=== PATIENT | male | born 1930 | race African-American/Black ===

== ENCOUNTER 2019-03-20 20:12 | Emergency (ER) | payer OTHER ==
--- NOTE | 2019-03-20 20:18 | PDOC ---
Rapid Medical Evaluation Time Seen by Provider: 03/20/19 20:16 Medical Evaluation: Allergies Allergy/AdvReac Type Severity Reaction Status Date / Time kiwi Allergy Severe Hives Verified 03/20/19 20:16 Penicillins Allergy Unknown Verified 03/20/19 20:16 03/20/19 20:16 CC: Groin pain Pt is an 88 y/o male who presents to the ED with a pain in the groin since this evening. He denies any dysuria. He denies any dysuria. No fever. Brief exam: no acute distress, R groin pain appreciated. No acute abdominal pain appreciated. Orders: labs, iv To ED for further evaluation Discharge Disposition - Diagnosis Groin pain - Referrals Referrals: Alyson Yang MD [Primary Care Provider] - - Patient Instructions - Post Discharge Activity
[2019-03-20 20:19] VITALS: TEMP 97.4; BMI 24.5
[2019-03-20 21:01] LABS: BASO % 0.9 % (0-2.0); HEMATOCRIT 28.7 % (35.4-49); HEMOGLOBIN 8.9 GM/dL (11.7-16.9); LYMPH % 28.7 % (8-40); MCH 28.4 pg (25.7-33.7); MEAN CELL VOLUME 91.7 fl (80-96); MEAN PLT VOLUME 10.1 fl (7.5-11.1); MONO % 15.6 % (3.8-10.2); NEUT % 52.8 % (42.8-82.8); PLATELET COUNT 149 K/MM3 (134-434); RBC 3.13 M/mm3 (4.00-5.60); RDW 24.9 % (11.9-15.9); WHITE BLOOD COUNT 4.4 K/mm3 (4.0-10.0)
[2019-03-20] MEDS ORDERED: ACETAMINOPHEN 1000 MG/100 ML VIAL (NON FORMULARY) IVPB ONE (21:05)
[2019-03-20 21:09] LABS: EPI CELLS 1.4 /HPF (0-5/HPF); HYALINE CASTS 4 /lpf (0-8); PH,URINE 5.5 (5.0-8.0); URINE APPEARANCE CLEAR; URINE BACTERIA 5.3 /hpf (NEGATIVE); URINE BILIRUBIN 1+ (NEGATIVE); URINE COLOR DK YELLOW; URINE GLUCOSE (UA) NEGATIVE (NEGATIVE); URINE KETONE TRACE (NEGATIVE); URINE LEUK ESTERASE NEGATIVE (NEGATIVE); URINE NITRITE NEGATIVE (NEGATIVE); URINE PROTEIN 1+ (NEGATIVE); URINE RBC 2 /hpf (0-4); URINE WBC 1 /hpf (0-5)
[2019-03-20 21:22] LABS: ADD RBC MORPHOLOGY YES
[2019-03-20 21:40] LABS: ALBUMIN 3.9 g/dl (3.4-5.0); BILIRUBIN,TOTAL 1.9 mg/dL (0.2-1); BLOOD UREA NITROGEN 30.2 mg/dL (7-18); CALCIUM 8.9 mg/dL (8.5-10.1); CREATININE 1.5 mg/dL (0.55-1.3); POTASSIUM 4.9 mmol/L (3.5-5.1); TOT PROT 7.9 g/dl (6.4-8.2)
[2019-03-20 21:47] LABS: ANISOCYTOSIS 3+; PLATELET ESTIMATE DECREASED; TARGET CELLS 1+
[2019-03-20] MEDS ORDERED: ACETAMINOPHEN INJECTION 100 ML IVPB ONE (22:21)
--- NOTE | 2019-03-20 22:50 | PDOC ---
Attending Attestation - Resident Resident Name: Dave Ivy - ED Attending Attestation I have performed the following: I have examined & evaluated the patient, The case was reviewed & discussed with the resident, I agree w/resident's findings & plan, Exceptions are as noted - HPI HPI: 03/20/19 22:48 88 M with h/o anemia of chronic disease, dysproteinemia, systolic CHF, a.fib ( on Coumadin), Mitral valve bioprosthetic 2003, ICD 2012, presenting to ED with 1 day of R groin pain. Pt states that he first noticed a bulge in his R groin today. This was accompanied by pain in the area. Pt denies N/V. Endorses chronic abdominal distention that is unchanged. Last BM was today, normal. - Physicial Exam PE: 03/20/19 22:49 "GENERAL: Awake, alert, and fully oriented, in no acute distress. HEAD: No signs of trauma EYES: PERRLA, EOMI, sclera anicteric, conjunctiva clear ENT: Auricles normal inspection, hearing grossly normal, nares patent, oropharynx clear without exudates. Moist mucosa NECK: Nontender, no stepoffs, Normal ROM, supple, no lymphadenopathy, JVD, or masses LUNGS: Breath sounds equal, clear to auscultation bilaterally. No wheezes, and no crackles HEART: Regular rate and rhythm, normal S1 and S2, no murmurs, rubs or gallops ABDOMEN: Soft, nontender, normoactive bowel sounds. No guarding, no rebound. No masses : + R inguinal hernia palpable EXTREMITIES: Normal range of motion, no edema. No clubbing or cyanosis. No cords, erythema, or tenderness NEUROLOGICAL: Cranial nerves II through XII intact. 5/5 strength and sensation in all extremities, Normal speech, normal gait, normal cerebellar function SKIN: Warm, Dry, normal turgor, no rashes or lesions noted. - Medical Decision Making 03/20/19 22:49 88 M with R groin pain. Will evaluate for incarcerated inguinal hernia. - Labs, lactate - CTAP 03/21/19 01:[address] shows bilateral fat containing inguinal hernias. Pt reassessed - pain well controlled Will DC with surgery f/u Pt is well appearing, with normal vitals. Clinically stable for DC at this time. I discussed the physical exam findings, ancillary test results and final diagnoses with the patient. I answered all of the patient's questions. The patient was satisfied with the care received and felt comfortable with the discharge plan and treatment plan. The patient agrees to follow up with the primary care physician within 24-72 hours.
--- NOTE | 2019-03-20 23:11 | PDOC ---
History of Present Illness <Marcella Maurer - Last Filed: 03/21/19 01:13> - General History Source: Patient Exam Limitations: No Limitations - History of Present Illness Initial Comments: Michael Huitron is an 88 yo M w a hx of CKD, anemia of chronic disease, dysproteinemia, systolic CHF, a.fib (on Coumadin), Mitral valve bioprosthetic 2003, ICD 2012, and stomach ulcer who presents to the [facility] er with 1 day of right groin pain. Patient states he feels like every time he walks there is an increased pressure and heaviness in his right groin and he feels extra pressure around his scrotum. The patient states this pain has become bothersome to the point where he wants to make sure it is not dangerous. He had a normal bowel movement earlier today without diarrhea or constipation. The pain is isolated to the right lower quadrant of his abdomen and it does not radiate to his back, flank, or upper abdomen. Denies nausea, vomiting, diarrhea, constipation, chest pain, SOB, difficulty breathing, dysuria, frequency, urgency, back pain, abnormal testicular discharge. PCP: Dr. Yang PSH: Cardiac sx, ICD Social Hx: Independent in ADL. Denies smoking, drinking, or other substance abuse Allergies: Kiwi, penicillins <Dave Ivy - Last Filed: 03/21/19 17:11> - General Chief Complaint: Pain Stated Complaint: GROIN PAIN Time Seen by Provider: 03/20/19 20:16 Past History <Marcella Maurer - Last Filed: 03/21/19 01:13> - Past Medical History Anemia: Yes (NORMOCYTIC NORMOCHROMIC ANEMIA) Asthma: No Cancer: No Cardiac Disorders: Yes (MITRAL VALVE SURGERY, PACEMAKER/DEFIBRILLATOR 12/01 ATRIAL FIBRILLATION) CVA: No COPD: Yes CHF: No Dementia: No Diabetes: No GI Disorders: Yes (ULCER,) Disorders: Yes (BPH) HTN: No Hypercholesterolemia: No Liver Disease: Yes (HEPATITIS B ?) Seizures: No Thyroid Disease: No - Surgical History Abdominal Surgery: No Appendectomy: No Cardiac Surgery: Yes (MITRAL VALVE REPAIR) Cholecystectomy: No Lung Surgery: No Neurologic Surgery: No Orthopedic Surgery: No - Immunization History Td Vaccination: Yes Immunization Up to Date: Yes - Psycho Social/Smoking Cessation Hx Smoking Status: Yes Smoking History: Never smoked Have you smoked in the past 12 months: No Number of Cigarettes Smoked Daily: 0 If you are a former smoker, when did you quit?: 1977 Information on smoking cessation initiated: No Hx Alcohol Use: No Drug/Substance Use Hx: No Substance Use Type: None Hx Substance Use Treatment: No <Dave Ivy - Last Filed: 03/21/19 17:11> - Past Medical History Allergies/Adverse Reactions: Allergies Allergy/AdvReac Type Severity Reaction Status Date / Time kiwi Allergy Severe Hives Verified 03/20/19 20:16 Penicillins Allergy Unknown Verified 03/20/19 20:16 Home Medications: Ambulatory Orders Carvedilol [Coreg -] 12.5 mg PO BID 09/30/13 Digoxin [Lanoxin -] 0.125 mg PO Q48H 02/24/15 Warfarin Na [Coumadin -] 3 mg PO DAILY 02/24/15 Calcitriol [Calcitriol -] 0.25 mcg PO DAILY 04/12/17 Furosemide [Lasix -] 40 mg PO DAILY PRN 04/12/17 Lansoprazole [Prevacid] 30 mg PO DAILY 04/12/17 Cefuroxime Axetil [Ceftin -] 250 mg PO BID #8 tablet 04/20/17 Colchicine 0.6 mg PO DAILY #7 tablet 04/20/17 Furosemide [Lasix -] 40 mg PO DAILY #30 tablet 04/20/17 Lisinopril [Prinivil] 10 mg PO DAILY #30 tablet 04/20/17 Spironolactone [Aldactone -] 12.5 mg PO DAILY #30 tablet 04/20/17 Review of Systems - Review of Systems Able to Perform ROS?: Yes Comments:: CONSTITUTIONAL: Absent: fever, no chills, no fatigue EYES: Absent: visual changes ENT: Absent: ear pain, no sore throat CARDIOVASCULAR: Absent: chest pain, no palpitations RESPIRATORY: Absent: cough, no SOB GI: Present: Abdominal pain Absent: no nausea, no vomiting, no constipation, no diarrhea GENITOURINARY: Absent: dysuria, no frequency, no hematuria MUSKULOSKELETAL: Absent: back pain, no arthralgia, no myalgia SKIN: Absent: rash NEURO: Absent: headache <Dave Ivy - Last Filed: 03/21/19 17:11> *Physical Exam - Vital Signs Last Vital Signs Temp Pulse Resp BP Pulse Ox 97.4 F L 86 16 107/59 L 99 03/20/19 20:16 03/20/19 20:16 03/20/19 20:16 03/20/19 20:16 03/20/19 20:16 <Marcella Maurer - Last Filed: 03/21/19 01:13> - Vital Signs Last Vital Signs Temp Pulse Resp BP Pulse Ox 97.4 F L 86 16 107/59 L 99 03/20/19 20:16 03/20/19 20:16 03/20/19 20:16 03/20/19 20:16 03/20/19 20:16 - Physical Exam GENERAL: Well-appearing, well-nourished. No apparent distress. HEENT: Normocephalic, atraumatic. PERRL, EOM intact. CARDIOVASCULAR: Normal S1, S2. Regular rate and rhythm. PULMONARY: No evidence of respiratory distress. Lungs clear to auscultation bilaterally. No wheezing, rales or rhonchi. ABDOMEN: There is a mild bulge in the inferior right groin region. There is a palpable hernia defect. The patient has a small reducible hernia. It is not TTP. Soft, non-distended, non-tender. Normal bowel sounds. No rebound or guarding. EXTREMITIES: Normal ROM in all four extremities. No gross deformities. SKIN: Warm, dry. No rash NEUROLOGICAL: No focal neurological deficits. <Dave Ivy - Last Filed: 03/21/19 17:11> ED Treatment Course - LABORATORY CBC & Chemistry Diagram: 03/20/19 20:33 03/20/19 20:33 - ADDITIONAL ORDERS Additional order review: Laboratory Results 03/20/19 03/20/19 03/20/19 22:30 20:33 20:33 Sodium 136 Potassium 4.9 Chloride 106 Carbon Dioxide 27 Anion Gap 4 L BUN 30.2 H Creatinine 1.5 H Est GFR (CKD-EPI)AfAm 48.16 Est GFR (CKD-EPI)NonAf 41.56 Random Glucose 95 Lactic Acid 0.8 Calcium 8.9 Total Bilirubin 1.9 H AST 37 ALT 30 Alkaline Phosphatase 147 H Total Protein 7.9 Albumin 3.9 Urine Color Dk yellow Urine Appearance Clear Urine pH 5.5 Ur Specific Carlotta 1.020 Urine Protein 1+ H Urine Glucose (UA) Negative Urine Ketones Trace H Urine Blood Negative Urine Nitrite Negative Urine Bilirubin 1+ H Urine Urobilinogen 2.0 Ur Leukocyte Esterase Negative Urine WBC (Auto) 1 Urine RBC (Auto) 2 Urine Casts (Auto) 4 U Epithel Cells (Auto) 1.4 Urine Bacteria (Auto) 5.3 03/20/19 20:33 RBC 3.13 L MCV 91.7 MCHC 31.0 L RDW 24.9 H MPV 10.1 D Neutrophils % 52.8 Lymphocytes % 28.7 Monocytes % 15.6 H Eosinophils % 2.0 Basophils % 0.9 - Medications Given in the ED: ED Medications Discontinued Medications Generic Name Dose Route Start Last Admin Trade Name Freq PRN Reason Stop Dose Admin Acetaminophen 1,000 mg 03/20/19 21:05 03/20/19 22:22 Ofirmev Injection - IVPB 03/20/19 21:06 1,000 mg ONCE ONE Administration <Marcella Maurer - Last Filed: 03/21/19 01:13> - LABORATORY CBC & Chemistry Diagram: 03/20/19 20:33 03/20/19 20:33 - ADDITIONAL ORDERS Additional order review: Laboratory Results 03/20/19 03/20/19 03/20/19 22:30 20:33 20:33 Sodium 136 Potassium 4.9 Chloride 106 Carbon Dioxide 27 Anion Gap 4 L BUN 30.2 H Creatinine 1.5 H Est GFR (CKD-EPI)AfAm 48.16 Est GFR (CKD-EPI)NonAf 41.56 Random Glucose 95 Lactic Acid 0.8 Calcium 8.9 Total Bilirubin 1.9 H AST 37 ALT 30 Alkaline Phosphatase 147 H Total Protein 7.9 Albumin 3.9 Urine Color Dk yellow Urine Appearance Clear Urine pH 5.5 Ur Specific Carlotta 1.020 Urine Protein 1+ H Urine Glucose (UA) Negative Urine Ketones Trace H Urine Blood Negative Urine Nitrite Negative Urine Bilirubin 1+ H Urine Urobilinogen 2.0 Ur Leukocyte Esterase Negative Urine WBC (Auto) 1 Urine RBC (Auto) 2 Urine Casts (Auto) 4 U Epithel Cells (Auto) 1.4 Urine Bacteria (Auto) 5.3 03/20/19 20:33 RBC 3.13 L MCV 91.7 MCHC 31.0 L RDW 24.9 H MPV 10.1 D Neutrophils % 52.8 Lymphocytes % 28.7 Monocytes % 15.6 H Eosinophils % 2.0 Basophils % 0.9 - Medications Given in the ED: ED Medications Discontinued Medications Generic Name Dose Route Start Last Admin Trade Name Indra PRN Reason Stop Dose Admin Acetaminophen 1,000 mg 03/20/19 21:05 03/20/19 22:22 Ofirmev Injection - IVPB 03/20/19 21:06 1,000 mg ONCE ONE Administration <Dave Ivy - Last Filed: 03/21/19 17:11> Medical Decision Making - Medical Decision Making Michael Huitron is an 88 yo M w a hx of CKD, anemia of chronic disease, dysproteinemia, systolic CHF, a.fib (on Coumadin), Mitral valve bioprosthetic 2003, ICD 2012, and stomach ulcer who presents to the [facility] er with 1 day of right groin pain. Patient states he feels like every time he walks there is an increased pressure and heaviness in his right groin and he feels extra pressure around his scrotum. The patient states this pain has become bothersome to the point where he wants to make sure it is not dangerous. He had a normal bowel movement earlier today without diarrhea or constipation. The pain is isolated to the right lower quadrant of his abdomen and it does not radiate to his back, flank, or upper abdomen. Denies nausea, vomiting, diarrhea, constipation, chest pain, SOB, difficulty breathing, dysuria, frequency, urgency, back pain, abnormal testicular discharge. Vital Signs Temp Pulse Resp BP Pulse Ox 97.4 F L 86 16 107/59 L 99 03/20/19 20:16 03/20/19 20:16 03/20/19 20:16 03/20/19 20:16 03/20/19 20:16 DDx IBNLT: Hernia - reducible vs irreducible, incarcerated vs strangulated, electrolyte/metabolic disturbance, anemia, renal injury, UTI/pylo, appendicitis Plan: Labs, Urine, CTAP, analgesia, re-assess. Labs: Anemia - appears to be chronic, JEWEL - also appears to be chronic Urine: No evidence of infection CTAP: Small b/l fat containing inguinal hernias Re-assessment: Patient feels better after analgesic relief. He is eating and drinking without pain the ER Disposition: Home with surgery and PCP fu - Strict return precautions - Patient will be signed out to Dr. Maurer to follow the CTAP read and for the rest of his ED workup and care <Dave Ivy - Last Filed: 03/21/19 17:11> Discharge <Marcella Maurer - Last Filed: 03/21/19 01:13> - Discharge Information Problems reviewed: Yes - Admission No <Dave Ivy - Last Filed: 03/21/19 17:11> - Discharge Information Clinical Impression/Diagnosis: Groin pain Qualifiers: Laterality: right Qualified Code(s): R10.31 - Right lower quadrant pain Condition: Improved Disposition: HOME - Follow up/Referral Referrals: Alyson Yang MD [Primary Care Provider] - Ilia Hemphill MD [Staff Physician] - Scotty Stiles MD [Staff Physician] - Rudi Chauhan DO [Staff Physician] - Sandhya Zamora DO [Staff Physician] - Jose Manuel Pryor MD [Staff Physician] - - Patient Discharge Instructions Patient Printed Discharge Instructions: DI for Groin Hernia Additional Instructions: You came into ER with groin pain. We believe you have a hernia. Please schedule a follow up appointment with the surgeon we are referring you to - Dr. Hemphill in the next 3 to 5 days. I also recommend follow up with the GI doctor for the cirrhosis. Come back to the ER immediately if your pain worsens, you get nauseous, start vomiting, cannot goto the bathrooom, get a fever, have severe pain or have any other new or worsening concerns. take tylenol as needed for pain. Thank you for coming to the [facility] ER. We hope you feel better soon! Print Language: GREEK - Post Discharge Activity
[2019-03-21 01:37] VITALS: BP 122/72; PULSE 83
== END 2019-03-21 01:30 | disposition home or self-care (01) ==
LOC: JER 20:12
PROC: 3E033GC Introduction of Other Therapeutic Substance into Peripheral Vein, Percutaneous Approach (ICD-10-PCS; principal; 2019-03-20)
DX: K40.20 Bilateral inguinal hernia, without obstruction or gangrene, not specified as recurrent (principal); I48.91 Unspecified atrial fibrillation; Z79.01 Long term (current) use of anticoagulants; I50.20 Unspecified systolic (congestive) heart failure; N18.9 Chronic kidney disease, unspecified; E88.09 Other disorders of plasma-protein metabolism, not elsewhere classified; D64.9 Anemia, unspecified; Z95.810 Presence of automatic (implantable) cardiac defibrillator; Z95.4 Presence of other heart-valve replacement; Z88.0 Allergy status to penicillin; Z91.018 Allergy to other foods
CPT/HCPCS: 36415; 74177-TC; 80053; 81003; 83605; 85025; 99283-25; J0131

== ENCOUNTER 2019-07-11 12:42 | Inpatient (IN) | payer OTHER ==
--- NOTE | 2019-07-11 13:07 | PDOC ---
History of Present Illness - General Chief Complaint: Shortness of Breath Stated Complaint: SOB - History of Present Illness Initial Comments: Michael Huitron is an 88 y/o male with PMH significant for CKD, anemia of chronic disease, dysproteinemia, sCHF, a-fib on coumadin, mitral valve bioprosthetic, ICD, stomach ulcer, presenting today with shortness of breath 1 hour ago. Called his psychological operations and was told to present to the ER. Shortness of breath is worse on exertion. Resting comfortably in bed at present. No headache/dizziness. No chest pain. No back pain. No abdominal pain, but also reports abdominal distension over the past couple of months after a right inguinal hernia repair was deferred due to COVID. Reports constipation and dark black stools over the past two weeks. Mild leg swelling which is baseline. No dysuria. Past History - Past Medical History Allergies/Adverse Reactions: Allergies Allergy/AdvReac Type Severity Reaction Status Date / Time kiwi Allergy Severe Hives Verified 07/11/19 13:10 Penicillins Allergy Unknown Verified 07/11/19 13:10 Home Medications: Ambulatory Orders Carvedilol [Coreg -] 12.5 mg PO BID 09/30/13 Digoxin [Lanoxin -] 0.125 mg PO Q48H 02/24/15 Warfarin Na [Coumadin -] 3 mg PO DAILY 02/24/15 Calcitriol [Calcitriol -] 0.25 mcg PO DAILY 04/12/17 Furosemide [Lasix -] 40 mg PO DAILY PRN 04/12/17 Lansoprazole [Prevacid] 30 mg PO DAILY 04/12/17 Cefuroxime Axetil [Ceftin -] 250 mg PO BID #8 tablet 04/20/17 Colchicine 0.6 mg PO DAILY #7 tablet 04/20/17 Furosemide [Lasix -] 40 mg PO DAILY #30 tablet 04/20/17 Lisinopril [Prinivil] 10 mg PO DAILY #30 tablet 04/20/17 Spironolactone [Aldactone -] 12.5 mg PO DAILY #30 tablet 04/20/17 Anemia: Yes (NORMOCYTIC NORMOCHROMIC ANEMIA) Asthma: No Cancer: No Cardiac Disorders: Yes (MITRAL VALVE SURGERY, PACEMAKER/DEFIBRILLATOR 12/01 ATRIAL FIBRILLATION) CVA: No COPD: Yes CHF: No Dementia: No Diabetes: No GI Disorders: Yes (ULCER,) Disorders: Yes (BPH) HTN: No Hypercholesterolemia: No Liver Disease: Yes (HEPATITIS B ?) Seizures: No Thyroid Disease: No - Surgical History Abdominal Surgery: No Appendectomy: No Cardiac Surgery: Yes (MITRAL VALVE REPAIR) Cholecystectomy: No Lung Surgery: No Neurologic Surgery: No Orthopedic Surgery: No - Immunization History Td Vaccination: Yes Immunization Up to Date: Yes - Psycho Social/Smoking Cessation Hx Smoking Status: Yes Smoking History: Never smoked Have you smoked in the past 12 months: No Number of Cigarettes Smoked Daily: 0 If you are a former smoker, when did you quit?: 1977 Information on smoking cessation initiated: No Hx Alcohol Use: No Drug/Substance Use Hx: No Substance Use Type: None Hx Substance Use Treatment: No Review of Systems - Review of Systems Comments:: GENERAL/CONSTITUTIONAL: No fever or chills. No weakness._ HEAD, EYES, EARS, NOSE AND THROAT: No change in vision. No change in hearing. No sore throat._ CARDIOVASCULAR: No chest pain. Reports shortness of breath. RESPIRATORY: Denies cough, hemoptysis_ GASTROINTESTINAL: No nausea, vomiting, diarrhea. Reports constipation. Reports black stools. GENITOURINARY: No dysuria, frequency, or change in urination._ MUSCULOSKELETAL: No joint or muscle swelling or pain. No neck or back pain._ SKIN: No rash_ NEUROLOGIC: No headache, vertigo, loss of consciousness, or change in strength/sensation._ ENDOCRINE: No increased thirst. No abnormal weight change_ HEMATOLOGIC/LYMPHATIC: No anemia, easy bleeding, or history of blood clots._ ALLERGIC/IMMUNOLOGIC: No hives or skin allergy._ *Physical Exam - Vital Signs Last Vital Signs Temp Pulse Resp BP Pulse Ox 97.4 F L 66 18 126/64 99 07/11/19 12:46 07/11/19 12:46 07/11/19 12:46 07/11/19 12:46 07/11/19 12:46 - Physical Exam GENERAL: Awake, alert, and oriented to person/place/time, in no acute distress_ HEAD: No signs of trauma, normocephalic, atraumatic _ EYES: PERRLA, EOMI, sclera anicteric, conjunctiva clear_ ENT: Hearing grossly normal, nares patent, oropharynx clear without exudates. No uvular deviation. Moist mucosa_ NECK: Normal ROM, supple, no lymphadenopathy, JVD, or masses_ LUNGS: No distress, speaks in full sentences. No crackles bilaterally. Minimal wheezes in left lung base. HEART: Paced, normal S1 and S2, no murmurs appreciated, peripheral pulses normal and equal bilaterally._ ABDOMEN: Soft, nontender, distended, hypertympanic. No guarding, no rebound. No masses_ EXTREMITIES: Normal inspection, Normal range of motion. 2+ pitting edema bilaterally. No clubbing or cyanosis_ NEUROLOGICAL: Cranial nerves II through XII grossly intact. Normal speech, normal gait, no focal sensorimotor deficits _ SKIN: Warm, Dry, normal turgor, no rashes or lesions noted_ RECTAL: Normal external exam. No gross bleeding. Normal rectal tone. Stool does not appear dark. No masses appreciated. ED Treatment Course - LABORATORY CBC & Chemistry Diagram: 07/11/19 13:10 07/11/19 13:10 - RADIOLOGY Radiology Studies Ordered: Category Date Time Status CHEST X-RAY PORTABLE* [RAD] Stat Radiology 07/11/19 12:53 Taken Medical Decision Making - Medical Decision Making 07/11/19 13:12 88M with extensive PMH presenting today with shortness of breath over the past hour, abdominal distension for the past couple of months, black stools and constipation for the psat two weeks. -cbc, cmp, bnp -ekg, trop, cxr -fecal occult blood -CT abd -coags 07/11/19 13:16 EKG shows ventricular paced rhythm, 55 bpm, no ST elevation, QTc 438, no axis deviation. 07/11/19 13:45 CXR shows cardiomegaly without other acute intrathoracic findings. 07/11/19 14:46 Labs reviewed. Laboratory Tests 07/11/19 07/11/19 07/11/19 13:10 13:10 13:10 WBC 6.1 RBC 2.16 L Hgb 6.5 L* Hct 20.5 L D MCV 94.8 MCH 30.0 MCHC 31.6 L RDW 24.1 H Plt Count 119 L D MPV 9.8 Absolute Neuts (auto) 3.9 Neutrophils % 64.6 D Lymphocytes % 18.4 D Monocytes % 15.6 H Eosinophils % 0.8 Basophils % 0.6 Nucleated RBC % 1 H PT with INR 21.30 H INR 1.79 H PTT (Actin FS) 36.5 Sodium 140 Potassium 6.3 H* Chloride 110 H Carbon Dioxide 24 Anion Gap 6 L BUN 84.3 H Creatinine 3.5 H Est GFR (CKD-EPI)AfAm 17.29 Est GFR (CKD-EPI)NonAf 14.92 Random Glucose 95 Calcium 9.0 Total Bilirubin 1.3 H AST 33 ALT 29 Alkaline Phosphatase 84 Creatine Kinase 64 Troponin I 0.46 H B-Natriuretic Peptide 3060.2 H Total Protein 7.1 Albumin 3.6 Potasssium elevated. No changes seen on EKG. Will give calcium gluconate, bicarb, insulin, glucose. 07/11/19 15:30 D/w Dr. Hines who recommends 80 of lasix and 25 mg of albumin. 07/11/19 18:55 Labs reviewed. Laboratory Last Values WBC 6.1 K/mm3 (4.0-10.0) 07/11/19 13:10 RBC 2.16 M/mm3 (4.00-5.60) L 07/11/19 13:10 Hgb 6.5 GM/dL (11.7-16.9) L* 07/11/19 13:10 Hct 20.5 % (35.4-49) L D 07/11/19 13:10 MCV 94.8 fl (80-96) 07/11/19 13:10 MCH 30.0 pg (25.7-33.7) 07/11/19 13:10 MCHC 31.6 g/dl (32.0-35.9) L 07/11/19 13:10 RDW 24.1 % (11.9-15.9) H 07/11/19 13:10 Plt Count 119 K/MM3 (134-434) L D 07/11/19 13:10 MPV 9.8 fl (7.5-11.1) 07/11/19 13:10 Absolute Neuts (auto) 3.9 K/mm3 (1.5-8.0) 07/11/19 13:10 Neutrophils % 64.6 % (42.8-82.8) D 07/11/19 13:10 Neutrophils % (Manual) 67.7 % (42.8-82.8) 07/11/19 13:10 Band Neutrophils % 0.0 % 07/11/19 13:10 Lymphocytes % 18.4 % (8-40) D 07/11/19 13:10 Lymphocytes % (Manual) 20.2 % (8-40) 07/11/19 13:10 Monocytes % 15.6 % (3.8-10.2) H 07/11/19 13:10 Monocytes % (Manual) 10 % (3.8-10.2) 07/11/19 13:10 Eosinophils % 0.8 % (0-4.5) 07/11/19 13:10 Eosinophils % (Manual) 0.0 % (0-4.5) D 07/11/19 13:10 Basophils % 0.6 % (0-2.0) 07/11/19 13:10 Basophils % (Manual) 1.0 % (0-2.0) D 07/11/19 13:10 Myelocytes % (Man) 0 % (0-2) 07/11/19 13:10 Promyelocytes % (Man) 0 % (0-2) 07/11/19 13:10 Blast Cells % (Manual) 0 % (0-0) 07/11/19 13:10 Nucleated RBC % 3 % (0-0) H 07/11/19 13:10 Metamyelocytes 0 % (0-2) D 07/11/19 13:10 Hypochromia 0 07/11/19 13:10 Platelet Estimate Decreased 07/11/19 13:10 Polychromasia 1+ 07/11/19 13:10 Poikilocytosis 2+ 07/11/19 13:10 Anisocytosis 1+ 07/11/19 13:10 Microcytosis 0 07/11/19 13:10 Macrocytosis 1+ 07/11/19 13:10 Spherocytes 1+ 07/11/19 13:10 Target Cells 1+ 07/11/19 13:10 Tear Drop Cells 1+ 07/11/19 13:10 Ovalocytes 1+ 07/11/19 13:10 Helmet Cells 1+ 07/11/19 13:10 Juany Cells 1+ 07/11/19 13:10 PT with INR 21.30 SEC (9.7-13.0) H 07/11/19 13:10 INR 1.79 (0.83-1.09) H 07/11/19 13:10 PTT (Actin FS) 36.5 SECONDS (25.2-36.5) 07/11/19 13:10 Sodium 140 mmol/L (136-145) 07/11/19 13:10 Potassium 6.3 mmol/L (3.5-5.1) H* 07/11/19 13:10 Chloride 110 mmol/L (98-107) H 07/11/19 13:10 Carbon Dioxide 24 mmol/L (21-32) 07/11/19 13:10 Anion Gap 6 MMOL/L (8-16) L 07/11/19 13:10 BUN 84.3 mg/dL (7-18) H 07/11/19 13:10 Creatinine 3.5 mg/dL (0.55-1.3) H 07/11/19 13:10 Est GFR (CKD-EPI)AfAm 17.29 07/11/19 13:10 Est GFR (CKD-EPI)NonAf 14.92 07/11/19 13:10 Random Glucose 95 mg/dL (74-106) 07/11/19 13:10 Calcium 9.0 mg/dL (8.5-10.1) 07/11/19 13:10 Total Bilirubin 1.3 mg/dL (0.2-1) H 07/11/19 13:10 AST 33 U/L (15-37) 07/11/19 13:10 ALT 29 U/L (13-61) 07/11/19 13:10 Alkaline Phosphatase 84 U/L (45-117) 07/11/19 13:10 Creatine Kinase 64 U/L (26-308) 07/11/19 13:10 Troponin I 0.46 ng/ml (0.00-0.05) H 07/11/19 13:10 B-Natriuretic Peptide 3060.2 pg/ml (5-450) H 07/11/19 13:10 Total Protein 7.1 g/dl (6.4-8.2) 07/11/19 13:10 Albumin 3.6 g/dl (3.4-5.0) 07/11/19 13:10 Stool Occult Blood Positive (NEGATIVE) 07/11/19 13:55 Blood Type B POSITIVE 07/11/19 16:48 Antibody Screen Negative 07/11/19 16:48 Crossmatch See Detail 07/11/19 16:48 CT abdomen shows right pleural effusion and ascites. 07/11/19 19:31 D/w URSULA Schwarz who accepts the patient for admission. Discharge - Discharge Information Problems reviewed: Yes Clinical Impression/Diagnosis: Shortness of breath CHF (congestive heart failure) Qualifiers: Heart failure type: systolic Heart failure chronicity: acute on chronic Qualified Code(s): I50.23 - Acute on chronic systolic (congestive) heart failure Ascites Qualifiers: Ascites type: other type Qualified Code(s): R18.8 - Other ascites Condition: Stable - Admission Yes - Follow up/Referral - Patient Discharge Instructions - Post Discharge Activity
[2019-07-11 13:44] LABS: BASO % 0.6 % (0-2.0); EOS % 0.8 % (0-4.5); HEMATOCRIT 20.5 % (35.4-49); LYMPH % 18.4 % (8-40); MCHC 31.6 g/dl (32.0-35.9); MEAN CELL VOLUME 94.8 fl (80-96); MEAN PLT VOLUME 9.8 fl (7.5-11.1); MONO % 15.6 % (3.8-10.2); NEUT % 64.6 % (42.8-82.8); PLATELET COUNT 119 K/MM3 (134-434); RBC 2.16 M/mm3 (4.00-5.60); RDW 24.1 % (11.9-15.9); WHITE BLOOD COUNT 6.1 K/mm3 (4.0-10.0)
[2019-07-11 13:52] LABS: INR 1.79 (0.83-1.09); PROTHROMBIN TIME (PATIENT) 21.3 SEC (9.7-13.0)
[2019-07-11 13:53] LABS: HEMOGLOBIN 6.5 GM/dL (11.7-16.9)
[2019-07-11 13:55] LABS: ACTIVATED PTT 36.5 SECONDS (25.2-36.5)
--- NOTE | 2019-07-11 13:58 | PDOC ---
Documentation entered by Adeel Ruiz SCRIBE, acting as scribe for Troy Soni MD. Troy Soni MD: This documentation has been prepared by the Sara england Nirvannie, SCRIBE, under my direction and personally reviewed by me in its entirety. I confirm that the documentation accurately reflects all work, treatment, procedures, and medical decision making performed by me. Attending Attestation - Resident Resident Name: HernandezRandy - ED Attending Attestation I have performed the following: I have examined & evaluated the patient, The case was reviewed & discussed with the resident, I agree w/resident's findings & plan, Exceptions are as noted - HPI HPI: 07/11/19 13:07 The patient is a 88 year old male with a significant past medical history of CKD, chronic anemia, dysproteinemia, systolic CHF, Afib (on Coumadin), Mitral valve bioprosthetic 2003, s/p ICD (13), and stomach ulcer who presents to the ED with 1 day of gradual onset shortness of breath worsened with exertion. Patient states he has been doing well for several days however today as he was putting on his clothes he noticed that he was more out of breath than usual. Patient does endorse mild shortness of breath with exertion recently after walking up several flights of stairs. He notes associated 2 days of mild constipation with black stools. denie any yoon blood, melnea. Pt also notes he has had distended abdomen for several months - he denies any associated fever, chills, coughing, chest pain, palpitation, lightheadedness, back pain, neck pain. Allergies: PCN, kiwi Primary Care Physician: Dr. Yang - Physicial Exam PE: 07/11/19 13:53 GENERAL: The patient is awake, alert, and fully oriented, Nontoxic - in no acute distress. HEAD: Normocephalic, atraumatic. EYES: extraocular movements intact, sclera anicteric, conjunctiva clear. ENT: Normal voice, Moist mucous membranes. NECK: Normal range of motion, supple LUNGS: Breath sounds equal, clear to auscultation bilaterally. No wheezes, no rhonchi, no rales. HEART: Regular rate and rhythm, normal S1 and S2 without murmur, rub or gallop. ABDOMEN: Soft, +distended no focal tenderness of abdomen, +fluid wave EXTREMITIES: Normal range of motion, no edema. NEUROLOGICAL: No facial assymetry, Normal speech, PSYCH: Normal mood, normal affect. SKIN: Warm, Dry, normal turgor, - Medical Decision Making 07/11/19 13:17 ddx - anemia, gib, malignancy, meabolic derangement will obtain labs, stool guaiac and ct abdomen 07/11/19 13:56 labs noted for anemia to hbg of 6.5, will transfuse pt also endorses having an elevated INR several weeks ago withou change in dose. will transfuse for sypmomatic anemia anticipate admission for [facility] 07/11/19 15:20 Patient's electrolytes noted for acute renal failure with hyperkalemia. EKG shows a paced rhythm without signs of peaked T waves nor widened intervals. We will treat the patient for hyperkalemia Heart Score/ECG Review - ECG Impressions Comment:: 07/11/19 13:57 Twelve-lead EKG was performed and reviewed by me. EKG performed: July 11, 2019, 13:05 Paced ventricular rhythm Rate of 55 No signs of ischemia via Sgarbossa criteria Discharge - Discharge Information Problems reviewed: Yes Clinical Impression/Diagnosis: Shortness of breath CHF (congestive heart failure) Qualifiers: Heart failure type: systolic Heart failure chronicity: acute on chronic Qualified Code(s): I50.23 - Acute on chronic systolic (congestive) heart failure Ascites Qualifiers: Ascites type: other type Qualified Code(s): R18.8 - Other ascites Condition: Stable - Follow up/Referral - Patient Discharge Instructions - Post Discharge Activity
[2019-07-11 14:34] LABS: ALBUMIN 3.6 g/dl (3.4-5.0); BILIRUBIN,TOTAL 1.3 mg/dL (0.2-1); BLOOD UREA NITROGEN 84.3 mg/dL (7-18); CREATININE 3.5 mg/dL (0.55-1.3); N-TERMINAL BNP 3060.2 pg/ml (5-450); TOT PROT 7.1 g/dl (6.4-8.2)
[2019-07-11 14:41] LABS: POTASSIUM 6.3 mmol/L (3.5-5.1)
[2019-07-11] MEDS ORDERED: CALCIUM GLUCONATE 10% - 1,000 MG/10 ML VIAL IVPB ONE ×2 (14:47→22:57)
[2019-07-11] MEDS ORDERED: INSULIN REGULAR HUMAN 100 UNITS/ML *VIAL IVPUSH ONE ×2 (14:50→22:59)
[2019-07-11] MEDS ORDERED: SODIUM BICARBONATE 8.4% 50 MEQ/50 ML DISP.SYRIN IVPUSH ONE ×2 (14:50→22:59)
[2019-07-11] MEDS ORDERED: DEXTROSE 50%-WATER - 25 GM/50 ML VIAL IVPUSH ONE ×2 (14:51→22:57)
[2019-07-11 14:59] LABS: ANISOCYTOSIS 1+; HELMET CELLS 1+; MACROCYTOSIS 1+; OVALOCYTE 1+; PLATELET ESTIMATE DECREASED; TARGET CELLS 1+; TEAR DROP CELLS 1+
[2019-07-11] MEDS ORDERED: ALBUMIN HUMAN 25% 12.5 GM/50 ML VIAL IVPB ONE (15:51)
[2019-07-11] MEDS ORDERED: FUROSEMIDE 40 MG/4 ML INJECTABLE VIAL IVPUSH ONE (15:51)
[2019-07-11] MEDS ORDERED: DEXTROSE 50%-WATER - 25 GM/50 ML VIAL ONE ×2 (15:52→23:52)
[2019-07-11] MEDS ORDERED: SODIUM BICARBONATE 8.4% 50 MEQ/50 ML VIAL ONE ×2 (15:53→23:52)
[2019-07-11] MEDS ORDERED: CALCIUM GLUCONATE 10% - 1,000 MG/10 ML VIAL ONE (15:53)
[2019-07-11] MEDS ORDERED: DEXTROSE 50%-WATER 25 GM/50 ML DISP.SYRIN ONE (15:54)
[2019-07-11] MEDS ORDERED: PANTOPRAZOLE SODIUM 40 MG VIAL IVPUSH ONE (16:09)
--- NOTE | 2019-07-11 18:10 | CONSULT ---
Consult Consult Specialty:: Nephrology Reason for Consultation:: JEWEL - History of Present Illness Chief Complaint: edema, abd bloading and shortness of breath History of Present Illness: Pt is an 88 year old male with pmhx of ckd, anemia, chf, a-fib, peptic ulcer disease and hld who presents with increased shortness of breath. He says that his shortness of breath has been progressively worse. He is on lasix at home. He also complains of abdominal distention and lower ext edema. He says that his stools have been dark. He denies dysuria. He denies nsaid use. He last took his diuretics today. He was found to be in acute renal failure and found to be h yperkalemic. He denies chest pain or palpitations. consult called stat, came in and saw pt in er - History Source History Provided By: Patient, Medical Record - Past Medical History Cardio/Vascular: Yes: AFIB (has ICD), CHF (EF about 40% on echo, ), HTN, Mitral Insufficiency (requiring bioprosthetic MVR 2013) Pulmonary: Yes: Other (sporadic dry cough (pt believes this did not occur until he began taking lisinopril)) Gastrointestinal: Yes: Diverticulosis, Gastritis, Hiatal Hernia Hepatobiliary: Yes: Other (fatty liver) Renal/: Yes: BPH (had green light laser at [facility]) Rheumatology: Yes: Gout - Past Surgical History Past Surgical History: Yes: AICD (November 2012), Colonoscopy, TURP (green light laser at [facility]), Upper Endoscopy, Valve Replacement (mitral valve biosynthetic valve replacement 2003) - Alcohol/Substance Use Hx Alcohol Use: No History of Substance Use: reports: None - Smoking History Smoking history: Never smoked Have you smoked in the past 12 months: No Aproximately how many cigarettes per day: 0 If you are a former smoker, when did you quit?: 1977 - Social History Usual Living Arrangement: With Spouse ADL: Independent Occupation: retired IT for [employer] History of Recent Travel: No Home Medications - Allergies Allergies/Adverse Reactions: Allergies Allergy/AdvReac Type Severity Reaction Status Date / Time kiwi Allergy Severe Hives Verified 07/11/19 13:10 Penicillins Allergy Unknown Verified 07/11/19 13:10 - Home Medications Home Medications: Ambulatory Orders Carvedilol [Coreg -] 12.5 mg PO BID 09/30/13 Digoxin [Lanoxin -] 0.125 mg PO Q48H 02/24/15 Warfarin Na [Coumadin -] 3 mg PO DAILY 02/24/15 Calcitriol [Calcitriol -] 0.25 mcg PO DAILY 04/12/17 Furosemide [Lasix -] 40 mg PO DAILY PRN 04/12/17 Lansoprazole [Prevacid] 30 mg PO DAILY 04/12/17 Cefuroxime Axetil [Ceftin -] 250 mg PO BID #8 tablet 04/20/17 Colchicine 0.6 mg PO DAILY #7 tablet 04/20/17 Furosemide [Lasix -] 40 mg PO DAILY #30 tablet 04/20/17 Lisinopril [Prinivil] 10 mg PO DAILY #30 tablet 04/20/17 Spironolactone [Aldactone -] 12.5 mg PO DAILY #30 tablet 04/20/17 Family Medical History Family History: Denies Review of Systems - Review of Systems Constitutional: reports: Malaise. denies: Chills, Fever Eyes: reports: No Symptoms HENT: reports: No Symptoms Neck: reports: No Symptoms Cardiovascular: reports: Edema, Shortness of Breath Respiratory: reports: SOB, SOB on Exertion Gastrointestinal: reports: Other (ascites) Genitourinary: reports: No Symptoms Musculoskeletal: reports: No Symptoms Integumentary: reports: No Symptoms Neurological: reports: No Symptoms Psychiatric: reports: No Symptoms Physical Exam Vital Signs: Vital Signs Temperature 97.4 F L 07/11/19 12:46 Pulse Rate 58 L 07/11/19 16:53 Respiratory Rate 14 07/11/19 16:53 Blood Pressure 120/70 07/11/19 16:53 O2 Sat by Pulse Oximetry (%) 96 07/11/19 16:53 Constitutional: Yes: Calm Eyes: Yes: Conjunctiva Clear HENT: Yes: Atraumatic Neck: Yes: Supple Cardiovascular: Yes: S1, S2 Respiratory: Yes: On Nasal O2, Rhonchi Gastrointestinal: Yes: Ascites Renal/: Yes: WNL Musculoskeletal: Yes: WNL Edema: Yes Edema: LLE: 3+, RLE: 3+ Neurological: Yes: Oriented Psychiatric: Yes: Oriented Labs: CBC, BMP 07/11/19 13:10 07/11/19 13:10 Imaging - Results Chest X-ray: Report Reviewed Problem List - Problems (1) JEWEL (acute kidney injury) Code(s): N17.9 - ACUTE KIDNEY FAILURE, UNSPECIFIED (2) Hyperkalemia Code(s): E87.5 - HYPERKALEMIA (3) A-fib Code(s): I48.91 - UNSPECIFIED ATRIAL FIBRILLATION (4) AICD (automatic cardioverter/defibrillator) present Code(s): Z95.810 - PRESENCE OF AUTOMATIC (IMPLANTABLE) CARDIAC DEFIBRILLATOR (5) Ascites Code(s): R18.8 - OTHER ASCITES (6) CHF (congestive heart failure) Code(s): I50.9 - HEART FAILURE, UNSPECIFIED Qualifiers: Heart failure type: systolic Heart failure chronicity: acute on chronic Qualified Code(s): I50.23 - Acute on chronic systolic (congestive) heart failure Assessment/Plan Impression 1. JEWEL 2. hyperkalemia 3. ascites 4. fluid overload 5. chf 6. ckd 7. 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
--- NOTE | 2019-07-11 19:32 | HP ---
Admitting History and Physical - Primary Care Physician PCP: Alyson Yang - Admission Chief Complaint: SOB, Abdominal Distention, Constipation, Dark Stools History of Present Illness: This is a 88 y/o male with a significant past medical history of CKD, Chronic Anemia, Dysproteinemia, Systolic CHF, Afib (on Coumadin), Mitral Valve bioprosthetic 2003, s/p ICD (13), Gastric Ulcer. Who presents to the ED with 1 day of gradual onset shortness of breath worsened with exertion. Patient states he has been doing well for several days however today as he was putting on his clothes he noticed that he was more out of breath than usual. Patient does endorse mild shortness of breath with exertion recently after walking up several flights of stairs. He notes associated 2 days of mild constipation with black stools. denies any yoon blood, melena Patient also reports abdominal distention for several months which he attributes to a hernia that he is waiting to have repaired. Patient denies fever, chills, cough, chest pain, palpitation, lightheadedness, nausea, vomiting, dysuria. History Source: Patient Limitations to Obtaining History: No Limitations - Past Medical History Cardiovascular: Yes: AFIB (has ICD), CHF (EF about 40% on echo, ), HTN, Mitral Insufficiency (requiring bioprosthetic MVR 2013) Pulmonary: Yes: Other (sporadic dry cough (pt believes this did not occur until he began taking lisinopril)) Gastrointestinal: Yes: Diverticulosis, Gastritis, Hiatal Hernia Hepatobiliary: Yes: Other (fatty liver) Renal/: Yes: BPH (had green light laser at [facility]) Heme/Onc: Yes: Anemia Rheumatology: Yes: Gout - Past Surgical History Past Surgical History: Yes: AICD (November 2012), Colonoscopy, Permanent Pacemaker, TURP (green light laser at [facility]), Upper Endoscopy, Valve Replacement (mitral valve biosynthetic valve replacement 2003) - Smoking History Smoking history: Former smoker Have you smoked in the past 12 months: No Aproximately how many cigarettes per day: 0 If you are a former smoker, when did you quit?: 1977 - Alcohol/Substance Use Hx Alcohol Use: No History of Substance Use: reports: None - Social History Usual Living Arrangement: Yes: With Spouse, With Child ADL: Independent Occupation: retired IT for [employer] History of Recent Travel: No Home Medications - Allergies Allergies/Adverse Reactions: Allergies Allergy/AdvReac Type Severity Reaction Status Date / Time kiwi Allergy Severe Hives Verified 07/11/19 13:10 Penicillins Allergy Unknown Verified 07/11/19 13:10 - Home Medications Home Medications: Ambulatory Orders Carvedilol [Coreg -] 12.5 mg PO BID 09/30/13 Digoxin [Lanoxin -] 0.125 mg PO Q48H 02/24/15 Warfarin Na [Coumadin -] 3 mg PO DAILY 02/24/15 Calcitriol [Calcitriol -] 0.25 mcg PO DAILY 04/12/17 Furosemide [Lasix -] 40 mg PO DAILY PRN 04/12/17 Lansoprazole [Prevacid] 30 mg PO DAILY 04/12/17 Cefuroxime Axetil [Ceftin -] 250 mg PO BID #8 tablet 04/20/17 Colchicine 0.6 mg PO DAILY #7 tablet 04/20/17 Furosemide [Lasix -] 40 mg PO DAILY #30 tablet 04/20/17 Lisinopril [Prinivil] 10 mg PO DAILY #30 tablet 04/20/17 Spironolactone [Aldactone -] 12.5 mg PO DAILY #30 tablet 04/20/17 Family Medical History Family Hx Cancer: Brother (Pancreatic) Family Hx Nuerologic Problems: Sister (Parkinson's), Brother (CVA) Review of Systems - Review of Systems Constitutional: reports: No Symptoms Eyes: reports: No Symptoms HENT: reports: No Symptoms Neck: reports: No Symptoms Cardiovascular: reports: Edema, Shortness of Breath Respiratory: reports: SOB, SOB on Exertion Gastrointestinal: reports: Bloating, Constipation, Other (Dark Stools) Genitourinary: reports: No Symptoms Breasts: reports: No Symptoms Reported Musculoskeletal: reports: No Symptoms Integumentary: reports: No Symptoms Neurological: reports: No Symptoms Endocrine: reports: No Symptoms Hematology/Lymphatic: reports: No Symptoms Psychiatric: reports: No Symptoms Physical Examination Vital Signs: Vital Signs Temperature 97.6 F 07/11/19 19:00 Pulse Rate 56 L 07/11/19 19:00 Respiratory Rate 16 07/11/19 19:00 Blood Pressure 101/62 07/11/19 19:00 O2 Sat by Pulse Oximetry (%) 100 07/11/19 19:00 Constitutional: Yes: No Distress, Calm Eyes: Yes: WNL, Conjunctiva Clear (pale), EOM Intact, PERRL HENT: Yes: WNL, Atraumatic, Normocephalic Neck: Yes: WNL, Supple, Trachea Midline Cardiovascular: Yes: Regular Rate and Rhythm, S1, S2 Respiratory: Yes: Diminished, SOB on Exertion Gastrointestinal: Yes: Ascites, Hypoactive Bowel Sounds, Other ...Rectal Exam: Yes: Guaiac Positive Breast(s): Yes: WNL Musculoskeletal: Yes: WNL Extremities: Yes: WNL Edema: Yes Edema: LLE: 3+, RLE: 3+ Peripheral Pulses WNL: Yes Neurological: Yes: WNL, Alert, Oriented, Cran Nerves II-XII Intact ...Motor Strength: WNL Psychiatric: Yes: WNL, Alert, Oriented Labs: CBC, BMP 07/11/19 13:10 07/11/19 13:10 Imaging - Results Chest X-ray: Report Reviewed, Image Reviewed Cat Scan: Report Reviewed, Image Reviewed Ultrasound: Pending EKG: Image Reviewed Problem List - Problems (1) Symptomatic anemia Assessment/Plan: Likely secondary to GIB vs CKD Baseline 7.7-12.9 PRBCs x2 ordered Monitor CBC FE, TIBC, Ferritin Consider Hematology consult Stool Occult + Monitor vitals Code(s): D64.9 - ANEMIA, UNSPECIFIED (2) Hyperkalemia Assessment/Plan: Likely due to CKD Hyperkalemia protocol initiated in ED Repeat CMP tonight EKG reviewed- ventricular paced rhythm, no peaked Ts appreciated Appreciate Cardiology consult Continue cardiac monitoring Monitor CMP Code(s): E87.5 - HYPERKALEMIA (3) Ljupn-ky-abfoawd kidney injury Assessment/Plan: Baseline 1.0-4.0 Nephrology consulted and following Kidney and Bladder US Urine lytes, Urine creatinine Monitor CMP Avoid nephrotoxic drugs Code(s): N17.9 - ACUTE KIDNEY FAILURE, UNSPECIFIED; N18.9 - CHRONIC KIDNEY DISEASE, UNSPECIFIED (4) Systolic CHF, acute on chronic Assessment/Plan: Continue cardiac monitoring Appreciate Cardiology consult Chest Xray reviewed BNP 3060 Echo 11/28/12- EF 29.4, lvsf mod-severely reduced, rv mild dilated, rvsf mod reduced, la mild dilated, mild mr, mod-severe tr Echo- check lvef, wall motion Lasix given in ED, will defer to Cardiology Strict INOs Daily weights Monitor CMP Code(s): I50.23 - ACUTE ON CHRONIC SYSTOLIC (CONGESTIVE) HEART FAILURE (5) Elevated troponin Assessment/Plan: Likely due to demand ischemia chronic Serial enzymes Appreciate Cardiology consult Code(s): R79.89 - OTHER SPECIFIED ABNORMAL FINDINGS OF BLOOD CHEMISTRY (6) Ascites Assessment/Plan: Likely due to HF vs CKD CTAP image and report- reviewed Appreciate IR Consult for Paracentesis Appreciate GI consult Monitor vitals Monitor CBC, CMP Code(s): R18.8 - OTHER ASCITES Qualifiers: Ascites type: other type Qualified Code(s): R18.8 - Other ascites (7) A-fib Assessment/Plan: stable EKG reviewed Code(s): I48.91 - UNSPECIFIED ATRIAL FIBRILLATION (8) Total bilirubin, elevated Assessment/Plan: Likely due to chronic hepatic congestion secondary to worsening CHF Code(s): R17 - UNSPECIFIED JAUNDICE Assessment/Plan This is a 88 y/o male with a significant past medical history of CKD, Chronic Anemia, Dysproteinemia, Systolic CHF, Afib (on Coumadin), Mitral Valve bioprosthetic 2003, s/p ICD (13), Gastric Ulcer. Admitted to Telemetry for Symptomatic Anemia, Hyperkalemia, Acute on Chronic CHF, Acute on Chronic CKD, Troponinemia for further evaluation of their emergent condition. Plan: See Problem List FEN Fluid Restriction Treated for Hyperkalemia x2, monitor lytes closely NPO DVT ppx OOB TEDs Hold AC secondary to Anemia, GIB Code Status: Full Code Dispo: Requires Inpatient Care Visit type - Emergency Visit Emergency Visit: Yes ED Registration Date: 07/11/19 Care time: The patient presented to the Emergency Department on the above date and was hospitalized for further evaluation of their emergent condition. - New Patient This patient is new to me today: Yes Date on this admission: 07/11/19 - Critical Care Critical Care patient: No
--- NOTE | 2019-07-11 21:08 | CON.CARD ---
Consult Consult Specialty:: Cardiology - History of Present Illness History of Present Illness: This is a 88 y/o male with a significant past medical history of CKD, Chronic Anemia, Dysproteinemia, Systolic CHF, Afib (on Coumadin), Mitral Valve bioprosthetic 2003, s/p ICD (13), Gastric Ulcer. Who presents to the ED with 1 day of gradual onset shortness of breath worsened with exertion. Patient states he has been doing well for several days however today as he was putting on his clothes he noticed that he was more out of breath than usual. Patient does endorse mild shortness of breath with exertion recently after walking up several flights of stairs. He notes associated 2 days of mild constipation with black stools. denies any yoon blood, melena Patient also reports abdominal distention for several months which he attributes to a hernia that he is waiting to have repaired. Patient denies fever, chills, cough, chest pain, palpitation, lightheadedness, nausea, vomiting, dysuria. - History Source History Provided By: Patient, Medical Record - Past Medical History Cardio/Vascular: Yes: AFIB (has ICD), CHF (EF about 40% on echo, ), HTN, Mitral Insufficiency (requiring bioprosthetic MVR 2013) Pulmonary: Yes: Other (sporadic dry cough (pt believes this did not occur until he began taking lisinopril)) Gastrointestinal: Yes: Diverticulosis, Gastritis, Hiatal Hernia Hepatobiliary: Yes: Other (fatty liver) Renal/: Yes: BPH (had green light laser at [facility]) Rheumatology: Yes: Gout - Past Surgical History Past Surgical History: Yes: AICD (November 2012), Colonoscopy, Permanent Pacemaker, TURP (green light laser at [facility]), Upper Endoscopy, Valve Replacement (mitral valve biosynthetic valve replacement 2003) - Alcohol/Substance Use Hx Alcohol Use: No History of Substance Use: reports: None - Smoking History Smoking history: Never smoked Have you smoked in the past 12 months: No Aproximately how many cigarettes per day: 0 If you are a former smoker, when did you quit?: 1977 - Social History Usual Living Arrangement: With Spouse ADL: Independent 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 Home Medications - Allergies Allergies/Adverse Reactions: Allergies Allergy/AdvReac Type Severity Reaction Status Date / Time kiwi Allergy Severe Hives Verified 07/11/19 13:10 Penicillins Allergy Unknown Verified 07/11/19 13:10 - Home Medications Home Medications: Ambulatory Orders Carvedilol [Coreg -] 12.5 mg PO BID 09/30/13 Digoxin [Lanoxin -] 0.125 mg PO Q48H 02/24/15 Warfarin Na [Coumadin -] 3 mg PO DAILY 02/24/15 Calcitriol [Calcitriol -] 0.25 mcg PO DAILY 04/12/17 Furosemide [Lasix -] 40 mg PO DAILY PRN 04/12/17 Lansoprazole [Prevacid] 30 mg PO DAILY 04/12/17 Cefuroxime Axetil [Ceftin -] 250 mg PO BID #8 tablet 04/20/17 Colchicine 0.6 mg PO DAILY #7 tablet 04/20/17 Furosemide [Lasix -] 40 mg PO DAILY #30 tablet 04/20/17 Lisinopril [Prinivil] 10 mg PO DAILY #30 tablet 04/20/17 Spironolactone [Aldactone -] 12.5 mg PO DAILY #30 tablet 04/20/17 Review of Systems - Review of Systems Constitutional: reports: No Symptoms Eyes: reports: No Symptoms HENT: reports: No Symptoms Neck: reports: No Symptoms Cardiovascular: reports: No Symptoms Respiratory: reports: SOB, SOB on Exertion Gastrointestinal: reports: No Symptoms Genitourinary: reports: No Symptoms Breasts: reports: No Symptoms Reported Musculoskeletal: reports: No Symptoms Integumentary: reports: No Symptoms Neurological: reports: No Symptoms Endocrine: reports: No Symptoms Hematology/Lymphatic: reports: No Symptoms Psychiatric: reports: No Symptoms Vital Signs: Vital Signs Temperature 97.6 F 07/11/19 19:00 Pulse Rate 56 L 07/11/19 19:00 Respiratory Rate 16 07/11/19 19:00 Blood Pressure 101/62 07/11/19 19:00 O2 Sat by Pulse Oximetry (%) 100 07/11/19 19:00 Constitutional: Yes: Well Nourished, No Distress, Calm Eyes: Yes: WNL, Conjunctiva Clear, EOM Intact HENT: Yes: WNL, Atraumatic, Normocephalic Neck: Yes: WNL, Supple, Trachea Midline Respiratory: Yes: WNL, Regular, CTA Bilaterally Gastrointestinal: Yes: WNL, Normal Bowel Sounds Renal/: Yes: WNL Cardiovascular: Yes: WNL, Regular Rate and Rhythm, Pulse Irregular Murmur: Yes: Systolic Murmur Musculoskeletal: Yes: WNL Extremities: Yes: WNL Integumentary: Yes: WNL Neurological: Yes: WNL, Alert, Oriented ...Motor Strength: WNL Psychiatric: Yes: WNL, Alert, Oriented - Other Data Labs, Other Data: CBC, BMP 07/11/19 13:10 07/11/19 13:10 INR, PTT INR 1.79 (0.83-1.09) H 07/11/19 13:10 Troponin, BNP 07/11/19 13:10 Troponin I 0.46 H B-Natriuretic Peptide 3060.2 H Troponin, BNP 07/11/19 13:10 Troponin I 0.46 H B-Natriuretic Peptide 3060.2 H Problem List - Problems (1) JEWEL (acute kidney injury) Code(s): N17.9 - ACUTE KIDNEY FAILURE, UNSPECIFIED (2) Ascites Code(s): R18.8 - OTHER ASCITES Qualifiers: Ascites type: other type Qualified Code(s): R18.8 - Other ascites (3) CHF (congestive heart failure) Code(s): I50.9 - HEART FAILURE, UNSPECIFIED Qualifiers: Heart failure type: systolic Heart failure chronicity: acute on chronic Qualified Code(s): I50.23 - Acute on chronic systolic (congestive) heart failure (4) Elevated troponin Code(s): R79.89 - OTHER SPECIFIED ABNORMAL FINDINGS OF BLOOD CHEMISTRY (5) Hyperkalemia Code(s): E87.5 - HYPERKALEMIA (6) Prophylactic measure Code(s): Z29.9 - ENCOUNTER FOR PROPHYLACTIC MEASURES, UNSPECIFIED (7) Shortness of breath Code(s): R06.02 - SHORTNESS OF BREATH (8) Symptomatic anemia Code(s): D64.9 - ANEMIA, UNSPECIFIED (9) Systolic CHF, acute on chronic Code(s): I50.23 - ACUTE ON CHRONIC SYSTOLIC (CONGESTIVE) HEART FAILURE (10) Total bilirubin, elevated Code(s): R17 - UNSPECIFIED JAUNDICE (11) A-fib Code(s): I48.91 - UNSPECIFIED ATRIAL FIBRILLATION (12) AICD (automatic cardioverter/defibrillator) present Code(s): Z95.810 - PRESENCE OF AUTOMATIC (IMPLANTABLE) CARDIAC DEFIBRILLATOR (13) Acute hypercapnic respiratory failure Code(s): J96.02 - ACUTE RESPIRATORY FAILURE WITH HYPERCAPNIA (14) Tarcb-aq-zpiycxu kidney injury Code(s): N17.9 - ACUTE KIDNEY FAILURE, UNSPECIFIED; N18.9 - CHRONIC KIDNEY DISEASE, UNSPECIFIED (15) Atrial fibrillation and flutter Code(s): I48.91 - UNSPECIFIED ATRIAL FIBRILLATION; I48.92 - UNSPECIFIED ATRIAL FLUTTER (16) BPH (benign prostatic hypertrophy) Code(s): N40.0 - BENIGN PROSTATIC HYPERPLASIA WITHOUT LOWER URINRY TRACT SYMP (17) Chronic passive hepatic congestion Code(s): K76.1 - CHRONIC PASSIVE CONGESTION OF LIVER (18) BRADY (dyspnea on exertion) Code(s): R06.09 - OTHER FORMS OF DYSPNEA (19) Diverticula of colon Code(s): K57.30 - DVRTCLOS OF LG INT W/O PERFORATION OR ABSCESS W/O BLEEDING (20) Gastritis Code(s): K29.70 - GASTRITIS, UNSPECIFIED, WITHOUT BLEEDING (21) Gout Code(s): M10.9 - GOUT, UNSPECIFIED (22) Groin pain Code(s): R10.30 - LOWER ABDOMINAL PAIN, UNSPECIFIED Qualifiers: Laterality: right Qualified Code(s): R10.31 - Right lower quadrant pain (23) Hiatal hernia Code(s): K44.9 - DIAPHRAGMATIC HERNIA WITHOUT OBSTRUCTION OR GANGRENE (24) Hypercoagulable state Code(s): D68.59 - OTHER PRIMARY THROMBOPHILIA (25) Metabolic acidosis Code(s): E87.2 - ACIDOSIS (26) Normocytic normochromic anemia Code(s): D64.9 - ANEMIA, UNSPECIFIED (27) Pancytopenia Code(s): D61.818 - OTHER PANCYTOPENIA (28) Prosthetic mitral valve regurgitation Code(s): T82.03XA - LEAKAGE OF HEART VALVE PROSTHESIS, INITIAL ENCOUNTER (29) Systolic and diastolic CHF w/reduced LV function, NYHA class 4 Code(s): I50.40 - UNSP COMBINED SYSTOLIC AND DIASTOLIC (CONGESTIVE) HRT FAIL Assessment/Plan Acute/chronic systolic CHF; s/p ICD 2012 Nonobstructive CAD (coronary angiogram 2012) Chronic elevation of TNI noted since at least 2012 hyperkalemic emergency Acute renal dysfunction acute/chronic anemia; black stools (INR reportedly 3.8 last week) bioprosthetic mitral valve replacement 2003 ascites anxiety (exacerbated by worry of edvin COVID; pt was fearful of coming to hospital) Plan: Stop diuretics, ACEI, spironolactone Treat hyperkalemic emergency: Calcium, detrose + insulin, GI cation exchanger. Marked elevation in BUN/Cr; f/u, as well as Is and Os, fluid status, electrolytes, daily weight. Stop warfarin Stood quaiac; f/u anemia workup. GI w/u (hx stomach ulcer; ascites). Chronic TNi elevation, with multiple contributers to demand ischemia, including acute anemia and renal failure, CHF, AF, hypotension, sepsis F/u EKG ECHO for LVEF, chamber sizes, valve status
--- NOTE | 2019-07-11 22:14 | CON.CARD ---
Consult Consult Specialty:: cardiology Reason for Consultation:: shortness of breath; r/o bleed from warfarin - History of Present Illness Chief Complaint: Pt A&ox3; c/o feeling weak History of Present Illness: Mr. Huitron is an 88 year old black man with a significant past medical history of systolic CHF (nonobstructive CAD on coronary angiogram 2012); s/p ICD 2012, AF (on warfarin), bioprosthetic mitral valve 2003, chronic anemia, dysproteinemia, ascites (noted since at least 2017), chronic anemia, and stomach ulcer, who presents to the ED with several days of gradual onset shortness of breath worsened with exertion. Patient states he had been doing better for the past few days, since furosemide was increased; however today, as he was putting on his clothes he noticed that he was more out of breath than usual. Patient does endorse mild shortness of breath with exertion recently after walking up several flights of stairs. He notes associated 2 days of mild constipation, with black stools for the past 2 weeks; denies any yoon blood, melena. Pt also notes he has had distended abdomen for several months; he denies any associated fever, chills, coughing, chest pain, palpitation, lightheadedness, back pain, neck pain. Allergies: PCN, gus Primary Care Physician: Dr. Yang Tank House Operator: Dr. Garcia - History Source History Provided By: Patient, Medical Record Limitations to Obtaining History: No Limitations - Past Medical History Cardio/Vascular: Yes: AFIB (has ICD), CHF (EF about 40% on echo, ), HTN, Mitral Insufficiency (requiring bioprosthetic MVR 2013) Pulmonary: Yes: Other (sporadic dry cough (pt believes this did not occur until he began taking lisinopril)) Gastrointestinal: Yes: Diverticulosis, Gastritis, Hiatal Hernia Hepatobiliary: Yes: Other (fatty liver) Renal/: Yes: BPH (had green light laser at [facility]) Rheumatology: Yes: Gout - Past Surgical History Past Surgical History: Yes: AICD (November 2012), Colonoscopy, Permanent Pacemaker, TURP (green light laser at [facility]), Upper Endoscopy, Valve Replacement (mitral valve biosynthetic valve replacement 2003) - Alcohol/Substance Use Hx Alcohol Use: No History of Substance Use: reports: None - Smoking History Smoking history: Never smoked Have you smoked in the past 12 months: No Aproximately how many cigarettes per day: 0 If you are a former smoker, when did you quit?: 1977 - Social History Usual Living Arrangement: With Spouse ADL: Independent 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 Home Medications - Allergies Allergies/Adverse Reactions: Allergies Allergy/AdvReac Type Severity Reaction Status Date / Time kiwi Allergy Severe Hives Verified 07/11/19 13:10 Penicillins Allergy Unknown Verified 07/11/19 13:10 - Home Medications Home Medications: Ambulatory Orders Carvedilol [Coreg -] 12.5 mg PO BID 09/30/13 Digoxin [Lanoxin -] 0.125 mg PO Q48H 02/24/15 Warfarin Na [Coumadin -] 3 mg PO DAILY 02/24/15 Calcitriol [Calcitriol -] 0.25 mcg PO DAILY 04/12/17 Furosemide [Lasix -] 40 mg PO DAILY PRN 04/12/17 Lansoprazole [Prevacid] 30 mg PO DAILY 04/12/17 Cefuroxime Axetil [Ceftin -] 250 mg PO BID #8 tablet 04/20/17 Colchicine 0.6 mg PO DAILY #7 tablet 04/20/17 Furosemide [Lasix -] 40 mg PO DAILY #30 tablet 04/20/17 Lisinopril [Prinivil] 10 mg PO DAILY #30 tablet 04/20/17 Spironolactone [Aldactone -] 12.5 mg PO DAILY #30 tablet 04/20/17 Vital Signs: Vital Signs Temperature 97.6 F 07/11/19 19:00 Pulse Rate 56 L 07/11/19 19:00 Respiratory Rate 16 07/11/19 19:00 Blood Pressure 101/62 07/11/19 19:00 O2 Sat by Pulse Oximetry (%) 100 07/11/19 19:00 - Other Data Labs, Other Data: CBC, BMP 07/11/19 13:10 INR, PTT INR 1.79 (0.83-1.09) H 07/11/19 13:10 Troponin, BNP 07/11/19 13:10 Troponin I 0.46 H B-Natriuretic Peptide 3060.2 H Troponin, BNP 07/11/19 13:10 Troponin I 0.46 H B-Natriuretic Peptide 3060.2 H Assessment/Plan Acute/chronic systolic CHF; s/p ICD 2013 Nonobstructive CAD (coronary angiogram 2012) Chronic elevation of TNI noted since at least 2012 hyperkalemic emergency Acute renal dysfunction acute/chronic anemia; black stools (INR reportedly 3.8 last week) bioprosthetic mitral valve replacement 2003 ascites anxiety (exacerbated by worry of edvin COVID; pt was fearful of coming to hospital) Plan: Stop diuretics, ACEI, spironolactone Treat hyperkalemic emergency: Calcium, detrose + insulin, GI cation exchanger. Marked elevation in BUN/Cr; f/u, as well as Is and Os, fluid status, electrolytes, daily weight. Stop warfarin Stood quaiac; f/u anemia workup. GI w/u (hx stomach ulcer; ascites). Chronic TNi elevation, with multiple contributers to demand ischemia, including acute anemia and renal failure, CHF, AF, hypotension, sepsis F/u EKG ECHO for LVEF, chamber sizes, valve status
[2019-07-11 22:22] LABS: ALBUMIN 3.6 g/dl (3.4-5.0); BILIRUBIN,TOTAL 1.5 mg/dL (0.2-1); BLOOD UREA NITROGEN 90.1 mg/dL (7-18); CALCIUM 9.6 mg/dL (8.5-10.1); CREATININE 3.4 mg/dL (0.55-1.3); TOT PROT 6.8 g/dl (6.4-8.2)
[2019-07-11 22:38] LABS: POTASSIUM 6.6 mmol/L (3.5-5.1)
[2019-07-12 01:41] LABS: URINE APPEARANCE CLEAR; URINE BILIRUBIN NEGATIVE (NEGATIVE); URINE COLOR YELLOW; URINE GLUCOSE (UA) NEGATIVE (NEGATIVE); URINE KETONE NEGATIVE (NEGATIVE); URINE LEUK ESTERASE NEGATIVE (NEGATIVE); URINE NITRITE NEGATIVE (NEGATIVE); URINE PROTEIN TRACE (NEGATIVE)
--- NOTE | 2019-07-12 02:39 | HOSP ---
Subjective - Review of Symptoms Events since last encounter: Hospitalist Encounter Notified by the RN that the patient is hypotensive while receiving a blood transfusion, was asked to assess. Arrived to bedside, patient is alert, awake and oriented. Patient denies worsening SOB, dizziness, CP, palpitations or any other complaints. Patient was examined at bedside, see EMR. Plan: Transfusion Reaction work-up ordered Physical Examination Vital Signs: Vital Signs Temperature 98.3 F 07/11/19 21:58 Pulse Rate 55 L 07/11/19 21:58 Respiratory Rate 18 07/11/19 21:58 Blood Pressure 134/57 L 07/11/19 21:58 O2 Sat by Pulse Oximetry (%) 100 07/11/19 19:00 Constitutional: Yes: No Distress, Calm Eyes: Yes: Conjunctiva Clear (pale), EOM Intact, PERRL HENT: Yes: WNL, Atraumatic, Normocephalic Neck: Yes: WNL, Supple, Trachea Midline Cardiovascular: Yes: Regular Rate and Rhythm, S1, S2 Respiratory: Yes: Diminished Gastrointestinal: Yes: Ascites, Distention, Hypoactive Bowel Sounds Breast(s): Yes: WNL Musculoskeletal: Yes: WNL Edema: Yes Edema: LLE: 3+, RLE: 3+ Peripheral Pulses WNL: Yes Neurological: Yes: WNL, Alert, Oriented ...Motor Strength: WNL Psychiatric: Yes: WNL, Alert, Oriented Labs: CBC, BMP 07/11/19 13:10 07/11/19 21:10 Hospitalist Encounter Assessment: This is a 88 y/o male with a significant past medical history of CKD, Chronic Anemia, Dysproteinemia, Systolic CHF, Afib (on Coumadin), Mitral Valve bioprosthetic 2003, s/p ICD (13), Gastric Ulcer. Admitted to Telemetry for Symptomatic Anemia, Hyperkalemia, Acute on Chronic CHF, Acute on Chronic CKD, Troponinemia Outcome: Awaiting transfusion workup results Repeat CMP- K 5.7 from 6.6 Will continue to monitor
[2019-07-12 04:51] LABS: ANION GAP 6 MMOL/L (8-16); BLOOD UREA NITROGEN 83.5 mg/dL (7-18); CALCIUM 9.2 mg/dL (8.5-10.1); CHLORIDE 112 mmol/L (98-107); CO2 25 mmol/L (21-32); CREATININE 3.3 mg/dL (0.55-1.3); GLUCOSE,RANDOM 57 mg/dL (74-106); POTASSIUM 5.7 mmol/L (3.5-5.1); SODIUM 143 mmol/L (136-145)
[2019-07-12] MEDS ORDERED: DEXTROSE 50%-WATER - 25 GM/50 ML VIAL IVPUSH ONE ×2 (05:10→21:59)
[2019-07-12] MEDS ORDERED: DEXTROSE 50%-WATER - 25 GM/50 ML VIAL ONE ×2 (05:34→22:20)
--- NOTE | 2019-07-12 07:50 | PN ---
Progress Note, Physician Chief Complaint: Seen and examined in bed. Hypotensive last night after PRBC was infusing. Transfusion w/u done. No further episodes on melena over night. No abd pain On CM in NAD History of Present Illness: This is a 88 y/o male with a significant past medical history of CKD, Chronic Anemia, Dysproteinemia, Systolic CHF, Afib (on Coumadin), Mitral Valve bioprosthetic 2003, s/p ICD (13), Gastric Ulcer. Who presented to the ED with 1 day of gradual onset shortness of breath worsened with exertion and constipation with black stools - Objective Vital Signs: Vital Signs Temperature 98.5 F 07/12/19 05:00 Pulse Rate 55 L 07/12/19 05:00 Respiratory Rate 18 07/12/19 05:00 Blood Pressure 108/58 L 07/12/19 05:00 O2 Sat by Pulse Oximetry (%) 98 07/11/19 23:00 Constitutional: Yes: Well Nourished, No Distress, Calm Eyes: Yes: WNL, Conjunctiva Clear HENT: Yes: WNL, Atraumatic, Normocephalic Neck: Yes: WNL, Supple, Trachea Midline Cardiovascular: Yes: WNL, Regular Rate and Rhythm, Other (AICD to left chest) Respiratory: Yes: WNL, Regular, CTA Bilaterally, Diminished (at bases) Gastrointestinal: Yes: Soft, Ascites, Hypoactive Bowel Sounds, Melena ...Rectal Exam: Yes: Deferred, Guaiac Positive Genitourinary: Yes: WNL Breast(s): Yes: WNL Musculoskeletal: Yes: WNL Extremities: Yes: WNL Edema: Yes Edema: LLE: 3+, RLE: 3+ Peripheral Pulses WNL: Yes Peripheral Pulses: Left Radial: 2+, Right Radial: 2+, Left Doralis Pedis: 2+, Right Dorsalis Pedis: 2+, Left Femoral: 2+, Right Femoral: 2+ Integumentary: Yes: WNL Neurological: Yes: WNL, Alert, Oriented ...Motor Strength: LLE, RLE (generalized weakness) Psychiatric: Yes: WNL Labs: CBC, BMP 07/11/19 13:10 07/12/19 03:50 INR, PTT INR 1.79 (0.83-1.09) H 07/11/19 13:10 - ....Imaging Chest X-ray: Report Reviewed, Image Reviewed (right pleural effusion.) Cat Scan: Report Reviewed (Ascites noted. no acute pathology) Ultrasound: Pending (Renal US) Problem List - Problems (1) Prophylactic measure Assessment/Plan: FEN Fluids: no additional IVF Electrolytes: monitor & replete as needed Nutrition: NPO DVT moderate risk scd no chemical AC given ABLA Dispo Maintain as inpatient full code discharge planning Code(s): Z29.9 - ENCOUNTER FOR PROPHYLACTIC MEASURES, UNSPECIFIED (2) Ascites Assessment/Plan: moderate ascites on exam on aldactone/lasix at home hold while hypotensive and anemic consultation for IR to assess for paracentesis-Dr Fitch consulted Code(s): R18.8 - OTHER ASCITES Qualifiers: Ascites type: other type Qualified Code(s): R18.8 - Other ascites (3) Elevated troponin Assessment/Plan: Chronic TNi elevation, with multiple contributers to demand ischemia, including acute anemia and renal failure, CHF, AF, hypotension, sepsis no need to further trend Code(s): R79.89 - OTHER SPECIFIED ABNORMAL FINDINGS OF BLOOD CHEMISTRY (4) Hyperkalemia Assessment/Plan: K 6.8 insulin/Bicarb/d50 c/t monitor Code(s): E87.5 - HYPERKALEMIA (5) Systolic CHF, acute on chronic Assessment/Plan: holding diuretics as per cardiology c/t montior I/Os and level of edema may need lasix after prbc Code(s): I50.23 - ACUTE ON CHRONIC SYSTOLIC (CONGESTIVE) HEART FAILURE (6) Total bilirubin, elevated Assessment/Plan: Likely due to chronic hepatic congestion secondary to worsening CHF Code(s): R17 - UNSPECIFIED JAUNDICE (7) A-fib Assessment/Plan: hold dig with hypotension Hold AC secondary to Anemia, GIB Code(s): I48.91 - UNSPECIFIED ATRIAL FIBRILLATION (8) AICD (automatic cardioverter/defibrillator) present Code(s): Z95.810 - PRESENCE OF AUTOMATIC (IMPLANTABLE) CARDIAC DEFIBRILLATOR (9) Swgyo-bf-rgafivk kidney injury Assessment/Plan: Baseline 1.0-4.0 Nephrology consulted and following Kidney and Bladder US Urine lytes, Urine creatinine Monitor CMP Avoid nephrotoxic drugs Code(s): N17.9 - ACUTE KIDNEY FAILURE, UNSPECIFIED; N18.9 - CHRONIC KIDNEY DISEASE, UNSPECIFIED Visit type - Emergency Visit Emergency Visit: Yes ED Registration Date: 07/11/19 Care time: The patient presented to the Emergency Department on the above date and was hospitalized for further evaluation of their emergent condition. - New Patient This patient is new to me today: No - Critical Care Critical Care patient: No - Discharge Referral Referred to [facility] No
[2019-07-12 08:21] LABS: BASO % 1.1 % (0-2.0); EOS % 0.6 % (0-4.5); HEMATOCRIT 20.7 % (35.4-49); LYMPH % 15.7 % (8-40); MCHC 32.9 g/dl (32.0-35.9); MEAN CELL VOLUME 91.2 fl (80-96); MEAN PLT VOLUME 9.8 fl (7.5-11.1); MONO % 11.8 % (3.8-10.2); NEUT % 70.8 % (42.8-82.8); PLATELET COUNT 103 K/MM3 (134-434); RBC 2.27 M/mm3 (4.00-5.60); RDW 25.4 % (11.9-15.9); WHITE BLOOD COUNT 5.8 K/mm3 (4.0-10.0)
[2019-07-12 08:32] LABS: ALBUMIN 3.1 g/dl (3.4-5.0); ALK PHOS 71 U/L (45-117); BILIRUBIN,TOTAL 1.9 mg/dL (0.2-1); BLOOD UREA NITROGEN 87.6 mg/dL (7-18); CALCIUM 9.5 mg/dL (8.5-10.1); CHLORIDE 112 mmol/L (98-107); CO2 24 mmol/L (21-32); CREATININE 3.3 mg/dL (0.55-1.3); GLUCOSE,RANDOM 93 mg/dL (74-106); SGOT/AST 27 U/L (15-37); SGPT/ALT 24 U/L (13-61); SODIUM 142 mmol/L (136-145)
[2019-07-12 08:33] LABS: ANION GAP 5 MMOL/L (8-16); HEMOGLOBIN 6.8 GM/dL (11.7-16.9)
[2019-07-12 08:37] LABS: POTASSIUM 6.5 mmol/L (3.5-5.1)
[2019-07-12] MEDS: SODIUM ZIRCONIUM CYCLOSILICATE (LOKELMA) 10 GM PACKET PO SCH (09:58)
--- NOTE | 2019-07-12 10:08 | CON.GI ---
Consult Consult Specialty:: GI coverage for Dr Pryor - History of Present Illness History of Present Illness: *8 y/o male with PMH CHF Afib-Coumadin, iron deficiency anemia, bioprosthetic valve, Gastric ulcer, hiatal hernia, diverticulosis, inguinal hernia presented to the ER with 3 week history of progressive SOB,abdominal distention and bilateral leg edema. He had history of having dark stool but no melena. He is guaiac positive. In the ED his HGB was 6.5 and was in acute renal failure He denies abdominal pain nausea, vomiting, abdominal pain, melena and rectal bleeding - Past Medical History Cardio/Vascular: Yes: AFIB (has ICD), CHF (EF about 40% on echo, ), HTN, Mitral Insufficiency (requiring bioprosthetic MVR 2013) Pulmonary: Yes: Other (sporadic dry cough (pt believes this did not occur until he began taking lisinopril)) Gastrointestinal: Yes: Diverticulosis, Gastritis, Hiatal Hernia Hepatobiliary: Yes: Other (fatty liver) Renal/: Yes: BPH (had green light laser at [facility]) Rheumatology: Yes: Gout - Past Surgical History Past Surgical History: Yes: AICD (November 2012), Colonoscopy, Permanent Pacemaker, TURP (green light laser at [facility]), Upper Endoscopy, Valve Replacement (mitral valve biosynthetic valve replacement 2003) - Alcohol/Substance Use Hx Alcohol Use: No History of Substance Use: reports: None - Smoking History Smoking history: Never smoked Have you smoked in the past 12 months: No Aproximately how many cigarettes per day: 0 If you are a former smoker, when did you quit?: 1977 - Social History Usual Living Arrangement: With Spouse ADL: Independent Occupation: retired IT for [employer] History of Recent Travel: No Home Medications - Allergies Allergies/Adverse Reactions: Allergies Allergy/AdvReac Type Severity Reaction Status Date / Time kiwi Allergy Severe Hives Verified 07/11/19 13:10 Penicillins Allergy Unknown Verified 07/11/19 13:10 - Home Medications Home Medications: Ambulatory Orders Carvedilol [Coreg -] 12.5 mg PO BID 09/30/13 Digoxin [Lanoxin -] 0.125 mg PO Q48H 02/24/15 Warfarin Na [Coumadin -] 3 mg PO DAILY 02/24/15 Calcitriol [Calcitriol -] 0.25 mcg PO DAILY 04/12/17 Furosemide [Lasix -] 40 mg PO DAILY PRN 04/12/17 Lansoprazole [Prevacid] 30 mg PO DAILY 04/12/17 Cefuroxime Axetil [Ceftin -] 250 mg PO BID #8 tablet 04/20/17 Colchicine 0.6 mg PO DAILY #7 tablet 04/20/17 Furosemide [Lasix -] 40 mg PO DAILY #30 tablet 04/20/17 Lisinopril [Prinivil] 10 mg PO DAILY #30 tablet 04/20/17 Spironolactone [Aldactone -] 12.5 mg PO DAILY #30 tablet 04/20/17 Physical Exam-GI Vital Signs: Vital Signs Temperature 98.5 F 07/12/19 05:00 Pulse Rate 55 L 07/12/19 05:00 Respiratory Rate 18 07/12/19 05:00 Blood Pressure 108/58 L 07/12/19 05:00 O2 Sat by Pulse Oximetry (%) 98 07/11/19 23:00 Constitutional: Yes: No Distress Eyes: Yes: Conjunctiva Clear HENT: Yes: Atraumatic Neck: Yes: Supple Respiratory: Yes: Other (diminished at bases) ...Palpate: Yes: Soft. No: Firm/Rigid, Guarding, Hepatomegaly, Mass, Pulsatile Mass, Splenomegaly, Tenderness Edema: LLE: 3+, RLE: 3+ Labs: CBC, BMP 07/12/19 06:07 07/12/19 06:07 INR, PTT INR 1.79 (0.83-1.09) H 07/11/19 13:10 CBCD WBC 5.8 K/mm3 (4.0-10.0) 07/12/19 06:07 RBC 2.27 M/mm3 (4.00-5.60) L 07/12/19 06:07 Hgb 6.8 GM/dL (11.7-16.9) L* 07/12/19 06:07 Hct 20.7 % (35.4-49) L 07/12/19 06:07 MCV 91.2 fl (80-96) 07/12/19 06:07 MCHC 32.9 g/dl (32.0-35.9) 07/12/19 06:07 RDW 25.4 % (11.9-15.9) H 07/12/19 06:07 Plt Count 103 K/MM3 (134-434) L 07/12/19 06:07 MPV 9.8 fl (7.5-11.1) 07/12/19 06:07 CMP Sodium 142 mmol/L (136-145) 07/12/19 06:07 Potassium 6.5 mmol/L (3.5-5.1) H* 07/12/19 06:07 Chloride 112 mmol/L (98-107) H 07/12/19 06:07 Carbon Dioxide 24 mmol/L (21-32) 07/12/19 06:07 Anion Gap 5 MMOL/L (8-16) L 07/12/19 06:07 BUN 87.6 mg/dL (7-18) H 07/12/19 06:07 Creatinine 3.3 mg/dL (0.55-1.3) H 07/12/19 06:07 Calcium 9.5 mg/dL (8.5-10.1) 07/12/19 06:07 Total Bilirubin 1.9 mg/dL (0.2-1) H 07/12/19 06:07 AST 27 U/L (15-37) 07/12/19 06:07 ALT 24 U/L (13-61) 07/12/19 06:07 Alkaline Phosphatase 71 U/L (45-117) 07/12/19 06:07 Total Protein 6.0 g/dl (6.4-8.2) L 07/12/19 06:07 Albumin 3.1 g/dl (3.4-5.0) L 07/12/19 06:07 Imaging - Results Cat Scan: Report Reviewed (moderate right pleural effusion, ascitis) Problem List - Problems (1) Occult GI bleeding Assessment/Plan: R>transfuse to Hgb * serial HH continue PPI gi work up once medically cleared COVID testing pending Code(s): R19.5 - OTHER FECAL ABNORMALITIES (2) Ascites Assessment/Plan: most likely secondary to CHF associated with renal failure, mild to moderate by CT associated with abdominal wall edema R> continue diuretic as per renal Code(s): R18.8 - OTHER ASCITES Qualifiers: Ascites type: other type Qualified Code(s): R18.8 - Other ascites
[2019-07-12 11:03] LABS: ANISOCYTOSIS 2+; MACROCYTOSIS 1+; PLATELET ESTIMATE DECREASED; TARGET CELLS 1+; TEAR DROP CELLS 1+
[2019-07-12 11:14] LABS: LDH 137 U/L (87-246); MAGNESIUM 3.1 mg/dL (1.8-2.4)
--- NOTE | 2019-07-12 12:51 | EKG ---
Test Reason : Blood Pressure : / mmHG Vent. Rate : 055 BPM Atrial Rate : 058 BPM P-R Int : 000 ms QRS Dur : 144 ms QT Int : 458 ms P-R-T Axes : 000 262 069 degrees QTc Int : 438 ms Ventricular-paced rhythm ABNORMAL ECG WHEN COMPARED WITH ECG OF 15-APR-2017 09:27, NO SIGNIFICANT CHANGE WAS FOUND Confirmed by MD HAZEL, LAURA ([id number]) on 07/12/2019 12:51:10 PM Referred By: Confirmed By:LAURA OLIVA MD
[2019-07-12 15:08] LABS: LDH 136 U/L (87-246)
--- NOTE | 2019-07-12 19:13 | PN ---
Progress Note (short form) - Note Progress Note: Covering Dr Hines Problems 1. JEWEL 2. hyperkalemia 3. ascites 4. fluid overload 5. chf 6. ckd 7. a-fib Active Medications Sodium Zirconium Cyclosilicate (Lokelma) 10 gm PO DAILY ODILIA Last Admin: 07/12/19 09:58 Dose: 10 gm Documented by: Last Vital Signs Temp Pulse Resp BP Pulse Ox 98.3 F 56 L 18 99/56 L 98 07/12/19 18:00 07/12/19 18:00 07/12/19 18:00 07/12/19 18:00 07/12/19 09:00 CBC, BMP 07/12/19 06:07 07/12/19 06:07 IMP- Hyperkalemia multifactorial- renal disease, r/o tubular dysfunction from post renal factors, acei, and gi bleed severe anemia Plan- continue tx for hyperkalemia GI w/u
[2019-07-12 20:24] LABS: BASO % 0.8 % (0-2.0); EOS % 0.7 % (0-4.5); HEMATOCRIT 25.4 % (35.4-49); HEMOGLOBIN 8.2 GM/dL (11.7-16.9); MCH 29.9 pg (25.7-33.7); MCHC 32.5 g/dl (32.0-35.9); MEAN CELL VOLUME 92.2 fl (80-96); MEAN PLT VOLUME 9.7 fl (7.5-11.1); MONO % 12.2 % (3.8-10.2); NEUT % 71.3 % (42.8-82.8); PLATELET COUNT 110 K/MM3 (134-434); RBC 2.75 M/mm3 (4.00-5.60); RDW 24.1 % (11.9-15.9); WHITE BLOOD COUNT 6.8 K/mm3 (4.0-10.0)
[2019-07-12 20:58] LABS: BLOOD UREA NITROGEN 79.8 mg/dL (7-18); CREATININE 3.1 mg/dL (0.55-1.3)
[2019-07-12 20:59] LABS: CALCIUM 9.6 mg/dL (8.5-10.1)
[2019-07-12 21:19] LABS: POTASSIUM 6.4 mmol/L (3.5-5.1)
[2019-07-12] MEDS ORDERED: SODIUM BICARBONATE 8.4% 50 MEQ/50 ML VIAL IVPUSH ONE (21:58)
[2019-07-12] MEDS ORDERED: CALCIUM GLUCONATE 10% - 1,000 MG/10 ML VIAL IVPB ONE (21:59)
[2019-07-12] MEDS ORDERED: INSULIN REGULAR HUMAN 100 UNITS/ML *VIAL IVPUSH ONE (22:00)
[2019-07-13 01:09] LABS: BLOOD UREA NITROGEN 72.9 mg/dL (7-18); CALCIUM 9.6 mg/dL (8.5-10.1); CREATININE 3.2 mg/dL (0.55-1.3); POTASSIUM 5.5 mmol/L (3.5-5.1)
[2019-07-13] MEDS ORDERED: DEXTROSE 50%-WATER - 25 GM/50 ML VIAL IVPUSH ONE (02:09)
[2019-07-13] MEDS ORDERED: DEXTROSE 50%-WATER - 25 GM/50 ML VIAL ONE (02:35)
--- NOTE | 2019-07-13 08:09 | PN ---
Progress Note, Physician Chief Complaint: Seen and examined in bed. No further episodes of hypertension or melena . Rec'd 2nd unit of PRBC without incident. On CM in NAD History of Present Illness: This is a 88 y/o male with a significant past medical history of CKD, Chronic Anemia, Dysproteinemia, Systolic CHF, Afib (on Coumadin), Mitral Valve bioprosthetic 2003, s/p ICD (13), Gastric Ulcer. Who presented to the ED with 1 day of gradual onset shortness of breath worsened with exertion and constipation with black stools - Current Medication List Current Medications: Active Medications Sodium Zirconium Cyclosilicate (Lokelma) 10 gm PO DAILY ODILIA Last Admin: 07/12/19 09:58 Dose: 10 gm Documented by: - Objective Vital Signs: Vital Signs Temperature 97.8 F 07/13/19 06:00 Pulse Rate 55 L 07/13/19 06:00 Respiratory Rate 20 07/13/19 06:00 Blood Pressure 100/56 L 07/13/19 06:00 O2 Sat by Pulse Oximetry (%) 100 07/12/19 21:00 Additional Findings/Remarks: Constitutional: Yes: Well Nourished, No Distress, Calm Eyes: Yes: WNL, Conjunctiva Clear HENT: Yes: WNL, Atraumatic, Normocephalic Neck: Yes: WNL, Supple, Trachea Midline Cardiovascular: Yes: WNL, Regular Rate and Rhythm, Other (AICD to left chest) Respiratory: Yes: WNL, Regular, rales (at bases) Gastrointestinal: Yes: Soft, Ascites, Hypoactive Bowel Sounds ...Rectal Exam: Yes: Deferred, Guaiac Positive on admission Genitourinary: Yes: WNL Breast(s): Yes: WNL Musculoskeletal: Yes: WNL Extremities: Yes: WNL Edema: Yes Edema: LLE: 2+, RLE: 2+ Peripheral Pulses WNL: Yes Peripheral Pulses: Left Radial: 2+, Right Radial: 2+, Left Doralis Pedis: 2+, Right Dorsalis Pedis: 2+, Left Femoral: 2+, Right Femoral: 2+ Integumentary: Yes: WNL Neurological: Yes: WNL, Alert, Oriented ...Motor Strength: LLE, RLE (generalized weakness) Psychiatric: Yes: WNL Labs: INR, PTT INR 1.79 (0.83-1.09) H 07/11/19 13:10 - ....Imaging Chest X-ray: Image Reviewed Ultrasound: Report Reviewed (BL renal simple cysts, enlarge prostate) Problem List - Problems (1) Prophylactic measure Assessment/Plan: FEN Fluids: no additional IVF Electrolytes: monitor & replete as needed Nutrition: NPO DVT moderate risk scd no chemical AC given ABLA PT Dispo Maintain as inpatient full code discharge planning Code(s): Z29.9 - ENCOUNTER FOR PROPHYLACTIC MEASURES, UNSPECIFIED (2) Ascites Assessment/Plan: moderate ascites on exam on aldactone/lasix at home will give a one time dose of lasix and reassess Cr in am consultation for IR to assess for paracentesis-Dr Fitch consulted Code(s): R18.8 - OTHER ASCITES Qualifiers: Ascites type: other type Qualified Code(s): R18.8 - Other ascites (3) Elevated troponin Assessment/Plan: Chronic TNi elevation, with multiple contributers to demand ischemia, including acute anemia and renal failure, CHF, AF, hypotension, sepsis no need to further trend Code(s): R79.89 - OTHER SPECIFIED ABNORMAL FINDINGS OF BLOOD CHEMISTRY (4) Hyperkalemia Assessment/Plan: K 5.5 c/w lokelma c/t monitor Code(s): E87.5 - HYPERKALEMIA (5) Systolic CHF, acute on chronic Assessment/Plan: rales at bases of mungs 3+ edema to LE will give laix 20mg x 1 dose and reassess in am c/t hold staning diuretics as per cardiology c/t montior I/Os and level of edema Code(s): I50.23 - ACUTE ON CHRONIC SYSTOLIC (CONGESTIVE) HEART FAILURE (6) Total bilirubin, elevated Assessment/Plan: Likely due to chronic hepatic congestion secondary to worsening CHF Code(s): R17 - UNSPECIFIED JAUNDICE (7) A-fib Assessment/Plan: restart dig level .79 c/t AC secondary to Anemia, GIB Code(s): I48.91 - UNSPECIFIED ATRIAL FIBRILLATION (8) AICD (automatic cardioverter/defibrillator) present Code(s): Z95.810 - PRESENCE OF AUTOMATIC (IMPLANTABLE) CARDIAC DEFIBRILLATOR (9) Jahcx-po-quzbdjl kidney injury Assessment/Plan: Baseline 1.0-4.0 Cr 3.2 rales and lig bases and increased edema one time dose of lasix Nephrology following Kidney and Bladder US noted FeNa 2.9 suggestive of ATN c/t Monitor CMP Avoid nephrotoxic drugs Code(s): N17.9 - ACUTE KIDNEY FAILURE, UNSPECIFIED; N18.9 - CHRONIC KIDNEY DISEASE, UNSPECIFIED (10) Occult GI bleeding Assessment/Plan: transfused 2 u prbc no further episodes of melena c/w ppi GI following Code(s): R19.5 - OTHER FECAL ABNORMALITIES Visit type - Emergency Visit Emergency Visit: Yes ED Registration Date: 07/11/19 Care time: The patient presented to the Emergency Department on the above date and was hospitalized for further evaluation of their emergent condition. - New Patient This patient is new to me today: No - Critical Care Critical Care patient: No - Discharge Referral Referred to [facility] Med [facility] No
[2019-07-13 08:17] LABS: BASO % 0.5 % (0-2.0); EOS % 1.1 % (0-4.5); HEMATOCRIT 23.9 % (35.4-49); HEMOGLOBIN 7.9 GM/dL (11.7-16.9); MCH 30.2 pg (25.7-33.7); MEAN CELL VOLUME 91.5 fl (80-96); MEAN PLT VOLUME 9.6 fl (7.5-11.1); MONO % 13.5 % (3.8-10.2); NEUT % 68.9 % (42.8-82.8); PLATELET COUNT 104 K/MM3 (134-434); RBC 2.62 M/mm3 (4.00-5.60); RDW 24.2 % (11.9-15.9); WHITE BLOOD COUNT 6.4 K/mm3 (4.0-10.0)
[2019-07-13 08:42] LABS: ALBUMIN 3.1 g/dl (3.4-5.0); BILIRUBIN,TOTAL 2.3 mg/dL (0.2-1); BLOOD UREA NITROGEN 76.8 mg/dL (7-18); CALCIUM 9.7 mg/dL (8.5-10.1); CREATININE 2.9 mg/dL (0.55-1.3); MAGNESIUM 2.9 mg/dL (1.8-2.4); POTASSIUM 5.6 mmol/L (3.5-5.1); TOT PROT 6.1 g/dl (6.4-8.2)
[2019-07-13] MEDS: SODIUM ZIRCONIUM CYCLOSILICATE (LOKELMA) 10 GM PACKET PO SCH (09:25)
--- NOTE | 2019-07-13 09:37 | PN ---
Progress Note, Physician History of Present Illness: This is a 88 y/o male with a significant past medical history of CKD, Chronic Anemia, Dysproteinemia, Systolic CHF, Afib (on Coumadin), Mitral Valve bioprosthetic 2003, s/p ICD (13), Gastric Ulcer. Who presents to the ED with 1 day of gradual onset shortness of breath worsened with exertion. Patient states he has been doing well for several days however today as he was putting on his clothes he noticed that he was more out of breath than usual. Patient does endorse mild shortness of breath with exertion recently after walking up several flights of stairs. He notes associated 2 days of mild constipation with black stools. denies any yoon blood, melena Patient also reports abdominal distention for several months which he attributes to a hernia that he is waiting to have repaired. Patient denies fever, chills, cough, chest pain, palpitation, lightheadedness, nausea, vomiting, dysuria. - Current Medication List Current Medications: Active Medications Sodium Zirconium Cyclosilicate (Lokelma) 10 gm PO DAILY ODILIA Last Admin: 07/13/19 09:25 Dose: 10 gm Documented by: - Objective Vital Signs: Vital Signs Temperature 97.8 F 07/13/19 06:00 Pulse Rate 55 L 07/13/19 06:00 Respiratory Rate 20 07/13/19 06:00 Blood Pressure 100/56 L 07/13/19 06:00 O2 Sat by Pulse Oximetry (%) 100 07/12/19 21:00 Eyes: Yes: WNL, Conjunctiva Clear, EOM Intact HENT: Yes: WNL, Atraumatic, Normocephalic Neck: Yes: WNL, Supple, Trachea Midline Cardiovascular: Yes: WNL, Regular Rate and Rhythm Respiratory: Yes: WNL, Regular, CTA Bilaterally Gastrointestinal: Yes: WNL, Normal Bowel Sounds Genitourinary: Yes: WNL Musculoskeletal: Yes: WNL Extremities: Yes: WNL Edema: Yes Integumentary: Yes: WNL Neurological: Yes: WNL, Alert, Oriented ...Motor Strength: WNL Psychiatric: Yes: WNL Labs: CBC, BMP 07/13/19 06:22 07/13/19 06:22 INR, PTT INR 1.79 (0.83-1.09) H 05/22/20 13:10 Problem List - Problems (1) JEWEL (acute kidney injury) Code(s): N17.9 - ACUTE KIDNEY FAILURE, UNSPECIFIED (2) Ascites Code(s): R18.8 - OTHER ASCITES Qualifiers: Qualified Code(s): R18.8 - Other ascites (3) CHF (congestive heart failure) Code(s): I50.9 - HEART FAILURE, UNSPECIFIED Qualifiers: Qualified Code(s): I50.23 - Acute on chronic systolic (congestive) heart failure (4) Elevated troponin Code(s): R79.89 - OTHER SPECIFIED ABNORMAL FINDINGS OF BLOOD CHEMISTRY (5) Hyperkalemia Code(s): E87.5 - HYPERKALEMIA (6) Prophylactic measure Code(s): Z29.9 - ENCOUNTER FOR PROPHYLACTIC MEASURES, UNSPECIFIED (7) Shortness of breath Code(s): R06.02 - SHORTNESS OF BREATH (8) Symptomatic anemia Code(s): D64.9 - ANEMIA, UNSPECIFIED (9) Systolic CHF, acute on chronic Code(s): I50.23 - ACUTE ON CHRONIC SYSTOLIC (CONGESTIVE) HEART FAILURE (10) Total bilirubin, elevated Code(s): R17 - UNSPECIFIED JAUNDICE (11) A-fib Code(s): I48.91 - UNSPECIFIED ATRIAL FIBRILLATION (12) AICD (automatic cardioverter/defibrillator) present Code(s): Z95.810 - PRESENCE OF AUTOMATIC (IMPLANTABLE) CARDIAC DEFIBRILLATOR (13) Acute hypercapnic respiratory failure Code(s): J96.02 - ACUTE RESPIRATORY FAILURE WITH HYPERCAPNIA (14) Bvojj-ip-rcqcqxy kidney injury Code(s): N17.9 - ACUTE KIDNEY FAILURE, UNSPECIFIED; N18.9 - CHRONIC KIDNEY DISEASE, UNSPECIFIED (15) Atrial fibrillation and flutter Code(s): I48.91 - UNSPECIFIED ATRIAL FIBRILLATION; I48.92 - UNSPECIFIED ATRIAL FLUTTER (16) BPH (benign prostatic hypertrophy) Code(s): N40.0 - BENIGN PROSTATIC HYPERPLASIA WITHOUT LOWER URINRY TRACT SYMP (17) Chronic passive hepatic congestion Code(s): K76.1 - CHRONIC PASSIVE CONGESTION OF LIVER (18) BRADY (dyspnea on exertion) Code(s): R06.09 - OTHER FORMS OF DYSPNEA (19) Diverticula of colon Code(s): K57.30 - DVRTCLOS OF LG INT W/O PERFORATION OR ABSCESS W/O BLEEDING (20) Gastritis Code(s): K29.70 - GASTRITIS, UNSPECIFIED, WITHOUT BLEEDING (21) Gout Code(s): M10.9 - GOUT, UNSPECIFIED (22) Groin pain Code(s): R10.30 - LOWER ABDOMINAL PAIN, UNSPECIFIED Qualifiers: Qualified Code(s): R10.31 - Right lower quadrant pain (23) Hiatal hernia Code(s): K44.9 - DIAPHRAGMATIC HERNIA WITHOUT OBSTRUCTION OR GANGRENE (24) Hypercoagulable state Code(s): D68.59 - OTHER PRIMARY THROMBOPHILIA (25) Metabolic acidosis Code(s): E87.2 - ACIDOSIS (26) Normocytic normochromic anemia Code(s): D64.9 - ANEMIA, UNSPECIFIED (27) Pancytopenia Code(s): D61.818 - OTHER PANCYTOPENIA (28) Prosthetic mitral valve regurgitation Code(s): T82.03XA - LEAKAGE OF HEART VALVE PROSTHESIS, INITIAL ENCOUNTER (29) Systolic and diastolic CHF w/reduced LV function, NYHA class 4 Code(s): I50.40 - UNSP COMBINED SYSTOLIC AND DIASTOLIC (CONGESTIVE) HRT FAIL Assessment/Plan Acute/chronic systolic CHF; s/p ICD 2012 Nonobstructive CAD (coronary angiogram 2012) Chronic elevation of TNI noted since at least 2012 hyperkalemic emergency Acute renal dysfunction acute/chronic anemia; black stools (INR reportedly 3.8 last week) bioprosthetic mitral valve replacement 2003 ascites anxiety (exacerbated by worry of edvin COVID; pt was fearful of coming to hospital) Plan: Stop diuretics, ACEI, spironolactone Treat hyperkalemic emergency: Calcium, detrose + insulin, GI cation exchanger. Marked elevation in BUN/Cr; f/u, as well as Is and Os, fluid status, electrolytes, daily weight. Stop warfarin Stood quaiac; f/u anemia workup. GI w/u (hx stomach ulcer; ascites). Chronic TNi elevation, with multiple contributers to demand ischemia, including acute anemia and renal failure, CHF, AF, hypotension, sepsis F/u EKG ECHO for LVEF, chamber sizes, valve status
--- NOTE | 2019-07-13 15:13 | PN.GI ---
GI Progress Note Subjective: cdomfortable, no SOB no abdominal pain, bilateral leg edema - Objective Vital Signs: Vital Signs Temperature 97.8 F 07/13/19 14:00 Pulse Rate 55 L 07/13/19 14:00 Respiratory Rate 20 07/13/19 14:00 Blood Pressure 105/56 L 07/13/19 14:00 O2 Sat by Pulse Oximetry (%) 100 07/13/19 10:00 Constitutional: No Distress Eyes: Yes: Conjunctiva Clear HENT: Yes: Atraumatic Neck: Yes: Supple Respiratory: Yes: Other (decrease right base) Gastrointestinal Inspection: Yes: Ascites, Distention ...Palpate: Yes: Soft. No: Firm/Rigid, Guarding, Hepatomegaly, Mass, Pulsatile Mass, Splenomegaly, Tenderness Labs: CBC, BMP 07/13/19 06:22 07/13/19 06:22 INR, PTT INR 1.79 (0.83-1.09) H 07/11/19 13:10 Problem List - Problems (1) Occult GI bleeding Code(s): R19.5 - OTHER FECAL ABNORMALITIES (2) Ascites Code(s): R18.8 - OTHER ASCITES Qualifiers: Ascites type: other type Qualified Code(s): R18.8 - Other ascites (3) Abdominal ascites Assessment/Plan: secondary to CHF R> consult IR for diagnostic and therapeutic paracenstesis daily weights consider Lasix 20mg bid if ok with Renal Code(s): R18.8 - OTHER ASCITES
[2019-07-13] MEDS ORDERED: DIGOXIN 0.125 MG TABLET (FP) PO SCH (16:00)
[2019-07-13] MEDS ORDERED: FUROSEMIDE 40 MG/4 ML INJECTABLE VIAL IVPUSH ONE (16:13)
--- NOTE | 2019-07-13 19:29 | PN ---
Progress Note (short form) - Note Progress Note: Covering Dr Hines Problems 1. JEWEL 2. hyperkalemia 3. ascites 4. fluid overload 5. chf 6. ckd 7. a-fib Active Medications Digoxin (Lanoxin -) 0.125 mg PO Q48H ODILIA Pantoprazole Sodium (Protonix -) 40 mg PO DAILY ODILIA Sodium Zirconium Cyclosilicate (Lokelma) 10 gm PO DAILY ODILIA Last Admin: 07/13/19 09:25 Dose: 10 gm Documented by: Last Vital Signs Temp Pulse Resp BP Pulse Ox 97.8 F 55 L 20 105/56 L 100 07/13/19 14:00 07/13/19 14:00 07/13/19 14:00 07/13/19 14:00 07/13/19 10:00 CBC, BMP 07/13/19 06:22 07/13/19 06:22 CBC, BMP 07/12/19 06:07 07/12/19 06:07 IMP- Hyperkalemia- improving multifactorial- renal disease, r/o tubular dysfunction from post renal factors, acei, and gi bleed severe anemia Plan- continue tx for hyperkalemia GI w/u agree with lasix- can help with hyperkalemia monitor BP on lasix
--- NOTE | 2019-07-14 07:52 | PN ---
Progress Note, Physician Chief Complaint: Seen and examined in bed. Rec'd 2nd unit of PRBC Remains weak. Pending TTE and diagnostic/therapeutic paracentesis. History of Present Illness: This is a 88 y/o male with a significant past medical history of CKD, Chronic Anemia, Dysproteinemia, Systolic CHF, Afib (on Coumadin), Mitral Valve bioprosthetic 2003, s/p ICD (13), Gastric Ulcer. Who presented to the ED with 1 day of gradual onset shortness of breath worsened with exertion and constipation with black stools - Current Medication List Current Medications: Active Medications Digoxin (Lanoxin -) 0.125 mg PO Q48H [facility] Furosemide (Lasix -) 20 mg PO DAILY [facility] Pantoprazole Sodium (Protonix -) 40 mg PO DAILY [facility] Sodium Zirconium Cyclosilicate (Lokelma) 10 gm PO DAILY [facility] Last Admin: 07/13/19 09:25 Dose: 10 gm Documented by: - Objective Vital Signs: Vital Signs Temperature 98.4 F 07/14/19 06:00 Pulse Rate 54 L 07/14/19 06:00 Respiratory Rate 16 07/14/19 06:00 Blood Pressure 104/50 L 07/14/19 06:00 O2 Sat by Pulse Oximetry (%) 100 07/13/19 20:16 Additional Findings/Remarks: Eyes: Yes: WNL, Conjunctiva Clear HENT: Yes: WNL, Atraumatic, Normocephalic Neck: Yes: WNL, Supple, Trachea Midline Cardiovascular: Yes: WNL, Regular Rate and Rhythm, Other (AICD to left chest) Respiratory: Yes: WNL, Regular, rales (at bases) Gastrointestinal: Yes: Soft, Ascites, Hypoactive Bowel Sounds ...Rectal Exam: Yes: Deferred, Guaiac Positive on admission Genitourinary: Yes: WNL Breast(s): Yes: WNL Musculoskeletal: Yes: WNL Extremities: Yes: WNL Edema: Yes Edema: LLE: 2+, RLE: 2+ Peripheral Pulses WNL: Yes Peripheral Pulses: Left Radial: 2+, Right Radial: 2+, Left Doralis Pedis: 2+, Right Dorsalis Pedis: 2+, Left Femoral: 2+, Right Femoral: 2+ Integumentary: Yes: WNL Neurological: Yes: WNL, Alert, Oriented ...Motor Strength: LLE, RLE (generalized weakness) Psychiatric: Yes: WNL Labs: INR, PTT INR 1.79 (0.83-1.09) H 07/11/19 13:10 Problem List - Problems (1) Prophylactic measure Assessment/Plan: FEN Fluids: no additional IVF Electrolytes: monitor & replete as needed Nutrition: clear liquids DVT moderate risk scd no chemical AC given ABLA PT Dispo Maintain as inpatient full code discharge planning Code(s): Z29.9 - ENCOUNTER FOR PROPHYLACTIC MEASURES, UNSPECIFIED (2) Ascites Assessment/Plan: moderate ascites on exam on aldactone/lasix at home lasix retsarted, c/t hold aldactone consultation for IR to assess for paracentesis-Dr Fitch consulted Code(s): R18.8 - OTHER ASCITES Qualifiers: Ascites type: other type Qualified Code(s): R18.8 - Other ascites (3) Elevated troponin Assessment/Plan: Chronic TNi elevation, with multiple contributers to demand ischemia, including acute anemia and renal failure, CHF, AF, hypotension, sepsis no need to further trend Code(s): R79.89 - OTHER SPECIFIED ABNORMAL FINDINGS OF BLOOD CHEMISTRY (4) Hyperkalemia Assessment/Plan: K 4.8 lokelma stopped c/t monitor Code(s): E87.5 - HYPERKALEMIA (5) Systolic CHF, acute on chronic Assessment/Plan: edema improving ,2+ edema to LE c/t hold aldactone, lasix daily c/t montior I/Os and level of edema Code(s): I50.23 - ACUTE ON CHRONIC SYSTOLIC (CONGESTIVE) HEART FAILURE (6) Total bilirubin, elevated Assessment/Plan: Likely due to chronic hepatic congestion secondary to worsening CHF Code(s): R17 - UNSPECIFIED JAUNDICE (7) A-fib Assessment/Plan: c/w dig with hold parameters level .79 c/t hold AC secondary to Anemia, GIB Code(s): I48.91 - UNSPECIFIED ATRIAL FIBRILLATION (8) AICD (automatic cardioverter/defibrillator) present Code(s): Z95.810 - PRESENCE OF AUTOMATIC (IMPLANTABLE) CARDIAC DEFIBRILLATOR (9) Gwtla-jm-[id number] kidney injury Assessment/Plan: Baseline 1.0-4.0 Cr 2.5 edema improving c/w lasix Nephrology following Kidney and Bladder US noted FeNa 2.9 suggestive of ATN c/t Monitor CMP Avoid nephrotoxic drugs Code(s): N17.9 - ACUTE KIDNEY FAILURE, UNSPECIFIED; N18.9 - CHRONIC KIDNEY DISEASE, UNSPECIFIED (10) Occult GI bleeding Assessment/Plan: transfused 2 u prbc no further episodes of melena c/w ppi GI following Code(s): R19.5 - OTHER FECAL ABNORMALITIES Visit type - Emergency Visit Emergency Visit: Yes ED Registration Date: 07/11/19 Care time: The patient presented to the Emergency Department on the above date and was hospitalized for further evaluation of their emergent condition. - New Patient This patient is new to me today: No - Critical Care Critical Care patient: No - Discharge Referral Referred to [facility] Med P.C.: No
[2019-07-14 07:59] LABS: BASO % 0.6 % (0-2.0); EOS % 2.2 % (0-4.5); HEMOGLOBIN 7.9 GM/dL (11.7-16.9); LYMPH % 22.2 % (8-40); MCH 30.2 pg (25.7-33.7); MCHC 32.9 g/dl (32.0-35.9); MEAN CELL VOLUME 91.8 fl (80-96); MEAN PLT VOLUME 9.4 fl (7.5-11.1); MONO % 15.6 % (3.8-10.2); NEUT % 59.4 % (42.8-82.8); PLATELET COUNT 106 K/MM3 (134-434); RBC 2.62 M/mm3 (4.00-5.60); RDW 24.4 % (11.9-15.9); WHITE BLOOD COUNT 5.7 K/mm3 (4.0-10.0)
[2019-07-14 08:14] LABS: POTASSIUM 4.8 mmol/L (3.5-5.1)
[2019-07-14 08:26] LABS: ALBUMIN 3.3 g/dl (3.4-5.0); BILIRUBIN,TOTAL 2.2 mg/dL (0.2-1); CALCIUM 9.3 mg/dL (8.5-10.1); CREATININE 2.5 mg/dL (0.55-1.3); MAGNESIUM 2.8 mg/dL (1.8-2.4); TOT PROT 6.6 g/dl (6.4-8.2)
--- NOTE | 2019-07-14 09:26 | PN ---
Progress Note, Physician History of Present Illness: This is a 88 y/o male with a significant past medical history of CKD, Chronic Anemia, Dysproteinemia, Systolic CHF, Afib (on Coumadin), Mitral Valve bioprosthetic 2003, s/p ICD (13), Gastric Ulcer. Who presents to the ED with 1 day of gradual onset shortness of breath worsened with exertion. Patient states he has been doing well for several days however today as he was putting on his clothes he noticed that he was more out of breath than usual. Patient does endorse mild shortness of breath with exertion recently after walking up several flights of stairs. He notes associated 2 days of mild constipation with black stools. denies any yoon blood, melena Patient also reports abdominal distention for several months which he attributes to a hernia that he is waiting to have repaired. Patient denies fever, chills, cough, chest pain, palpitation, lightheadedness, nausea, vomiting, dysuria. - Current Medication List Current Medications: Active Medications Digoxin (Lanoxin -) 0.125 mg PO Q48H [facility] Furosemide (Lasix -) 20 mg PO DAILY [facility] Pantoprazole Sodium (Protonix -) 40 mg PO DAILY [facility] Sodium Zirconium Cyclosilicate (Lokelma) 10 gm PO DAILY [facility] Last Admin: 07/13/19 09:25 Dose: 10 gm Documented by: - Objective Vital Signs: Vital Signs Temperature 98.4 F 07/14/19 06:00 Pulse Rate 54 L 07/14/19 06:00 Respiratory Rate 16 07/14/19 06:00 Blood Pressure 104/50 L 07/14/19 06:00 O2 Sat by Pulse Oximetry (%) 100 07/13/19 20:16 Eyes: Yes: WNL, Conjunctiva Clear, EOM Intact HENT: Yes: WNL, Atraumatic, Normocephalic Neck: Yes: WNL, Supple, Trachea Midline Cardiovascular: Yes: WNL, Regular Rate and Rhythm Respiratory: Yes: WNL, Regular, CTA Bilaterally Gastrointestinal: Yes: Ascites Genitourinary: Yes: WNL Musculoskeletal: Yes: WNL Extremities: Yes: WNL Edema: No Integumentary: Yes: WNL Neurological: Yes: WNL, Alert, Oriented ...Motor Strength: WNL Psychiatric: Yes: WNL Labs: CBC, BMP 07/14/19 06:17 07/14/19 06:17 INR, PTT INR 1.79 (0.83-1.09) H 07/11/19 13:10 Problem List - Problems (1) JEWEL (acute kidney injury) Code(s): N17.9 - ACUTE KIDNEY FAILURE, UNSPECIFIED (2) Ascites Code(s): R18.8 - OTHER ASCITES Qualifiers: Ascites type: other type Qualified Code(s): R18.8 - Other ascites (3) CHF (congestive heart failure) Code(s): I50.9 - HEART FAILURE, UNSPECIFIED Qualifiers: Heart failure type: systolic Heart failure chronicity: acute on chronic Qualified Code(s): I50.23 - Acute on chronic systolic (congestive) heart failure (4) Elevated troponin Code(s): R79.89 - OTHER SPECIFIED ABNORMAL FINDINGS OF BLOOD CHEMISTRY (5) Hyperkalemia Code(s): E87.5 - HYPERKALEMIA (6) Prophylactic measure Code(s): Z29.9 - ENCOUNTER FOR PROPHYLACTIC MEASURES, UNSPECIFIED (7) Shortness of breath Code(s): R06.02 - SHORTNESS OF BREATH (8) Symptomatic anemia Code(s): D64.9 - ANEMIA, UNSPECIFIED (9) Systolic CHF, acute on chronic Code(s): I50.23 - ACUTE ON CHRONIC SYSTOLIC (CONGESTIVE) HEART FAILURE (10) Total bilirubin, elevated Code(s): R17 - UNSPECIFIED JAUNDICE (11) A-fib Code(s): I48.91 - UNSPECIFIED ATRIAL FIBRILLATION (12) AICD (automatic cardioverter/defibrillator) present Code(s): Z95.810 - PRESENCE OF AUTOMATIC (IMPLANTABLE) CARDIAC DEFIBRILLATOR (13) Acute hypercapnic respiratory failure Code(s): J96.02 - ACUTE RESPIRATORY FAILURE WITH HYPERCAPNIA (14) [id number]-aziijbz kidney injury Code(s): N17.9 - ACUTE KIDNEY FAILURE, UNSPECIFIED; N18.9 - CHRONIC KIDNEY DISEASE, UNSPECIFIED (15) Atrial fibrillation and flutter Code(s): I48.91 - UNSPECIFIED ATRIAL FIBRILLATION; I48.92 - UNSPECIFIED ATRIAL FLUTTER (16) BPH (benign prostatic hypertrophy) Code(s): N40.0 - BENIGN PROSTATIC HYPERPLASIA WITHOUT LOWER URINRY TRACT SYMP (17) Chronic passive hepatic congestion Code(s): K76.1 - CHRONIC PASSIVE CONGESTION OF LIVER (18) BRADY (dyspnea on exertion) Code(s): R06.09 - OTHER FORMS OF DYSPNEA (19) Diverticula of colon Code(s): K57.30 - DVRTCLOS OF LG INT W/O PERFORATION OR ABSCESS W/O BLEEDING (20) Gastritis Code(s): K29.70 - GASTRITIS, UNSPECIFIED, WITHOUT BLEEDING (21) Gout Code(s): M10.9 - GOUT, UNSPECIFIED (22) Groin pain Code(s): R10.30 - LOWER ABDOMINAL PAIN, UNSPECIFIED Qualifiers: Laterality: right Qualified Code(s): R10.31 - Right lower quadrant pain (23) Hiatal hernia Code(s): K44.9 - DIAPHRAGMATIC HERNIA WITHOUT OBSTRUCTION OR GANGRENE (24) Hypercoagulable state Code(s): D68.59 - OTHER PRIMARY THROMBOPHILIA (25) Metabolic acidosis Code(s): E87.2 - ACIDOSIS (26) Normocytic normochromic anemia Code(s): D64.9 - ANEMIA, UNSPECIFIED (27) Pancytopenia Code(s): D61.818 - OTHER PANCYTOPENIA (28) Prosthetic mitral valve regurgitation Code(s): T82.03XA - LEAKAGE OF HEART VALVE PROSTHESIS, INITIAL ENCOUNTER (29) Systolic and diastolic CHF w/reduced LV function, NYHA class 4 Code(s): I50.40 - UNSP COMBINED SYSTOLIC AND DIASTOLIC (CONGESTIVE) HRT FAIL Assessment/Plan Imp; Acute/chronic systolic CHF; s/p ICD 2012 Nonobstructive CAD (coronary angiogram 2012) Chronic elevation of TNI noted since at least 2012 hyperkalemic emergency Acute renal dysfunction acute/chronic anemia; black stools (INR reportedly 3.8 last week) bioprosthetic mitral valve replacement 2003 ascites anxiety (exacerbated by worry of edvin COVID; pt was fearful of coming to hospital) Plan: Stop diuretics, ACEI, spironolactone Treat hyperkalemic emergency: Calcium, detrose + insulin, GI cation exchanger. Marked elevation in BUN/Cr; f/u, as well as Is and Os, fluid status, electrolytes, daily weight. Stop warfarin Stood quaiac; f/u anemia workup. GI w/u (hx stomach ulcer; ascites). Chronic TNi elevation, with multiple contributers to demand ischemia, including acute anemia and renal failure, CHF, AF, hypotension, sepsis F/u EKG ECHO for LVEF, chamber sizes, valve status
[2019-07-14] MEDS: PANTOPRAZOLE 40 MG TABLET PO SCH (09:42)
[2019-07-14] MEDS: FUROSEMIDE 20 MG TABLET (FP) PO SCH (09:42)
[2019-07-14] MEDS ORDERED: DIGOXIN 0.125 MG TABLET (FP) PO SCH (10:00)
--- NOTE | 2019-07-14 12:56 | PN ---
Progress Note, Physician History of Present Illness: Pt seen and examined at bedside. He is awake and alert. He feels that the edema is improving. - Current Medication List Current Medications: Active Medications Digoxin (Lanoxin -) 0.125 mg PO Q2D [facility] Furosemide (Lasix -) 20 mg PO DAILY [facility] Last Admin: 07/14/19 09:42 Dose: 20 mg Documented by: Pantoprazole Sodium (Protonix -) 40 mg PO DAILY [facility] Last Admin: 07/14/19 09:42 Dose: 40 mg Documented by: - Objective Vital Signs: Vital Signs Temperature 98.8 F 07/14/19 09:39 Pulse Rate 56 L 07/14/19 09:39 Respiratory Rate 18 07/14/19 09:39 Blood Pressure 101/60 07/14/19 09:39 O2 Sat by Pulse Oximetry (%) 100 07/13/19 20:16 Constitutional: Yes: Calm Eyes: Yes: Conjunctiva Clear HENT: Yes: Atraumatic Neck: Yes: Supple Cardiovascular: Yes: S1, S2 Respiratory: Yes: CTA Bilaterally Gastrointestinal: Yes: Soft, Ascites Genitourinary: Yes: WNL Musculoskeletal: Yes: WNL Edema: LLE: Trace, RLE: Trace Neurological: Yes: Oriented Psychiatric: Yes: Oriented Labs: CBC, BMP 07/14/19 06:17 07/14/19 06:17 INR, PTT INR 1.79 (0.83-1.09) H 07/11/19 13:10 Problem List - Problems (1) JEWEL (acute kidney injury) Code(s): N17.9 - ACUTE KIDNEY FAILURE, UNSPECIFIED (2) Hyperkalemia Code(s): E87.5 - HYPERKALEMIA (3) A-fib Code(s): I48.91 - UNSPECIFIED ATRIAL FIBRILLATION (4) AICD (automatic cardioverter/defibrillator) present Code(s): Z95.810 - PRESENCE OF AUTOMATIC (IMPLANTABLE) CARDIAC DEFIBRILLATOR (5) Ascites Code(s): R18.8 - OTHER ASCITES Qualifiers: Ascites type: other type Qualified Code(s): R18.8 - Other ascites (6) CHF (congestive heart failure) Code(s): I50.9 - HEART FAILURE, UNSPECIFIED Qualifiers: Heart failure type: systolic Heart failure chronicity: acute on chronic Qualified Code(s): I50.23 - Acute on chronic systolic (congestive) heart failure Assessment/Plan Current Medications Generic Name Dose Route Start Last Admin Trade Name Freq PRN Reason Stop Dose Admin Digoxin 0.125 mg 07/15/19 10:00 Lanoxin - PO Q2D [facility] Furosemide 20 mg 07/14/19 10:00 07/14/19 09:42 Lasix - PO 20 mg DAILY [facility] Administration Pantoprazole Sodium 40 mg 07/14/19 10:00 07/14/19 09:42 Protonix - PO 40 mg DAILY [facility] Administration Impression 1. JEWEL 2. hyperkalemia 3. ascites 4. fluid overload 5. chf 6. ckd 7. a-fib Plan - cont with lasix - potassium stable - repeat labs in am - volume statis is improving - GI follow up - check echo
[2019-07-15 07:55] LABS: BASO % 0.5 % (0-2.0); EOS % 2.7 % (0-4.5); HEMATOCRIT 23.8 % (35.4-49); HEMOGLOBIN 7.8 GM/dL (11.7-16.9); LYMPH % 25.3 % (8-40); MCH 30.2 pg (25.7-33.7); MCHC 32.7 g/dl (32.0-35.9); MEAN CELL VOLUME 92.5 fl (80-96); MONO % 17.5 % (3.8-10.2); PLATELET COUNT 90 K/MM3 (134-434); RBC 2.57 M/mm3 (4.00-5.60); RDW 23.8 % (11.9-15.9); WHITE BLOOD COUNT 4.5 K/mm3 (4.0-10.0)
[2019-07-15 08:26] LABS: ALBUMIN 3.2 g/dl (3.4-5.0); BLOOD UREA NITROGEN 51.1 mg/dL (7-18); CALCIUM 9.1 mg/dL (8.5-10.1); CREATININE 2.4 mg/dL (0.55-1.3); MAGNESIUM 2.7 mg/dL (1.8-2.4); POTASSIUM 4.9 mmol/L (3.5-5.1); TOT PROT 6.2 g/dl (6.4-8.2)
[2019-07-15] MEDS: PANTOPRAZOLE 40 MG TABLET PO SCH (10:46)
[2019-07-15] MEDS: FUROSEMIDE 20 MG TABLET (FP) PO SCH (10:46)
[2019-07-15] MEDS: DIGOXIN 0.125 MG TABLET (FP) PO SCH (10:46)
--- NOTE | 2019-07-15 10:48 | ECHO ---
Version: 1 Name: JAIDEN TURCIOS Exam: Adult Echocardiogram Study Date: 07/15/2019, 9:32 AM Age: 88 Years MMode/2D Measurements & Calculations IVSd: 1.00 cm LVIDs: 4.5 cm LVIDd: 5.2 cm LVPWd: 0.94 cm LAV (MOD-bp): 95.0 ml ACS: 2.18 cm Ao root diam: 3.2 cm LVOT diam: 2.01 cm LA dimension: 5.2 cm Doppler Measurements & Calculations MV E max nishant: 145.3 cm/sec MVA(VTI): 1.59 cm MV A max nishant: 48.0 cm/sec MV V2 max: 148.0 cm/sec MV mean P.3 mmHg MV max P.8 mmHg MV E/A: 3.0 Med E/e': 24.4 Lat E/e': 13.9 Med Peak E' Nishant: 5.9 cm/sec Lat Peak E' Nishant: 10.4 cm/sec Ao max P.6 mmHg KARLOS(I,D): 3.1 cm Ao mean P.40 mmHg LV V1 mean: 59.3 cm/sec Ao V2 max: 107.2 cm/sec LV V1 mean P.67 mmHg PI end-d nishant: 111.3 cm/sec TR max nishant: 221.7 cm/sec TR max P.7 mmHg Left Ventricle The left ventricle is mildly dilated. Ejection Fraction = 30%. Left ventricular systolic function is severely reduced. The transmitral spectral Doppler flow pattern is suggestive of restrictive physiology. Right Ventricle The right ventricle is moderately dilated. The right ventricular systolic function is moderately red uced. Atria The left atrium is moderately dilated. The right atrium is moderately dilated. Mitral Valve MITRAL VALVE REPAIR. There is mild mitral regurgitation. Tricuspid Valve There is mild tricuspid valve thickening. There is severe tricuspid regurgitation. Aortic Valve There is mild aortic valve thickening. Pulmonic Valve The pulmonic valve is not well seen, but is grossly normal. Mild pulmonic valvular regurgitation. Great Vessels The aortic root is normal size. Normal aortic arch, descending and ascending aorta. Pericardium/Pleura There is no pericardial effusion. Summary Statements The left ventricle is mildly dilated. Ejection Fraction = 30%. Left ventricular systolic function is severely reduced. The transmitral spectral Doppler flow pattern is suggestive of restrictive physiology. The right ventricle is moderately dilated. The right ventricular systolic function is moderately reduced. The left atrium is moderately dilated. The right atrium is moderately dilated. There is mild mitral regurgitation. There is mild tricuspid valve thickening. There is severe tricuspid regurgitation. There is mild aortic valve thickening. Mild pulmonic valvular regurgitation. The aortic root is normal size. Normal aortic arch, descending and ascending aorta There is no pericardial effusion. Don N[place]mberg 07/15/2019, 10:48 AM Ordering Physician: Viviana Garcia Referring Physician: VIVIANA GARCIA Performed By: Lorelei Medrano
--- NOTE | 2019-07-15 11:43 | PN.GI ---
GI Progress Note Subjective: GI NOte: Dr Stiles's coverage is appreciated. Michael feels that his abdomen has been progressively distending but denies abdominal pain. His anemia is worse than his baseline of 8. - Objective Vital Signs: Vital Signs Temperature 97.7 F 07/15/19 06:00 Pulse Rate 75 07/15/19 10:46 Respiratory Rate 18 07/15/19 06:00 Blood Pressure 111/72 07/15/19 06:00 O2 Sat by Pulse Oximetry (%) 93 L 07/14/19 21:00 Laboratory Tests 07/11/19 07/15/19 13:10 06:44 Hgb 6.5 L* 7.8 L Constitutional: No Distress Gastrointestinal Inspection: Yes: Distention ...Auscultate: Yes: Hypoactive Bowel Sounds ...Palpate: Yes: Soft, Other (nontender) ...Percussion: Yes: Tympanitic Labs: CBC, BMP 07/15/19 06:44 07/15/19 06:44 INR, PTT INR 1.79 (0.83-1.09) H 07/11/19 13:10 Assessment/Plan Impression: - Anemia worse than his baseline. Has occult bleeding but has been having nose bleeds. NO abdominal pain - New ascites. Suspect this will prove to be due to right heart failure but will screening for liver diseases. Plan: --Await paracentesis results -- Serial CBCs -- Will consult Dr. [place] who has been following him for anemia -- Will reserve endoscopies for more active bleeding Problem List - Problems (1) Anemia Code(s): D64.9 - ANEMIA, UNSPECIFIED (2) Abdominal ascites Code(s): R18.8 - OTHER ASCITES (3) CHF (congestive heart failure) Code(s): I50.9 - HEART FAILURE, UNSPECIFIED Qualifiers: Heart failure type: systolic Heart failure chronicity: acute on chronic Qualified Code(s): I50.23 - Acute on chronic systolic (congestive) heart failure (4) Occult GI bleeding Code(s): R19.5 - OTHER FECAL ABNORMALITIES (5) A-fib Code(s): I48.91 - UNSPECIFIED ATRIAL FIBRILLATION (6) AICD (automatic cardioverter/defibrillator) present Code(s): Z95.810 - PRESENCE OF AUTOMATIC (IMPLANTABLE) CARDIAC DEFIBRILLATOR (7) Atrial fibrillation and flutter Code(s): I48.91 - UNSPECIFIED ATRIAL FIBRILLATION; I48.92 - UNSPECIFIED ATRIAL FLUTTER (8) Diverticula of colon Code(s): K57.30 - DVRTCLOS OF LG INT W/O PERFORATION OR ABSCESS W/O BLEEDING (9) Prosthetic mitral valve regurgitation Code(s): T82.03XA - LEAKAGE OF HEART VALVE PROSTHESIS, INITIAL ENCOUNTER (10) Systolic and diastolic CHF w/reduced LV function, NYHA class 4 Code(s): I50.40 - UNSP COMBINED SYSTOLIC AND DIASTOLIC (CONGESTIVE) HRT FAIL
--- NOTE | 2019-07-15 12:11 | PN ---
Physical Exam: SUBJECTIVE: Patient seen and examined s/p paracentesis. Reports feeling well, denies chest pain. OBJECTIVE: This is a 88 year old male with a significant past medical history of CKD, Chronic Anemia, dysproteinemia, Systolic CHF, Afib (on Coumadin), Mitral Valve bioprosthetic 2003, s/p ICD (13), Gastric Ulcer. Who presented to the ED with 1 day of gradual onset shortness of breath worsened with exertion and constipation with black stools. His coumadin has been on hold. today s/p paracentesis with 2 liter removed Vital Signs Period Temp Pulse Resp BP Sys/Lara Pulse Ox Last 24 Hr 97.4 F-97.7 F 54-89 18-18 98-121/53-72 93 GENERAL: The patient is awake, alert, and fully oriented, in no acute distress. HEAD: Normal with no signs of trauma. EYES: PERRL, extraocular movements intact, sclera anicteric, conjunctiva clear. No ptosis. ENT: Ears normal, nares patent, oropharynx clear without exudates NECK: Trachea midline, full range of motion, supple. LUNGS: Breath sounds equal, clear to auscultation bilaterally HEART: Regular rate and rhythm ABDOMEN: Soft, nontender, nondistended, normoactive bowel sounds EXTREMITIES: 2+ pulses, warm, well-perfused, no edema. NEUROLOGICAL: Normal speech, gait not observed. PSYCH: Normal mood, normal affect. SKIN: Warm, dry, normal turgor, no rashes or lesions noted Laboratory Results - last 24 hr 07/11/19 07/12/19 07/15/19 16:48 03:10 04:38 WBC RBC Hgb Hct MCV MCH MCHC RDW Plt Count MPV Absolute Neuts (auto) Neutrophils % Lymphocytes % Monocytes % Eosinophils % Basophils % Nucleated RBC % Sodium Potassium Chloride Carbon Dioxide Anion Gap BUN Creatinine Est GFR (CKD-EPI)AfAm Est GFR (CKD-EPI)NonAf POC Glucometer 73 Random Glucose Calcium Magnesium Total Bilirubin AST ALT Alkaline Phosphatase Total Protein Albumin Blood Type B POSITIVE Antibody Screen Negative Crossmatch See Detail Transfuse React Work-up See comment 07/15/19 07/15/19 06:44 06:44 WBC 4.5 RBC 2.57 L Hgb 7.8 L Hct 23.8 L MCV 92.5 MCH 30.2 MCHC 32.7 RDW 23.8 H Plt Count 90 L MPV 10.0 Absolute Neuts (auto) 2.4 Neutrophils % 54.0 Lymphocytes % 25.3 Monocytes % 17.5 H Eosinophils % 2.7 Basophils % 0.5 Nucleated RBC % 1 H Sodium 140 Potassium 4.9 Chloride 108 H Carbon Dioxide 28 Anion Gap 4 L BUN 51.1 H Creatinine 2.4 H Est GFR (CKD-EPI)AfAm 27.29 Est GFR (CKD-EPI)NonAf 23.54 POC Glucometer Random Glucose 79 Calcium 9.1 Magnesium 2.7 H Total Bilirubin 2.0 H AST 31 ALT 22 Alkaline Phosphatase 72 Total Protein 6.2 L Albumin 3.2 L Blood Type Antibody Screen Crossmatch Transfuse React Work-up Active Medications Generic Name Dose Route Start Last Admin Trade Name Freq PRN Reason Stop Dose Admin Digoxin 0.125 mg 07/15/19 10:00 07/15/19 10:46 Lanoxin - PO 0.125 mg Q2D [facility] Administration Furosemide 20 mg 07/14/19 10:00 07/15/19 10:46 Lasix - PO 20 mg DAILY [facility] Administration Pantoprazole Sodium 40 mg 07/14/19 10:00 07/15/19 10:46 Protonix - PO 40 mg DAILY [facility] Administration ASSESSMENT/PLAN: Problem List - Problems (1) JEWEL (acute kidney injury) Assessment/Plan: Creatinine above baseline, currently 2.0. nephrology following. Kidney and Bladder US noted c/t Monitor CMP Avoid nephrotoxic drugs Code(s): N17.9 - ACUTE KIDNEY FAILURE, UNSPECIFIED (2) Abdominal ascites Assessment/Plan: s/p 2 liter removal on 07/15/2019. Code(s): R18.8 - OTHER ASCITES (3) Anemia Assessment/Plan: Hematology has been consulted due to anemia. Patient follows with Dr. Zapata outpatient for anemia of chronic disease (CHF/CKD). Patient currently asymptomatic. Monitor CBC daily. Code(s): D64.9 - ANEMIA, UNSPECIFIED Qualifiers: Anemia type: due to chronic kidney disease (4) Ascites Assessment/Plan: likely due to chronic kidney disease vs heart disease. s/p 2 liters removed via paracentesis on 07/15/2019 Code(s): R18.8 - OTHER ASCITES Qualifiers: Ascites type: other type Qualified Code(s): R18.8 - Other ascites (5) BPH (benign prostatic hyperplasia) Assessment/Plan: continue home meds. Code(s): N40.0 - BENIGN PROSTATIC HYPERPLASIA WITHOUT LOWER URINRY TRACT SYMP (6) CHF (congestive heart failure) Assessment/Plan: on lasix, daily weights. Code(s): I50.9 - HEART FAILURE, UNSPECIFIED Qualifiers: Heart failure type: systolic Heart failure chronicity: acute on chronic Qualified Code(s): I50.23 - Acute on chronic systolic (congestive) heart failure (7) Occult GI bleeding Assessment/Plan: transfused 2 units of prbc no further episodes of melena c/w ppi GI following Code(s): R19.5 - OTHER FECAL ABNORMALITIES (8) DVT prophylaxis Assessment/Plan: SCDs/TEDs Code(s): Z29.9 - ENCOUNTER FOR PROPHYLACTIC MEASURES, UNSPECIFIED Visit type - Emergency Visit Emergency Visit: Yes ED Registration Date: 07/11/19 Care time: The patient presented to the Emergency Department on the above date and was hospitalized for further evaluation of their emergent condition. - New Patient This patient is new to me today: No - Critical Care Critical Care patient: No - Discharge Referral Referred to [facility] Med P.C[facility] No
--- NOTE | 2019-07-15 13:16 | PN ---
Progress Note, Physician History of Present Illness: Pt seen and examined. He denies shortness of breath. - Current Medication List Current Medications: Active Medications Digoxin (Lanoxin -) 0.125 mg PO Q2D [facility] Last Admin: 07/15/19 10:46 Dose: 0.125 mg Documented by: Furosemide (Lasix -) 20 mg PO DAILY [facility] Last Admin: 07/15/19 10:46 Dose: 20 mg Documented by: Pantoprazole Sodium (Protonix -) 40 mg PO DAILY [facility] Last Admin: 07/15/19 10:46 Dose: 40 mg Documented by: - Objective Vital Signs: Vital Signs Temperature 97.7 F 07/15/19 06:00 Pulse Rate 75 07/15/19 10:46 Respiratory Rate 18 07/15/19 06:00 Blood Pressure 111/72 07/15/19 06:00 O2 Sat by Pulse Oximetry (%) 93 L 07/14/19 21:00 Constitutional: Yes: Calm Eyes: Yes: Conjunctiva Clear HENT: Yes: Atraumatic Cardiovascular: Yes: S1, S2 Respiratory: Yes: CTA Bilaterally Gastrointestinal: Yes: Soft, Ascites Genitourinary: Yes: WNL Edema: LLE: Trace, RLE: Trace Neurological: Yes: Oriented Psychiatric: Yes: Oriented Labs: CBC, BMP 07/15/19 06:44 07/15/19 06:44 INR, PTT INR 1.79 (0.83-1.09) H 07/11/19 13:10 Problem List - Problems (1) JEWEL (acute kidney injury) Code(s): N17.9 - ACUTE KIDNEY FAILURE, UNSPECIFIED (2) Hyperkalemia Code(s): E87.5 - HYPERKALEMIA (3) A-fib Code(s): I48.91 - UNSPECIFIED ATRIAL FIBRILLATION (4) AICD (automatic cardioverter/defibrillator) present Code(s): Z95.810 - PRESENCE OF AUTOMATIC (IMPLANTABLE) CARDIAC DEFIBRILLATOR (5) Ascites Code(s): R18.8 - OTHER ASCITES Qualifiers: Ascites type: other type Qualified Code(s): R18.8 - Other ascites (6) CHF (congestive heart failure) Code(s): I50.9 - HEART FAILURE, UNSPECIFIED Qualifiers: Heart failure type: systolic Heart failure chronicity: acute on chronic Qualified Code(s): I50.23 - Acute on chronic systolic (congestive) heart failure Assessment/Plan Current Medications Generic Name Dose Route Start Last Admin Trade Name Freq PRN Reason Stop Dose Admin Digoxin 0.125 mg 07/15/19 10:00 07/15/19 10:46 Lanoxin - PO 0.125 mg Q2D [facility] Administration Furosemide 20 mg 07/14/19 10:00 07/15/19 10:46 Lasix - PO 20 mg DAILY [facility] Administration Pantoprazole Sodium 40 mg 07/14/19 10:00 07/15/19 10:46 Protonix - PO 40 mg DAILY [facility] Administration Impression 1. JEWLE 2. hyperkalemia 3. ascites 4. fluid overload 5. chf 6. ckd 7. a-fib Plan - renal function stable for now - follow paracentesis - cont lasix - give albumin if large volume paracentesis - volume status is improving - GI follow up appreciated - check echo
[2019-07-15 13:42] LABS: BF WBC & OTHER NUCLEATED CELLS 200 /mm3
--- NOTE | 2019-07-15 14:57 | CONSULT ---
Consult Consult Specialty:: Hematology Reason for Consultation:: Anemia - History of Present Illness History of Present Illness: 88 y/o gentleman with a significant past medical history of CKD, Chronic Anemia, Dysproteinemia, Systolic CHF, Afib (on Coumadin), Mitral Valve bioprosthetic 2003, s/p ICD (13), Gastric Ulcer. Who presented to the ER due to BRADY. Mentioned also "black stools". Has also abdominal distension for which he had a paracentesis (likely to be due to CHF). Hematology has been consulted due to anemia. - History Source History Provided By: Patient, Medical Record - Past Medical History Cardio/Vascular: Yes: AFIB (has ICD), CHF (EF about 40% on echo, ), HTN, Mitral Insufficiency (requiring bioprosthetic MVR 2013) Pulmonary: Yes: Other (sporadic dry cough (pt believes this did not occur until he began taking lisinopril)) Gastrointestinal: Yes: Diverticulosis, Gastritis, Hiatal Hernia Hepatobiliary: Yes: Other (fatty liver) Renal/: Yes: BPH (had green light laser at [facility]) Rheumatology: Yes: Gout - Past Surgical History Past Surgical History: Yes: AICD (November 2012), Colonoscopy, Permanent Pacemaker, TURP (green light laser at [facility]), Upper Endoscopy, Valve Replacement (mitral valve biosynthetic valve replacement 2003) - Alcohol/Substance Use Hx Alcohol Use: No History of Substance Use: reports: None - Smoking History Smoking history: Never smoked Have you smoked in the past 12 months: No Aproximately how many cigarettes per day: 0 If you are a former smoker, when did you quit?: 1977 - Social History Usual Living Arrangement: With Spouse ADL: Independent Occupation: retired IT for [employer] History of Recent Travel: No Home Medications - Allergies Allergies/Adverse Reactions: Allergies Allergy/AdvReac Type Severity Reaction Status Date / Time kiwi Allergy Severe Hives Verified 07/11/19 13:10 Penicillins Allergy Unknown Verified 07/11/19 13:10 - Home Medications Home Medications: Ambulatory Orders Carvedilol [Coreg -] 12.5 mg PO BID 09/30/13 Digoxin [Lanoxin -] 0.125 mg PO Q48H 02/24/15 Warfarin Na [Coumadin -] 3 mg PO DAILY 02/24/15 Calcitriol [Calcitriol -] 0.25 mcg PO DAILY 04/12/17 Furosemide [Lasix -] 40 mg PO DAILY PRN 04/12/17 Lansoprazole [Prevacid] 30 mg PO DAILY 04/12/17 Cefuroxime Axetil [Ceftin -] 250 mg PO BID #8 tablet 04/20/17 Colchicine 0.6 mg PO DAILY #7 tablet 04/20/17 Furosemide [Lasix -] 40 mg PO DAILY #30 tablet 04/20/17 Lisinopril [Prinivil] 10 mg PO DAILY #30 tablet 04/20/17 Spironolactone [Aldactone -] 12.5 mg PO DAILY #30 tablet 04/20/17 Review of Systems - Review of Systems Constitutional: reports: No Symptoms Eyes: reports: No Symptoms HENT: reports: No Symptoms Neck: reports: No Symptoms Cardiovascular: reports: Shortness of Breath Respiratory: reports: SOB on Exertion Gastrointestinal: reports: No Symptoms Genitourinary: reports: No Symptoms Breasts: reports: No Symptoms Reported Musculoskeletal: reports: No Symptoms Integumentary: reports: No Symptoms Neurological: reports: No Symptoms Hematology/Lymphatic: reports: No Symptoms, Other Psychiatric: reports: No Symptoms Physical Exam Vital Signs: Vital Signs Temperature 97.7 F 07/15/19 06:00 Pulse Rate 75 07/15/19 10:46 Respiratory Rate 18 07/15/19 06:00 Blood Pressure 111/72 07/15/19 06:00 O2 Sat by Pulse Oximetry (%) 96 07/15/19 09:00 Constitutional: Yes: Well Nourished, No Distress, Calm Eyes: Yes: WNL, Conjunctiva Clear, EOM Intact HENT: Yes: WNL, Atraumatic, Normocephalic Neck: Yes: WNL, Supple, Trachea Midline Cardiovascular: Yes: WNL, Regular Rate and Rhythm Respiratory: Yes: WNL, Regular Gastrointestinal: Yes: WNL Breast(s): Yes: WNL Musculoskeletal: Yes: WNL Extremities: Yes: WNL Labs: CBC, BMP 07/15/19 06:44 07/15/19 06:44 Assessment/Plan 88 y/o gentleman with a significant past medical history of CKD, Chronic Anemia, Dysproteinemia, Systolic CHF, Afib (on Coumadin), Mitral Valve bioprosthetic 2003, s/p ICD (13), Gastric Ulcer. Who presented to the ER due to BRADY. Mentioned also "black stools". Has also abdominal distension for which he had a paracentesis (likely to be due to CHF). Hematology has been consulted due to anemia. She follows with Dr. Zapata and has a history of multifactorial anemia of chronic disease (CHF/CKD) Recommendations: 1) Anemia of Inflammation/Anemia of Chronic Disease. Labs are stable 2) [facility] GI notes and evaluation 3) F/u Dr. Zapata outpatient 4) Thank you for this consultation
[2019-07-15 15:41] LABS: BODY FLUID MACROPHAGES 83 %
[2019-07-15 16:06] LABS: TARGET CELLS 1+; TEAR DROP CELLS 1+
[2019-07-15 16:17] LABS: BASO % 0.5 % (0-2.0); HEMATOCRIT 24.5 % (35.4-49); HEMOGLOBIN 7.7 GM/dL (11.7-16.9); LYMPH % 22.6 % (8-40); MCH 29.6 pg (25.7-33.7); MCHC 31.3 g/dl (32.0-35.9); MEAN CELL VOLUME 94.5 fl (80-96); MEAN PLT VOLUME 9.3 fl (7.5-11.1); MONO % 18.3 % (3.8-10.2); NEUT % 56.6 % (42.8-82.8); PLATELET COUNT 96 K/MM3 (134-434); RBC 2.59 M/mm3 (4.00-5.60); RDW 24.4 % (11.9-15.9); WHITE BLOOD COUNT 4.4 K/mm3 (4.0-10.0)
[2019-07-15 17:09] LABS: HEP B CORE AB, TOT Negative (Negative)
--- NOTE | 2019-07-15 17:15 | PN ---
Progress Note, Physician Chief Complaint: Pt A&Ox3; Sitting in chair; no chest pain, dyspnea, dizziness, or palpitations. Still with 1-2+ bilateral LE edema to mid shins (using compression stockings). c/o two "small" nosebleeds while admitted; he told one RN it might be when he eats, but says now it was from the nasal cannula with oxygen. History of Present Illness: Mr. 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 Patient states he had been doing better for the past few days, since furosemide was increased; however today, as he was putting on his clothes he noticed that he was more out of breath than usual. Patient does endorse mild shortness of breath with exertion recently after walking up several flights of stairs. He notes associated 2 days of mild constipation, with black stools for the past 2 weeks; denies any yoon blood, melena. Pt also notes he has had distended abdomen for several months; he denies any associated fever, chills, coughing, chest pain, palpitation, lightheadedness, back pain, neck pain. Allergies: PCN, gus Primary Care Physician: Dr. Yang Development Officer: Dr. Garcia - Current Medication List Current Medications: Active Medications Digoxin (Lanoxin -) 0.125 mg PO Q2D [facility] Last Admin: 07/15/19 10:46 Dose: 0.125 mg Documented by: Furosemide (Lasix -) 20 mg PO DAILY [facility] Last Admin: 07/15/19 10:46 Dose: 20 mg Documented by: Pantoprazole Sodium (Protonix -) 40 mg PO DAILY [facility] Last Admin: 07/15/19 10:46 Dose: 40 mg Documented by: - Objective Vital Signs: Vital Signs Temperature 97.5 F L 07/15/19 14:00 Pulse Rate 75 07/15/19 14:00 Respiratory Rate 18 07/15/19 14:00 Blood Pressure 97/61 07/15/19 14:00 O2 Sat by Pulse Oximetry (%) 100 07/15/19 09:00 Constitutional: Yes: Calm Eyes: Yes: WNL HENT: Yes: WNL Neck: Yes: Supple Cardiovascular: Yes: Regular Rate and Rhythm, Pulse Irregular, Murmur Respiratory: Yes: Diminished, SOB on Exertion Gastrointestinal: Yes: Soft ...Rectal Exam: No: Deferred Genitourinary: No: Anuria Musculoskeletal: Yes: Muscle Weakness Edema: Yes Edema: LLE: 2+, RLE: 2+ Peripheral Pulses WNL: Yes Integumentary: Yes: WNL Neurological: Yes: WNL Psychiatric: Yes: WNL Labs: CBC, BMP 07/15/19 16:00 07/15/19 06:44 INR, PTT INR 1.79 (0.83-1.09) H 07/11/19 13:10 Abnormal Lab Results 07/16/19 07/17/19 12:45 06:58 Retic Count 0.43 L D PT with INR 16.40 H INR 1.39 H - ....Imaging Chest X-ray: Image Reviewed EKG: Image Reviewed Assessment/Plan Acute/chronic systolic CHF; s/p ICD 2012 Nonobstructive CAD (coronary angiogram 2012) Chronic elevation of TNI noted since at least 2012 hyperkalemia Acute renal dysfunction acute/chronic anemia; black stools (INR reportedly 3.8 last week) bioprosthetic mitral valve "stent" vs replacement 2003 ascites anxiety (exacerbated by worry of edvin COVID; pt was fearful of coming to hospital) Plan: Stopped diuretics, ACEI, spironolactone Now on furosemide; f/u renal function, Is and Os with urban renewal manager. Digoxin level 0.79 (keep 0.4-0.8). Restart warfarin if agreed upon by bread dumper Chronic TNi elevation, with multiple contributers to demand ischemia, including acute anemia and renal failure, CHF, AF, hypotension, sepsis EKG: ventricular-paced rhythm. ECHO: severely reduced LVEF (30%); reduced RVEF
[2019-07-15] MEDS: CARVEDILOL 3.125 MG TABLET (FP) PO SCH ×2 (17:57→21:18)
[2019-07-15] MEDS ORDERED: CARVEDILOL 3.125 MG TABLET (FP) PO SCH (18:00)
[2019-07-16 07:23] LABS: BASO % 0.9 % (0-2.0); EOS % 2.6 % (0-4.5); HEMATOCRIT 23.6 % (35.4-49); HEMOGLOBIN 7.7 GM/dL (11.7-16.9); LYMPH % 28.5 % (8-40); MCH 30.2 pg (25.7-33.7); MCHC 32.7 g/dl (32.0-35.9); MEAN CELL VOLUME 92.6 fl (80-96); MEAN PLT VOLUME 9.7 fl (7.5-11.1); MONO % 18.1 % (3.8-10.2); NEUT % 49.9 % (42.8-82.8); PLATELET COUNT 87 K/MM3 (134-434); RBC 2.55 M/mm3 (4.00-5.60); RDW 23.7 % (11.9-15.9); WHITE BLOOD COUNT 4.2 K/mm3 (4.0-10.0)
[2019-07-16 07:53] LABS: ALBUMIN 2.9 g/dl (3.4-5.0); BILIRUBIN,TOTAL 2.7 mg/dL (0.2-1); CALCIUM 8.6 mg/dL (8.5-10.1); MAGNESIUM 2.3 mg/dL (1.8-2.4); POTASSIUM 4.7 mmol/L (3.5-5.1); TOT PROT 5.7 g/dl (6.4-8.2)
--- NOTE | 2019-07-16 08:28 | PN ---
Progress Note, Physician History of Present Illness: This is a 88 y/o male with a significant past medical history of CKD, Chronic Anemia, Dysproteinemia, Systolic CHF, Afib (on Coumadin), Mitral Valve bioprosthetic 2003, s/p ICD (13), Gastric Ulcer. Who presents to the ED with 1 day of gradual onset shortness of breath worsened with exertion. Patient states he has been doing well for several days however today as he was putting on his clothes he noticed that he was more out of breath than usual. Patient does endorse mild shortness of breath with exertion recently after walking up several flights of stairs. He notes associated 2 days of mild constipation with black stools. denies any yoon blood, melena Patient also reports abdominal distention for several months which he attributes to a hernia that he is waiting to have repaired. Patient denies fever, chills, cough, chest pain, palpitation, lightheadedness, nausea, vomiting, dysuria. - Current Medication List Current Medications: Active Medications Carvedilol (Coreg -) 3.125 mg PO BID [facility] Last Admin: 07/15/19 21:18 Dose: Not Given Documented by: Digoxin (Lanoxin -) 0.125 mg PO Q2D [facility] Last Admin: 07/15/19 10:46 Dose: 0.125 mg Documented by: Furosemide (Lasix -) 20 mg PO DAILY [facility] Last Admin: 07/15/19 10:46 Dose: 20 mg Documented by: Pantoprazole Sodium (Protonix -) 40 mg PO DAILY [facility] Last Admin: 07/15/19 10:46 Dose: 40 mg Documented by: - Objective Vital Signs: Vital Signs Temperature 97.8 F 07/16/19 06:00 Pulse Rate 75 07/16/19 06:00 Respiratory Rate 18 07/16/19 06:00 Blood Pressure 114/80 07/16/19 06:00 O2 Sat by Pulse Oximetry (%) 100 07/15/19 21:00 Eyes: Yes: WNL, Conjunctiva Clear, EOM Intact HENT: Yes: WNL, Atraumatic, Normocephalic Neck: Yes: WNL, Supple, Trachea Midline Cardiovascular: Yes: WNL, Regular Rate and Rhythm Respiratory: Yes: WNL, Regular, CTA Bilaterally Gastrointestinal: Yes: WNL, Normal Bowel Sounds Genitourinary: Yes: WNL Musculoskeletal: Yes: WNL Extremities: Yes: WNL Edema: Yes Integumentary: Yes: WNL Neurological: Yes: WNL, Alert, Oriented ...Motor Strength: WNL Psychiatric: Yes: WNL Labs: CBC, BMP 07/16/19 05:46 07/16/19 05:46 INR, PTT INR 1.79 (0.83-1.09) H 07/11/19 13:10 Problem List - Problems (1) JEWEL (acute kidney injury) Code(s): N17.9 - ACUTE KIDNEY FAILURE, UNSPECIFIED (2) Ascites Code(s): R18.8 - OTHER ASCITES Qualifiers: Ascites type: other type Qualified Code(s): R18.8 - Other ascites (3) CHF (congestive heart failure) Code(s): I50.9 - HEART FAILURE, UNSPECIFIED Qualifiers: Heart failure type: systolic Heart failure chronicity: acute on chronic Qualified Code(s): I50.23 - Acute on chronic systolic (congestive) heart failure (4) Elevated troponin Code(s): R79.89 - OTHER SPECIFIED ABNORMAL FINDINGS OF BLOOD CHEMISTRY (5) Hyperkalemia Code(s): E87.5 - HYPERKALEMIA (6) Prophylactic measure Code(s): Z29.9 - ENCOUNTER FOR PROPHYLACTIC MEASURES, UNSPECIFIED (7) Shortness of breath Code(s): R06.02 - SHORTNESS OF BREATH (8) Symptomatic anemia Code(s): D64.9 - ANEMIA, UNSPECIFIED (9) Systolic CHF, acute on chronic Code(s): I50.23 - ACUTE ON CHRONIC SYSTOLIC (CONGESTIVE) HEART FAILURE (10) Total bilirubin, elevated Code(s): R17 - UNSPECIFIED JAUNDICE (11) A-fib Code(s): I48.91 - UNSPECIFIED ATRIAL FIBRILLATION (12) AICD (automatic cardioverter/defibrillator) present Code(s): Z95.810 - PRESENCE OF AUTOMATIC (IMPLANTABLE) CARDIAC DEFIBRILLATOR (13) Acute hypercapnic respiratory failure Code(s): J96.02 - ACUTE RESPIRATORY FAILURE WITH HYPERCAPNIA (14) Uopsw-hp-cejgpik kidney injury Code(s): N17.9 - ACUTE KIDNEY FAILURE, UNSPECIFIED; N18.9 - CHRONIC KIDNEY DISEASE, UNSPECIFIED (15) Atrial fibrillation and flutter Code(s): I48.91 - UNSPECIFIED ATRIAL FIBRILLATION; I48.92 - UNSPECIFIED ATRIAL FLUTTER (16) BPH (benign prostatic hypertrophy) Code(s): N40.0 - BENIGN PROSTATIC HYPERPLASIA WITHOUT LOWER URINRY TRACT SYMP (17) Chronic passive hepatic congestion Code(s): K76.1 - CHRONIC PASSIVE CONGESTION OF LIVER (18) BRADY (dyspnea on exertion) Code(s): R06.09 - OTHER FORMS OF DYSPNEA (19) Diverticula of colon Code(s): K57.30 - DVRTCLOS OF LG INT W/O PERFORATION OR ABSCESS W/O BLEEDING (20) Gastritis Code(s): K29.70 - GASTRITIS, UNSPECIFIED, WITHOUT BLEEDING (21) Gout Code(s): M10.9 - GOUT, UNSPECIFIED (22) Groin pain Code(s): R10.30 - LOWER ABDOMINAL PAIN, UNSPECIFIED Qualifiers: Laterality: right Qualified Code(s): R10.31 - Right lower quadrant pain (23) Hiatal hernia Code(s): K44.9 - DIAPHRAGMATIC HERNIA WITHOUT OBSTRUCTION OR GANGRENE (24) Hypercoagulable state Code(s): D68.59 - OTHER PRIMARY THROMBOPHILIA (25) Metabolic acidosis Code(s): E87.2 - ACIDOSIS (26) Normocytic normochromic anemia Code(s): D64.9 - ANEMIA, UNSPECIFIED (27) Pancytopenia Code(s): D61.818 - OTHER PANCYTOPENIA (28) Prosthetic mitral valve regurgitation Code(s): T82.03XA - LEAKAGE OF HEART VALVE PROSTHESIS, INITIAL ENCOUNTER (29) Systolic and diastolic CHF w/reduced LV function, NYHA class 4 Code(s): I50.40 - UNSP COMBINED SYSTOLIC AND DIASTOLIC (CONGESTIVE) HRT FAIL Assessment/Plan Acute/chronic systolic CHF; s/p ICD 2013 Nonobstructive CAD (coronary angiogram 2012) Chronic elevation of TNI noted since at least 2012 hyperkalemia Acute renal dysfunction acute/chronic anemia; black stools (INR reportedly 3.8 last week) bioprosthetic mitral valve "stent" vs replacement 2003 ascites anxiety (exacerbated by worry of edvin COVID; pt was fearful of coming to hospital) Plan: Stopped diuretics, ACEI, spironolactone Now on furosemide; f/u renal function, Is and Os with corporate driver. Digoxin level 0.79 (keep 0.4-0.8). Restart warfarin if agreed upon by operational risk analyst Chronic TNi elevation, with multiple contributers to demand ischemia, including acute anemia and renal failure, CHF, AF, hypotension, sepsis EKG: ventricular-paced rhythm. ECHO: severely reduced LVEF (30%); reduced RVEF
--- NOTE | 2019-07-16 09:01 | PN.GI ---
GI Progress Note Subjective: GI NOte: Feels better after paracentesis I have attached an office note that reminds me that Michael has been felt to have ascites and elevated LFTs due to congestive hepatopathy. He has chronic anemia that Dr Washington believes is due to chronic disease and renal failure. He had no blood on his stool on my office occult blood testing on 05/05/19. He had previously been followed by Dr Stiles and Dr De Los Santos. He last had a colonoscopy done by Dr Stiles on 02/20/12. Dr Stiles last did an EGD on 10/30/13 which revealed a that a previous found gastric ulcer had healed. His cardiac status is felt to preclude any repeat elective endoscopies. His occult blood on admission mat have reflected his nosebleed. I will retest his stool. I consulted Dr Washington for his anemia - Objective Vital Signs: Vital Signs Temperature 97.8 F 07/16/19 06:00 Pulse Rate 75 07/16/19 06:00 Respiratory Rate 18 07/16/19 06:00 Blood Pressure 114/80 07/16/19 06:00 O2 Sat by Pulse Oximetry (%) 100 07/15/19 21:00 Laboratory Tests 07/12/19 07/14/19 07/14/19 19:25 06:17 06:17 Hgb 8.2 L BUN Creatinine Ferritin Total Bilirubin 2.2 H AST 29 ALT 22 Alkaline Phosphatase 75 Hep A IgM Ab Confirm Negative Hepatitis A Ab Total Positive H Hep Bs Antigen Negative Hep Bs Antibody Reactive Hep B Core Total Ab Negative Hep B Core IgM Ab Negative Hepatitis Be Antibody Negative Hepatitis Be Antigen Negative Hep C Ab Diagnostic 0.2 07/14/19 07/15/19 07/15/19 06:17 06:44 06:44 Hgb 7.8 L BUN 51.1 H Creatinine 2.4 H Ferritin 134.9 Total Bilirubin 2.0 H AST 31 ALT 22 Alkaline Phosphatase 72 Hep A IgM Ab Confirm Hepatitis A Ab Total Hep Bs Antigen Hep Bs Antibody Hep B Core Total Ab Hep B Core IgM Ab Hepatitis Be Antibody Hepatitis Be Antigen Hep C Ab Diagnostic 07/16/19 07/16/19 05:46 05:46 Hgb 7.7 L BUN 40.0 H Creatinine 2.0 H Ferritin Total Bilirubin 2.7 H AST 31 ALT 21 Alkaline Phosphatase 67 Hep A IgM Ab Confirm Hepatitis A Ab Total Hep Bs Antigen Hep Bs Antibody Hep B Core Total Ab Hep B Core IgM Ab Hepatitis Be Antibody Hepatitis Be Antigen Hep C Ab Diagnostic Labs: CBC, BMP 07/16/19 05:46 07/16/19 05:46 INR, PTT INR 1.79 (0.83-1.09) H 07/11/19 13:10 Assessment/Plan Impression: - Anemia worse than his baseline. Has occult bleeding but has been having nose bleeds. 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 - personal h/o gastric ulcer - Diverticulosis Plan: -- Repeat stool for occult blood --Await paracentesis results -- Serial CBCs -- AFP -- Will reserve endoscopies for more active bleeding Problem List - Problems (1) Anemia Code(s): D64.9 - ANEMIA, UNSPECIFIED Qualifiers: Anemia type: due to chronic kidney disease (2) Cardiac cirrhosis Code(s): K76.1 - CHRONIC PASSIVE CONGESTION OF LIVER (3) Abdominal ascites Code(s): R18.8 - OTHER ASCITES (4) CHF (congestive heart failure) Code(s): I50.9 - HEART FAILURE, UNSPECIFIED Qualifiers: Heart failure type: systolic Heart failure chronicity: acute on chronic Qualified Code(s): I50.23 - Acute on chronic systolic (congestive) heart failure (5) Occult GI bleeding Code(s): R19.5 - OTHER FECAL ABNORMALITIES (6) A-fib Code(s): I48.91 - UNSPECIFIED ATRIAL FIBRILLATION (7) AICD (automatic cardioverter/defibrillator) present Code(s): Z95.810 - PRESENCE OF AUTOMATIC (IMPLANTABLE) CARDIAC DEFIBRILLATOR (8) Atrial fibrillation and flutter Code(s): I48.91 - UNSPECIFIED ATRIAL FIBRILLATION; I48.92 - UNSPECIFIED ATRIAL FLUTTER (9) Diverticula of colon Code(s): K57.30 - DVRTCLOS OF LG INT W/O PERFORATION OR ABSCESS W/O BLEEDING (10) Prosthetic mitral valve regurgitation Code(s): T82.03XA - LEAKAGE OF HEART VALVE PROSTHESIS, INITIAL ENCOUNTER (11) Systolic and diastolic CHF w/reduced LV function, NYHA class 4 Code(s): I50.40 - UNSP COMBINED SYSTOLIC AND DIASTOLIC (CONGESTIVE) HRT FAIL (12) WOODY (nonalcoholic steatohepatitis) Code(s): K75.81 - NONALCOHOLIC STEATOHEPATITIS (WOODY) (13) Nephrolithiasis Code(s): N20.0 - CALCULUS OF KIDNEY (14) Diverticulosis Code(s): K57.90 - DVRTCLOS OF INTEST, PART UNSP, W/O PERF OR ABSCESS W/O BLEED (15) BPH (benign prostatic hyperplasia) Code(s): N40.0 - BENIGN PROSTATIC HYPERPLASIA WITHOUT LOWER URINRY TRACT SYMP (16) Gout Code(s): M10.9 - GOUT, UNSPECIFIED (17) Inguinal hernia of right side without obstruction or gangrene Code(s): K40.90 - UNIL INGUINAL HERNIA, W/O OBST OR GANGR, NOT SPCF RECUR
[2019-07-16] MEDS: PANTOPRAZOLE 40 MG TABLET PO SCH (10:05)
[2019-07-16] MEDS: CARVEDILOL 3.125 MG TABLET (FP) PO SCH ×2 (10:06→22:34)
[2019-07-16] MEDS: FUROSEMIDE 20 MG TABLET (FP) PO SCH (10:06)
--- NOTE | 2019-07-16 11:56 | PN ---
Progress Note, Physician History of Present Illness: Pt seen and examined at bedside. He is awake and alert. He is s/p paracentesis. - Current Medication List Current Medications: Active Medications Carvedilol (Coreg -) 3.125 mg PO BID [facility] Last Admin: 07/16/19 10:06 Dose: 3.125 mg Documented by: Digoxin (Lanoxin -) 0.125 mg PO Q2D [facility] Last Admin: 07/15/19 10:46 Dose: 0.125 mg Documented by: Furosemide (Lasix -) 20 mg PO DAILY [facility] Last Admin: 07/16/19 10:06 Dose: 20 mg Documented by: Pantoprazole Sodium (Protonix -) 40 mg PO DAILY [facility] Last Admin: 07/16/19 10:05 Dose: 40 mg Documented by: - Objective Vital Signs: Vital Signs Temperature 97.8 F 07/16/19 09:50 Pulse Rate 75 07/16/19 09:50 Respiratory Rate 20 07/16/19 09:50 Blood Pressure 111/73 07/16/19 09:50 O2 Sat by Pulse Oximetry (%) 100 07/16/19 09:50 Constitutional: Yes: Calm Eyes: Yes: Conjunctiva Clear HENT: Yes: Atraumatic Neck: Yes: Supple Cardiovascular: Yes: S1, S2 Respiratory: Yes: CTA Bilaterally Gastrointestinal: Yes: Soft, Ascites Genitourinary: Yes: WNL Musculoskeletal: Yes: WNL Edema: Yes Edema: LLE: 1+, RLE: 1+ Neurological: Yes: Oriented Psychiatric: Yes: Oriented Labs: CBC, BMP 07/16/19 05:46 07/16/19 05:46 INR, PTT INR 1.79 (0.83-1.09) H 07/11/19 13:10 Problem List - Problems (1) JEWEL (acute kidney injury) Code(s): N17.9 - ACUTE KIDNEY FAILURE, UNSPECIFIED (2) Hyperkalemia Code(s): E87.5 - HYPERKALEMIA (3) A-fib Code(s): I48.91 - UNSPECIFIED ATRIAL FIBRILLATION (4) AICD (automatic cardioverter/defibrillator) present Code(s): Z95.810 - PRESENCE OF AUTOMATIC (IMPLANTABLE) CARDIAC DEFIBRILLATOR (5) Ascites Code(s): R18.8 - OTHER ASCITES Qualifiers: Ascites type: other type Qualified Code(s): R18.8 - Other ascites (6) CHF (congestive heart failure) Code(s): I50.9 - HEART FAILURE, UNSPECIFIED Qualifiers: Heart failure type: systolic Heart failure chronicity: acute on chronic Qualified Code(s): I50.23 - Acute on chronic systolic (congestive) heart failure Assessment/Plan Current Medications Generic Name Dose Route Start Last Admin Trade Name Freq PRN Reason Stop Dose Admin Carvedilol 3.125 mg 07/15/19 18:00 07/16/19 10:06 Coreg - PO 3.125 mg BID ODILIA Administration Digoxin 0.125 mg 07/15/19 10:00 07/15/19 10:46 Lanoxin - PO 0.125 mg Q2D ODILIA Administration Furosemide 20 mg 07/14/19 10:00 07/16/19 10:06 Lasix - PO 20 mg DAILY ODILIA Administration Pantoprazole Sodium 40 mg 07/14/19 10:00 07/16/19 10:05 Protonix - PO 40 mg DAILY ODILIA Administration Impression 1. JEWEL 2. hyperkalemia 3. ascites 4. fluid overload 5. chf 6. ckd 7. a-fib Plan - category director is improving - follow fluid studies - increase lasix to 40 mg - check renal function daily - volume status is improving - GI follow up appreciated
[2019-07-16 13:21] LABS: INR 1.39 (0.83-1.09); PROTHROMBIN TIME (PATIENT) 16.4 SEC (9.7-13.0)
--- NOTE | 2019-07-16 18:24 | PN ---
Physical Exam: SUBJECTIVE: denies any malaise OBJECTIVE: Patient is a 88 year old male with a significant past medical history of CKD, Chronic Anemia, dysproteinemia, Systolic CHF, Afib (on Coumadin), Mitral Valve bioprosthetic 2003, s/p ICD (13), Gastric Ulcer. Who presented to the ED with 1 day of gradual onset shortness of breath worsened with exertion and constipation with black stools. His coumadin has been on hold. today s/p paracentesis on 07/14 with 2 liter removed Vital Signs Period Temp Pulse Resp BP Sys/Lara Pulse Ox Last 24 Hr 97.6 F-98.0 F 60-75 18-20 94-114/54-80 100-100 GENERAL: The patient is awake, alert, and fully oriented, in no acute distress. HEAD: Normal with no signs of trauma. EYES: PERRL, extraocular movements intact, sclera anicteric, conjunctiva clear. No ptosis. ENT: Ears normal, nares patent, oropharynx clear without exudates NECK: Trachea midline, full range of motion, supple. LUNGS: Breath sounds equal, clear to auscultation bilaterally HEART: Regular rate and rhythm ABDOMEN: Soft, nontender, nondistended, normoactive bowel sounds EXTREMITIES: 2+ pulses, warm, well-perfused, no edema. NEUROLOGICAL: Normal speech, gait not observed. PSYCH: Normal mood, normal affect. SKIN: Warm, dry, normal turgor, no rashes or lesions noted 07/13/19 07/16/19 07/16/19 08:12 04:34 05:46 WBC 4.2 RBC 2.55 L Hgb 7.7 L Hct 23.6 L MCV 92.6 MCH 30.2 MCHC 32.7 RDW 23.7 H Plt Count 87 L MPV 9.7 Absolute Neuts (auto) 2.1 Neutrophils % 49.9 Lymphocytes % 28.5 D Monocytes % 18.1 H Eosinophils % 2.6 Basophils % 0.9 Nucleated RBC % 0 PT with INR INR Sodium Potassium Chloride Carbon Dioxide Anion Gap BUN Creatinine Est GFR (CKD-EPI)AfAm Est GFR (CKD-EPI)NonAf POC Glucometer 75 Random Glucose Calcium Magnesium Total Bilirubin AST ALT Alkaline Phosphatase Total Protein Albumin Prostate Specific Ag 4.60 H 07/16/19 07/16/19 07/16/19 05:46 09:59 12:45 WBC RBC Hgb Hct MCV MCH MCHC RDW Plt Count MPV Absolute Neuts (auto) Neutrophils % Lymphocytes % Monocytes % Eosinophils % Basophils % Nucleated RBC % PT with INR 16.40 H INR 1.39 H Sodium 136 Potassium 4.7 Chloride 104 Carbon Dioxide 27 Anion Gap 5 L BUN 40.0 H Creatinine 2.0 H Est GFR (CKD-EPI)AfAm 34.02 Est GFR (CKD-EPI)NonAf 29.35 POC Glucometer 95 Random Glucose 76 Calcium 8.6 Magnesium 2.3 Total Bilirubin 2.7 H AST 31 ALT 21 Alkaline Phosphatase 67 Total Protein 5.7 L Albumin 2.9 L Prostate Specific Ag 07/16/19 16:22 WBC RBC Hgb Hct MCV MCH MCHC RDW Plt Count MPV Absolute Neuts (auto) Neutrophils % Lymphocytes % Monocytes % Eosinophils % Basophils % Nucleated RBC % PT with INR INR Sodium Potassium Chloride Carbon Dioxide Anion Gap BUN Creatinine Est GFR (CKD-EPI)AfAm Est GFR (CKD-EPI)NonAf POC Glucometer 80 Random Glucose Calcium Magnesium Total Bilirubin AST ALT Alkaline Phosphatase Total Protein Albumin Prostate Specific Ag Active Medications Generic Name Dose Route Start Last Admin Trade Name Freq PRN Reason Stop Dose Admin Carvedilol 3.125 mg 07/15/19 18:00 07/16/19 10:06 Coreg - PO 3.125 mg BID ODILIA Administration Digoxin 0.125 mg 07/15/19 10:00 07/15/19 10:46 Lanoxin - PO 0.125 mg Q2D [facility] Administration Furosemide 20 mg 07/14/19 10:00 07/16/19 10:06 Lasix - PO 20 mg DAILY [facility] Administration Pantoprazole Sodium 40 mg 07/14/19 10:00 07/16/19 10:05 Protonix - PO 40 mg DAILY [facility] Administration ASSESSMENT/PLAN: Problem List - Problems (1) JEWEL (acute kidney injury) Assessment/Plan: Creatinine above baseline, currently 2.0. nephrology following. Kidney and Bladder US noted c/t Monitor CMP Avoid nephrotoxic drugs Code(s): N17.9 - ACUTE KIDNEY FAILURE, UNSPECIFIED (2) Abdominal ascites Assessment/Plan: s/p 2 liter removal on 07/15/2019. Code(s): R18.8 - OTHER ASCITES (3) Anemia Assessment/Plan: Hematology has been consulted due to anemia. Patient follows with Dr. Zapata outpatient for anemia of chronic disease (CHF/CKD). Patient currently asymptomatic. Monitor CBC daily. Code(s): D64.9 - ANEMIA, UNSPECIFIED Qualifiers: Anemia type: due to chronic kidney disease (4) Ascites Assessment/Plan: likely due to chronic kidney disease vs heart disease. s/p 2 liters removed via paracentesis on 07/15/2019 Code(s): R18.8 - OTHER ASCITES Qualifiers: Ascites type: other type Qualified Code(s): R18.8 - Other ascites (5) BPH (benign prostatic hyperplasia) Assessment/Plan: continue home meds. Code(s): N40.0 - BENIGN PROSTATIC HYPERPLASIA WITHOUT LOWER URINRY TRACT SYMP (6) CHF (congestive heart failure) Assessment/Plan: on lasix, daily weights. Code(s): I50.9 - HEART FAILURE, UNSPECIFIED Qualifiers: Heart failure type: systolic Heart failure chronicity: acute on chronic Qualified Code(s): I50.23 - Acute on chronic systolic (congestive) heart failure (7) Occult GI bleeding Assessment/Plan: transfused 2 units of prbc no further episodes of melena c/w ppi GI following Code(s): R19.5 - OTHER FECAL ABNORMALITIES (8) DVT prophylaxis Assessment/Plan: SCDs/TEDs Code(s): Z29.9 - ENCOUNTER FOR PROPHYLACTIC MEASURES, UNSPECIFIED Visit type - Emergency Visit Emergency Visit: Yes ED Registration Date: 07/11/19 Care time: The patient presented to the Emergency Department on the above date and was hospitalized for further evaluation of their emergent condition. - New Patient This patient is new to me today: No - Critical Care Critical Care patient: No - Discharge Referral Referred to [facility] No
--- NOTE | 2019-07-16 21:58 | PN ---
Progress Note (short form) - Note Progress Note: PAtient seen and examined Feels much better Last Vital Signs Temp Pulse Resp BP Pulse Ox 97.7 F 81 18 110/67 100 07/16/19 18:00 07/16/19 18:00 07/16/19 18:00 07/16/19 18:00 07/16/19 09:50 Cor: RSR, No murmurs, No gallops Lungs: Clear to P&A Abd: Soft, Normal bowel sounds, No organomegaly Ext:No significant edema Abnormal Lab Results 07/13/19 07/16/19 07/16/19 08:12 05:46 05:46 RBC 2.55 L Hgb 7.7 L Hct 23.6 L RDW 23.7 H Plt Count 87 L Monocytes % 18.1 H PT with INR INR Anion Gap 5 L BUN 40.0 H Creatinine 2.0 H Total Bilirubin 2.7 H Total Protein 5.7 L Albumin 2.9 L Prostate Specific Ag 4.60 H 07/16/19 12:45 RBC Hgb Hct RDW Plt Count Monocytes % PT with INR 16.40 H INR 1.39 H Anion Gap BUN Creatinine Total Bilirubin Total Protein Albumin Prostate Specific Ag Active Medications Carvedilol (Coreg -) 3.125 mg PO BID [facility] Last Admin: 07/16/19 22:34 Dose: 3.125 mg Documented by: Digoxin (Lanoxin -) 0.125 mg PO Q2D [facility] Last Admin: 07/15/19 10:46 Dose: 0.125 mg Documented by: Furosemide (Lasix -) 20 mg PO DAILY [facility] Last Admin: 07/16/19 10:06 Dose: 20 mg Documented by: Pantoprazole Sodium (Protonix -) 40 mg PO DAILY [facility] Last Admin: 07/16/19 10:05 Dose: 40 mg Documented by: A/P 88 y/o gentleman with a significant past medical history of CKD, Chronic Anemia, Dysproteinemia, Systolic CHF, Afib (on Coumadin), Mitral Valve bioprosthetic 2003, s/p ICD (13), Gastric Ulcer. Who presented to the ER due to BRADY and melena. Has also abdominal distension for which he had a paracentesis (likely to be due to CHF). Hematology has been consulted due to anemia. HAd been on coumadin which is on hold Anemia: Chronic disease + occult gi losses Unlikely marrow pathology Suspect CHF/CKD( cr3.3) IRon sat 18%, Ferritin 98 could trget a iron sat of 26% Could consider procrit Anticoagulation --will discuss with cardiology/GI Hearin bridged back to coumadin ? but concern for gi losses follow ascitic fluid cytology will discuss with teams involved
[2019-07-17] MEDS: CARVEDILOL 3.125 MG TABLET (FP) PO SCH ×2 (10:07→22:03)
[2019-07-17] MEDS: PANTOPRAZOLE 40 MG TABLET PO SCH (10:07)
[2019-07-17] MEDS: FUROSEMIDE 20 MG TABLET (FP) PO SCH (10:07)
[2019-07-17] MEDS: DIGOXIN 0.125 MG TABLET (FP) PO SCH (10:07)
--- NOTE | 2019-07-17 11:20 | PN ---
Progress Note, Physician Chief Complaint: Pt A&Ox3; Sitting up at bedise, reading; no chest pain, dyspnea, dizziness, or palpitatitions. His feet, while in compression stockings, have been dangling, and still with 1-2 + bipedal pitting edema to mid-shins. History of Present Illness: Mr. 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 Patient states he had been doing better for the past few days, since furosemide was increased; however today, as he was putting on his clothes he noticed that he was more out of breath than usual. Patient does endorse mild shortness of breath with exertion recently after walking up several flights of stairs. He notes associated 2 days of mild constipation, with black stools for the past 2 weeks; denies any yoon blood, melena. Pt also notes he has had distended abdomen for several months; he de nies any associated fever, chills, coughing, chest pain, palpitation, lightheadedness, back pain, neck pain. Allergies: PCN, kiwi Primary Care Physician: Dr. Yang Test Preparation Tutor: Dr. Garcia - Current Medication List Current Medications: Active Medications Carvedilol (Coreg -) 3.125 mg PO BID [facility] Last Admin: 07/17/19 10:07 Dose: 3.125 mg Documented by: Digoxin (Lanoxin -) 0.125 mg PO Q2D [facility] Last Admin: 07/17/19 10:07 Dose: 0.125 mg Documented by: Furosemide (Lasix -) 20 mg PO DAILY [facility] Last Admin: 07/17/19 10:07 Dose: 20 mg Documented by: Pantoprazole Sodium (Protonix -) 40 mg PO DAILY [facility] Last Admin: 07/17/19 10:07 Dose: 40 mg Documented by: - Objective Vital Signs: Vital Signs Temperature 98.5 F 07/17/19 06:00 Pulse Rate 73 07/17/19 10:07 Respiratory Rate 18 07/17/19 06:00 Blood Pressure 105/66 07/17/19 06:00 O2 Sat by Pulse Oximetry (%) 100 07/16/19 09:50 Constitutional: Yes: Calm Eyes: Yes: WNL HENT: Yes: WNL Neck: Yes: WNL Cardiovascular: Yes: Murmur, S1, S2 (split) Respiratory: Yes: Regular Gastrointestinal: Yes: Soft ...Rectal Exam: Yes: Deferred Genitourinary: No: Anuria Edema: Yes Edema: LLE: 1+, RLE: 1+ Peripheral Pulses WNL: Yes Integumentary: Yes: WNL Neurological: Yes: WNL Psychiatric: Yes: WNL Labs: CBC, BMP 07/16/19 05:46 07/16/19 05:46 INR, PTT INR 1.39 (0.83-1.09) H 07/16/19 12:45 Abnormal Lab Results 07/17/19 07/18/19 07/18/19 05:58 11:30 11:30 WBC 3.7 L RBC 2.67 L Hgb 8.0 L Hct 24.8 L RDW 23.6 H Plt Count 99 L Monocytes % 20.7 H Monocytes % (Manual) 20 H Anion Gap 6 L BUN 27.2 H Creatinine 1.9 H Total Bilirubin 2.0 H Albumin 3.1 L Smooth Musc &[employer] PROGRAM COORDINATOR Intrp 23 H - ....Imaging Chest X-ray: Image Reviewed EKG: Image Reviewed Assessment/Plan Acute/chronic systolic CHF; s/p ICD 2012 Nonobstructive CAD (coronary angiogram 2012) 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 Restart warfarin if agreed upon by tower climber Chronic TNi elevation, with multiple contributers to demand ischemia, including acute anemia and renal failure, CHF, AF, hypotension, sepsis EKG: ventricular-paced rhythm. ECHO: severely reduced LVEF (30%); reduced RVEF
[2019-07-17 12:07] LABS: BODY FLUID ALBUMIN 2.1 g/dL (Not Estab.)
--- NOTE | 2019-07-17 15:51 | PN ---
Progress Note, Physician History of Present Illness: Pt seen and examined at bedside. He is awake and appears comfortable. He denies shortness of breath. - Current Medication List Current Medications: Active Medications Carvedilol (Coreg -) 3.125 mg PO BID [facility] Last Admin: 07/17/19 10:07 Dose: 3.125 mg Documented by: Digoxin (Lanoxin -) 0.125 mg PO Q2D [facility] Last Admin: 07/17/19 10:07 Dose: 0.125 mg Documented by: Furosemide (Lasix -) 20 mg PO DAILY [facility] Last Admin: 07/17/19 10:07 Dose: 20 mg Documented by: Pantoprazole Sodium (Protonix -) 40 mg PO DAILY [facility] Last Admin: 07/17/19 10:07 Dose: 40 mg Documented by: - Objective Vital Signs: Vital Signs Temperature 98.7 F 07/17/19 14:00 Pulse Rate 75 07/17/19 14:00 Respiratory Rate 20 07/17/19 14:00 Blood Pressure 112/51 L 07/17/19 14:00 O2 Sat by Pulse Oximetry (%) 100 07/16/19 09:50 Constitutional: Yes: Calm Eyes: Yes: Conjunctiva Clear HENT: Yes: Atraumatic Cardiovascular: Yes: S1, S2 Respiratory: Yes: CTA Bilaterally Gastrointestinal: Yes: Soft, Ascites Genitourinary: Yes: WNL Edema: Yes Edema: LLE: 1+, RLE: 1+ Integumentary: Yes: WNL Neurological: Yes: Oriented Psychiatric: Yes: Oriented Labs: CBC, BMP 07/16/19 05:46 07/16/19 05:46 INR, PTT INR 1.39 (0.83-1.09) H 07/16/19 12:45 Problem List - Problems (1) JEWEL (acute kidney injury) Code(s): N17.9 - ACUTE KIDNEY FAILURE, UNSPECIFIED (2) Hyperkalemia Code(s): E87.5 - HYPERKALEMIA (3) A-fib Code(s): I48.91 - UNSPECIFIED ATRIAL FIBRILLATION (4) AICD (automatic cardioverter/defibrillator) present Code(s): Z95.810 - PRESENCE OF AUTOMATIC (IMPLANTABLE) CARDIAC DEFIBRILLATOR (5) Ascites Code(s): R18.8 - OTHER ASCITES Qualifiers: Ascites type: other type Qualified Code(s): R18.8 - Other ascites (6) CHF (congestive heart failure) Code(s): I50.9 - HEART FAILURE, UNSPECIFIED Qualifiers: Heart failure type: systolic Heart failure chronicity: acute on chronic Qualified Code(s): I50.23 - Acute on chronic systolic (congestive) heart failure Assessment/Plan Current Medications Generic Name Dose Route Start Last Admin Trade Name Freq PRN Reason Stop Dose Admin Carvedilol 3.125 mg 07/15/19 18:00 07/17/19 10:07 Coreg - PO 3.125 mg BID ODILIA Administration Digoxin 0.125 mg 07/15/19 10:00 07/17/19 10:07 Lanoxin - PO 0.125 mg Q2D [facility] Administration Furosemide 20 mg 07/14/19 10:00 07/17/19 10:07 Lasix - PO 20 mg DAILY [facility] Administration Pantoprazole Sodium 40 mg 07/14/19 10:00 07/17/19 10:07 Protonix - PO 40 mg DAILY [facility] Administration Impression 1. JEWEL 2. hyperkalemia 3. ascites 4. fluid overload 5. chf 6. ckd 7. a-fib Plan - can increase lasix to 40 mg daily (pts home dose) - monitor volume status - check cmp - cardio input appreciated - aldactone held, pt was hyperkalemic - renal function stabilizing
--- NOTE | 2019-07-17 18:00 | PN ---
Physical Exam: SUBJECTIVE: Patient seen and examined, sitting in chair, in no acute distress. had bm overnight, brown colored. OBJECTIVE: Patient is a 88 year old male with a significant past medical history of CKD, Chronic Anemia, dysproteinemia, Systolic CHF, Afib (on Coumadin), Mitral Valve bioprosthetic 2003, s/p ICD (13), Gastric Ulcer. Who presented to the ED with 1 day of gradual onset shortness of breath worsened with exertion and constipation with black stools. His coumadin has been on hold. s/p paracentesis on 07/14 with 2 liter removed Vital Signs Period Temp Pulse Resp BP Sys/Lara Pulse Ox Last 24 Hr 97.9 F-98.7 F 73-76 16-20 100-127/51-66 GENERAL: The patient is awake, alert, and fully oriented, in no acute distress. HEAD: Normal with no signs of trauma. EYES: PERRL, extraocular movements intact, sclera anicteric, conjunctiva clear. No ptosis. ENT: Ears normal, nares patent, oropharynx clear without exudates NECK: Trachea midline, full range of motion, supple. LUNGS: Breath sounds equal, clear to auscultation bilaterally HEART: Regular rate and rhythm ABDOMEN: Soft, nontender, nondistended, normoactive bowel sounds EXTREMITIES: 2+ pulses, warm, well-perfused, no edema. NEUROLOGICAL: Normal speech, gait not observed. PSYCH: Normal mood, normal affect. SKIN: Warm, dry, normal turgor, no rashes or lesions noted Laboratory Results - last 24 hr 07/15/19 07/17/19 07/17/19 11:20 06:58 11:24 Retic Count 0.43 L D POC Glucometer 89 POC Fluid pH 7.9 Fluid Glucose 99 Fluid Total Protein 3.4 Fluid Albumin 2.1 Body Fluid LDH Source 75 Fluid Amylase 88 Fluid Triglycerides 29 07/17/19 17:25 Retic Count POC Glucometer 89 POC Fluid pH Fluid Glucose Fluid Total Protein Fluid Albumin Body Fluid LDH Source Fluid Amylase Fluid Triglycerides Active Medications Generic Name Dose Route Start Last Admin Trade Name Freq PRN Reason Stop Dose Admin Carvedilol 3.125 mg 07/15/19 18:00 07/17/19 10:07 Coreg - PO 3.125 mg BID ODILIA Administration Digoxin 0.125 mg 07/15/19 10:00 07/17/19 10:07 Lanoxin - PO 0.125 mg Q2D ODIL[facility] Administration Furosemide 40 mg 07/17/19 16:00 Lasix - PO DAILY [facility] Pantoprazole Sodium 40 mg 07/14/19 10:00 07/17/19 10:07 Protonix - PO 40 mg DAILY [facility] Administration ASSESSMENT/PLAN: Problem List - Problems (1) JEWEL (acute kidney injury) Assessment/Plan: Creatinine above baseline, but improving. nephrology following. Kidney and Bladder US noted c/t Monitor CMP Avoid nephrotoxic drugs Code(s): N17.9 - ACUTE KIDNEY FAILURE, UNSPECIFIED (2) Abdominal ascites Assessment/Plan: s/p 2 liter removal on 07/15/2019. Code(s): R18.8 - OTHER ASCITES (3) Anemia Assessment/Plan: Hematology has been consulted due to anemia. Patient follows with Dr. Zapata outpatient for anemia of chronic disease (CHF/CKD). Patient currently asymptomatic. Monitor CBC daily. Code(s): D64.9 - ANEMIA, UNSPECIFIED Qualifiers: Anemia type: due to chronic kidney disease (4) Ascites Assessment/Plan: likely due to chronic kidney disease vs heart disease. s/p 2 liters removed via paracentesis on 07/15/2019 Code(s): R18.8 - OTHER ASCITES Qualifiers: Ascites type: other type Qualified Code(s): R18.8 - Other ascites (5) BPH (benign prostatic hyperplasia) Assessment/Plan: continue home meds. Code(s): N40.0 - BENIGN PROSTATIC HYPERPLASIA WITHOUT LOWER URINRY TRACT SYMP (6) CHF (congestive heart failure) Assessment/Plan: on lasix, daily weights. Code(s): I50.9 - HEART FAILURE, UNSPECIFIED Qualifiers: Heart failure type: systolic Heart failure chronicity: acute on chronic Qualified Code(s): I50.23 - Acute on chronic systolic (congestive) heart failure (7) Occult GI bleeding Assessment/Plan: transfused 2 units of prbc no further episodes of melena c/w ppi GI following Code(s): R19.5 - OTHER FECAL ABNORMALITIES (8) DVT prophylaxis Assessment/Plan: SCDs/TEDs Code(s): Z29.9 - ENCOUNTER FOR PROPHYLACTIC MEASURES, UNSPECIFIED Visit type - Emergency Visit Emergency Visit: Yes ED Registration Date: 07/11/19 Care time: The patient presented to the Emergency Department on the above date and was hospitalized for further evaluation of their emergent condition. - New Patient This patient is new to me today: No - Critical Care Critical Care patient: No - Discharge Referral Referred to [facility] No
[2019-07-17] MEDS: FUROSEMIDE 40 MG TABLET (FP) PO SCH (18:53)
[2019-07-18] MEDS: PANTOPRAZOLE 40 MG TABLET PO SCH (10:10)
[2019-07-18] MEDS: FUROSEMIDE 40 MG TABLET (FP) PO SCH (10:10)
[2019-07-18] MEDS: CARVEDILOL 3.125 MG TABLET (FP) PO SCH ×2 (10:10→23:44)
[2019-07-18 11:55] LABS: BASO % 1.2 % (0-2.0); EOS % 1.4 % (0-4.5); HEMATOCRIT 24.8 % (35.4-49); LYMPH % 24.7 % (8-40); MCH 29.8 pg (25.7-33.7); MCHC 32.2 g/dl (32.0-35.9); MEAN CELL VOLUME 92.6 fl (80-96); MEAN PLT VOLUME 9.4 fl (7.5-11.1); MONO % 20.7 % (3.8-10.2); PLATELET COUNT 99 K/MM3 (134-434); RBC 2.67 M/mm3 (4.00-5.60); RDW 23.6 % (11.9-15.9); WHITE BLOOD COUNT 3.7 K/mm3 (4.0-10.0)
[2019-07-18 12:32] LABS: ALBUMIN 3.1 g/dl (3.4-5.0); BLOOD UREA NITROGEN 27.2 mg/dL (7-18); CALCIUM 8.9 mg/dL (8.5-10.1); CREATININE 1.9 mg/dL (0.55-1.3); MAGNESIUM 2.1 mg/dL (1.8-2.4); POTASSIUM 4.3 mmol/L (3.5-5.1); TOT PROT 6.4 g/dl (6.4-8.2)
[2019-07-18 12:35] LABS: ANISOCYTOSIS 0; MACROCYTOSIS 0; PLATELET ESTIMATE DECREASED
--- NOTE | 2019-07-18 15:19 | PN.GI ---
GI Progress Note Subjective: GI NOte: Has no GI complaints. Hb stable. - Objective Vital Signs: Vital Signs Temperature 98.3 F 07/18/19 14:00 Pulse Rate 100 H 07/18/19 14:00 Respiratory Rate 18 07/18/19 14:00 Blood Pressure 104/64 07/18/19 14:00 O2 Sat by Pulse Oximetry (%) 100 07/18/19 09:00 Laboratory Tests 07/11/19 07/11/19 07/15/19 13:10 13:55 11:20 WBC RBC Hgb 6.5 L* Hct Fluid Source POC Fluid pH 7.9 Fluid WBC Fluid RBC Fluid Glucose 99 Fluid Total Protein 3.4 Fluid Albumin 2.1 Body Fluid LDH Source 75 Fluid Amylase 88 Stool Occult Blood Positive 07/15/19 07/16/19 07/17/19 11:20 05:46 19:03 WBC RBC Hgb 7.7 L Hct Fluid Source Peritoneal POC Fluid pH Fluid WBC 200 Fluid RBC [address]293 Fluid Glucose Fluid Total Protein Fluid Albumin Body Fluid LDH Source Fluid Amylase Stool Occult Blood Negative 07/18/19 11:30 WBC 3.7 L RBC 2.67 L Hgb 8.0 L Hct 24.8 L Fluid Source POC Fluid pH Fluid WBC Fluid RBC Fluid Glucose Fluid Total Protein Fluid Albumin Body Fluid LDH Source Fluid Amylase Stool Occult Blood Constitutional: Calm Gastrointestinal Inspection: Yes: Distention ...Auscultate: Yes: Normoactive Bowel Sounds ...Palpate: Yes: Soft, Other (nontender) Labs: CBC, BMP 07/18/19 11:30 07/18/19 11:30 INR, PTT INR 1.39 (0.83-1.09) H 07/16/19 12:45 Assessment/Plan Impression: - Anemia. Occult bleeding has resolved and suggests that it reflected nose bleeds. 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 - CHRONIC PASSIVE CONGESTION OF LIVER (3) Abdominal ascites Code(s): R18.8 - OTHER ASCITES (4) CHF (congestive heart failure) Code(s): I50.9 - HEART FAILURE, UNSPECIFIED Qualifiers: Heart failure type: systolic Heart failure chronicity: acute on chronic Qualified Code(s): I50.23 - Acute on chronic systolic (congestive) heart failure (5) Occult GI bleeding Code(s): R19.5 - OTHER FECAL ABNORMALITIES (6) A-fib Code(s): I48.91 - UNSPECIFIED ATRIAL FIBRILLATION (7) AICD (automatic cardioverter/defibrillator) present Code(s): Z95.810 - PRESENCE OF AUTOMATIC (IMPLANTABLE) CARDIAC DEFIBRILLATOR (8) Atrial fibrillation and flutter Code(s): I48.91 - UNSPECIFIED ATRIAL FIBRILLATION; I48.92 - UNSPECIFIED ATRIAL FLUTTER (9) Diverticula of colon Code(s): K57.30 - DVRTCLOS OF LG INT W/O PERFORATION OR ABSCESS W/O BLEEDING (10) Prosthetic mitral valve regurgitation Code(s): T82.03XA - LEAKAGE OF HEART VALVE PROSTHESIS, INITIAL ENCOUNTER (11) Systolic and diastolic CHF w/reduced LV function, NYHA class 4 Code(s): I50.40 - UNSP COMBINED SYSTOLIC AND DIASTOLIC (CONGESTIVE) HRT FAIL (12) WOODY (nonalcoholic steatohepatitis) Code(s): K75.81 - NONALCOHOLIC STEATOHEPATITIS (WOODY) (13) Nephrolithiasis Code(s): N20.0 - CALCULUS OF KIDNEY (14) Diverticulosis Code(s): K57.90 - DVRTCLOS OF INTEST, PART UNSP, W/O PERF OR ABSCESS W/O BLEED (15) BPH (benign prostatic hyperplasia) Code(s): N40.0 - BENIGN PROSTATIC HYPERPLASIA WITHOUT LOWER URINRY TRACT SYMP (16) Gout Code(s): M10.9 - GOUT, UNSPECIFIED (17) Inguinal hernia of right side without obstruction or gangrene Code(s): K40.90 - UNIL INGUINAL HERNIA, W/O OBST OR GANGR, NOT SPCF RECUR
[2019-07-18] MEDS ORDERED: FUROSEMIDE 40 MG TABLET (FP) PO ONE (16:52)
--- NOTE | 2019-07-18 16:52 | PN ---
Progress Note, Physician History of Present Illness: Pt seen and examined at bedside. He is awake and appears comfortable. He feels that his edema is improving. - Current Medication List Current Medications: Active Medications Carvedilol (Coreg -) 3.125 mg PO BID [facility] Last Admin: 07/18/19 10:10 Dose: 3.125 mg Documented by: Digoxin (Lanoxin -) 0.125 mg PO Q2D [facility] Last Admin: 07/17/19 10:07 Dose: 0.125 mg Documented by: Furosemide (Lasix -) 40 mg PO DAILY [facility] Last Admin: 07/18/19 10:10 Dose: 40 mg Documented by: Pantoprazole Sodium (Protonix -) 40 mg PO DAILY [facility] Last Admin: 07/18/19 10:10 Dose: 40 mg Documented by: - Objective Vital Signs: Vital Signs Temperature 98.3 F 07/18/19 14:00 Pulse Rate 100 H 07/18/19 14:00 Respiratory Rate 18 07/18/19 14:00 Blood Pressure 104/64 07/18/19 14:00 O2 Sat by Pulse Oximetry (%) 100 07/18/19 09:00 Constitutional: Yes: Calm Eyes: Yes: Conjunctiva Clear HENT: Yes: Atraumatic Neck: Yes: Supple Cardiovascular: Yes: S1, S2 Respiratory: Yes: CTA Bilaterally Gastrointestinal: Yes: Ascites Genitourinary: Yes: WNL Musculoskeletal: Yes: WNL Edema: Yes Edema: LLE: 1+, RLE: 1+ Neurological: Yes: Oriented Psychiatric: Yes: Oriented Labs: CBC, BMP 07/18/19 11:30 07/18/19 11:30 INR, PTT INR 1.39 (0.83-1.09) H 07/16/19 12:45 Problem List - Problems (1) JEWEL (acute kidney injury) Code(s): N17.9 - ACUTE KIDNEY FAILURE, UNSPECIFIED (2) Hyperkalemia Code(s): E87.5 - HYPERKALEMIA (3) A-fib Code(s): I48.91 - UNSPECIFIED ATRIAL FIBRILLATION (4) AICD (automatic cardioverter/defibrillator) present Code(s): Z95.810 - PRESENCE OF AUTOMATIC (IMPLANTABLE) CARDIAC DEFIBRILLATOR (5) Ascites Code(s): R18.8 - OTHER ASCITES Qualifiers: Ascites type: other type Qualified Code(s): R18.8 - Other ascites (6) CHF (congestive heart failure) Code(s): I50.9 - HEART FAILURE, UNSPECIFIED Qualifiers: Heart failure type: systolic Heart failure chronicity: acute on chronic Qualified Code(s): I50.23 - Acute on chronic systolic (congestive) heart failure Assessment/Plan Current Medications Generic Name Dose Route Start Last Admin Trade Name Freq PRN Reason Stop Dose Admin Carvedilol 3.125 mg 07/15/19 18:00 07/18/19 10:10 Coreg - PO 3.125 mg BID ODILIA Administration Digoxin 0.125 mg 07/15/19 10:00 07/17/19 10:07 Lanoxin - PO 0.125 mg Q2D ODILIA Administration Furosemide 40 mg 07/17/19 16:00 07/18/19 10:10 Lasix - PO 40 mg DAILY ODILIA Administration Pantoprazole Sodium 40 mg 07/14/19 10:00 07/18/19 10:10 Protonix - PO 40 mg DAILY ODILIA Administration Impression 1. JEWEL 2. hyperkalemia 3. ascites 4. fluid overload 5. chf 6. ckd 7. a-fib Plan - cont lasix - dose increased to 40 daily - will give an extra dose - repeat labs in am - GI input appreciated - aldactone held, pt was hyperkalemic - renal function stabilizing
[2019-07-18 17:10] LABS: TRANSGLUTAMINASE IGA < 2 U/mL (0-3); TRANSGLUTAMINASE IGG 5 U/mL (0-5)
--- NOTE | 2019-07-18 17:42 | PN ---
Physical Exam: SUBJECTIVE: Patient seen and examined OBJECTIVE: Patient is a 88 year old male with a significant past medical history of CKD, Chronic Anemia, dysproteinemia, Systolic CHF, Afib (on Coumadin), Mitral Valve bioprosthetic 2003, s/p ICD (13), Gastric Ulcer. Who presented to the ED with 1 day of gradual onset shortness of breath worsened with exertion and constipation with black stools. His coumadin has been on hold. restart coumadin per heme/GI. s/p paracentesis on 07/14 with 2 liter removed discharge planning Vital Signs Period Temp Pulse Resp BP Sys/Lara Pulse Ox Last 24 Hr 97.5 F-98.5 F 73-100 18-19 104-135/59-70 99-100 GENERAL: The patient is awake, alert, and fully oriented, in no acute distress. HEAD: Normal with no signs of trauma. EYES: PERRL, extraocular movements intact, sclera anicteric, conjunctiva clear. No ptosis. ENT: Ears normal, nares patent, oropharynx clear without exudates NECK: Trachea midline, full range of motion, supple. LUNGS: Breath sounds equal, clear to auscultation bilaterally HEART: Regular rate and rhythm ABDOMEN: Soft, nontender, nondistended, normoactive bowel sounds EXTREMITIES: 2+ pulses, warm, well-perfused, no edema. NEUROLOGICAL: Normal speech, gait not observed. PSYCH: Normal mood, normal affect. SKIN: Warm, dry, normal turgor, no rashes or lesions noted Laboratory Results - last 24 hr 07/17/19 07/17/19 07/18/19 05:58 19:03 05:33 WBC RBC Hgb Hct MCV MCH MCHC RDW Plt Count MPV Absolute Neuts (auto) Neutrophils % Neutrophils % (Manual) Band Neutrophils % Lymphocytes % Lymphocytes % (Manual) Monocytes % Monocytes % (Manual) Eosinophils % Eosinophils % (Manual) Basophils % Basophils % (Manual) Myelocytes % (Man) Promyelocytes % (Man) Blast Cells % (Manual) Nucleated RBC % Metamyelocytes Hypochromia Platelet Estimate Polychromasia Poikilocytosis Anisocytosis Microcytosis Macrocytosis Sodium Potassium Chloride Carbon Dioxide Anion Gap BUN Creatinine Est GFR (CKD-EPI)AfAm Est GFR (CKD-EPI)NonAf POC Glucometer 70 Random Glucose Calcium Magnesium Total Bilirubin AST ALT Alkaline Phosphatase Total Protein Albumin Tumor Marker AFP 5.3 Stool Occult Blood Negative Smooth Musc &AUTOMATION DESIGN ENGINEER Intrp 23 H Tiss Transglutamin IgG 5 Tiss Transglutamin IgA < 2 07/18/19 07/18/19 11:30 11:30 WBC 3.7 L RBC 2.67 L Hgb 8.0 L Hct 24.8 L MCV 92.6 MCH 29.8 MCHC 32.2 RDW 23.6 H Plt Count 99 L MPV 9.4 Absolute Neuts (auto) 1.9 Neutrophils % 52.0 Neutrophils % (Manual) 51.5 D Band Neutrophils % 0.0 Lymphocytes % 24.7 Lymphocytes % (Manual) 28.9 D Monocytes % 20.7 H Monocytes % (Manual) 20 H Eosinophils % 1.4 Eosinophils % (Manual) 0.0 Basophils % 1.2 Basophils % (Manual) 0.0 Myelocytes % (Man) 0 Promyelocytes % (Man) 0 Blast Cells % (Manual) 0 Nucleated RBC % 0 Metamyelocytes 0 Hypochromia 0 Platelet Estimate Decreased Polychromasia 0 Poikilocytosis 0 Anisocytosis 0 Microcytosis 0 Macrocytosis 0 Sodium 136 Potassium 4.3 Chloride 103 Carbon Dioxide 27 Anion Gap 6 L BUN 27.2 H Creatinine 1.9 H Est GFR (CKD-EPI)AfAm 36.19 Est GFR (CKD-EPI)NonAf 31.23 POC Glucometer Random Glucose 83 Calcium 8.9 Magnesium 2.1 Total Bilirubin 2.0 H AST 35 ALT 27 Alkaline Phosphatase 75 Total Protein 6.4 Albumin 3.1 L Tumor Marker AFP Stool Occult Blood Smooth Musc &AUTOMATION DESIGN ENGINEER Intrp Tiss Transglutamin IgG Tiss Transglutamin IgA Active Medications Generic Name Dose Route Start Last Admin Trade Name Freq PRN Reason Stop Dose Admin Carvedilol 3.125 mg 07/15/19 18:00 07/18/19 10:10 Coreg - PO 3.125 mg BID ODILIA Administration Digoxin 0.125 mg 07/15/19 10:00 07/17/19 10:07 Lanoxin - PO 0.125 mg Q2D ODILIA Administration Furosemide 40 mg 07/17/19 16:00 07/18/19 10:10 Lasix - PO 40 mg DAILY ODILIA Administration Pantoprazole Sodium 40 mg 07/14/19 10:00 07/18/19 10:10 Protonix - PO 40 mg DAILY ODILIA Administration ASSESSMENT/PLAN: Problem List - Problems (1) JEWEL (acute kidney injury) Assessment/Plan: Creatinine above baseline, but improving. nephrology following. Kidney and Bladder US noted c/t Monitor CMP Avoid nephrotoxic drugs Code(s): N17.9 - ACUTE KIDNEY FAILURE, UNSPECIFIED (2) Abdominal ascites Assessment/Plan: s/p 2 liter removal on 07/15/2019. Code(s): R18.8 - OTHER ASCITES (3) Anemia Assessment/Plan: Hematology has been consulted due to anemia. Patient follows with Dr. Zapata outpatient for anemia of chronic disease (CHF/CKD). Patient currently asymptomatic. Monitor CBC daily. Code(s): D64.9 - ANEMIA, UNSPECIFIED Qualifiers: Anemia type: due to chronic kidney disease (4) Ascites Assessment/Plan: likely due to chronic kidney disease vs heart disease. s/p 2 liters removed via paracentesis on 07/15/2019 Code(s): R18.8 - OTHER ASCITES Qualifiers: Ascites type: other type Qualified Code(s): R18.8 - Other ascites (5) BPH (benign prostatic hyperplasia) Assessment/Plan: continue home meds. Code(s): N40.0 - BENIGN PROSTATIC HYPERPLASIA WITHOUT LOWER URINRY TRACT SYMP (6) CHF (congestive heart failure) Assessment/Plan: on lasix, daily weights. Code(s): I50.9 - HEART FAILURE, UNSPECIFIED Qualifiers: Heart failure type: systolic Heart failure chronicity: acute on chronic Qualified Code(s): I50.23 - Acute on chronic systolic (congestive) heart failure (7) Occult GI bleeding Assessment/Plan: transfused 2 units of prbc no further episodes of melena c/w ppi GI following Code(s): R19.5 - OTHER FECAL ABNORMALITIES (8) DVT prophylaxis Assessment/Plan: SCDs/TEDs Code(s): Z29.9 - ENCOUNTER FOR PROPHYLACTIC MEASURES, UNSPECIFIED Visit type - Emergency Visit Emergency Visit: Yes ED Registration Date: 07/11/19 Care time: The patient presented to the Emergency Department on the above date and was hospitalized for further evaluation of their emergent condition. - New Patient This patient is new to me today: No - Critical Care Critical Care patient: No - Discharge Referral Referred to [facility] Med P.C.: No
--- NOTE | 2019-07-18 21:03 | PN ---
Progress Note (short form) - Note Progress Note: PAtient seen and examined Feels much better Last Vital Signs Temp Pulse Resp BP Pulse Ox 97.7 F 81 18 110/67 100 07/16/19 18:00 07/16/19 18:00 07/16/19 18:00 07/16/19 18:00 07/16/19 09:50 Cor: RSR, No murmurs, No gallops Lungs: decreased at bases Abd: Soft, Normal bowel sounds, + ascites Ext:1+ edema b/l Abnormal Lab Results 07/13/19 07/16/19 07/16/19 08:12 05:46 05:46 RBC 2.55 L Hgb 7.7 L Hct 23.6 L RDW 23.7 H Plt Count 87 L Monocytes % 18.1 H PT with INR INR Anion Gap 5 L BUN 40.0 H Creatinine 2.0 H Total Bilirubin 2.7 H Total Protein 5.7 L Albumin 2.9 L Prostate Specific Ag 4.60 H 07/16/19 12:45 RBC Hgb Hct RDW Plt Count Monocytes % PT with INR 16.40 H INR 1.39 H Anion Gap BUN Creatinine Total Bilirubin Total Protein Albumin Prostate Specific Ag Active Medications Carvedilol (Coreg -) 3.125 mg PO BID [facility] Last Admin: 07/16/19 22:34 Dose: 3.125 mg Documented by: Digoxin (Lanoxin -) 0.125 mg PO Q2D [facility] Last Admin: 07/15/19 10:46 Dose: 0.125 mg Documented by: Furosemide (Lasix -) 20 mg PO DAILY [facility] Last Admin: 07/16/19 10:06 Dose: 20 mg Documented by: Pantoprazole Sodium (Protonix -) 40 mg PO DAILY [facility] Last Admin: 07/16/19 10:05 Dose: 40 mg Documented by: A/P 88 y/o gentleman with a significant past medical history of CKD, Chronic Anemia, Dysproteinemia, Systolic CHF, Afib (on Coumadin), Mitral Valve bioprosthetic 2003, s/p ICD (13), Gastric Ulcer. Who presented to the ER due to BRADY and melena. Has also abdominal distension for which he had a paracentesis (likely to be due to CHF). Hematology has been consulted due to anemia. HAd been on coumadin which is on hold Anemia: Chronic disease + occult gi losses Unlikely marrow pathology Suspect CHF/CKD( cr3.3) IRon sat 18%, Ferritin 98 could target a iron sat of 26% Could consider procrit Anticoagulation -- on coumadin for afib, Full dose anticoagulation being held given his occult bleeding . discussd with cardiology. ? eliquis 2.5mg bid -- will discuss with renal/cardiology teams
--- NOTE | 2019-07-19 04:02 | PN ---
Progress Note, Physician Chief Complaint: Pt A&Ox3; no chest pain or dyspnea. Improved leg edema (he has been elevating his feet since yesterday). History of Present Illness: Mr. 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 Patient states he had been doing better for the past few days, since furosemide was increased; however today, as he was putting on his clothes he noticed that he was more out of breath than usual. Patient does endorse mild shortness of breath with exertion recently after walking up several flights of stairs. He notes associated 2 days of mild constipation, with black stools for the past 2 weeks; denies any yoon blood, melena. Pt also notes he has had distended abdomen for several months; he denies any associated fever, chills, coughing, chest pain, palpitation, lightheadedness, back pain, neck pain. Allergies: ARMANDO, gus Primary Care Physician: Dr. Yang; ROSIE Joy Splunk Developer: Dr. Garcia - Current Medication List Current Medications: Active Medications Carvedilol (Coreg -) 3.125 mg PO BID [facility] Last Admin: 07/18/19 23:44 Dose: Not Given Documented by: Digoxin (Lanoxin -) 0.125 mg PO Q2D [facility] Last Admin: 07/17/19 10:07 Dose: 0.125 mg Documented by: Furosemide (Lasix -) 40 mg PO DAILY [facility] Last Admin: 07/18/19 10:10 Dose: 40 mg Documented by: Pantoprazole Sodium (Protonix -) 40 mg PO DAILY [facility] Last Admin: 07/18/19 10:10 Dose: 40 mg Documented by: - Objective Vital Signs: Vital Signs Temperature 98.3 F 07/19/19 02:25 Pulse Rate 75 07/19/19 02:25 Respiratory Rate 18 07/19/19 02:25 Blood Pressure 100/64 07/19/19 02:25 O2 Sat by Pulse Oximetry (%) 99 07/18/19 21:00 Constitutional: Yes: Calm Eyes: Yes: WNL HENT: Yes: WNL Neck: Yes: Supple Cardiovascular: No: JVD Respiratory: Yes: WNL Gastrointestinal: Yes: Soft, Distention. No: Tenderness ...Rectal Exam: Yes: Deferred Genitourinary: Yes: Anuria Musculoskeletal: Yes: Muscle Weakness Extremities: Yes: Cool Edema: Yes Edema: LLE: Trace, RLE: Trace Peripheral Pulses WNL: Yes Integumentary: Yes: WNL Neurological: Yes: WNL Psychiatric: Yes: WNL Labs: CBC, BMP 07/18/19 11:30 07/18/19 11:30 INR, PTT INR 1.39 (0.83-1.09) H 07/16/19 12:45 Assessment/Plan Acute/chronic systolic CHF; s/p ICD 2012 Nonobstructive CAD (coronary angiogram 2012) Chronic elevation of TNI noted since at least 2012 hyperkalemia Acute renal dysfunction acute/chronic anemia; black stools (INR reportedly 3.8 last week) bioprosthetic mitral valve "stent" vs replacement 2003 ascites anxiety (exacerbated by worry of edvin COVID; pt was fearful of coming to hospital) Plan: Discussed with meter record clerk: though stool quaiac now negative, it is felt he is high risk for anticoagulation. Await GI input regarding anemia and ascities. Stopped diuretics, ACEI, spironolactone. Consider restarting low-dose lisinopril, but must follow K+ carefully. Now on furosemide; f/u renal function, which is improving. Digoxin level 0.79 (keep 0.4-0.8). Chronic TNi elevation, with multiple contributers to demand ischemia, including acute anemia and renal failure, CHF, AF, hypotension, sepsis EKG: ventricular-paced rhythm. ECHO: severely reduced LVEF (30%); reduced RVEF Physical rehabilitation. If pt remains stable, may be followed as outpatient from cardiac perspective.
[2019-07-19] MEDS: FUROSEMIDE 40 MG TABLET (FP) PO SCH (10:08)
[2019-07-19] MEDS: CARVEDILOL 3.125 MG TABLET (FP) PO SCH ×2 (10:08→21:44)
[2019-07-19] MEDS: PANTOPRAZOLE 40 MG TABLET PO SCH (10:08)
--- NOTE | 2019-07-19 10:08 | PN ---
Progress Note (short form) - Note Progress Note: Mr. 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 Patient states he had been doing better for the past few days, since furosemide was increased; however today, as he was putting on his clothes he noticed that he was more out of breath than usual. Patient does endorse mild shortness of breath with exertion recently after walking up several flights of stairs. He notes associated 2 days of mild constipation, with black stools for the past 2 weeks; denies any yoon blood, melena. Pt also notes he has had distended abdomen for several months; he denies any associated fever, chills, coughing, chest pain, palpitation, lightheadedness, back pain, neck pain. No acute cardiac events; on PO furosemide - Objective Vital Signs: Vital Signs Temperature 97.9 F 07/19/19 09:07 Pulse Rate 83 07/19/19 09:56 Respiratory Rate 20 07/19/19 09:07 Blood Pressure 103/60 07/19/19 09:56 O2 Sat by Pulse Oximetry (%) 98 07/19/19 09:07 Cardiovascular: No: JVD Respiratory: Yes: WNL Edema: Yes Edema: LLE: Trace, RLE: Trace Labs: CBC, BMP 07/18/19 11:30 07/18/19 11:30 Active Medications Carvedilol (Coreg -) 3.125 mg PO BID [facility] Last Admin: 07/18/19 23:44 Dose: Not Given Documented by: Digoxin (Lanoxin -) 0.125 mg PO Q2D [facility] Last Admin: 07/17/19 10:07 Dose: 0.125 mg Documented by: Furosemide (Lasix -) 40 mg PO DAILY [facility] Last Admin: 07/18/19 10:10 Dose: 40 mg Documented by: Pantoprazole Sodium (Protonix -) 40 mg PO DAILY [facility] Last Admin: 07/18/19 10:10 Dose: 40 mg Documented by: Assessment/Plan Acute/chronic systolic CHF; s/p ICD 2012 Nonobstructive CAD (coronary angiogram 2012) 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 ECHO: severely reduced LVEF (30%); reduced RVEF Plan: Discussed by Dr Garcia with escalator mechanic: though stool quaiac now negative, it is felt he is high risk for anticoagulation. Await GI input regarding anemia and ascities. Stopped ACEI, spironolactone. Consider restarting low-dose lisinopril, (when BP better). Now on oral furosemide; f/u renal function, which is improving. Digoxin level 0.79 (keep 0.4-0.8). Chronic TNi elevation, with multiple contributers to demand ischemia, including acute anemia and renal failure, CHF, AF, hypotension, sepsis Physical rehabilitation. If pt remains stable, may be followed as outpatient from cardiac perspective with Dr Garcia
[2019-07-19] MEDS: DIGOXIN 0.125 MG TABLET (FP) PO SCH (10:09)
[2019-07-19] MEDS ORDERED: IRON SUCROSE INJECTION 200 MG in SODIUM CHLORIDE 90 ML IVPB ONE (11:10)
[2019-07-19 11:18] LABS: BASO % 0.7 % (0-2.0); EOS % 1.2 % (0-4.5); HEMATOCRIT 25.1 % (35.4-49); HEMOGLOBIN 8.2 GM/dL (11.7-16.9); LYMPH % 16.9 % (8-40); MCH 30.1 pg (25.7-33.7); MCHC 32.5 g/dl (32.0-35.9); MEAN CELL VOLUME 92.7 fl (80-96); MEAN PLT VOLUME 10.3 fl (7.5-11.1); MONO % 17.2 % (3.8-10.2); PLATELET COUNT 107 K/MM3 (134-434); RBC 2.71 M/mm3 (4.00-5.60); WHITE BLOOD COUNT 5.2 K/mm3 (4.0-10.0)
[2019-07-19 11:19] LABS: INR 1.3 (0.83-1.09); PROTHROMBIN TIME (PATIENT) 15.4 SEC (9.7-13.0)
[2019-07-19 11:46] LABS: ALBUMIN 3.1 g/dl (3.4-5.0); BILIRUBIN,TOTAL 1.9 mg/dL (0.2-1); BLOOD UREA NITROGEN 26.2 mg/dL (7-18); MAGNESIUM 2.1 mg/dL (1.8-2.4); POTASSIUM 4.1 mmol/L (3.5-5.1); TOT PROT 6.4 g/dl (6.4-8.2)
--- NOTE | 2019-07-19 11:53 | PN ---
Physical Exam: SUBJECTIVE: Patient seen and examined OBJECTIVE: Patient is a 88 year old male with a significant past medical history of CKD, Chronic Anemia, dysproteinemia, Systolic CHF, Afib (on Coumadin), Mitral Valve bioprosthetic 2003, s/p ICD (13), Gastric Ulcer. Who presented to the ED with 1 day of gradual onset shortness of breath worsened with exertion and constipation with black stools. His coumadin has been on hold. restart coumadin per heme/GI. s/p paracentesis on 07/14 with 2 liter removed discharge planning Vital Signs Period Temp Pulse Resp BP Sys/Lara Pulse Ox Last 24 Hr 97.8 F-98.4 F 72-100 18-20 93-104/53-76 98-99 GENERAL: The patient is awake, alert, and fully oriented, in no acute distress. HEAD: Normal with no signs of trauma. EYES: PERRL, extraocular movements intact, sclera anicteric, conjunctiva clear. No ptosis. ENT: Ears normal, nares patent, oropharynx clear without exudates NECK: Trachea midline, full range of motion, supple. LUNGS: Breath sounds equal, clear to auscultation bilaterally HEART: Regular rate and rhythm ABDOMEN: Soft, nontender, nondistended, normoactive bowel sounds EXTREMITIES: 2+ pulses, warm, well-perfused, no edema. NEUROLOGICAL: Normal speech, gait not observed. PSYCH: Normal mood, normal affect. SKIN: Warm, dry, normal turgor, no rashes or lesions noted Laboratory Results - last 24 hr 07/15/19 07/17/19 07/18/19 11:20 05:58 11:30 WBC 3.7 L RBC 2.67 L Hgb 8.0 L Hct 24.8 L MCV 92.6 MCH 29.8 MCHC 32.2 RDW 23.6 H Plt Count 99 L MPV 9.4 Absolute Neuts (auto) 1.9 Neutrophils % 52.0 Neutrophils % (Manual) 51.5 D Band Neutrophils % 0.0 Lymphocytes % 24.7 Lymphocytes % (Manual) 28.9 D Monocytes % 20.7 H Monocytes % (Manual) 20 H Eosinophils % 1.4 Eosinophils % (Manual) 0.0 Basophils % 1.2 Basophils % (Manual) 0.0 Myelocytes % (Man) 0 Promyelocytes % (Man) 0 Blast Cells % (Manual) 0 Nucleated RBC % 0 Metamyelocytes 0 Hypochromia 0 Platelet Estimate Decreased Polychromasia 0 Poikilocytosis 0 Anisocytosis 0 Microcytosis 0 Macrocytosis 0 PT with INR INR Sodium Potassium Chloride Carbon Dioxide Anion Gap BUN Creatinine Est GFR (CKD-EPI)AfAm Est GFR (CKD-EPI)NonAf POC Glucometer Random Glucose Calcium Magnesium Total Bilirubin AST ALT Alkaline Phosphatase Total Protein Albumin Tumor Marker AFP 5.3 Fluid Cholesterol 49 Smooth Musc &[employer] Intrp 23 H Tiss Transglutamin IgG 5 Tiss Transglutamin IgA < 2 07/18/19 07/19/19 07/19/19 11:30 09:40 09:40 WBC 5.2 RBC 2.71 L Hgb 8.2 L Hct 25.1 L MCV 92.7 MCH 30.1 MCHC 32.5 RDW 23.0 H Plt Count 107 L MPV 10.3 Absolute Neuts (auto) 3.3 Neutrophils % 64.0 D Neutrophils % (Manual) Band Neutrophils % Lymphocytes % 16.9 D Lymphocytes % (Manual) Monocytes % 17.2 H Monocytes % (Manual) Eosinophils % 1.2 Eosinophils % (Manual) Basophils % 0.7 Basophils % (Manual) Myelocytes % (Man) Promyelocytes % (Man) Blast Cells % (Manual) Nucleated RBC % 0 Metamyelocytes Hypochromia Platelet Estimate Polychromasia Poikilocytosis Anisocytosis Microcytosis Macrocytosis PT with INR INR Sodium 136 136 Potassium 4.3 4.1 Chloride 103 102 Carbon Dioxide 27 28 Anion Gap 6 L 6 L BUN 27.2 H 26.2 H Creatinine 1.9 H 2.0 H Est GFR (CKD-EPI)AfAm 36.19 34.02 Est GFR (CKD-EPI)NonAf 31.23 29.35 POC Glucometer Random Glucose 83 129 H Calcium 8.9 9.0 Magnesium 2.1 2.1 Total Bilirubin 2.0 H 1.9 H AST 35 35 ALT 27 26 Alkaline Phosphatase 75 84 Total Protein 6.4 6.4 Albumin 3.1 L 3.1 L Tumor Marker AFP Fluid Cholesterol Smooth Musc [employer] Intrp Tiss Transglutamin IgG Tiss Transglutamin IgA 07/19/19 07/19/19 09:46 11:30 WBC RBC Hgb Hct MCV MCH MCHC RDW Plt Count MPV Absolute Neuts (auto) Neutrophils % Neutrophils % (Manual) Band Neutrophils % Lymphocytes % Lymphocytes % (Manual) Monocytes % Monocytes % (Manual) Eosinophils % Eosinophils % (Manual) Basophils % Basophils % (Manual) Myelocytes % (Man) Promyelocytes % (Man) Blast Cells % (Manual) Nucleated RBC % Metamyelocytes Hypochromia Platelet Estimate Polychromasia Poikilocytosis Anisocytosis Microcytosis Macrocytosis PT with INR 15.40 H INR 1.30 H Sodium Potassium Chloride Carbon Dioxide Anion Gap BUN Creatinine Est GFR (CKD-EPI)AfAm Est GFR (CKD-EPI)NonAf POC Glucometer 123 Random Glucose Calcium Magnesium Total Bilirubin AST ALT Alkaline Phosphatase Total Protein Albumin Tumor Marker AFP Fluid Cholesterol Smooth Musc &[employer] Intrp Tiss Transglutamin IgG Tiss Transglutamin IgA Active Medications Generic Name Dose Route Start Last Admin Trade Name Freq PRN Reason Stop Dose Admin Carvedilol 3.125 mg 07/15/19 18:00 07/19/19 10:08 Coreg - PO 3.125 mg BID ODILIA Administration Digoxin 0.125 mg 07/15/19 10:00 07/19/19 10:09 Lanoxin - PO 0.125 mg Q2D ODILIA Administration Furosemide 40 mg 07/17/19 16:00 07/19/19 10:08 Lasix - PO 40 mg DAILY ODILIA Administration Iron Sucrose 200 mg/ Sodium 100 mls @ 100 mls/hr 07/19/19 11:10 Chloride IVPB 07/19/19 12:09 ONCE ONE Pantoprazole Sodium 40 mg 07/14/19 10:00 07/19/19 10:08 Protonix - PO 40 mg DAILY ODILIA Administration ASSESSMENT/PLAN: Problem List - Problems (1) JEWEL (acute kidney injury) Assessment/Plan: Creatinine above baseline, but improving. nephrology following. Kidney and Bladder US noted c/t Monitor CMP Avoid nephrotoxic drugs Code(s): N17.9 - ACUTE KIDNEY FAILURE, UNSPECIFIED (2) Abdominal ascites Assessment/Plan: s/p 2 liter removal on 07/15/2019. Code(s): R18.8 - OTHER ASCITES (3) Anemia Assessment/Plan: Hematology has been consulted due to anemia. Patient follows with Dr. Zapata outpatient for anemia of chronic disease (CHF/CKD). Patient currently asymptomatic. Monitor CBC daily. Code(s): D64.9 - ANEMIA, UNSPECIFIED Qualifiers: Anemia type: due to chronic kidney disease (4) Ascites Assessment/Plan: likely due to chronic kidney disease vs heart disease. s/p 2 liters removed via paracentesis on 07/15/2019 Code(s): R18.8 - OTHER ASCITES Qualifiers: Ascites type: other type Qualified Code(s): R18.8 - Other ascites (5) BPH (benign prostatic hyperplasia) Assessment/Plan: continue home meds. Code(s): N40.0 - BENIGN PROSTATIC HYPERPLASIA WITHOUT LOWER URINRY TRACT SYMP (6) CHF (congestive heart failure) Assessment/Plan: on lasix, daily weights. Code(s): I50.9 - HEART FAILURE, UNSPECIFIED Qualifiers: Heart failure type: systolic Heart failure chronicity: acute on chronic Qualified Code(s): I50.23 - Acute on chronic systolic (congestive) heart failure (7) Occult GI bleeding Assessment/Plan: transfused 2 units of prbc no further episodes of melena c/w ppi GI following Code(s): R19.5 - OTHER FECAL ABNORMALITIES (8) DVT prophylaxis Assessment/Plan: SCDs/TEDs Code(s): Z29.9 - ENCOUNTER FOR PROPHYLACTIC MEASURES, UNSPECIFIED Visit type - Emergency Visit Emergency Visit: Yes ED Registration Date: 07/11/19 Care time: The patient presented to the Emergency Department on the above date and was hospitalized for further evaluation of their emergent condition. - New Patient This patient is new to me today: No - Critical Care Critical Care patient: No - Discharge Referral Referred to [facility] Med [facility] No
--- NOTE | 2019-07-19 18:15 | PN ---
Progress Note (short form) - Note Progress Note: PAtient seen and examined f/u cytology of ascitic fluid Feels much better Last Vital Signs Temp Pulse Resp BP Pulse Ox 98.1 F 76 20 109/51 L 98 07/19/19 14:03 07/19/19 14:03 07/19/19 14:03 07/19/19 14:03 07/19/19 09:07 Cor: RSR, No murmurs, No gallops Lungs: decreased at bases Abd: Soft, Normal bowel sounds, + ascites Ext:1+ edema b/l Current Medications Generic Name Dose Route Start Last Admin Trade Name Freq PRN Reason Stop Dose Admin Carvedilol 3.125 mg 07/15/19 18:00 07/19/19 10:08 Coreg - PO 3.125 mg BID ODILIA Administration Digoxin 0.125 mg 07/15/19 10:00 07/19/19 10:09 Lanoxin - PO 0.125 mg Q2D ODILIA Administration Furosemide 40 mg 07/17/19 16:00 07/19/19 10:08 Lasix - PO 40 mg DAILY ODILIA Administration Pantoprazole Sodium 40 mg 07/14/19 10:00 07/19/19 10:08 Protonix - PO 40 mg DAILY ODILIA Administration 07/19/19 09:40 07/19/19 09:40 A/P 88 y/o gentleman with a significant past medical history of CKD, Chronic Anemia, Dysproteinemia, Systolic CHF, Afib (on Coumadin), Mitral Valve bioprosthetic 2003, s/p ICD (13), Gastric Ulcer. Who presented to the ER due to BRADY and melena. Has also abdominal distension for which he had a paracentesis (likely to be due to CHF). Hematology has been consulted due to anemia. HAd been on coumadin which is on hold Anemia: Chronic disease + occult gi losses Unlikely marrow pathology Suspect CHF/CKD( cr3.3) IRon sat 18%, Ferritin 98 could target a iron sat of 26% Could consider procrit Anticoagulation -- on coumadin for afib, Full dose anticoagulation being held given his occult bleeding . ? eliquis 2.5mg bid -- Will monitor CBC and if stable consider starting Eliquis.
[2019-07-19] MEDS ORDERED: FUROSEMIDE 40 MG TABLET (FP) PO ONE (19:08)
--- NOTE | 2019-07-19 19:11 | PN ---
Progress Note, Physician History of Present Illness: Pt seen and examined at bedside. He is awake and alert. He feels edema is improving. - Current Medication List Current Medications: Active Medications Carvedilol (Coreg -) 3.125 mg PO BID [facility] Last Admin: 07/19/19 10:08 Dose: 3.125 mg Documented by: Digoxin (Lanoxin -) 0.125 mg PO Q2D [facility] Last Admin: 07/19/19 10:09 Dose: 0.125 mg Documented by: Furosemide (Lasix -) 40 mg PO DAILY [facility] Last Admin: 07/19/19 10:08 Dose: 40 mg Documented by: Furosemide (Lasix -) 40 mg PO ONCE ONE Stop: 07/19/19 19:09 Pantoprazole Sodium (Protonix -) 40 mg PO DAILY [facility] Last Admin: 07/19/19 10:08 Dose: 40 mg Documented by: - Objective Vital Signs: Vital Signs Temperature 98.4 F 07/19/19 18:00 Pulse Rate 71 07/19/19 18:00 Respiratory Rate 19 07/19/19 18:00 Blood Pressure 120/61 07/19/19 18:00 O2 Sat by Pulse Oximetry (%) 98 07/19/19 09:07 Constitutional: Yes: Calm Eyes: Yes: Conjunctiva Clear HENT: Yes: Atraumatic Neck: Yes: Supple Cardiovascular: Yes: S1, S2 Respiratory: Yes: CTA Bilaterally Gastrointestinal: Yes: Soft, Ascites Genitourinary: Yes: WNL Musculoskeletal: Yes: WNL Edema: Yes Edema: LLE: 1+, RLE: 1+ Neurological: Yes: Oriented Psychiatric: Yes: Oriented Labs: CBC, BMP 07/19/19 09:40 07/19/19 09:40 INR, PTT INR 1.30 (0.83-1.09) H 07/19/19 09:46 Problem List - Problems (1) JEWEL (acute kidney injury) Code(s): N17.9 - ACUTE KIDNEY FAILURE, UNSPECIFIED (2) Hyperkalemia Code(s): E87.5 - HYPERKALEMIA (3) A-fib Code(s): I48.91 - UNSPECIFIED ATRIAL FIBRILLATION (4) AICD (automatic cardioverter/defibrillator) present Code(s): Z95.810 - PRESENCE OF AUTOMATIC (IMPLANTABLE) CARDIAC DEFIBRILLATOR (5) Ascites Code(s): R18.8 - OTHER ASCITES Qualifiers: Ascites type: other type Qualified Code(s): R18.8 - Other ascites (6) CHF (congestive heart failure) Code(s): I50.9 - HEART FAILURE, UNSPECIFIED Qualifiers: Heart failure type: systolic Heart failure chronicity: acute on chronic Qualified Code(s): I50.23 - Acute on chronic systolic (congestive) heart failure Assessment/Plan Current Medications Generic Name Dose Route Start Last Admin Trade Name Freq PRN Reason Stop Dose Admin Carvedilol 3.125 mg 07/15/19 18:00 07/19/19 10:08 Coreg - PO 3.125 mg BID ODILIA Administration Digoxin 0.125 mg 07/15/19 10:00 07/19/19 10:09 Lanoxin - PO 0.125 mg Q2D ODILIA Administration Furosemide 40 mg 07/17/19 16:00 07/19/19 10:08 Lasix - PO 40 mg DAILY ODILIA Administration Furosemide 40 mg 07/19/19 19:08 Lasix - PO 07/19/19 19:09 ONCE ONE Pantoprazole Sodium 40 mg 07/14/19 10:00 07/19/19 10:08 Protonix - PO 40 mg DAILY ODILIA Administration Impression 1. JEWEL 2. hyperkalemia 3. ascites 4. fluid overload 5. chf 6. ckd 7. a-fib Plan - will give a second dose of lasix today - monitor volume status - daily weights - edema slowly improving - will need outpt follow up after discharge - aldactone held, pt was hyperkalemic
[2019-07-20 09:19] LABS: BASO % 1.2 % (0-2.0); EOS % 1.5 % (0-4.5); HEMATOCRIT 23.9 % (35.4-49); HEMOGLOBIN 7.8 GM/dL (11.7-16.9); LYMPH % 16.1 % (8-40); MCH 29.9 pg (25.7-33.7); MCHC 32.8 g/dl (32.0-35.9); MEAN CELL VOLUME 91.3 fl (80-96); MEAN PLT VOLUME 9.5 fl (7.5-11.1); MONO % 20.3 % (3.8-10.2); NEUT % 60.9 % (42.8-82.8); PLATELET COUNT 110 K/MM3 (134-434); RBC 2.62 M/mm3 (4.00-5.60); RDW 23.5 % (11.9-15.9); WHITE BLOOD COUNT 4.5 K/mm3 (4.0-10.0)
[2019-07-20 09:28] LABS: INR 1.28 (0.83-1.09); PROTHROMBIN TIME (PATIENT) 15.2 SEC (9.7-13.0)
[2019-07-20] MEDS: PANTOPRAZOLE 40 MG TABLET PO SCH (09:32)
[2019-07-20] MEDS: FUROSEMIDE 40 MG TABLET (FP) PO SCH (09:32)
[2019-07-20] MEDS: CARVEDILOL 3.125 MG TABLET (FP) PO SCH ×2 (09:32→21:18)
[2019-07-20 09:52] LABS: ALBUMIN 3.3 g/dl (3.4-5.0); BILIRUBIN,TOTAL 1.8 mg/dL (0.2-1); BLOOD UREA NITROGEN 26.4 mg/dL (7-18); CALCIUM 8.7 mg/dL (8.5-10.1); CREATININE 1.9 mg/dL (0.55-1.3); MAGNESIUM 1.9 mg/dL (1.8-2.4); POTASSIUM 3.8 mmol/L (3.5-5.1); TOT PROT 6.6 g/dl (6.4-8.2)
--- NOTE | 2019-07-20 10:29 | PN ---
Progress Note (short form) - Note Progress Note: Mr. 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 Patient states he had been doing better for the past few days, since furosemide was increased; however today, as he was putting on his clothes he noticed that he was more out of breath than usual. Patient does endorse mild shortness of breath with exertion recently after walking up several flights of stairs. He notes associated 2 days of mild constipation, with black stools for the past 2 weeks; denies any yoon blood, melena. Pt also notes he has had distended abdomen for several months; he denies any associated fever, chills, coughing, chest pain, palpitation, lightheadedness, back pain, neck pain. No acute cardiac events; on PO furosemide; ambulating, feeling fine, compression stockings, - Objective Vital Signs: Vital Signs Temperature 97.9 F 07/19/19 09:07 Pulse Rate 83 07/19/19 09:56 Respiratory Rate 20 07/19/19 09:07 Blood Pressure 103/60 07/19/19 09:56 O2 Sat by Pulse Oximetry (%) 98 07/19/19 09:07 Cardiovascular: No: JVD Respiratory: Yes: WNL Edema:No Labs: CBC, BMP 07/20/19 09:00 07/20/19 09:00 Active Medications Carvedilol (Coreg -) 3.125 mg PO BID [facility] Last Admin: 09:32 Dose: 3.125 mg Documented by: Digoxin (Lanoxin -) 0.125 mg PO Q2D [facility] Last Admin: 07/19/19 10:09 Dose: 0.125 mg Documented by: Furosemide (Lasix -) 40 mg PO DAILY [facility] Last Admin: 07/20/19 09:32 Dose: 40 mg Documented by: Pantoprazole Sodium (Protonix -) 40 mg PO DAILY [facility] Last Admin: 07/20/19 09:32 Dose: 40 mg Documented by: Assessment/Plan Acute/chronic systolic CHF; s/p ICD 2012 Nonobstructive CAD (coronary angiogram 2012) 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 ECHO: severely reduced LVEF (30%); reduced RVEF Plan: Discussed by Dr Garcia with electrical unit rebuilder: though stool quaiac now negative, it is felt he is high risk for anticoagulation. Await GI input regarding anemia and ascities.: Hb is downtrending though, Stopped ACEI, spironolactone. Consider restarting low-dose lisinopril, (when BP better). Now on oral furosemide; f/u renal function, which is improving. Digoxin level 0.79 (keep 0.4-0.8). Chronic TNi elevation, with multiple contributers to demand ischemia, including acute anemia and renal failure, CHF, AF, hypotension, sepsis Physical rehabilitation. pt remains stable, can be d/c'ed from cardiac standpoint followed as outpatient with Dr Garcia
[2019-07-20 11:57] LABS: ANISOCYTOSIS 2+; MACROCYTOSIS 1+; PLATELET ESTIMATE DECREASED; TARGET CELLS 1+
--- NOTE | 2019-07-20 16:38 | PN ---
Progress Note, Physician History of Present Illness: Pt seen and examined at bedside. He is awake and alert. He denies shortness of breath. He feels that his edema is improving. - Current Medication List Current Medications: Active Medications Carvedilol (Coreg -) 3.125 mg PO BID [facility] Last Admin: 07/20/19 09:32 Dose: 3.125 mg Documented by: Digoxin (Lanoxin -) 0.125 mg PO Q2D [facility] Last Admin: 07/19/19 10:09 Dose: 0.125 mg Documented by: Furosemide (Lasix -) 40 mg PO DAILY [facility] Last Admin: 07/20/19 09:32 Dose: 40 mg Documented by: Pantoprazole Sodium (Protonix -) 40 mg PO DAILY [facility] Last Admin: 07/20/19 09:32 Dose: 40 mg Documented by: - Objective Vital Signs: Vital Signs Temperature 98.6 F 07/20/19 13:09 Pulse Rate 88 07/20/19 13:09 Respiratory Rate 18 07/20/19 13:09 Blood Pressure 110/59 L 07/20/19 13:09 O2 Sat by Pulse Oximetry (%) 98 07/20/19 09:02 Constitutional: Yes: Calm Eyes: Yes: Conjunctiva Clear HENT: Yes: Atraumatic Neck: Yes: Supple Cardiovascular: Yes: S1, S2 Respiratory: Yes: CTA Bilaterally Gastrointestinal: Yes: Ascites Genitourinary: Yes: WNL Edema: Yes Edema: LLE: 1+, RLE: 1+ Neurological: Yes: Oriented Psychiatric: Yes: Oriented Labs: CBC, BMP 07/20/19 09:00 07/20/19 09:00 INR, PTT INR 1.28 (0.83-1.09) H 07/20/19 09:00 Problem List - Problems (1) JEWEL (acute kidney injury) Code(s): N17.9 - ACUTE KIDNEY FAILURE, UNSPECIFIED (2) Hyperkalemia Code(s): E87.5 - HYPERKALEMIA (3) A-fib Code(s): I48.91 - UNSPECIFIED ATRIAL FIBRILLATION (4) AICD (automatic cardioverter/defibrillator) present Code(s): Z95.810 - PRESENCE OF AUTOMATIC (IMPLANTABLE) CARDIAC DEFIBRILLATOR (5) Ascites Code(s): R18.8 - OTHER ASCITES Qualifiers: Ascites type: other type Qualified Code(s): R18.8 - Other ascites (6) CHF (congestive heart failure) Code(s): I50.9 - HEART FAILURE, UNSPECIFIED Qualifiers: Heart failure type: systolic Heart failure chronicity: acute on chronic Qualified Code(s): I50.23 - Acute on chronic systolic (congestive) heart failure Assessment/Plan Current Medications Generic Name Dose Route Start Last Admin Trade Name Freq PRN Reason Stop Dose Admin Carvedilol 3.125 mg 07/15/19 18:00 07/20/19 09:32 Coreg - PO 3.125 mg BID ODILIA Administration Digoxin 0.125 mg 07/15/19 10:00 07/19/19 10:09 Lanoxin - PO 0.125 mg Q2D ODILIA Administration Furosemide 40 mg 07/17/19 16:00 07/20/19 09:32 Lasix - PO 40 mg DAILY ODILIA Administration Pantoprazole Sodium 40 mg 07/14/19 10:00 07/20/19 09:32 Protonix - PO 40 mg DAILY [facility]IL[facility] Administration Impression 1. JEWEL 2. hyperkalemia 3. ascites 4. fluid overload 5. chf 6. ckd 7. a-fib Plan - cont lasix - restart aldactone - monitor potassium - monitor volume status - daily weights - edema slowly improving - will need outpt follow up after discharge
[2019-07-20] MEDS: SPIRONOLACTONE 25 MG TABLET PO SCH (17:07)
[2019-07-20] MEDS: APIXABAN 2.5 MG TABLET PO SCH (21:18)
[2019-07-21 08:21] LABS: INR 1.53 (0.83-1.09); PROTHROMBIN TIME (PATIENT) 18.1 SEC (9.7-13.0)
[2019-07-21 08:24] LABS: BASO % 0.6 % (0-2.0); EOS % 1.8 % (0-4.5); HEMOGLOBIN 7.6 GM/dL (11.7-16.9); LYMPH % 23.7 % (8-40); MCH 30.3 pg (25.7-33.7); MCHC 33.1 g/dl (32.0-35.9); MEAN CELL VOLUME 91.6 fl (80-96); MONO % 19.3 % (3.8-10.2); NEUT % 54.6 % (42.8-82.8); PLATELET COUNT 101 K/MM3 (134-434); RBC 2.51 M/mm3 (4.00-5.60); RDW 22.7 % (11.9-15.9); WHITE BLOOD COUNT 4.8 K/mm3 (4.0-10.0)
[2019-07-21 08:43] LABS: ALBUMIN 3.1 g/dl (3.4-5.0); BILIRUBIN,TOTAL 1.3 mg/dL (0.2-1); BLOOD UREA NITROGEN 31.9 mg/dL (7-18); CALCIUM 8.7 mg/dL (8.5-10.1); CREATININE 1.9 mg/dL (0.55-1.3); MAGNESIUM 1.9 mg/dL (1.8-2.4); POTASSIUM 4.1 mmol/L (3.5-5.1); TOT PROT 6.1 g/dl (6.4-8.2)
[2019-07-21] MEDS: FUROSEMIDE 40 MG TABLET (FP) PO SCH (10:12)
[2019-07-21] MEDS: PANTOPRAZOLE 40 MG TABLET PO SCH (10:12)
[2019-07-21] MEDS: DIGOXIN 0.125 MG TABLET (FP) PO SCH (10:12)
[2019-07-21] MEDS: APIXABAN 2.5 MG TABLET PO SCH ×2 (10:13→21:22)
[2019-07-21] MEDS: SPIRONOLACTONE 25 MG TABLET PO SCH (10:45)
[2019-07-21] MEDS: CARVEDILOL 3.125 MG TABLET (FP) PO SCH ×2 (10:45→21:22)
[2019-07-21 12:10] LABS: BASO % 1.2 % (0-2.0); EOS % 1.1 % (0-4.5); HEMATOCRIT 22.8 % (35.4-49); HEMOGLOBIN 7.4 GM/dL (11.7-16.9); LYMPH % 22.8 % (8-40); MCH 29.7 pg (25.7-33.7); MCHC 32.4 g/dl (32.0-35.9); MEAN CELL VOLUME 91.6 fl (80-96); MEAN PLT VOLUME 9.8 fl (7.5-11.1); MONO % 21.3 % (3.8-10.2); NEUT % 53.6 % (42.8-82.8); PLATELET COUNT 111 K/MM3 (134-434); RBC 2.49 M/mm3 (4.00-5.60); RDW 22.4 % (11.9-15.9); WHITE BLOOD COUNT 5.1 K/mm3 (4.0-10.0)
[2019-07-21] MEDS ORDERED: IRON SUCROSE INJECTION 200 MG in SODIUM CHLORIDE 90 ML IVPB ONE (14:04)
[2019-07-21 15:33] LABS: OVALOCYTE 1+; TARGET CELLS 1+; TEAR DROP CELLS 1+
[2019-07-21 15:34] LABS: PLATELET ESTIMATE SLT DECREASE
[2019-07-21 15:35] LABS: HELMET CELLS 2+
--- NOTE | 2019-07-21 15:37 | PN ---
Progress Note, Physician History of Present Illness: This is a 88 y/o male with a significant past medical history of CKD, Chronic Anemia, Dysproteinemia, Systolic CHF, Afib (on Coumadin), Mitral Valve bioprosthetic 2003, s/p ICD (13), Gastric Ulcer. Who presents to the ED with 1 day of gradual onset shortness of breath worsened with exertion. Patient states he has been doing well for several days however today as he was putting on his clothes he noticed that he was more out of breath than usual. Patient does endorse mild shortness of breath with exertion recently after walking up several flights of stairs. He notes associated 2 days of mild constipation with black stools. denies any yoon blood, melena Patient also reports abdominal distention for several months which he attributes to a hernia that he is waiting to have repaired. Patient denies fever, chills, cough, chest pain, palpitation, lightheadedness, nausea, vomiting, dysuria. - Current Medication List Current Medications: Active Medications Apixaban (Eliquis -) 2.5 mg PO BID [facility] Last Admin: 07/21/19 10:13 Dose: 2.5 mg Documented by: Carvedilol (Coreg -) 3.125 mg PO BID [facility] Last Admin: 07/21/19 10:45 Dose: 3.125 mg Documented by: Digoxin (Lanoxin -) 0.125 mg PO Q2D [facility] Last Admin: 07/21/19 10:12 Dose: 0.125 mg Documented by: Furosemide (Lasix -) 40 mg PO DAILY [facility] Last Admin: 07/21/19 10:12 Dose: 40 mg Documented by: Pantoprazole Sodium (Protonix -) 40 mg PO DAILY [facility] Last Admin: 07/21/19 10:12 Dose: 40 mg Documented by: Spironolactone (Aldactone -) 25 mg PO DAILY [facility] Last Admin: 07/21/19 10:45 Dose: 25 mg Documented by: - Objective Vital Signs: Vital Signs Temperature 98.1 F 07/21/19 13:45 Pulse Rate 75 07/21/19 13:45 Respiratory Rate 20 07/21/19 13:45 Blood Pressure 102/68 07/21/19 13:45 O2 Sat by Pulse Oximetry (%) 99 07/21/19 09:30 Eyes: Yes: WNL, Conjunctiva Clear, EOM Intact HENT: Yes: WNL, Atraumatic, Normocephalic Neck: Yes: WNL, Supple, Trachea Midline Cardiovascular: Yes: WNL, Regular Rate and Rhythm, S1, S2 Respiratory: Yes: WNL, Regular, CTA Bilaterally Gastrointestinal: Yes: Ascites Genitourinary: Yes: WNL Musculoskeletal: Yes: WNL Extremities: Yes: WNL Edema: No Integumentary: Yes: WNL Neurological: Yes: WNL, Alert, Oriented ...Motor Strength: WNL Psychiatric: Yes: WNL Labs: CBC, BMP 07/21/19 11:41 07/21/19 07:47 INR, PTT INR 1.53 (0.83-1.09) H 07/21/19 07:47 Problem List - Problems (1) JEEWL (acute kidney injury) Code(s): N17.9 - ACUTE KIDNEY FAILURE, UNSPECIFIED (2) Ascites Code(s): R18.8 - OTHER ASCITES Qualifiers: Ascites type: other type Qualified Code(s): R18.8 - Other ascites (3) CHF (congestive heart failure) Code(s): I50.9 - HEART FAILURE, UNSPECIFIED Qualifiers: Heart failure type: systolic Heart failure chronicity: acute on chronic Qualified Code(s): I50.23 - Acute on chronic systolic (congestive) heart failure (4) Elevated troponin Code(s): R79.89 - OTHER SPECIFIED ABNORMAL FINDINGS OF BLOOD CHEMISTRY (5) Hyperkalemia Code(s): E87.5 - HYPERKALEMIA (6) Prophylactic measure Code(s): Z29.9 - ENCOUNTER FOR PROPHYLACTIC MEASURES, UNSPECIFIED (7) Shortness of breath Code(s): R06.02 - SHORTNESS OF BREATH (8) Symptomatic anemia Code(s): D64.9 - ANEMIA, UNSPECIFIED (9) Systolic CHF, acute on chronic Code(s): I50.23 - ACUTE ON CHRONIC SYSTOLIC (CONGESTIVE) HEART FAILURE (10) Total bilirubin, elevated Code(s): R17 - UNSPECIFIED JAUNDICE (11) A-fib Code(s): I48.91 - UNSPECIFIED ATRIAL FIBRILLATION (12) AICD (automatic cardioverter/defibrillator) present Code(s): Z95.810 - PRESENCE OF AUTOMATIC (IMPLANTABLE) CARDIAC DEFIBRILLATOR (13) Acute hypercapnic respiratory failure Code(s): J96.02 - ACUTE RESPIRATORY FAILURE WITH HYPERCAPNIA (14) Atfgx-eg-gofvory kidney injury Code(s): N17.9 - ACUTE KIDNEY FAILURE, UNSPECIFIED; N18.9 - CHRONIC KIDNEY DISEASE, UNSPECIFIED (15) Atrial fibrillation and flutter Code(s): I48.91 - UNSPECIFIED ATRIAL FIBRILLATION; I48.92 - UNSPECIFIED ATRIAL FLUTTER (16) BPH (benign prostatic hypertrophy) Code(s): N40.0 - BENIGN PROSTATIC HYPERPLASIA WITHOUT LOWER URINRY TRACT SYMP (17) Chronic passive hepatic congestion Code(s): K76.1 - CHRONIC PASSIVE CONGESTION OF LIVER (18) BRADY (dyspnea on exertion) Code(s): R06.09 - OTHER FORMS OF DYSPNEA (19) Diverticula of colon Code(s): K57.30 - DVRTCLOS OF LG INT W/O PERFORATION OR ABSCESS W/O BLEEDING (20) Gastritis Code(s): K29.70 - GASTRITIS, UNSPECIFIED, WITHOUT BLEEDING (21) Gout Code(s): M10.9 - GOUT, UNSPECIFIED (22) Groin pain Code(s): R10.30 - LOWER ABDOMINAL PAIN, UNSPECIFIED Qualifiers: Laterality: right Qualified Code(s): R10.31 - Right lower quadrant pain (23) Hiatal hernia Code(s): K44.9 - DIAPHRAGMATIC HERNIA WITHOUT OBSTRUCTION OR GANGRENE (24) Hypercoagulable state Code(s): D68.59 - OTHER PRIMARY THROMBOPHILIA (25) Metabolic acidosis Code(s): E87.2 - ACIDOSIS (26) Normocytic normochromic anemia Code(s): D64.9 - ANEMIA, UNSPECIFIED (27) Pancytopenia Code(s): D61.818 - OTHER PANCYTOPENIA (28) Prosthetic mitral valve regurgitation Code(s): T82.03XA - LEAKAGE OF HEART VALVE PROSTHESIS, INITIAL ENCOUNTER (29) Systolic and diastolic CHF w/reduced LV function, NYHA class 4 Code(s): I50.40 - UNSP COMBINED SYSTOLIC AND DIASTOLIC (CONGESTIVE) HRT FAIL Assessment/Plan Acute/chronic systolic CHF; s/p ICD 2012 Nonobstructive CAD (coronary angiogram 2012) Chronic elevation of TNI noted since at least 2012 hyperkalemia Acute renal dysfunction acute/chronic anemia; black stools (INR reportedly 3.8 last week) bioprosthetic mitral valve "stent" vs replacement 2003 ascites anxiety (exacerbated by worry of edivn COVID; pt was fearful of coming to hospital) EKG: ventricular-paced rhythm. ECHO: severely reduced LVEF (30%); reduced RVEF Plan: Discussed by Dr Garcia with release of information specialist: though stool quaiac now negative, it is felt he is high risk for anticoagulation. Await GI input regarding anemia and ascities.: Hb is downtrending though, Stopped ACEI, spironolactone. Consider restarting low-dose lisinopril, (when BP better). Now on oral furosemide; f/u renal function, which is improving. Digoxin level 0.79 (keep 0.4-0.8). Chronic TNi elevation, with multiple contributers to demand ischemia, including acute anemia and renal failure, CHF, AF, hypotension, sepsis Physical rehabilitation. pt remains stable, can be d/c'ed from cardiac standpoint followed as outpatient with Dr Garcia
[2019-07-21] MEDS ORDERED: FUROSEMIDE 40 MG TABLET (FP) PO ONE (16:17)
--- NOTE | 2019-07-21 16:17 | PN ---
Progress Note, Physician History of Present Illness: Pt seen and examined at bedside. He is awake and alert. He denies shortness of breath. He is eager to go home. - Current Medication List Current Medications: Active Medications Apixaban (Eliquis -) 2.5 mg PO BID [facility] Last Admin: 07/21/19 10:13 Dose: 2.5 mg Documented by: Carvedilol (Coreg -) 3.125 mg PO BID [facility] Last Admin: 07/21/19 10:45 Dose: 3.125 mg Documented by: Digoxin (Lanoxin -) 0.125 mg PO Q2D [facility] Last Admin: 07/21/19 10:12 Dose: 0.125 mg Documented by: Furosemide (Lasix -) 40 mg PO DAILY [facility] Last Admin: 07/21/19 10:12 Dose: 40 mg Documented by: Pantoprazole Sodium (Protonix -) 40 mg PO DAILY [facility] Last Admin: 07/21/19 10:12 Dose: 40 mg Documented by: Spironolactone (Aldactone -) 25 mg PO DAILY [facility] Last Admin: 07/21/19 10:45 Dose: 25 mg Documented by: - Objective Vital Signs: Vital Signs Temperature 98.1 F 07/21/19 13:45 Pulse Rate 75 07/21/19 13:45 Respiratory Rate 20 07/21/19 13:45 Blood Pressure 102/68 07/21/19 13:45 O2 Sat by Pulse Oximetry (%) 99 07/21/19 09:30 Constitutional: Yes: Calm Eyes: Yes: Conjunctiva Clear HENT: Yes: Atraumatic Neck: Yes: Supple Cardiovascular: Yes: S1, S2 Respiratory: Yes: CTA Bilaterally Gastrointestinal: Yes: Soft Genitourinary: Yes: WNL Edema: Yes Edema: LLE: Trace, RLE: Trace Neurological: Yes: Oriented Psychiatric: Yes: Oriented Labs: CBC, BMP 07/21/19 11:41 07/21/19 07:47 INR, PTT INR 1.53 (0.83-1.09) H 07/21/19 07:47 Problem List - Problems (1) JEWEL (acute kidney injury) Code(s): N17.9 - ACUTE KIDNEY FAILURE, UNSPECIFIED (2) Hyperkalemia Code(s): E87.5 - HYPERKALEMIA (3) A-fib Code(s): I48.91 - UNSPECIFIED ATRIAL FIBRILLATION (4) AICD (automatic cardioverter/defibrillator) present Code(s): Z95.810 - PRESENCE OF AUTOMATIC (IMPLANTABLE) CARDIAC DEFIBRILLATOR (5) Ascites Code(s): R18.8 - OTHER ASCITES Qualifiers: Ascites type: other type Qualified Code(s): R18.8 - Other ascites (6) CHF (congestive heart failure) Code(s): I50.9 - HEART FAILURE, UNSPECIFIED Qualifiers: Heart failure type: systolic Heart failure chronicity: acute on chronic Qualified Code(s): I50.23 - Acute on chronic systolic (congestive) heart failure Assessment/Plan Current Medications Generic Name Dose Route Start Last Admin Trade Name Freq PRN Reason Stop Dose Admin Apixaban 2.5 mg 07/20/19 22:00 07/21/19 10:13 Eliquis - PO 2.5 mg BID [facility] Administration Carvedilol 3.125 mg 07/15/19 18:00 07/21/19 10:45 Coreg - PO 3.125 mg BID [facility] Administration Digoxin 0.125 mg 07/15/19 10:00 07/21/19 10:12 Lanoxin - PO 0.125 mg Q2D [facility] Administration Furosemide 40 mg 07/17/19 16:00 07/21/19 10:12 Lasix - PO 40 mg DAILY [facility] Administration Pantoprazole Sodium 40 mg 07/14/19 10:00 07/21/19 10:12 Protonix - PO 40 mg DAILY [facility] Administration Spironolactone 25 mg 07/20/19 16:45 07/21/19 10:45 Aldactone - PO 25 mg DAILY [facility] Administration Impression 1. JEWEL 2. hyperkalemia 3. ascites 4. fluid overload 5. chf 6. ckd 7. a-fib Plan - cont lasix - cont aldactone - monitor volume status - will give another dose of lasix - pt will likely need a higher dose at home - will need outpt follow up - cardio follow up
--- NOTE | 2019-07-21 17:43 | PN ---
Physical Exam: SUBJECTIVE: Patient seen and examined. reports no further rectal bleeding. had soft brown BM last night. OBJECTIVE: Patient is a 88 year old male with a significant past medical history of CKD, Chronic Anemia, dysproteinemia, Systolic CHF, Afib (on Coumadin), Mitral Valve bioprosthetic 2003, s/p ICD (13), Gastric Ulcer. Who presented to the ED with 1 day of gradual onset shortness of breath worsened with exertion and constipation with black stools. His coumadin has been on hold for GI bleed. Started on Eliquis per heme/onc recommendations with close monitoring of hmg/hct. s/p paracentesis on 07/14 with 2 liter removed hmg/hct trending down, will monitor and repeat cbc in a.m. Vital Signs Period Temp Pulse Resp BP Sys/Lara Pulse Ox Last 24 Hr 97.9 F-98.9 F 71-81 18-20 99-110/55-68 98-99 GENERAL: The patient is awake, alert, and fully oriented, in no acute distress. HEAD: Normal with no signs of trauma. EYES: PERRL, extraocular movements intact, sclera anicteric, conjunctiva clear. No ptosis. ENT: Ears normal, nares patent, oropharynx clear without exudates NECK: Trachea midline, full range of motion, supple. LUNGS: Breath sounds equal, clear to auscultation bilaterally HEART: Regular rate and rhythm ABDOMEN: Soft, nontender, nondistended, normoactive bowel sounds EXTREMITIES: 2+ pulses, warm, well-perfused, no edema. NEUROLOGICAL: Normal speech, gait not observed. PSYCH: Normal mood, normal affect. SKIN: Warm, dry, normal turgor, no rashes or lesions noted Laboratory Results - last 24 hr 07/21/19 07/21/19 07/21/19 07:47 07:47 07:47 WBC 4.8 RBC 2.51 L Hgb 7.6 L Hct 23.0 L MCV 91.6 MCH 30.3 MCHC 33.1 RDW 22.7 H Plt Count 101 L MPV 10.0 Absolute Neuts (auto) 2.6 Total Counted Neutrophils % 54.6 Neutrophils % (Manual) Band Neutrophils % Lymphocytes % 23.7 D Lymphocytes % (Manual) Monocytes % 19.3 H Monocytes % (Manual) Eosinophils % 1.8 Eosinophils % (Manual) Basophils % 0.6 Nucleated RBC % 0 Platelet Estimate Platelet Comment Target Cells Tear Drop Cells Ovalocytes Helmet Cells [place] Cells Acanthocytes (Spur) Schistocytes PT with INR 18.10 H INR 1.53 H Sodium 140 Potassium 4.1 Chloride 105 Carbon Dioxide 29 Anion Gap 6 L BUN 31.9 H Creatinine 1.9 H Est GFR (CKD-EPI)AfAm 36.19 Est GFR (CKD-EPI)NonAf 31.23 Random Glucose 88 Calcium 8.7 Magnesium 1.9 Total Bilirubin 1.3 H AST 32 ALT 24 Alkaline Phosphatase 90 Total Protein 6.1 L Albumin 3.1 L Stool Occult Blood 07/21/19 07/21/19 11:41 13:58 WBC 5.1 RBC 2.49 L Hgb 7.4 L Hct 22.8 L MCV 91.6 MCH 29.7 MCHC 32.4 RDW 22.4 H Plt Count 111 L MPV 9.8 Absolute Neuts (auto) 2.7 Total Counted 100 Neutrophils % 53.6 Neutrophils % (Manual) 52.0 Band Neutrophils % 0.0 Lymphocytes % 22.8 Lymphocytes % (Manual) 26.0 Monocytes % 21.3 H Monocytes % (Manual) 20 H* Eosinophils % 1.1 Eosinophils % (Manual) 2.0 Basophils % 1.2 Nucleated RBC % 0 Platelet Estimate Slt decrease Platelet Comment Giant platelets Target Cells 1+ Tear Drop Cells 1+ Ovalocytes 1+ Helmet Cells 2+ [place] Cells 1+ Acanthocytes (Spur) 1+ Schistocytes 1+ PT with INR INR Sodium Potassium Chloride Carbon Dioxide Anion Gap BUN Creatinine Est GFR (CKD-EPI)AfAm Est GFR (CKD-EPI)NonAf Random Glucose Calcium Magnesium Total Bilirubin AST ALT Alkaline Phosphatase Total Protein Albumin Stool Occult Blood Negative Active Medications Generic Name Dose Route Start Last Admin Trade Name Freq PRN Reason Stop Dose Admin Apixaban 2.5 mg 07/20/19 22:00 07/21/19 10:13 Eliquis - PO 2.5 mg BID [facility] Administration Carvedilol 3.125 mg 07/15/19 18:00 07/21/19 10:45 Coreg - PO 3.125 mg BID [facility] Administration Digoxin 0.125 mg 07/15/19 10:00 07/21/19 10:12 Lanoxin - PO 0.125 mg Q2D [facility] Administration Furosemide 40 mg 07/17/19 16:00 07/21/19 10:12 Lasix - PO 40 mg DAILY [facility] Administration Pantoprazole Sodium 40 mg 07/14/19 10:00 07/21/19 10:12 Protonix - PO 40 mg DAILY [facility] Administration Spironolactone 25 mg 07/20/19 16:45 07/21/19 10:45 Aldactone - PO 25 mg DAILY [facility] Administration ASSESSMENT/PLAN: Problem List - Problems (1) JEWEL (acute kidney injury) Assessment/Plan: Creatinine above baseline, but improving. nephrology following. Kidney and Bladder US noted c/t Monitor CMP Avoid nephrotoxic drugs Code(s): N17.9 - ACUTE KIDNEY FAILURE, UNSPECIFIED (2) Abdominal ascites Assessment/Plan: s/p 2 liter removal on 07/15/2019. Code(s): R18.8 - OTHER ASCITES (3) Anemia Assessment/Plan: Hematology has been consulted due to anemia. Patient follows with Dr. Zapata outpatient for anemia of chronic disease (CHF/CKD). Patient currently asymptomatic. Monitor CBC daily. Code(s): D64.9 - ANEMIA, UNSPECIFIED Qualifiers: Anemia type: due to chronic kidney disease (4) Ascites Assessment/Plan: likely due to chronic kidney disease vs heart disease. s/p 2 liters removed via paracentesis on 07/15/2019 Code(s): R18.8 - OTHER ASCITES Qualifiers: Ascites type: other type Qualified Code(s): R18.8 - Other ascites (5) BPH (benign prostatic hyperplasia) Assessment/Plan: continue home meds. Code(s): N40.0 - BENIGN PROSTATIC HYPERPLASIA WITHOUT LOWER URINRY TRACT SYMP (6) CHF (congestive heart failure) Assessment/Plan: on lasix, daily weights. Code(s): I50.9 - HEART FAILURE, UNSPECIFIED Qualifiers: Heart failure type: systolic Heart failure chronicity: acute on chronic Qualified Code(s): I50.23 - Acute on chronic systolic (congestive) heart failure (7) Occult GI bleeding Assessment/Plan: transfused 2 units of prbc since admission. no further episodes of melena. started on eliquis 2.5mg with close monitoring of hmg/hct. on protonix. GI following Code(s): R19.5 - OTHER FECAL ABNORMALITIES (8) DVT prophylaxis Assessment/Plan: SCDs/TEDs Code(s): Z29.9 - ENCOUNTER FOR PROPHYLACTIC MEASURES, UNSPECIFIED Visit type - Emergency Visit Emergency Visit: Yes ED Registration Date: 07/11/19 Care time: The patient presented to the Emergency Department on the above date and was hospitalized for further evaluation of their emergent condition. - New Patient This patient is new to me today: No - Critical Care Critical Care patient: No - Discharge Referral Referred to [facility] Med [facility] No
[2019-07-22 05:07] LABS: ALPHA 2 MACROGLOBULINS,QN 113 mg/dL (110-276); ALT(SGPT)P5P 20 IU/L (0-55); CHOLESTEROL TOTAL 96 mg/dL (100-199); GLUCOSE SERUM 77 mg/dL (65-99); HEIGHT 67 in (.); WEIGHT- 159 LBS (.)
--- NOTE | 2019-07-22 08:20 | PN ---
Progress Note, Physician History of Present Illness: This is a 88 y/o male with a significant past medical history of CKD, Chronic Anemia, Dysproteinemia, Systolic CHF, Afib (on Coumadin), Mitral Valve bioprosthetic 2003, s/p ICD (13), Gastric Ulcer. Who presented to the ED with 1 day of gradual onset shortness of breath worsened with exertion and constipation with black stools - Current Medication List Current Medications: Active Medications Apixaban (Eliquis -) 2.5 mg PO BID [facility] Last Admin: 07/21/19 21:22 Dose: 2.5 mg Documented by: Carvedilol (Coreg -) 3.125 mg PO BID [facility] Last Admin: 07/21/19 21:22 Dose: 3.125 mg Documented by: Digoxin (Lanoxin -) 0.125 mg PO Q2D [facility] Last Admin: 07/21/19 10:12 Dose: 0.125 mg Documented by: Furosemide (Lasix -) 40 mg PO DAILY [facility] Last Admin: 07/21/19 10:12 Dose: 40 mg Documented by: Pantoprazole Sodium (Protonix -) 40 mg PO DAILY [facility] Last Admin: 07/21/19 10:12 Dose: 40 mg Documented by: Spironolactone (Aldactone -) 25 mg PO DAILY [facility] Last Admin: 07/21/19 10:45 Dose: 25 mg Documented by: - Objective Vital Signs: Vital Signs Temperature 98.2 F 07/22/19 06:00 Pulse Rate 76 07/22/19 06:00 Respiratory Rate 18 07/22/19 06:00 Blood Pressure 99/62 07/22/19 06:00 O2 Sat by Pulse Oximetry (%) 100 07/21/19 21:00 Labs: CBC, BMP 07/21/19 11:41 07/21/19 07:47 INR, PTT INR 1.53 (0.83-1.09) H 07/21/19 07:47 Problem List - Problems (1) Prophylactic measure Assessment/Plan: FEN Fluids: no additional IVF Electrolytes: monitor & replete as needed Nutrition: clear liquids DVT moderate risk scd no chemical AC given ABLA PT Dispo Maintain as inpatient full code discharge planning Code(s): Z29.9 - ENCOUNTER FOR PROPHYLACTIC MEASURES, UNSPECIFIED (2) Ascites Assessment/Plan: s/p paracentesis on 07/14 with 2 liter removed Code(s): R18.8 - OTHER ASCITES Qualifiers: Ascites type: other type Qualified Code(s): R18.8 - Other ascites (3) Elevated troponin Code(s): R79.89 - OTHER SPECIFIED ABNORMAL FINDINGS OF BLOOD CHEMISTRY (4) Hyperkalemia Code(s): E87.5 - HYPERKALEMIA (5) Systolic CHF, acute on chronic Code(s): I50.23 - ACUTE ON CHRONIC SYSTOLIC (CONGESTIVE) HEART FAILURE (6) Total bilirubin, elevated Code(s): R17 - UNSPECIFIED JAUNDICE (7) A-fib Code(s): I48.91 - UNSPECIFIED ATRIAL FIBRILLATION (8) AICD (automatic cardioverter/defibrillator) present Code(s): Z95.810 - PRESENCE OF AUTOMATIC (IMPLANTABLE) CARDIAC DEFIBRILLATOR (9) Hciqk-in-szpfmcp kidney injury Code(s): N17.9 - ACUTE KIDNEY FAILURE, UNSPECIFIED; N18.9 - CHRONIC KIDNEY DISEASE, UNSPECIFIED (10) Occult GI bleeding Code(s): R19.5 - OTHER FECAL ABNORMALITIES
[2019-07-22 09:07] LABS: BASO % 0.9 % (0-2.0); EOS % 1.9 % (0-4.5); HEMOGLOBIN 7.8 GM/dL (11.7-16.9); LYMPH % 22.2 % (8-40); MCH 29.7 pg (25.7-33.7); MCHC 32.3 g/dl (32.0-35.9); MEAN CELL VOLUME 91.9 fl (80-96); MEAN PLT VOLUME 9.6 fl (7.5-11.1); MONO % 18.7 % (3.8-10.2); NEUT % 56.3 % (42.8-82.8); PLATELET COUNT 123 K/MM3 (134-434); RBC 2.61 M/mm3 (4.00-5.60); RDW 23.4 % (11.9-15.9); WHITE BLOOD COUNT 4.6 K/mm3 (4.0-10.0)
[2019-07-22 09:18] LABS: INR 1.59 (0.83-1.09); PROTHROMBIN TIME (PATIENT) 18.9 SEC (9.7-13.0)
[2019-07-22] MEDS: PANTOPRAZOLE 40 MG TABLET PO SCH (09:30)
[2019-07-22] MEDS: APIXABAN 2.5 MG TABLET PO SCH (09:30)
[2019-07-22] MEDS: SPIRONOLACTONE 25 MG TABLET PO SCH (09:30)
[2019-07-22] MEDS: CARVEDILOL 3.125 MG TABLET (FP) PO SCH (09:30)
[2019-07-22] MEDS: FUROSEMIDE 40 MG TABLET (FP) PO SCH (09:30)
[2019-07-22 09:36] LABS: ALBUMIN 3.4 g/dl (3.4-5.0); BILIRUBIN,TOTAL 1.6 mg/dL (0.2-1); BLOOD UREA NITROGEN 35.5 mg/dL (7-18); CALCIUM 8.8 mg/dL (8.5-10.1); CREATININE 2.1 mg/dL (0.55-1.3); POTASSIUM 3.7 mmol/L (3.5-5.1); TOT PROT 6.9 g/dl (6.4-8.2)
[2019-07-22 09:48] VITALS: BMI 21.7
--- NOTE | 2019-07-22 14:35 | DS ---
Physical Exam: SUBJECTIVE: Patient seen and examined OBJECTIVE: Vital Signs Period Temp Pulse Resp BP Sys/Lara Pulse Ox Last 24 Hr 97.9 F-98.6 F 74-81 16-18 97-109/56-78 98-100 PHYSICAL EXAM GENERAL: The patient is awake, alert, and fully oriented, in no acute distress. HEAD: Normal with no signs of trauma. EYES: PERRL, extraocular movements intact, sclera anicteric, conjunctiva clear. ENT: Ears normal, nares patent, oropharynx clear without exudates, moist mucous membranes. NECK: Trachea midline, full range of motion, supple. LUNGS: Breath sounds equal, clear to auscultation bilaterally, no wheezes, no crackles, no accessory muscle use. HEART: Regular rate and rhythm, S1, S2 without murmur, rub or gallop. ABDOMEN: Soft, nontender, nondistended, normoactive bowel sounds, no guarding, no rebound, no hepatosplenomegaly, no masses. EXTREMITIES: 2+ pulses, warm, well-perfused, no edema. NEUROLOGICAL: Cranial nerves II through XII grossly intact. Normal speech, gait not observed. PSYCH: Normal mood, normal affect. SKIN: Warm, dry, normal turgor, no rashes or lesions noted. LABS Laboratory Results - last 24 hr 07/17/19 07/21/19 07/21/19 05:58 11:41 13:58 WBC RBC Hgb Hct MCV MCH MCHC RDW Plt Count MPV Absolute Neuts (auto) Total Counted 100 Neutrophils % Neutrophils % (Manual) 52.0 Band Neutrophils % 0.0 Lymphocytes % Lymphocytes % (Manual) 26.0 Monocytes % Monocytes % (Manual) 20 H* Eosinophils % Eosinophils % (Manual) 2.0 Basophils % Nucleated RBC % Platelet Estimate Slt decrease Platelet Comment Giant platelets Target Cells 1+ Tear Drop Cells 1+ Ovalocytes 1+ Helmet Cells 2+ Juany Cells 1+ Acanthocytes (Spur) 1+ Schistocytes 1+ Haptoglobin 95 PT with INR INR Sodium Potassium Chloride Carbon Dioxide Anion Gap BUN Creatinine Est GFR (CKD-EPI)AfAm Est GFR (CKD-EPI)NonAf Glucose 77 Random Glucose Calcium Magnesium Total Bilirubin 1.6 H GGT 67 H AST 35 ALT 20 Alkaline Phosphatase Liver Fibrosis Score Liver Fib Fibro Score 0.70 H Liver Fibrosis Stage Liver Steatosis Score 0.62 H Liver Steatosis Grade Total Protein Albumin Jdevd-1-Quxslslibpsqc 113 Triglycerides 63 Cholesterol 96 L Apolipoprotein A-1 80 L Patient Height (cm) 67 Patient Weight (kg) 159 CSF IgG Interpretation Stool Occult Blood Negative 07/22/19 07/22/19 07/22/19 08:15 08:15 08:15 WBC 4.6 RBC 2.61 L Hgb 7.8 L Hct 24.0 L MCV 91.9 MCH 29.7 MCHC 32.3 RDW 23.4 H Plt Count 123 L MPV 9.6 Absolute Neuts (auto) 2.6 Total Counted Neutrophils % 56.3 Neutrophils % (Manual) Band Neutrophils % Lymphocytes % 22.2 Lymphocytes % (Manual) Monocytes % 18.7 H Monocytes % (Manual) Eosinophils % 1.9 Eosinophils % (Manual) Basophils % 0.9 Nucleated RBC % 0 Platelet Estimate Platelet Comment Target Cells Tear Drop Cells Ovalocytes Helmet Cells Juany Cells Acanthocytes (Spur) Schistocytes Haptoglobin PT with INR 18.90 H INR 1.59 H Sodium 138 Potassium 3.7 Chloride 103 Carbon Dioxide 30 Anion Gap 6 L BUN 35.5 H Creatinine 2.1 H Est GFR (CKD-EPI)AfAm 32.07 Est GFR (CKD-EPI)NonAf 27.67 Glucose Random Glucose 107 H Calcium 8.8 Magnesium 2.0 Total Bilirubin 1.6 H GGT AST 37 ALT 31 Alkaline Phosphatase 99 Liver Fibrosis Score Liver Fib Fibro Score Liver Fibrosis Stage Liver Steatosis Score Liver Steatosis Grade Total Protein 6.9 Albumin 3.4 Jecum-6-Shhclyikhooem Triglycerides Cholesterol Apolipoprotein A-1 Patient Height (cm) Patient Weight (kg) CSF IgG Interpretation Stool Occult Blood HOSPITAL COURSE: Date of Admission:07/11/19 Date of Discharge: 07/22/19 Minutes to complete discharge: 35 Discharge Summary Problems reviewed: Yes Reason For Visit: CHF ASCITES ATRIAL FIBRILLATION Current Active Problems JEWEL (acute kidney injury) (Acute) Abdominal ascites (Acute) Anemia (Acute) Ascites (Acute) BPH (benign prostatic hyperplasia) (Acute) CHF (congestive heart failure) (Acute) Cardiac cirrhosis (Acute) DVT prophylaxis (Acute) Diverticulosis (Acute) Elevated troponin (Acute) Hyperkalemia (Acute) Inguinal hernia of right side without obstruction or gangrene (Acute) LGI bleed (Acute) WOODY (nonalcoholic steatohepatitis) (Acute) Nephrolithiasis (Acute) Occult GI bleeding (Acute) Prophylactic measure (Acute) Shortness of breath (Acute) Symptomatic anemia (Acute) Systolic CHF, acute on chronic (Acute) Total bilirubin, elevated (Acute) Condition: Improved - Instructions Diet, Activity, Other Instructions: DISCHARGE YOUR VISIT You came to the hospital because you were having shortness of breath and black stools. You were giving blood transfusions and started on diuretics (water pills). We stopped your coumadin and started you on eliquis. You also had a large amount of fluid removed from your abdomen (ascites) The diuretics will help the fluid from reoccuring. Follow up with Dr Pryor (GI) for the ascites. Follow up with Dr Dixon (traffic coordinator) for the blood thinner (eliquis) and the anemia (low blood count). Your kidney function was also impaired and your were also seen by the renal doctor (Dr Hines) Follow up with him also in the office. All the numbers will be in your discharge summary. Avoid any high salt foods. MEDICATIONS Please continue to take your home medications as prescribed. There was some changes NEW Eliquis 2.5mg twice a day DO NOT continue the coumadin (warfarin) Protonix 40mg daily DO NOT take the prevacid Aldactone (increased dose) 25mg daily continue the lasix 40mg daily Carvedolil-increased to 3.125mg DIET Continue your home diet. Low salt-2g Limit fluids to 1.5 L per day ADDITIONAL CARE Please make an appointment to see your primary care provider, Dr Yang 1 week from today. Call for follow up appointment with dr Hines ADDITIONAL INFORMATION Please call 911 or come directly to the emergency department if you experience unusual headache, vision change, shortness of breath, chest pain, numbness, tingling, loss of alertness/awareness, loss of function, unusual bleeding or any alarming symptoms. Thank you for allowing me to care for you. Quang Glover, [facility], [facility] [phone] Referrals: Alyson Yang MD [Primary Care Provider] - 1 Week Prashant Hines MD [Staff Physician] - (call for appointment) Disposition: HOME - Home Medications Comprehensive Discharge Medication List: Ambulatory Orders Digoxin [Lanoxin -] 0.125 mg PO Q48H 02/24/15 Calcitriol [Calcitriol -] 0.25 mcg PO DAILY 04/12/17 Furosemide [Lasix -] 40 mg PO DAILY PRN 04/12/17 Colchicine 0.6 mg PO DAILY #7 tablet 04/20/17 Furosemide [Lasix -] 40 mg PO DAILY #30 tablet 04/20/17 Lisinopril [Prinivil] 10 mg PO DAILY #30 tablet 04/20/17 Apixaban [Eliquis -] 2.5 mg PO BID #60 tablet 07/22/19 Carvedilol [Coreg -] 3.125 mg PO BID #60 tablet 07/22/19 Furosemide [Lasix -] 40 mg PO DAILY tablet 07/22/19 Pantoprazole Sodium [Protonix -] 40 mg PO DAILY #30 tablet.ec 07/22/19 Spironolactone [Aldactone -] 25 mg PO DAILY #30 tablet 07/22/19 Prescription Drug Monitoring Program (I-STOP) results: I-STOP not reviewed Problem List - Problems (1) Prophylactic measure Code(s): Z29.9 - ENCOUNTER FOR PROPHYLACTIC MEASURES, UNSPECIFIED (2) Ascites Code(s): R18.8 - OTHER ASCITES Qualifiers: Ascites type: other type Qualified Code(s): R18.8 - Other ascites (3) Elevated troponin Code(s): R79.89 - OTHER SPECIFIED ABNORMAL FINDINGS OF BLOOD CHEMISTRY (4) Hyperkalemia Code(s): E87.5 - HYPERKALEMIA (5) Systolic CHF, acute on chronic Code(s): I50.23 - ACUTE ON CHRONIC SYSTOLIC (CONGESTIVE) HEART FAILURE (6) Total bilirubin, elevated Code(s): R17 - UNSPECIFIED JAUNDICE (7) A-fib Code(s): I48.91 - UNSPECIFIED ATRIAL FIBRILLATION (8) AICD (automatic cardioverter/defibrillator) present Code(s): Z95.810 - PRESENCE OF AUTOMATIC (IMPLANTABLE) CARDIAC DEFIBRILLATOR (9) Opdko-nj-uxuwcaz kidney injury Code(s): N17.9 - ACUTE KIDNEY FAILURE, UNSPECIFIED; N18.9 - CHRONIC KIDNEY DISEASE, UNSPECIFIED Qualifiers: Chronic kidney disease stage: stage 3 (moderate) (10) Occult GI bleeding Code(s): R19.5 - OTHER FECAL ABNORMALITIES This patient is new to me today: No Emergency Visit: Yes ED Registration Date: 07/11/19 Care time: The patient presented to the Emergency Department on the above date and was hospitalized for further evaluation of their emergent condition. Critical Care patient: No - Discharge Referral Referred to [facility] No
[2019-07-22 14:56] VITALS: BP 103/56; PULSE 77; TEMP 97.8
--- NOTE | 2019-07-22 17:52 | PN ---
Progress Note, Physician History of Present Illness: Pt seen and examined at bedside. He is awake and alert. He denies shortness of breath. - Objective Vital Signs: Vital Signs Temperature 97.8 F 07/22/19 14:55 Pulse Rate 77 07/22/19 14:55 Respiratory Rate 19 07/22/19 14:55 Blood Pressure 103/56 L 07/22/19 14:55 O2 Sat by Pulse Oximetry (%) 100 07/22/19 10:00 Constitutional: Yes: Calm Eyes: Yes: Conjunctiva Clear HENT: Yes: Atraumatic Neck: Yes: Supple Cardiovascular: Yes: S1, S2 Respiratory: Yes: CTA Bilaterally Gastrointestinal: Yes: Soft Musculoskeletal: Yes: Muscle Weakness Edema: Yes Edema: LLE: Trace, RLE: Trace Neurological: Yes: Oriented Psychiatric: Yes: Oriented Labs: CBC, BMP 07/22/19 08:15 07/22/19 08:15 INR, PTT INR 1.59 (0.83-1.09) H 07/22/19 08:15 Problem List - Problems (1) JEWEL (acute kidney injury) Code(s): N17.9 - ACUTE KIDNEY FAILURE, UNSPECIFIED (2) Hyperkalemia Code(s): E87.5 - HYPERKALEMIA (3) A-fib Code(s): I48.91 - UNSPECIFIED ATRIAL FIBRILLATION (4) AICD (automatic cardioverter/defibrillator) present Code(s): Z95.810 - PRESENCE OF AUTOMATIC (IMPLANTABLE) CARDIAC DEFIBRILLATOR (5) Ascites Code(s): R18.8 - OTHER ASCITES Qualifiers: Ascites type: other type Qualified Code(s): R18.8 - Other ascites (6) CHF (congestive heart failure) Code(s): I50.9 - HEART FAILURE, UNSPECIFIED Qualifiers: Heart failure type: systolic Heart failure chronicity: acute on chronic Qualified Code(s): I50.23 - Acute on chronic systolic (congestive) heart failure Assessment/Plan Current Medications Generic Name Dose Route Start Last Admin Trade Name Freq PRN Reason Stop Dose Admin Apixaban 2.5 mg 07/20/19 22:00 07/21/19 10:13 Eliquis - PO 2.5 mg BID ODILIA Administration Carvedilol 3.125 mg 07/15/19 18:00 07/21/19 10:45 Coreg - PO 3.125 mg BID ODILIA Administration Digoxin 0.125 mg 07/15/19 10:00 07/21/19 10:12 Lanoxin - PO 0.125 mg Q2D ODILIA Administration Furosemide 40 mg 07/17/19 16:00 07/21/19 10:12 Lasix - PO 40 mg DAILY DOILIA Administration Pantoprazole Sodium 40 mg 07/14/19 10:00 07/21/19 10:12 Protonix - PO 40 mg DAILY ODILIA Administration Spironolactone 25 mg 07/20/19 16:45 07/21/19 10:45 Aldactone - PO 25 mg DAILY ODILIA Administration Impression 1. JEWEL 2. hyperkalemia 3. ascites 4. fluid overload 5. chf 6. ckd 7. a-fib Plan - cont lasix and aldactone - monitor renal function - will need outpt follow up, he says he will come to office - 2 gram sodium diet with fluid restriction - avoid nsaids
--- NOTE | 2019-07-23 12:00 | PN ---
Progress Note, Physician Chief Complaint: Pt A&Ox3; no chest pain or dyspnea. Now only trace bipedal LE edema. History of Present Illness: Mr. Huitron is an 88 year old black man (b. [place]) with a significant past [facility] history of systolic CHF (nonobstructive CAD on coronary angiogram 2012); s/p ICD 2012, AF (on carvedilol and warfarin), bioprosthetic mitral valve 2003, chronic anemia, dysproteinemia, ascites (noted since at least 2017), chronic anemia, and stomach ulcer, who presents to the ED with several days of gradual onset shortness of breath worsened with exertion. Patient states he had been doing better for the past few days, since furosemide was increased; however today, as he was putting on his clothes he noticed that he was more out of breath than usual. Patient does endorse mild shortness of breath with exertion recently after walking up several flights of stairs. He notes associated 2 days of mild constipation, with black stools for the past 2 weeks; denies any yoon blood, melena. Pt also notes he has had distended abdomen for several months; he denies any associated fever, chills, coughing, chest pain, palpitation, lightheadedness, back pain, neck pain. Allergies: PCN, kiwi Primary Care Physician: Dr. Yang; ROSIE Joy Staff Therapist: Dr. Garcia - Objective Vital Signs: Vital Signs Temperature 97.8 F 07/22/19 14:55 Pulse Rate 77 07/22/19 14:55 Respiratory Rate 19 07/22/19 14:55 Blood Pressure 103/56 L 07/22/19 14:55 O2 Sat by Pulse Oximetry (%) 100 07/22/19 10:00 Constitutional: Yes: Thin Eyes: Yes: WNL, Tearing Cardiovascular: Yes: S1, S2 (split) Respiratory: Yes: Regular Gastrointestinal: Yes: Soft, Ascites. No: Tenderness ...Rectal Exam: Yes: Deferred Genitourinary: No: Anuria Breast(s): Yes: WNL Musculoskeletal: Yes: Muscle Weakness Extremities: Yes: Cool Edema: Yes Edema: LLE: Trace, RLE: Trace Peripheral Pulses WNL: Yes Integumentary: Yes: WNL Neurological: Yes: Alert, Oriented, Weakness Psychiatric: Yes: WNL Labs: CBC, BMP 07/22/19 08:15 07/22/19 08:15 INR, PTT INR 1.59 (0.83-1.09) H 07/22/19 08:15 - ....Imaging Chest X-ray: Image Reviewed EKG: Image Reviewed Assessment/Plan Acute/chronic systolic CHF; s/p ICD 2012 Nonobstructive CAD (coronary angiogram 2012) Chronic elevation of TNI noted since at least 2012 hyperkalemia Acute renal dysfunction acute/chronic anemia; black stools (INR reportedly 3.8 last week) bioprosthetic mitral valve "stent" vs replacement 2003 ascites anxiety (exacerbated by worry of edvin COVID; pt was fearful of coming to hospital) Plan: Discussed with final assembly and packing supervisor: though stool quaiac now negative, it is felt he is at high risk for anticoagulation -->bleed. Await GI input regarding anemia and ascities. Stopped diuretics, ACEI, spironolactone. Consider restarting low-dose lisinopril, but must follow K+ carefully. Now on furosemide; f/u renal function, which is improving. Digoxin level 0.79 (keep 0.4-0.8). Chronic TNi elevation, with multiple contributers to demand ischemia, including acute anemia and renal failure, CHF, AF, hypotension, sepsis EKG: ventricular-paced rhythm. ECHO: severely reduced LVEF (30%); reduced RVEF Physical rehabilitation. If pt remains stable, may be followed as outpatient from cardiac perspective.
--- NOTE | 2019-07-24 11:42 | PATH ---
Cytology Non-Gynecological Report Patient Name: JAIDEN TURCIOS [facility]. Rec. #: [id number] /Age/Gender: 1930 (Age: 88) / M Account: [id number] Location: [facility]/ADOL Taken: 07/15/2019 Received: 07/15/2019 Reported: 07/16/2019 Physicians: Radha Patel Specimen(s) Received A: ABDOMINAL FLUID B: ABDOMINAL FLUID Clinical History Ascites Final Diagnosis A-B. ABDOMINAL FLUID, PARACENTESIS: SATISFACTORY FOR EVALUATION. NEGATIVE FOR MALIGNANCY. MESOTHELIAL CELLS AND MACROPHAGES PRESENT. Electronically Signed Sandhya Ac M.D. Gross Description A. Approximately 3000 cc of yellow fluid received fresh. One cytofunnel prepared and Pap stained. One cellblock prepared. B. Approximately 50 cc of yellow fluid received fixed in 50% alcohol. One cytofunnel prepared and Pap stained. One cellblock prepared.
== END 2019-07-22 15:36 | disposition home or self-care (01) | DRG 291 ==
LOC: JER 12:42 → JERBED 19:35 → J4S 20:30
PROVIDERS: ADMIT Internal Medicine; ATTEND Nurse Practitioner Acute Care
PROC: 30233N1 Transfusion of Nonautologous Red Blood Cells into Peripheral Vein, Percutaneous Approach (ICD-10-PCS; 2019-07-11)
PROC: 0W9G3ZZ Drainage of Peritoneal Cavity, Percutaneous Approach (ICD-10-PCS; principal; 2019-07-15)
DX: I13.0 Hypertensive heart and chronic kidney disease with heart failure and stage 1 through stage 4 chronic kidney disease, or unspecified chronic kidney disease (principal); I50.23 Acute on chronic systolic (congestive) heart failure; N17.9 Acute kidney failure, unspecified; R18.8 Other ascites; R17 Unspecified jaundice; I24.8 Other forms of acute ischemic heart disease; K92.1 Melena; E87.5 Hyperkalemia; D63.1 Anemia in chronic kidney disease; Z95.810 Presence of automatic (implantable) cardiac defibrillator; I48.91 Unspecified atrial fibrillation; K76.1 Chronic passive congestion of liver; N40.0 Benign prostatic hyperplasia without lower urinary tract symptoms; F41.9 Anxiety disorder, unspecified; E87.70 Fluid overload, unspecified; N18.9 Chronic kidney disease, unspecified; I25.10 Atherosclerotic heart disease of native coronary artery without angina pectoris
CPT/HCPCS: 36415; 36430; 36511; 71045-TC-FY; 74176-TC; 76775-TC; 76856-TC; 76942-TC; 80048; 80053; 80162; 81003; 82042; 82105; 82150; 82172; 82247; 82272; 82436; 82465; 82550; 82565; 82728; 82945; 82947; 82962; 82977; 83010; 83516; 83540; 83550; 83615; 83735; 83880; 83883; 83986; 84133; 84153; 84155; 84157; 84165; 84300; 84450; 84460; 84478; 84484; 85025; 85044; 85379; 85610; 85730; 86038; 86078; 86140; 86704; 86706; 86707; 86708; 86709; 86803; 86850; 86900; 86901; 86922; 87070; 87075; 87102; 87116; 87205; 87206; 87210; 87340; 88108; 88305-TC; 93005; 93010; 93306-TC; 97116-GP; 97161-GP; 99285-25; J1756; P9038; P9058

== ENCOUNTER → 2019-08-25 | Day surgery (SDC) | payer OTHER ==
[2019-08-25 12:35] LABS: BASO % 1.3 % (0-2.0); EOS % 1.5 % (0-4.5); HEMATOCRIT 23.3 % (35.4-49); HEMOGLOBIN 7.3 GM/dL (11.7-16.9); LYMPH % 19.3 % (8-40); MCH 31.1 pg (25.7-33.7); MCHC 31.2 g/dl (32.0-35.9); MEAN CELL VOLUME 99.5 fl (80-96); MEAN PLT VOLUME 9.5 fl (7.5-11.1); MONO % 15.3 % (3.8-10.2); NEUT % 62.6 % (42.8-82.8); PLATELET COUNT 142 K/MM3 (134-434); RBC 2.34 M/mm3 (4.00-5.60); RDW 24.4 % (11.9-15.9); WHITE BLOOD COUNT 5.1 K/mm3 (4.0-10.0)
[2019-08-25 12:51] LABS: ALBUMIN 3.4 g/dl (3.4-5.0); BILIRUBIN,TOTAL 1.3 mg/dL (0.2-1); BLOOD UREA NITROGEN 52.4 mg/dL (7-18); CALCIUM 9.1 mg/dL (8.5-10.1); CREATININE 2.4 mg/dL (0.55-1.3); POTASSIUM 3.8 mmol/L (3.5-5.1)
[2019-08-25 13:45] LABS: ANISOCYTOSIS 2+; MACROCYTOSIS 1+; PLATELET ESTIMATE DECREASED; TEAR DROP CELLS 1+
[2019-08-25 17:17] VITALS: BP 127/61; PULSE 55; TEMP 98.5
== END | disposition home or self-care (01) ==
LOC: JONCBLOOD 11:16
PROVIDERS: ATTEND Internal Medicine Hematology & Oncology
PROC: 30233N1 Transfusion of Nonautologous Red Blood Cells into Peripheral Vein, Percutaneous Approach (ICD-10-PCS; principal; 2019-08-25)
DX: D50.9 Iron deficiency anemia, unspecified (principal); N40.0 Benign prostatic hyperplasia without lower urinary tract symptoms; I25.10 Atherosclerotic heart disease of native coronary artery without angina pectoris; Z88.0 Allergy status to penicillin; Z95.810 Presence of automatic (implantable) cardiac defibrillator
CPT/HCPCS: 36415; 36430; 80053; 85025; 86850; 86900; 86901; 86922; P9058

== ENCOUNTER 2019-09-02 07:08 | Day surgery (SDC) | payer OTHER ==
[2019-09-02 10:00] LABS: BASO % 1.1 % (0-2.0); EOS % 1.1 % (0-4.5); HEMATOCRIT 22.5 % (35.4-49); HEMOGLOBIN 7.1 GM/dL (11.7-16.9); LYMPH % 22.3 % (8-40); MCH 31.1 pg (25.7-33.7); MCHC 31.6 g/dl (32.0-35.9); MEAN CELL VOLUME 98.4 fl (80-96); MEAN PLT VOLUME 9.2 fl (7.5-11.1); MONO % 15.1 % (3.8-10.2); NEUT % 60.4 % (42.8-82.8); PLATELET COUNT 123 K/MM3 (134-434); RBC 2.29 M/mm3 (4.00-5.60); RDW 23.9 % (11.9-15.9); WHITE BLOOD COUNT 4.4 K/mm3 (4.0-10.0)
[2019-09-02 10:54] LABS: BLOOD UREA NITROGEN 54.5 mg/dL (7-18); CALCIUM 9.1 mg/dL (8.5-10.1); CREATININE 2.2 mg/dL (0.55-1.3)
[2019-09-02 11:24] LABS: ANISOCYTOSIS 2+; MACROCYTOSIS 2+; PLATELET ESTIMATE DECREASED; TARGET CELLS 1+; TEAR DROP CELLS 1+
[2019-09-02 15:19] VITALS: BP 100/53; PULSE 67; TEMP 97.9
== END 2019-09-02 15:19 | disposition home or self-care (01) ==
LOC: JONCBLOOD 07:08
PROVIDERS: ATTEND Internal Medicine Hematology & Oncology
PROC: 30233N1 Transfusion of Nonautologous Red Blood Cells into Peripheral Vein, Percutaneous Approach (ICD-10-PCS; principal; 2019-09-02)
DX: N18.9 Chronic kidney disease, unspecified (principal); D63.1 Anemia in chronic kidney disease
CPT/HCPCS: 36415; 36430; 80048; 85025; 86850; 86900; 86901; 86922; P9058

== ENCOUNTER 2019-09-05 07:10 | Day surgery (SDC) | payer OTHER ==
[2019-09-05 08:59] LABS: BASO % 1.8 % (0-2.0); EOS % 1.4 % (0-4.5); HEMOGLOBIN 7.7 GM/dL (11.7-16.9); LYMPH % 20.8 % (8-40); MCH 31.1 pg (25.7-33.7); MCHC 30.9 g/dl (32.0-35.9); MEAN CELL VOLUME 100.8 fl (80-96); MEAN PLT VOLUME 10.4 fl (7.5-11.1); MONO % 13.4 % (3.8-10.2); NEUT % 62.6 % (42.8-82.8); PLATELET COUNT 136 K/MM3 (134-434); RBC 2.48 M/mm3 (4.00-5.60); WHITE BLOOD COUNT 5.2 K/mm3 (4.0-10.0)
[2019-09-05 09:41] LABS: ALBUMIN 3.5 g/dl (3.4-5.0); BILIRUBIN,DIRECT 0.6 mg/dL (0.0-0.2); BILIRUBIN,TOTAL 1.1 mg/dL (0.2-1); BLOOD UREA NITROGEN 44.4 mg/dL (7-18); CALCIUM 9.7 mg/dL (8.5-10.1); CREATININE 1.6 mg/dL (0.55-1.3); MAGNESIUM 2.5 mg/dL (1.8-2.4); POTASSIUM 4.5 mmol/L (3.5-5.1)
[2019-09-05] MEDS ORDERED: EPOETIN ALFA-EPBX 10,000 UNIT/ML VIAL SQ ONE (10:00)
[2019-09-05 12:32] LABS: ANISOCYTOSIS 2+; HELMET CELLS 1+; MACROCYTOSIS 1+; PLATELET ESTIMATE DECREASED
[2019-09-05 14:11] VITALS: BP 115/67; PULSE 75; TEMP 98.7
== END 2019-09-05 09:55 | disposition home or self-care (01) ==
LOC: JONCCHEMO 07:10
PROVIDERS: ATTEND Internal Medicine Hematology & Oncology
PROC: 3E013GC Introduction of Other Therapeutic Substance into Subcutaneous Tissue, Percutaneous Approach (ICD-10-PCS; principal; 2019-09-05)
DX: N18.9 Chronic kidney disease, unspecified (principal); D63.1 Anemia in chronic kidney disease
CPT/HCPCS: 36415; 80048; 80076; 82728; 83540; 83550; 83735; 85025; 96372; Q5106

== ENCOUNTER 2019-09-12 07:21 | Day surgery (SDC) | payer OTHER ==
[2019-09-12] MEDS ORDERED: EPOETIN ALFA-EPBX 10,000 UNIT/ML VIAL SQ ONE (10:00)
[2019-09-12 10:15] LABS: BASO % 0.9 % (0-2.0); EOS % 1.2 % (0-4.5); HEMATOCRIT 24.7 % (35.4-49); HEMOGLOBIN 7.8 GM/dL (11.7-16.9); LYMPH % 21.4 % (8-40); MCH 30.9 pg (25.7-33.7); MCHC 31.5 g/dl (32.0-35.9); MEAN PLT VOLUME 9.2 fl (7.5-11.1); MONO % 16.9 % (3.8-10.2); NEUT % 59.6 % (42.8-82.8); PLATELET COUNT 158 K/MM3 (134-434); RBC 2.52 M/mm3 (4.00-5.60); RDW 24.1 % (11.9-15.9); WHITE BLOOD COUNT 4.3 K/mm3 (4.0-10.0)
[2019-09-12 10:48] LABS: ALBUMIN 3.5 g/dl (3.4-5.0); BILIRUBIN,TOTAL 1.2 mg/dL (0.2-1); BLOOD UREA NITROGEN 38.5 mg/dL (7-18); CREATININE 1.9 mg/dL (0.55-1.3); POTASSIUM 3.8 mmol/L (3.5-5.1); TOT PROT 6.9 g/dl (6.4-8.2)
[2019-09-12 11:05] LABS: ANISOCYTOSIS 2+; MACROCYTOSIS 2+; PLATELET ESTIMATE DECREASED; TEAR DROP CELLS 1+
[2019-09-12 15:19] VITALS: BP 114/67; PULSE 59; TEMP 98.6
== END 2019-09-12 11:02 | disposition home or self-care (01) ==
LOC: JONCCHEMO 07:21
PROVIDERS: ATTEND Internal Medicine Hematology & Oncology
PROC: 3E013GC Introduction of Other Therapeutic Substance into Subcutaneous Tissue, Percutaneous Approach (ICD-10-PCS; principal; 2019-09-12)
DX: N18.9 Chronic kidney disease, unspecified (principal); D63.1 Anemia in chronic kidney disease
CPT/HCPCS: 36415; 80053; 85025; 96372; Q5106

== ENCOUNTER 2019-09-19 07:28 | Day surgery (SDC) | payer OTHER ==
[2019-09-19] MEDS ORDERED: EPOETIN ALFA-EPBX 10,000 UNIT/ML VIAL SQ ONE (08:30)
[2019-09-19 09:43] LABS: EOS % 1.3 % (0-4.5); HEMATOCRIT 25.5 % (35.4-49); LYMPH % 26.6 % (8-40); MCH 30.6 pg (25.7-33.7); MCHC 31.5 g/dl (32.0-35.9); MEAN CELL VOLUME 97.2 fl (80-96); MONO % 17.8 % (3.8-10.2); NEUT % 53.3 % (42.8-82.8); PLATELET COUNT 140 K/MM3 (134-434); RBC 2.62 M/mm3 (4.00-5.60); RDW 23.1 % (11.9-15.9); WHITE BLOOD COUNT 3.7 K/mm3 (4.0-10.0)
[2019-09-19 10:10] LABS: ALBUMIN 3.7 g/dl (3.4-5.0); BLOOD UREA NITROGEN 40.9 mg/dL (7-18); CALCIUM 9.5 mg/dL (8.5-10.1); CREATININE 2.2 mg/dL (0.55-1.3); POTASSIUM 3.9 mmol/L (3.5-5.1); TOT PROT 7.4 g/dl (6.4-8.2)
[2019-09-19 10:11] LABS: BILIRUBIN,TOTAL 1.1 mg/dL (0.2-1)
[2019-09-19 13:13] LABS: ANISOCYTOSIS 3+; HELMET CELLS 1+; MACROCYTOSIS 1+; PLATELET ESTIMATE DECREASED
[2019-09-19 13:35] LABS: ADD RBC MORPHOLOGY YES
[2019-09-19 15:58] VITALS: BP 106/60; PULSE 56; TEMP 98
== END 2019-09-19 10:30 | disposition home or self-care (01) ==
LOC: JONCCHEMO 07:28
PROVIDERS: ATTEND Internal Medicine Hematology & Oncology
PROC: 3E013GC Introduction of Other Therapeutic Substance into Subcutaneous Tissue, Percutaneous Approach (ICD-10-PCS; principal; 2019-09-19)
DX: D64.9 Anemia, unspecified (principal); N40.0 Benign prostatic hyperplasia without lower urinary tract symptoms; I48.92 Unspecified atrial flutter; Z95.810 Presence of automatic (implantable) cardiac defibrillator; I25.10 Atherosclerotic heart disease of native coronary artery without angina pectoris; Z88.0 Allergy status to penicillin
CPT/HCPCS: 36415; 80053; 85025; 96372; Q5106

== ENCOUNTER 2019-09-26 07:18 | Day surgery (SDC) | payer OTHER ==
[2019-09-26 09:16] LABS: BASO % 1.2 % (0-2.0); EOS % 1.4 % (0-4.5); HEMATOCRIT 26.8 % (35.4-49); HEMOGLOBIN 8.4 GM/dL (11.7-16.9); LYMPH % 26.8 % (8-40); MCH 30.1 pg (25.7-33.7); MCHC 31.5 g/dl (32.0-35.9); MEAN CELL VOLUME 95.5 fl (80-96); MEAN PLT VOLUME 8.7 fl (7.5-11.1); MONO % 18.7 % (3.8-10.2); NEUT % 51.9 % (42.8-82.8); PLATELET COUNT 146 K/MM3 (134-434); RBC 2.81 M/mm3 (4.00-5.60); RDW 22.1 % (11.9-15.9); WHITE BLOOD COUNT 4.4 K/mm3 (4.0-10.0)
[2019-09-26 09:58] LABS: ANISOCYTOSIS 1+; MACROCYTOSIS 1+; PLATELET ESTIMATE DECREASED
[2019-09-26] MEDS ORDERED: EPOETIN ALFA-EPBX 10,000 UNIT/ML VIAL SQ ONE (10:00)
[2019-09-26 13:21] VITALS: BP 115/70; PULSE 55; TEMP 97.7
== END 2019-09-26 10:00 | disposition home or self-care (01) ==
LOC: JONCCHEMO 07:18
PROVIDERS: ATTEND Internal Medicine Hematology & Oncology
PROC: 3E013GC Introduction of Other Therapeutic Substance into Subcutaneous Tissue, Percutaneous Approach (ICD-10-PCS; principal; 2019-09-26)
DX: D63.1 Anemia in chronic kidney disease (principal)
CPT/HCPCS: 36415; 85025; 96372; Q5106

== ENCOUNTER 2019-10-03 07:26 | Day surgery (SDC) | payer OTHER ==
[2019-10-03] MEDS ORDERED: EPOETIN ALFA-EPBX 10,000 UNIT/ML VIAL SQ ONE (08:30)
[2019-10-03 09:16] LABS: BASO % 0.8 % (0-2.0); EOS % 0.9 % (0-4.5); HEMATOCRIT 25.4 % (35.4-49); HEMOGLOBIN 8.1 GM/dL (11.7-16.9); MCH 30.3 pg (25.7-33.7); MCHC 32.1 g/dl (32.0-35.9); MEAN CELL VOLUME 94.5 fl (80-96); MEAN PLT VOLUME 8.5 fl (7.5-11.1); MONO % 21.9 % (3.8-10.2); NEUT % 62.4 % (42.8-82.8); PLATELET COUNT 134 K/MM3 (134-434); RBC 2.69 M/mm3 (4.00-5.60)
[2019-10-03 10:24] LABS: ALBUMIN 3.4 g/dl (3.4-5.0); BLOOD UREA NITROGEN 43.6 mg/dL (7-18); CALCIUM 8.8 mg/dL (8.5-10.1); CREATININE 2.3 mg/dL (0.55-1.3); TOT PROT 6.9 g/dl (6.4-8.2)
[2019-10-03 10:57] LABS: ANISOCYTOSIS 1+; HELMET CELLS 1+; MACROCYTOSIS 1+; PLATELET ESTIMATE DECREASED; TARGET CELLS 1+
[2019-10-03 14:17] VITALS: BP 107/61; PULSE 58; TEMP 98
== END 2019-10-03 09:45 | disposition home or self-care (01) ==
LOC: JONCNONCHE 07:26
PROVIDERS: ATTEND Internal Medicine Hematology & Oncology
PROC: 3E013GC Introduction of Other Therapeutic Substance into Subcutaneous Tissue, Percutaneous Approach (ICD-10-PCS; principal; 2019-10-03)
DX: N18.9 Chronic kidney disease, unspecified (principal); D63.1 Anemia in chronic kidney disease
CPT/HCPCS: 36415; 80053; 85025; 96372; Q5106

== ENCOUNTER 2019-10-10 07:17 | Day surgery (SDC) | payer OTHER ==
[2019-10-10] MEDS ORDERED: EPOETIN ALFA 20,000 UNIT/1 ML VIAL SQ ONE (09:30)
[2019-10-10 10:28] LABS: BASO % 0.8 % (0-2.0); EOS % 1.4 % (0-4.5); HEMATOCRIT 25.2 % (35.4-49); HEMOGLOBIN 8.3 GM/dL (11.7-16.9); LYMPH % 8.5 % (8-40); MCH 30.7 pg (25.7-33.7); MCHC 33.2 g/dl (32.0-35.9); MEAN CELL VOLUME 92.5 fl (80-96); MEAN PLT VOLUME 8.8 fl (7.5-11.1); NEUT % 76.3 % (42.8-82.8); PLATELET COUNT 178 K/MM3 (134-434); RBC 2.72 M/mm3 (4.00-5.60); RDW 21.8 % (11.9-15.9); WHITE BLOOD COUNT 7.9 K/mm3 (4.0-10.0)
[2019-10-10 10:56] LABS: BILIRUBIN,TOTAL 2.2 mg/dL (0.2-1); BLOOD UREA NITROGEN 55.3 mg/dL (7-18); CALCIUM 9.4 mg/dL (8.5-10.1); CREATININE 1.9 mg/dL (0.55-1.3); POTASSIUM 3.4 mmol/L (3.5-5.1)
[2019-10-10 12:34] LABS: ANISOCYTOSIS 1+; MACROCYTOSIS 1+; PLATELET ESTIMATE NORMAL
[2019-10-10 15:08] VITALS: BP 108/81; PULSE 63; TEMP 97.8
== END 2019-10-10 11:30 | disposition home or self-care (01) ==
LOC: JONCCHEMO 07:17
PROVIDERS: ATTEND Internal Medicine Hematology & Oncology
PROC: 3E013GC Introduction of Other Therapeutic Substance into Subcutaneous Tissue, Percutaneous Approach (ICD-10-PCS; principal; 2019-10-10)
DX: D63.1 Anemia in chronic kidney disease (principal); N18.9 Chronic kidney disease, unspecified
CPT/HCPCS: 36415; 80053; 82728; 83540; 83550; 85025; 96372; J0885

== ENCOUNTER 2019-10-17 07:08 | Day surgery (SDC) | payer OTHER ==
[2019-10-17] MEDS ORDERED: EPOETIN ALFA 20,000 UNIT/1 ML VIAL SQ ONE (10:00)
[2019-10-17 10:04] LABS: ALBUMIN 2.4 g/dl (3.4-5.0); BILIRUBIN,TOTAL 1.8 mg/dL (0.2-1); BLOOD UREA NITROGEN 44.7 mg/dL (7-18); CREATININE 1.4 mg/dL (0.55-1.3); POTASSIUM 3.9 mmol/L (3.5-5.1); TOT PROT 6.5 g/dl (6.4-8.2)
[2019-10-17 11:10] LABS: BASO % 0.9 % (0-2.0); EOS % 2.6 % (0-4.5); HEMATOCRIT 24.2 % (35.4-49); HEMOGLOBIN 7.9 GM/dL (11.7-16.9); LYMPH % 9.8 % (8-40); MCH 29.6 pg (25.7-33.7); MCHC 32.7 g/dl (32.0-35.9); MEAN CELL VOLUME 90.7 fl (80-96); MEAN PLT VOLUME 9.2 fl (7.5-11.1); MONO % 13.3 % (3.8-10.2); NEUT % 73.4 % (42.8-82.8); PLATELET COUNT 237 K/MM3 (134-434); RBC 2.67 M/mm3 (4.00-5.60); RDW 22.2 % (11.9-15.9); WHITE BLOOD COUNT 7.6 K/mm3 (4.0-10.0)
[2019-10-17 11:34] LABS: ANISOCYTOSIS 2+; MACROCYTOSIS 2+; PLATELET ESTIMATE NORMAL
[2019-10-17 13:14] VITALS: BP 111/60; PULSE 82; TEMP 98.3
== END 2019-10-17 11:45 | disposition home or self-care (01) ==
LOC: JONCCHEMO 07:08
PROVIDERS: ATTEND Internal Medicine Hematology & Oncology
PROC: 3E013GC Introduction of Other Therapeutic Substance into Subcutaneous Tissue, Percutaneous Approach (ICD-10-PCS; principal; 2019-10-17)
DX: D50.9 Iron deficiency anemia, unspecified (principal)
CPT/HCPCS: 36415; 80053; 85025; 96372; J0885

== ENCOUNTER 2019-10-24 07:32 | Day surgery (SDC) | payer OTHER ==
[2019-10-24 09:23] LABS: ALBUMIN 2.6 g/dl (3.4-5.0); BLOOD UREA NITROGEN 25.3 mg/dL (7-18); CREATININE 1.3 mg/dL (0.55-1.3); POTASSIUM 3.7 mmol/L (3.5-5.1); TOT PROT 5.9 g/dl (6.4-8.2)
[2019-10-24 09:27] LABS: CALCIUM 6.9 mg/dL (8.5-10.1)
[2019-10-24 09:31] LABS: BASO % 1.6 % (0-2.0); HEMATOCRIT 26.1 % (35.4-49); HEMOGLOBIN 8.3 GM/dL (11.7-16.9); LYMPH % 23.9 % (8-40); MCHC 31.9 g/dl (32.0-35.9); MEAN CELL VOLUME 90.9 fl (80-96); MEAN PLT VOLUME 8.8 fl (7.5-11.1); NEUT % 57.5 % (42.8-82.8); PLATELET COUNT 212 K/MM3 (134-434); RBC 2.87 M/mm3 (4.00-5.60); RDW 22.4 % (11.9-15.9); WHITE BLOOD COUNT 4.5 K/mm3 (4.0-10.0)
[2019-10-24] MEDS ORDERED: EPOETIN ALFA 20,000 UNIT/1 ML VIAL SQ ONE (10:00)
[2019-10-24] MEDS ORDERED: IRON SUCROSE INJECTION 200 MG in SODIUM CHLORIDE 100 ML IVPB ONE (10:00)
[2019-10-24 11:25] VITALS: TEMP 98.3
[2019-10-24 11:35] LABS: ANISOCYTOSIS 2+; MACROCYTOSIS 2+; PLATELET ESTIMATE NORMAL
[2019-10-24 15:23] VITALS: BP 124/65; PULSE 55
== END 2019-10-24 09:45 | disposition home or self-care (01) ==
LOC: JONCCHEMO 07:32
PROVIDERS: ATTEND Internal Medicine Hematology & Oncology
PROC: 3E033GC Introduction of Other Therapeutic Substance into Peripheral Vein, Percutaneous Approach (ICD-10-PCS; principal; 2019-10-24)
PROC: 3E013GC Introduction of Other Therapeutic Substance into Subcutaneous Tissue, Percutaneous Approach (ICD-10-PCS; 2019-10-24)
DX: D63.8 Anemia in other chronic diseases classified elsewhere (principal); Z88.0 Allergy status to penicillin
CPT/HCPCS: 36415; 80053; 85025; 96365; 96372; J0885; J1756

== ENCOUNTER 2019-10-31 07:19 | Day surgery (SDC) | payer OTHER ==
[2019-10-31 08:34] LABS: BASO % 5.7 % (0-2.0); EOS % 2.6 % (0-4.5); HEMATOCRIT 28.1 % (35.4-49); LYMPH % 31.6 % (8-40); MCH 29.5 pg (25.7-33.7); MCHC 31.9 g/dl (32.0-35.9); MEAN CELL VOLUME 92.5 fl (80-96); MEAN PLT VOLUME 9.8 fl (7.5-11.1); MONO % 15.1 % (3.8-10.2); PLATELET COUNT 199 K/MM3 (134-434); RBC 3.04 M/mm3 (4.00-5.60); RDW 23.2 % (11.9-15.9); WHITE BLOOD COUNT 4.3 K/mm3 (4.0-10.0)
[2019-10-31 09:09] LABS: BILIRUBIN,TOTAL 1.4 mg/dL (0.2-1); BLOOD UREA NITROGEN 21.4 mg/dL (7-18); CALCIUM 9.4 mg/dL (8.5-10.1); CREATININE 1.7 mg/dL (0.55-1.3); POTASSIUM 5.1 mmol/L (3.5-5.1); TOT PROT 7.7 g/dl (6.4-8.2)
[2019-10-31 09:57] LABS: ANISOCYTOSIS 2+; MACROCYTOSIS 1+; PLATELET ESTIMATE NORMAL; TARGET CELLS 1+
[2019-10-31] MEDS ORDERED: IRON SUCROSE INJECTION 200 MG in SODIUM CHLORIDE 100 ML IVPB ONE (10:00)
[2019-10-31] MEDS ORDERED: EPOETIN ALFA 20,000 UNIT/1 ML VIAL SQ ONE (10:00)
[2019-10-31 13:19] VITALS: BP 115/59; PULSE 60; TEMP 97.8
== END 2019-10-31 10:30 | disposition home or self-care (01) ==
LOC: JONCCHEMO 07:19
PROVIDERS: ATTEND Internal Medicine Hematology & Oncology
PROC: 3E033GC Introduction of Other Therapeutic Substance into Peripheral Vein, Percutaneous Approach (ICD-10-PCS; principal; 2019-10-31)
DX: D50.9 Iron deficiency anemia, unspecified (principal); N18.9 Chronic kidney disease, unspecified; D63.1 Anemia in chronic kidney disease
CPT/HCPCS: 36415; 80053; 85025; 96365; 96372; J0885; J1756

== ENCOUNTER 2019-11-14 06:41 | Day surgery (SDC) | payer OTHER ==
--- OUTSIDE RECORDS SUMMARY | 2019-11-14 06:45 | XMS ---
:1930 Author Organization [facility] Care Team Providers Name Role Phone Flora ENGLE MD Majed Unavailable [phone] Flora ENGLE MD Majed Unavailable [phone] Flora ENGLE MD Majed Unavailable [phone] Re-disclosure Warning The records that you are about to access may contain information from federally- assisted alcohol or drug abuse programs. If such information is present, then the following federally mandated warning applies: This information has been disclosed to you from records protected by federal confidentiality rules (42 CFR part 2). The federal rules prohibit you from making any further disclosure of this information unless further disclosure is expressly permitted by the written consent of the person to whom it pertains or as otherwise permitted by 42 CFR part 2. A general authorization for the release of medical or other information is NOT sufficient for this purpose. The Federal rules restrict any use of the information to criminally investigate or prosecute any alcohol or drug abuse patient.The records that you are about to access may contain highly sensitive health information, the redisclosure of which is protected by Article 27-F of the [facility] Public Health law. If you continue you may haveaccess to information: Regarding HIV / AIDS; Provided by facilities licensed or operated by the [facility] Office of Mental Health; or Provided by the [facility] Office for People With Developmental Disabilities. If such information is present, then the following [facility] mandated warning applies: This information has been disclosed to you from confidential records which are protected by state law. State law prohibits you from making any further disclosure of this information without the specific written consent of the person to whom it pertains, or as otherwise permitted by law. Any unauthorized further disclosure in violation of state law may result in a fine or fci sentence or both. A general authorization for the release of medical or other information is NOT sufficient authorization for further disclosure. Encounters Encounter Providers Location Date Indications Data Source(s ) Attender: MD Cerda 08/20/2019 (MEDGE N) Henry Hines MD 12:00:00 AM [facility] Office Medications Medication Brand Start Product Dose Route [facility] Indications Reaction Description Data Name Date Form Instructions Instructions Source(s) Furosemide LASIX: 08/19/ complet LASIX ( MEDGEN) 40 MG Oral [id number] ed [place] Tablet 12:00: [place] [Lasix] 00 AM r LASIX:[id number] EDT [facility] apixaban ELIQUI 08/19/ complet ELIQUIS ( MEDGEN) 2.5 MG Oral S:1364 2019 ed [place] Tablet 441 12:00: [place] [Eliquis] 00 AM r ELIQUIS:136 EDT [facility] apixaban ELIQUI 08/19/ complet ELIQUIS ( MEDGEN) 2.5 MG Oral S:1364 2019 ed [place] Tablet 441 12:00: [place] [Eliquis] 00 AM r ELIQUIS:136 EDT [facility] Insurance Providers Payer name Policy type Policy ID Covered Covered green party's Policy P ana rosa / Coverage green party ID relationship to [employer] ormation type [place] UMR [id number] SP [id number] MEDICARE [id number] SP [id number] UM [id number] 1 [id number] [place] [id number] PART B [id number] [place] [employer] [id number] SP [id number] MEDICARE [id number] SP [id number] 5 Problems, Conditions, and Diagnoses Code Display Name Description Problem Type Effective Dates Data Source(s) N18.9 Chronic kidney CHRONIC KIDNEY Problem 08/20/2019 (MEDGE N) [facility] disease, DISEASE, 12:00:00 AM EDT [facility] unspecified UNSPECIFIED [facility] Surgeries/Procedures Procedure Description Date Indications Data Source(s) OFFICE OUTPATIENT 08/20/2019 (MEDGEN) [facility] VISIT 25 MINUTES 12:00:00 AM EDT [facility] Results ID Date Data Source [id number] 08/01/2019 11:45:00 AM EDT [facility] Name Value Range Interpretation Description Data Sup porting Code Source(s) Document(s ) SARS [facility] CORONAVIRUS 2 RNA This lab was ordered by [facility] and reported by [facility]. Procedure Social History Code Duration Value Status Description Data Source(s ) Smoking 08/20/2019 denies smoking completed denies smoking or (ME DGEN) [facility] 12:00:00 AM EDT or drinking drinking [facility] Smoking 08/20/2019 Unknown if ever completed Unknown if ever (MED GEN) [facility] 12:00:00 AM EDT smoked smoked [facility] Vital Signs ID Date Data Source UNK Name Value Range Interpretation Code Description Data Source(s) Heart rate 55 /min 55 /min (MEDGEN) [facility] Body mass index 20.4 kg/m2 20.4 kg/m2 (MEDGEN) [facility] (BMI) [Ratio] [facility] Diastolic blood 45 mm[Hg] 45 mm[Hg] (MEDGEN) [facility] pressure [facility] Systolic blood 89 mm[Hg] 89 mm[Hg] (MEDGEN) [facility] pressure [facility] Body weight 130 lb 130 lb (MEDGEN) [facility] Body height 67 in 67 in (MEDGEN) [facility]
[2019-11-14 09:28] LABS: BASO % 0.9 % (0-2.0); EOS % 1.6 % (0-4.5); HEMATOCRIT 26.3 % (35.4-49); HEMOGLOBIN 8.4 GM/dL (11.7-16.9); LYMPH % 30.8 % (8-40); MCH 29.5 pg (25.7-33.7); MCHC 31.8 g/dl (32.0-35.9); MEAN CELL VOLUME 92.9 fl (80-96); MEAN PLT VOLUME 9.8 fl (7.5-11.1); MONO % 12.8 % (3.8-10.2); NEUT % 53.9 % (42.8-82.8); PLATELET COUNT 148 K/MM3 (134-434); RBC 2.83 M/mm3 (4.00-5.60); RDW 24.2 % (11.9-15.9); WHITE BLOOD COUNT 4.7 K/mm3 (4.0-10.0)
[2019-11-14 09:54] LABS: BILIRUBIN,TOTAL 1.8 mg/dL (0.2-1); BLOOD UREA NITROGEN 33.8 mg/dL (7-18); CALCIUM 8.9 mg/dL (8.5-10.1); MAGNESIUM 2.2 mg/dL (1.8-2.4); POTASSIUM 4.2 mmol/L (3.5-5.1); TOT PROT 6.8 g/dl (6.4-8.2)
[2019-11-14] MEDS ORDERED: IRON SUCROSE INJECTION 200 MG in SODIUM CHLORIDE 100 ML IVPB ONE (10:00)
[2019-11-14] MEDS ORDERED: EPOETIN ALFA 20,000 UNIT/1 ML VIAL SQ ONE (10:00)
[2019-11-14 10:28] VITALS: TEMP 98.2
[2019-11-14 10:39] VITALS: BP 95/54; PULSE 62
[2019-11-14 11:45] LABS: ANISOCYTOSIS 2+; MACROCYTOSIS 1+; OVALOCYTE 2+; PLATELET ESTIMATE DECREASED; TARGET CELLS 1+
== END 2019-11-14 10:00 | disposition home or self-care (01) ==
LOC: JONCCHEMO 06:41
PROVIDERS: ATTEND Internal Medicine Hematology & Oncology
PROC: 3E033GC Introduction of Other Therapeutic Substance into Peripheral Vein, Percutaneous Approach (ICD-10-PCS; principal; 2019-11-14)
PROC: 3E013GC Introduction of Other Therapeutic Substance into Subcutaneous Tissue, Percutaneous Approach (ICD-10-PCS; 2019-11-14)
DX: D63.8 Anemia in other chronic diseases classified elsewhere (principal); N40.0 Benign prostatic hyperplasia without lower urinary tract symptoms; I48.92 Unspecified atrial flutter; I25.10 Atherosclerotic heart disease of native coronary artery without angina pectoris; Z95.810 Presence of automatic (implantable) cardiac defibrillator
CPT/HCPCS: 36415; 80053; 83735; 85025; 96365; 96372; J0885; J1756

== ENCOUNTER 2019-11-21 06:48 | Day surgery (SDC) | payer OTHER ==
--- OUTSIDE RECORDS SUMMARY | 2019-11-21 06:53 | XMS ---
:1930 [facility] Providers Name Role Phone Flora ENGLE MD Majed Unavailable [phone] Flora ENGLE MD Majed Unavailable [phone] Flora ENGLE MD Majed Unavailable [phone] Re-disclosure Warning The records that you are [...] is protected by Article 27-F of the [facility] Public Health law. If you continue you may haveaccess to information: Regarding HIV / AIDS; Provided by facilities licensed or operated by the [facility] Office of Mental Health; or Provided by the [facility] Office for People With Developmental Disabilities. If such information is present, then the following [facility] mandated warning applies: This information has been [...] law may result in a fine or halfway sentence or both. A general authorization for the release of medical or other information is NOT sufficient authorization for further disclosure. Encounters Encounter Providers Location Date Indications Data Source(s ) Attender: MD Cerda 08/20/2019 (MEDGE N) Henry Hines MD 12:00:00 AM [place] EDT [facility] Office Medications Medication Brand Start Product Dose Route Administrative Pharmacy [facility] Indications Reaction Description Data Name Date Form Instructions Instructions Source(s) Furosemide LASIX: 08/19/ complet LASIX ( MEDGEN) 40 MG Oral [id number] ed [place] n Tablet 12:00: [place] [Lasix] 00 AM r LASIX:96212 EDT [facility] apixaban ELIQUI 08/19/ complet ELIQUIS ( MEDGEN) 2.5 MG Oral S:1364 2020 ed [place] Tablet 441 12:00: [place] [Eliquis] 00 AM r ELIQUIS:136 EDT [facility] apixaban ELIQUI 08/19/ complet ELIQUIS ( MEDGEN) 2.5 MG Oral S:1364 2019 ed [place] Tablet 441 12:00: [place] [Eliquis] 00 AM r ELIQUIS:136 EDT [facility] Insurance Providers Payer name Policy type Policy ID Covered Covered democrat's Policy P ana rosa / Coverage democrat ID relationship to [place] Inf ormation type [place] UMR [id number] SP [id number] MEDICARE [id number] SP [id number] 45 5 UM [id number] 1 [id number] [place] MEDIC[place] [id number] PART B F45 [employer] U[place] [id number] SP [id number] MEDICARE [id number] SP [id number] 45 5 Problems, Conditions, and Diagnoses Code Display Name Description Problem Type Effective Dates Data Source(s) N18.9 Chronic kidney CHRONIC KIDNEY Problem 08/20/2019 (MEDGE N) [facility] disease, DISEASE, 12:00:00 AM EDT [facility] unspecified [facility]PECIFIED [facility] Surgeries/Procedures Procedure Description Date Indications Data Source(s) OFFICE OUTPATIENT 08/20/2019 (MEDGEN) [place] VISIT 25 MINUTES 12:00:00 AM EDT [facility] Results ID Date Data Source [id number] 08/01/2019 11:45:00 AM EDT [facility] Name Value Range Interpretation Description Data Sup porting Code Source(s) Document(s ) SARS [facility] CORONAVIRUS 2 RNA This lab was ordered by [facility] and reported by [facility]. Procedure Social History Code Duration Value Status Description Data Source(s ) Smoking 08/20/2019 denies smoking completed denies smoking or (ME DGEN) [facility] 12:00:00 AM EDT or drinking drinking [facility] Smoking 08/20/2019 Unknown if ever completed Unknown if ever (MED GEN) [facility] 12:00:00 AM EDT smoked smoked [facility] Vital Signs ID Date Data Source UNK Name Value Range Interpretation Code Description Data Source(s) Heart rate 55 /min 55 /min (MEDGEN) [facility] [facility] Body mass index 20.4 kg/m2 20.4 kg/m2 (MEDGEN) [facility] (BMI) [Ratio] [facility] Diastolic blood 45 mm[Hg] 45 mm[Hg] (MEDGEN) [facility] pressure [facility] Systolic blood 89 mm[Hg] 89 mm[Hg] (MEDGEN) [place] pressure [facility] Body weight 130 lb 130 lb (MEDGEN) [facility] Body height 67 in 67 in (MEDGEN) [facility]
[2019-11-21] MEDS ORDERED: IRON SUCROSE INJECTION 200 MG in SODIUM CHLORIDE 100 ML IVPB ONE (10:00)
[2019-11-21] MEDS ORDERED: EPOETIN ALFA 20,000 UNIT/1 ML VIAL SQ ONE (10:00)
[2019-11-21 10:26] LABS: BASO % 0.9 % (0-2.0); EOS % 0.8 % (0-4.5); HEMATOCRIT 25.7 % (35.4-49); HEMOGLOBIN 8.1 GM/dL (11.7-16.9); LYMPH % 23.5 % (8-40); MCH 29.1 pg (25.7-33.7); MCHC 31.4 g/dl (32.0-35.9); MEAN CELL VOLUME 92.6 fl (80-96); MEAN PLT VOLUME 9.3 fl (7.5-11.1); NEUT % 59.8 % (42.8-82.8); PLATELET COUNT 160 K/MM3 (134-434); RBC 2.78 M/mm3 (4.00-5.60); WHITE BLOOD COUNT 4.6 K/mm3 (4.0-10.0)
[2019-11-21 10:41] LABS: IRON SERUM 64 ug/dL (50-175); TOTAL IRON BINDING CAPACITY 337 ug/dL (250-450)
[2019-11-21 10:43] LABS: ALBUMIN 3.3 g/dl (3.4-5.0); BILIRUBIN,TOTAL 1.8 mg/dL (0.2-1); BLOOD UREA NITROGEN 40.8 mg/dL (7-18); CALCIUM 9.1 mg/dL (8.5-10.1); CREATININE 2.2 mg/dL (0.55-1.3); POTASSIUM 4.1 mmol/L (3.5-5.1); TOT PROT 7.3 g/dl (6.4-8.2)
[2019-11-21 11:12] LABS: ANISOCYTOSIS 1+; MACROCYTOSIS 1+; PLATELET ESTIMATE NORMAL; TARGET CELLS 1+
[2019-11-21 16:01] VITALS: BP 110/55; PULSE 60; TEMP 98.3
== END 2019-11-21 11:35 | disposition home or self-care (01) ==
LOC: JONCCHEMO 06:48
PROVIDERS: ATTEND Internal Medicine Hematology & Oncology
PROC: 3E033GC Introduction of Other Therapeutic Substance into Peripheral Vein, Percutaneous Approach (ICD-10-PCS; principal; 2019-11-21)
PROC: 3E013GC Introduction of Other Therapeutic Substance into Subcutaneous Tissue, Percutaneous Approach (ICD-10-PCS; 2019-11-21)
DX: D50.9 Iron deficiency anemia, unspecified (principal); D63.8 Anemia in other chronic diseases classified elsewhere
CPT/HCPCS: 36415; 80053; 82728; 83540; 83550; 85025; 96365; 96372; J0885; J1756

== ENCOUNTER 2019-11-28 06:15 | Day surgery (SDC) | payer OTHER ==
--- OUTSIDE RECORDS SUMMARY | 2019-11-28 06:19 | XMS ---
:1930 [facility] Providers Name Role Phone Flora ENGLE MD Majed Unavailable [phone] Flora ENGLE MD Majed Unavailable [phone] Flora ENGLE MD Majed Unavailable [phone] Re-disclosure Warning The records that you are [...] is protected by Article 27-F of the [facility] Public Health law. If you continue you may haveaccess to information: Regarding HIV / AIDS; Provided by facilities licensed or operated by the [facility] Office of Mental Health; or Provided by the [facility] Office for People With Developmental Disabilities. If such information is present, then the following [facility] mandated warning applies: This information has been [...] law may result in a fine or long-term sentence or both. A general authorization for the release of medical or other information is NOT sufficient authorization for further disclosure. Encounters Encounter Providers Location Date Indications Data Source(s ) Attender: MD Cerda 08/20/2019 (MEDGE N) Henry Hines MD 12:00:00 AM [place] EDT [facility] Office Medications Medication Brand Start Product Dose Route Administrative Pharmacy [facility] Indications Reaction Description Data Name Date Form Instructions Instructions Source(s) Furosemide LASIX: 08/19/ complet LASIX ( MEDGEN) 40 MG Oral [id number] ed [place] n Tablet 12:00: [place] [Lasix] 00 AM r LASIX:15646 EDT [facility] apixaban ELIQUI [...] to [place] Inf ormation type lipscomb UMR [id number] SP [id number] MEDICARE [id number] SP [id number] 45 5 UM [id number] 1 [id number] [place] [id number] PART B F45 [employer] UMR [id number] SP [id number] MEDICARE [id number] SP [id number] 45 5 Problems, Conditions, and Diagnoses Code Display Name Description Problem Type Effective Dates Data Source(s) N18.9 Chronic kidney CHRONIC KIDNEY Problem 08/20/2019 (MEDGE N) [facility] disease, DISEASE, 12:00:00 AM EDT [facility] unspecified [facility]PECIFIED [facility] Surgeries/Procedures Procedure Description Date Indications Data Source(s) OFFICE OUTPATIENT 08/20/2019 (MEDGEN) [place] VISIT 25 MINUTES 12:00:00 AM EDT [facility] Results ID Date Data Source [id number] 08/01/2019 11:45:00 AM EDT [facility] Name Value Range Interpretation Description Data Sup porting Code Source(s) Document(s ) SARS [facility] CORONAVIRUS 2 RNA This lab was ordered by [facility] and reported by [facility]. Procedure Social History Code Duration Value Status Description Data Source(s ) Smoking 08/20/2019 denies smoking completed denies smoking or (ME DGEN) [facility] 12:00:00 AM EDT or drinking drinking [facility] Smoking 08/20/2019 Unknown if ever completed Unknown if ever (MED GEN) [facility] 12:00:00 AM EDT smoked smoked [facility] Vital Signs ID Date Data Source UNK Name Value Range Interpretation Code Description Data Source(s) Heart rate 55 /min 55 /min (MEDGEN) [facility] leon [facility] [facility] Body mass index 20.4 kg/m2 20.4 kg/m2 (MEDGEN) [facility] (BMI) [Ratio] [facility] Diastolic blood 45 mm[Hg] 45 mm[Hg] (MEDGEN) [facility] pressure [facility] Systolic blood 89 mm[Hg] 89 mm[Hg] (MEDGEN) [place] pressure [facility] Body weight 130 lb 130 lb (MEDGEN) [facility] Body height 67 in 67 in (MEDGEN) [facility]
[2019-11-28 09:03] LABS: BASO % 1.2 % (0-2.0); EOS % 1.4 % (0-4.5); HEMATOCRIT 25.5 % (35.4-49); HEMOGLOBIN 8.2 GM/dL (11.7-16.9); LYMPH % 22.3 % (8-40); MCH 30.2 pg (25.7-33.7); MCHC 32.1 g/dl (32.0-35.9); MEAN PLT VOLUME 9.4 fl (7.5-11.1); MONO % 17.2 % (3.8-10.2); NEUT % 57.9 % (42.8-82.8); PLATELET COUNT 155 K/MM3 (134-434); RBC 2.72 M/mm3 (4.00-5.60); RDW 24.7 % (11.9-15.9); WHITE BLOOD COUNT 4.9 K/mm3 (4.0-10.0)
[2019-11-28 09:22] LABS: BLOOD UREA NITROGEN 31.6 mg/dL (7-18); CALCIUM 9.1 mg/dL (8.5-10.1); CREATININE 1.7 mg/dL (0.55-1.3); POTASSIUM 3.9 mmol/L (3.5-5.1)
[2019-11-28] MEDS ORDERED: IRON SUCROSE INJECTION 200 MG in SODIUM CHLORIDE 100 ML IVPB ONE (10:00)
[2019-11-28] MEDS ORDERED: EPOETIN ALFA 20,000 UNIT/1 ML VIAL SQ ONE (10:00)
[2019-11-28 10:53] LABS: ANISOCYTOSIS 1+; MACROCYTOSIS 1+; PLATELET ESTIMATE NORMAL
[2019-11-28 15:21] VITALS: TEMP 98.4
[2019-11-28 15:27] VITALS: BP 117/67; PULSE 64
== END 2019-11-28 11:05 | disposition home or self-care (01) ==
LOC: JONCCHEMO 06:15
PROVIDERS: ATTEND Internal Medicine Hematology & Oncology
PROC: 3E033GC Introduction of Other Therapeutic Substance into Peripheral Vein, Percutaneous Approach (ICD-10-PCS; principal; 2019-11-28)
DX: D50.9 Iron deficiency anemia, unspecified (principal); M25.579 Pain in unspecified ankle and joints of unspecified foot; M79.673 Pain in unspecified foot
CPT/HCPCS: 36415; 73590-TC-RT-FY; 73610-TC-RT-FY; 80048; 85025; 96365; 96372; J0885; J1756

== ENCOUNTER 2019-12-05 07:14 | Day surgery (SDC) | payer OTHER ==
--- OUTSIDE RECORDS SUMMARY | 2019-12-05 07:17 | XMS ---
:1930 [facility] Providers Name Role Phone Flora ENGLE MD Majed Unavailable [phone] Flora ENGLE MD Majed Unavailable [phone] Flora ENGLE MD Majed Unavailable [phone] Re-disclosure Warning The records that you are [...] is protected by Article 27-F of the [facility] Public Health law. If you continue you may haveaccess to information: Regarding HIV / AIDS; Provided by facilities licensed or operated by the [facility] Office of Mental Health; or Provided by the [facility] Office for People With Developmental Disabilities. If such information is present, then the following [facility] mandated warning applies: This information has [...] law may result in a fine or senior care sentence or both. A general authorization for the release of medical or other information is NOT sufficient authorization for further disclosure. Encounters Encounter Providers Location Date Indications Data Source(s ) Attender: MD Cerda 08/20/2019 (MEDGE N) Henry Hines MD 12:00:00 AM [place] EDT [facility] Office Medications Medication Brand Start Product Dose Route Administrative Pharmacy [facility] Indications Reaction Description Data Name Date Form Instructions Instructions Source(s) Furosemide LASIX: 08/19/ complet LASIX ( MEDGEN) 40 MG Oral [id number] ed [place] n Tablet 12:00: [place] [Lasix] 00 AM r LASIX:90573 EDT [facility] apixaban ELIQUI [...] to [place] Inf ormation type [place]comb UMR [id number] SP [id number] MEDICARE [id number] SP [id number] 45 5 UM [id number] 1 [id number] [place] MEDICARE [id number] PART B F45 [employer] UMR [id number] SP [id number] MEDICARE [id number] SP [id number] 45 5 Problems, Conditions, and Diagnoses Code Display Name Description Problem Type Effective Dates Data Source(s) N18.9 Chronic kidney CHRONIC KIDNEY Problem 08/20/2019 (MEDGE N) [facility] disease, DISEASE, 12:00:00 AM EDT [facility] unspecified [facility]PECIFIED [facility] Surgeries/Procedures Procedure Description Date Indications Data Source(s) OFFICE OUTPATIENT 08/20/2019 (MEDGEN) [place] VISIT 25 MINUTES 12:00:00 AM EDT [facility] Results ID Date Data Source [id number] 08/01/2019 11:45:00 AM EDT [facility] Name Value Range Interpretation Description Data Sup porting Code Source(s) Document(s ) SARS [facility] CORONAVIRUS 2 RNA This lab was ordered by [facility] and reported by [facility]. Procedure Social History Code Duration Value Status Description Data Source(s ) Smoking 08/20/2019 denies smoking completed denies smoking or (ME DGEN) [facility] 12:00:00 AM EDT or drinking drinking [facility] Smoking 08/20/2019 Unknown if ever completed Unknown if ever (MED GEN) [facility] 12:00:00 AM EDT smoked smoked [facility] Vital Signs ID Date Data Source UNK Name Value Range Interpretation Code Description Data Source(s) Heart rate 55 /min 55 /min (MEDGEN) [facility] leon [place] [facility] Body mass index 20.4 kg/m2 20.4 kg/m2 (MEDGEN) [facility] (BMI) [Ratio] [facility] [facility] Diastolic blood 45 mm[Hg] 45 mm[Hg] (MEDGEN) [facility] pressure [place] [facility] Systolic blood 89 mm[Hg] 89 mm[Hg] (MEDGEN) [place] pressure [place] [facility] Body weight 130 lb 130 lb (MEDGEN) [facility] Body height 67 in 67 in (MEDGEN) [facility]
[2019-12-05 09:59] LABS: BASO % 0.9 % (0-2.0); EOS % 1.9 % (0-4.5); HEMATOCRIT 27.1 % (35.4-49); HEMOGLOBIN 8.6 GM/dL (11.7-16.9); LYMPH % 26.2 % (8-40); MCH 29.7 pg (25.7-33.7); MCHC 31.7 g/dl (32.0-35.9); MEAN CELL VOLUME 93.6 fl (80-96); MEAN PLT VOLUME 9.1 fl (7.5-11.1); MONO % 14.8 % (3.8-10.2); NEUT % 56.2 % (42.8-82.8); PLATELET COUNT 170 K/MM3 (134-434)
[2019-12-05] MEDS ORDERED: EPOETIN ALFA 20,000 UNIT/1 ML VIAL SQ ONE (10:00)
[2019-12-05 10:18] LABS: ALBUMIN 3.4 g/dl (3.4-5.0); BILIRUBIN,TOTAL 2.2 mg/dL (0.2-1); BLOOD UREA NITROGEN 25.8 mg/dL (7-18); CALCIUM 9.4 mg/dL (8.5-10.1); CREATININE 1.7 mg/dL (0.55-1.3); POTASSIUM 3.8 mmol/L (3.5-5.1); TOT PROT 7.7 g/dl (6.4-8.2)
[2019-12-05 13:18] LABS: ANISOCYTOSIS 1+; MACROCYTOSIS 1+; PLATELET ESTIMATE NORMAL; TARGET CELLS 1+; TEAR DROP CELLS 1+
[2019-12-05 15:27] VITALS: BP 107/76; PULSE 107; TEMP 98
== END 2019-12-05 10:37 | disposition home or self-care (01) ==
LOC: JONCCHEMO 07:14
PROVIDERS: ATTEND Internal Medicine Hematology & Oncology
PROC: 3E013GC Introduction of Other Therapeutic Substance into Subcutaneous Tissue, Percutaneous Approach (ICD-10-PCS; principal; 2019-12-05)
DX: D64.9 Anemia, unspecified (principal); I48.92 Unspecified atrial flutter; N40.0 Benign prostatic hyperplasia without lower urinary tract symptoms; I42.9 Cardiomyopathy, unspecified; I25.10 Atherosclerotic heart disease of native coronary artery without angina pectoris; Z95.810 Presence of automatic (implantable) cardiac defibrillator; Z95.2 Presence of prosthetic heart valve
CPT/HCPCS: 36415; 80053; 85025; 96372; J0885

== ENCOUNTER 2020-01-02 07:15 | Day surgery (SDC) | payer OTHER ==
[2020-01-02 09:30] LABS: BASO % 0.8 % (0-2.0); HEMATOCRIT 27.3 % (35.4-49); HEMOGLOBIN 8.4 GM/dL (11.7-16.9); LYMPH % 24.8 % (8-40); MCH 29.5 pg (25.7-33.7); MCHC 30.9 g/dl (32.0-35.9); MEAN CELL VOLUME 95.5 fl (80-96); MEAN PLT VOLUME 8.8 fl (7.5-11.1); MONO % 14.1 % (3.8-10.2); NEUT % 58.3 % (42.8-82.8); PLATELET COUNT 143 K/MM3 (134-434); RBC 2.86 M/mm3 (4.00-5.60); WHITE BLOOD COUNT 5.3 K/mm3 (4.0-10.0)
[2020-01-02 09:48] VITALS: BP 118/61; PULSE 64; TEMP 98.3
[2020-01-02 09:57] LABS: POTASSIUM 4.5 mmol/L (3.5-5.1)
[2020-01-02 10:00] LABS: CALCIUM 9.5 mg/dL (8.5-10.1)
[2020-01-02] MEDS ORDERED: EPOETIN ALFA 20,000 UNIT/1 ML VIAL SQ ONE (10:00)
[2020-01-02 10:01] LABS: ALBUMIN 3.3 g/dl (3.4-5.0); BLOOD UREA NITROGEN 29.7 mg/dL (7-18)
[2020-01-02 10:05] LABS: BILIRUBIN,TOTAL 1.4 mg/dL (0.2-1); CREATININE 1.8 mg/dL (0.55-1.3); TOT PROT 7.1 g/dl (6.4-8.2)
[2020-01-02 10:19] LABS: ANISOCYTOSIS 2+; MACROCYTOSIS 1+; PLATELET ESTIMATE DECREASED; TARGET CELLS 1+
== END 2020-01-02 10:00 | disposition home or self-care (01) ==
LOC: JONCCHEMO 07:15
PROVIDERS: ATTEND Internal Medicine Hematology & Oncology
PROC: 3E013GC Introduction of Other Therapeutic Substance into Subcutaneous Tissue, Percutaneous Approach (ICD-10-PCS; principal; 2020-01-02)
DX: D50.9 Iron deficiency anemia, unspecified (principal)
CPT/HCPCS: 36415; 80053; 85025; 96372; J0885

== ENCOUNTER 2020-01-09 07:07 | Day surgery (SDC) | payer OTHER ==
[2020-01-09 09:20] LABS: BASO % 1.2 % (0-2.0); EOS % 1.6 % (0-4.5); HEMATOCRIT 29.3 % (35.4-49); LYMPH % 22.5 % (8-40); MCH 30.4 pg (25.7-33.7); MCHC 30.7 g/dl (32.0-35.9); MEAN CELL VOLUME 98.9 fl (80-96); MEAN PLT VOLUME 8.8 fl (7.5-11.1); NEUT % 60.7 % (42.8-82.8); PLATELET COUNT 147 K/MM3 (134-434); RBC 2.96 M/mm3 (4.00-5.60); RDW 26.1 % (11.9-15.9); WHITE BLOOD COUNT 4.9 K/mm3 (4.0-10.0)
[2020-01-09 09:34] LABS: CALCIUM 9.8 mg/dL (8.5-10.1)
[2020-01-09 09:36] LABS: ALBUMIN 3.3 g/dl (3.4-5.0); BLOOD UREA NITROGEN 26.7 mg/dL (7-18)
[2020-01-09 09:37] LABS: CREATININE 1.7 mg/dL (0.55-1.3)
[2020-01-09 09:41] LABS: BILIRUBIN,TOTAL 1.3 mg/dL (0.2-1); TOT PROT 6.8 g/dl (6.4-8.2)
[2020-01-09] MEDS ORDERED: EPOETIN ALFA 10,000 UNIT/1 ML VIAL SQ ONE (10:00)
[2020-01-09 11:41] VITALS: BP 99/69; PULSE 68; TEMP 97.7
[2020-01-09 11:54] LABS: ANISOCYTOSIS 2+; MACROCYTOSIS 1+; PLATELET ESTIMATE DECREASED
== END 2020-01-09 10:55 | disposition home or self-care (01) ==
LOC: JONCCHEMO 07:07
PROVIDERS: ATTEND Internal Medicine Hematology & Oncology
PROC: 3E013GC Introduction of Other Therapeutic Substance into Subcutaneous Tissue, Percutaneous Approach (ICD-10-PCS; principal; 2020-01-09)
DX: D50.9 Iron deficiency anemia, unspecified (principal)
CPT/HCPCS: 36415; 80053; 82306; 82607; 82728; 83540; 83550; 85025; 96372; J0885

== ENCOUNTER 2020-01-23 06:26 | Day surgery (SDC) | payer OTHER ==
[2020-01-23 08:34] LABS: BASO % 1.4 % (0-2.0); EOS % 0.8 % (0-4.5); HEMATOCRIT 32.5 % (35.4-49); HEMOGLOBIN 9.9 GM/dL (11.7-16.9); LYMPH % 26.3 % (8-40); MCH 29.9 pg (25.7-33.7); MCHC 30.4 g/dl (32.0-35.9); MEAN CELL VOLUME 98.6 fl (80-96); MEAN PLT VOLUME 9.2 fl (7.5-11.1); MONO % 15.1 % (3.8-10.2); NEUT % 56.4 % (42.8-82.8); PLATELET COUNT 119 K/MM3 (134-434); RBC 3.29 M/mm3 (4.00-5.60); RDW 24.1 % (11.9-15.9); WHITE BLOOD COUNT 4.9 K/mm3 (4.0-10.0)
[2020-01-23 09:00] LABS: POTASSIUM 4.2 mmol/L (3.5-5.1)
[2020-01-23 09:02] LABS: ALBUMIN 3.4 g/dl (3.4-5.0); BLOOD UREA NITROGEN 29.1 mg/dL (7-18); CALCIUM 10.1 mg/dL (8.5-10.1); MAGNESIUM 2.2 mg/dL (1.8-2.4)
[2020-01-23 09:05] LABS: CREATININE 1.6 mg/dL (0.55-1.3)
[2020-01-23 09:07] LABS: BILIRUBIN,TOTAL 1.4 mg/dL (0.2-1); TOT PROT 7.4 g/dl (6.4-8.2)
[2020-01-23] MEDS ORDERED: EPOETIN ALFA 20,000 UNIT/1 ML VIAL SQ ONE (10:00)
[2020-01-23 10:15] LABS: ANISOCYTOSIS 2+; MACROCYTOSIS 2+; PLATELET ESTIMATE DECREASED; TARGET CELLS 1+
[2020-01-23 11:17] VITALS: BP 104/61; PULSE 82; TEMP 98.4
== END 2020-01-23 09:35 | disposition home or self-care (01) ==
LOC: JONCCHEMO 06:26
PROVIDERS: ATTEND Internal Medicine Hematology & Oncology
PROC: 3E013GC Introduction of Other Therapeutic Substance into Subcutaneous Tissue, Percutaneous Approach (ICD-10-PCS; principal; 2020-01-23)
DX: D50.9 Iron deficiency anemia, unspecified (principal)
CPT/HCPCS: 36415; 80053; 82728; 83540; 83550; 83735; 85025; 96372; J0885

== ENCOUNTER 2020-01-30 06:20 | Day surgery (SDC) | payer OTHER ==
[2020-01-30 09:09] LABS: BASO % 1.3 % (0-2.0); EOS % 1.8 % (0-4.5); HEMOGLOBIN 9.6 GM/dL (11.7-16.9); LYMPH % 28.4 % (8-40); MCH 30.4 pg (25.7-33.7); MCHC 30.8 g/dl (32.0-35.9); MEAN CELL VOLUME 98.5 fl (80-96); MEAN PLT VOLUME 9.1 fl (7.5-11.1); MONO % 15.8 % (3.8-10.2); NEUT % 52.7 % (42.8-82.8); PLATELET COUNT 167 K/MM3 (134-434); RBC 3.15 M/mm3 (4.00-5.60); RDW 24.1 % (11.9-15.9); WHITE BLOOD COUNT 4.7 K/mm3 (4.0-10.0)
[2020-01-30] MEDS ORDERED: EPOETIN ALFA 20,000 UNIT/1 ML VIAL SQ ONE (10:00)
[2020-01-30 10:50] VITALS: BP 116/59; PULSE 77; TEMP 97.7
[2020-01-30 12:22] LABS: ANISOCYTOSIS 0; MACROCYTOSIS 1+; OVALOCYTE 1+; PLATELET ESTIMATE DECREASED; TEAR DROP CELLS 1+
== END 2020-01-30 10:00 | disposition home or self-care (01) ==
LOC: JONCCHEMO 06:20
PROVIDERS: ATTEND Internal Medicine Hematology & Oncology
PROC: 3E013GC Introduction of Other Therapeutic Substance into Subcutaneous Tissue, Percutaneous Approach (ICD-10-PCS; principal; 2020-01-30)
DX: D50.9 Iron deficiency anemia, unspecified (principal)
CPT/HCPCS: 36415; 85025; 96372; J0885

== ENCOUNTER 2020-02-06 10:13 | Day surgery (SDC) | payer OTHER ==
[2020-02-06 09:17] LABS: EOS % 1.5 % (0-4.5); HEMATOCRIT 31.4 % (35.4-49); HEMOGLOBIN 9.6 GM/dL (11.7-16.9); LYMPH % 24.5 % (8-40); MCH 30.3 pg (25.7-33.7); MCHC 30.7 g/dl (32.0-35.9); MEAN CELL VOLUME 98.8 fl (80-96); MEAN PLT VOLUME 8.9 fl (7.5-11.1); MONO % 17.4 % (3.8-10.2); NEUT % 55.6 % (42.8-82.8); PLATELET COUNT 152 K/MM3 (134-434); RBC 3.18 M/mm3 (4.00-5.60); RDW 23.5 % (11.9-15.9); WHITE BLOOD COUNT 4.4 K/mm3 (4.0-10.0)
[2020-02-06 09:36] LABS: POTASSIUM 4.1 mmol/L (3.5-5.1)
[2020-02-06 09:38] LABS: CALCIUM 9.8 mg/dL (8.5-10.1)
[2020-02-06 09:39] LABS: ALBUMIN 3.4 g/dl (3.4-5.0); BLOOD UREA NITROGEN 26.1 mg/dL (7-18)
[2020-02-06 09:42] LABS: CREATININE 1.7 mg/dL (0.55-1.3)
[2020-02-06 09:43] LABS: BILIRUBIN,TOTAL 1.3 mg/dL (0.2-1)
[2020-02-06 09:44] LABS: TOT PROT 7.3 g/dl (6.4-8.2)
[~2020-02-06 10:13] MED LIST: EPOETIN ALFA 20,000 UNIT/1 ML VIAL SQ ONE
[2020-02-06 11:03] LABS: ANISOCYTOSIS 1+; MACROCYTOSIS 0; PLATELET ESTIMATE NORMAL; TARGET CELLS 1+
[2020-02-06 15:04] VITALS: BP 121/76; PULSE 77; TEMP 98.2
== END 2020-02-06 11:00 | disposition home or self-care (01) ==
LOC: JONCCHEMO 10:13
PROVIDERS: ATTEND Internal Medicine Hematology & Oncology
PROC: 3E013GC Introduction of Other Therapeutic Substance into Subcutaneous Tissue, Percutaneous Approach (ICD-10-PCS; principal; 2020-02-06)
DX: D50.9 Iron deficiency anemia, unspecified (principal)
CPT/HCPCS: 36415; 80053; 85025; 96372; J0885

== ENCOUNTER 2020-02-19 08:13 | Day surgery (SDC) | payer OTHER ==
[2020-02-19 09:22] LABS: BASO % 1.5 % (0-2.0); EOS % 1.1 % (0-4.5); HEMOGLOBIN 10.3 GM/dL (11.7-16.9); LYMPH % 27.8 % (8-40); MCH 30.4 pg (25.7-33.7); MCHC 31.3 g/dl (32.0-35.9); MEAN CELL VOLUME 97.3 fl (80-96); MEAN PLT VOLUME 9.2 fl (7.5-11.1); MONO % 17.3 % (3.8-10.2); NEUT % 52.3 % (42.8-82.8); PLATELET COUNT 134 K/MM3 (134-434); RBC 3.39 M/mm3 (4.00-5.60); RDW 23.8 % (11.9-15.9); WHITE BLOOD COUNT 4.4 K/mm3 (4.0-10.0)
[2020-02-19 09:40] LABS: ALBUMIN 3.3 g/dl (3.4-5.0); CALCIUM 9.9 mg/dL (8.5-10.1)
[2020-02-19 09:41] LABS: BLOOD UREA NITROGEN 27.7 mg/dL (7-18)
[2020-02-19 09:44] LABS: CREATININE 1.7 mg/dL (0.55-1.3)
[2020-02-19 09:45] LABS: BILIRUBIN,TOTAL 1.6 mg/dL (0.2-1); TOT PROT 7.2 g/dl (6.4-8.2)
[2020-02-19] MEDS ORDERED: EPOETIN ALFA 20,000 UNIT/1 ML VIAL SQ ONE (10:00)
[2020-02-19 10:53] LABS: ANISOCYTOSIS 1+; MACROCYTOSIS 0; OVALOCYTE 1+; PLATELET ESTIMATE DECREASED; TARGET CELLS 1+; TEAR DROP CELLS 1+
[2020-02-19 11:59] VITALS: BP 118/72; PULSE 65; TEMP 98.5
== END 2020-02-19 09:40 | disposition home or self-care (01) ==
LOC: JONCCHEMO 08:13
PROVIDERS: ATTEND Internal Medicine Hematology & Oncology
PROC: 3E013GC Introduction of Other Therapeutic Substance into Subcutaneous Tissue, Percutaneous Approach (ICD-10-PCS; principal; 2020-02-19)
DX: D63.1 Anemia in chronic kidney disease (principal); N18.9 Chronic kidney disease, unspecified; I50.9 Heart failure, unspecified
CPT/HCPCS: 36415; 80053; 85025; 96372; J0885

== ENCOUNTER 2020-02-27 06:29 | Day surgery (SDC) | payer OTHER ==
[2020-02-27 08:53] LABS: BASO % 0.7 % (0-2.0); HEMATOCRIT 34.7 % (35.4-49); HEMOGLOBIN 10.7 GM/dL (11.7-16.9); LYMPH % 23.4 % (8-40); MCH 30.1 pg (25.7-33.7); MCHC 30.9 g/dl (32.0-35.9); MEAN CELL VOLUME 97.5 fl (80-96); MEAN PLT VOLUME 8.8 fl (7.5-11.1); MONO % 14.7 % (3.8-10.2); NEUT % 60.2 % (42.8-82.8); PLATELET COUNT 157 K/MM3 (134-434); RBC 3.56 M/mm3 (4.00-5.60); RDW 23.9 % (11.9-15.9); WHITE BLOOD COUNT 4.7 K/mm3 (4.0-10.0)
[2020-02-27] MEDS ORDERED: EPOETIN ALFA-EPBX 20,000 UNIT/ML VIAL SQ ONE (09:00)
[2020-02-27 09:14] LABS: ALBUMIN 3.4 g/dl (3.4-5.0); BLOOD UREA NITROGEN 23.6 mg/dL (7-18); CALCIUM 9.7 mg/dL (8.5-10.1)
[2020-02-27 09:17] LABS: CREATININE 1.6 mg/dL (0.55-1.3)
[2020-02-27 09:19] LABS: BILIRUBIN,TOTAL 1.6 mg/dL (0.2-1); TOT PROT 7.4 g/dl (6.4-8.2)
[2020-02-27 09:20] LABS: IRON SERUM 84 ug/dL (50-175); TOTAL IRON BINDING CAPACITY 373 ug/dL (250-450)
[2020-02-27] MEDS ORDERED: EPOETIN ALFA-EPBX 10,000 UNIT/ML VIAL SQ ONE ×2 (10:01→10:30)
[2020-02-27 12:23] LABS: ANISOCYTOSIS 1+; MACROCYTOSIS 1+; OVALOCYTE 1+; PLATELET ESTIMATE DECREASED
[2020-02-27 16:12] VITALS: BP 121/76; PULSE 89; TEMP 97.6
== END 2020-02-27 10:35 | disposition home or self-care (01) ==
LOC: JONCCHEMO 06:29
PROVIDERS: ATTEND Internal Medicine Hematology & Oncology
PROC: 3E013GC Introduction of Other Therapeutic Substance into Subcutaneous Tissue, Percutaneous Approach (ICD-10-PCS; principal; 2020-02-27)
DX: D63.1 Anemia in chronic kidney disease (principal); N18.9 Chronic kidney disease, unspecified; I50.9 Heart failure, unspecified
CPT/HCPCS: 36415; 80053; 82728; 83540; 83550; 85025; 96372; Q5106

== ENCOUNTER 2020-03-03 14:13 | Inpatient (IN) | payer OTHER ==
[2020-03-03 16:58] LABS: BASO % 0.9 % (0-2.0); EOS % 0.7 % (0-4.5); HEMATOCRIT 32.2 % (35.4-49); HEMOGLOBIN 9.9 GM/dL (11.7-16.9); LYMPH % 18.1 % (8-40); MCHC 30.6 g/dl (32.0-35.9); MEAN PLT VOLUME 9.5 fl (7.5-11.1); MONO % 16.2 % (3.8-10.2); NEUT % 64.1 % (42.8-82.8); PLATELET COUNT 170 K/MM3 (134-434); RBC 3.29 M/mm3 (4.00-5.60); RDW 23.9 % (11.9-15.9); WHITE BLOOD COUNT 5.8 K/mm3 (4.0-10.0)
[2020-03-03 17:16] LABS: POTASSIUM 4.6 mmol/L (3.5-5.1)
[2020-03-03 17:18] LABS: INR 1.57 (0.83-1.09); PROTHROMBIN TIME (PATIENT) 18.8 SEC (9.7-13.0)
[2020-03-03 17:19] LABS: CALCIUM 10.4 mg/dL (8.5-10.1)
[2020-03-03 17:20] LABS: ALBUMIN 3.3 g/dl (3.4-5.0); BLOOD UREA NITROGEN 33.9 mg/dL (7-18)
[2020-03-03 17:23] LABS: CREATININE 1.9 mg/dL (0.55-1.3)
[2020-03-03 17:24] LABS: BILIRUBIN,TOTAL 1.7 mg/dL (0.2-1); TOT PROT 7.6 g/dl (6.4-8.2)
[2020-03-03] MEDS ORDERED: FUROSEMIDE 40 MG/4 ML INJECTABLE VIAL IVPUSH ONE (17:53)
[2020-03-03 18:18] LABS: URINE APPEARANCE Slightly Cloudy; URINE BILIRUBIN Negative (NEGATIVE); URINE COLOR Yellow; URINE GLUCOSE (UA) Negative (NEGATIVE); URINE KETONE Negative (NEGATIVE); URINE LEUK ESTERASE Negative (NEGATIVE); URINE NITRITE Negative (NEGATIVE); URINE PROTEIN 1+ (NEGATIVE); URINE UROBILINOGEN 0.2 mg/dL (0.2-1.0)
[2020-03-03 18:24] LABS: ANISOCYTOSIS 2+; MACROCYTOSIS 0; OVALOCYTE 1+; PLATELET ESTIMATE NORMAL; TARGET CELLS 2+
[2020-03-03] MEDS ORDERED: FUROSEMIDE 40 MG/4 ML INJECTABLE VIAL ONE (18:51)
[2020-03-03] MEDS ORDERED: DIGOXIN 0.125 MG TABLET (FP) ONE (20:33)
[2020-03-03] MEDS: DIGOXIN 0.125 MG TABLET (FP) PO SCH (20:35)
[2020-03-03] MEDS ORDERED: CARVEDILOL 3.125 MG TABLET (FP) ONE (22:43)
[2020-03-03] MEDS: CARVEDILOL 3.125 MG TABLET (FP) PO SCH (22:45)
[2020-03-04 03:35] VITALS: BMI 26.4
[2020-03-04] MEDS: FUROSEMIDE 40 MG/4 ML INJECTABLE VIAL IVPUSH SCH ×2 (06:42→15:46)
[2020-03-04] MEDS: FERROUS SO4 325 MG TABLET (FP) PO SCH ×3 (08:31→18:39)
[2020-03-04] MEDS: CARVEDILOL 3.125 MG TABLET (FP) PO SCH ×2 (10:31→21:26)
[2020-03-04] MEDS: CALCITRIOL 0.25 MCG CAPSULE (FP) PO SCH (10:32)
[2020-03-04] MEDS: PANTOPRAZOLE 40 MG TABLET PO SCH (10:32)
[2020-03-04] MEDS: POLYETHYLENE GLYCOL 3350 119 GM BTL PO SCH (10:32)
[2020-03-04 14:14] LABS: HEMATOCRIT 32.8 % (35.4-49); HEMOGLOBIN 10.2 GM/dL (11.7-16.9); MCH 30.2 pg (25.7-33.7); MCHC 31.1 g/dl (32.0-35.9); MEAN CELL VOLUME 97.3 fl (80-96); MEAN PLT VOLUME 9.3 fl (7.5-11.1); PLATELET COUNT 157 K/MM3 (134-434); RBC 3.37 M/mm3 (4.00-5.60); RDW 23.9 % (11.9-15.9); WHITE BLOOD COUNT 5.5 K/mm3 (4.0-10.0)
[2020-03-04 14:42] LABS: POTASSIUM 4.2 mmol/L (3.5-5.1)
[2020-03-04 14:44] LABS: BLOOD UREA NITROGEN 34.2 mg/dL (7-18); CALCIUM 10.3 mg/dL (8.5-10.1)
[2020-03-04 14:49] LABS: CREATININE 1.9 mg/dL (0.55-1.3)
[2020-03-05] MEDS: FUROSEMIDE 40 MG/4 ML INJECTABLE VIAL IVPUSH SCH ×2 (05:40→14:55)
[2020-03-05] MEDS: FERROUS SO4 325 MG TABLET (FP) PO SCH ×4 (08:46→18:07)
[2020-03-05 09:44] LABS: POTASSIUM 4.5 mmol/L (3.5-5.1)
[2020-03-05 09:56] LABS: CALCIUM 9.9 mg/dL (8.5-10.1)
[2020-03-05 09:58] LABS: BLOOD UREA NITROGEN 38.9 mg/dL (7-18)
[2020-03-05] MEDS: PANTOPRAZOLE 40 MG TABLET PO SCH (13:09)
[2020-03-05] MEDS: POLYETHYLENE GLYCOL 3350 119 GM BTL PO SCH (13:09)
[2020-03-05] MEDS: CARVEDILOL 3.125 MG TABLET (FP) PO SCH ×2 (13:09→22:59)
[2020-03-05] MEDS: CALCITRIOL 0.25 MCG CAPSULE (FP) PO SCH (13:10)
[2020-03-05 15:40] LABS: BF WBC & OTHER NUCLEATED CELLS 239 /mm3
[2020-03-05 17:17] LABS: BODY FLUID MESOTHELIAL 6 %; BODY FLUID MONOCYTE 12 %
[2020-03-05] MEDS: DIGOXIN 0.125 MG TABLET (FP) PO SCH (22:25)
[2020-03-06] MEDS: FUROSEMIDE 40 MG/4 ML INJECTABLE VIAL IVPUSH SCH ×2 (05:45→15:19)
[2020-03-06] MEDS: FERROUS SO4 325 MG TABLET (FP) PO SCH ×3 (08:26→17:23)
[2020-03-06] MEDS: CARVEDILOL 3.125 MG TABLET (FP) PO SCH ×2 (09:43→22:17)
[2020-03-06] MEDS: POLYETHYLENE GLYCOL 3350 119 GM BTL PO SCH (09:48)
[2020-03-06] MEDS: CALCITRIOL 0.25 MCG CAPSULE (FP) PO SCH (09:49)
[2020-03-06] MEDS: PANTOPRAZOLE 40 MG TABLET PO SCH (09:49)
[2020-03-06 10:51] LABS: BASO % 0.8 % (0-2.0); EOS % 1.7 % (0-4.5); HEMATOCRIT 32.5 % (35.4-49); HEMOGLOBIN 10.2 GM/dL (11.7-16.9); LYMPH % 27.3 % (8-40); MCHC 31.3 g/dl (32.0-35.9); MONO % 16.5 % (3.8-10.2); NEUT % 53.7 % (42.8-82.8); PLATELET COUNT 151 K/MM3 (134-434); RBC 3.38 M/mm3 (4.00-5.60); RDW 23.5 % (11.9-15.9)
[2020-03-06 11:17] LABS: POTASSIUM 3.6 mmol/L (3.5-5.1)
[2020-03-06 11:30] LABS: ALBUMIN 3.1 g/dl (3.4-5.0); BLOOD UREA NITROGEN 41.6 mg/dL (7-18); CALCIUM 9.6 mg/dL (8.5-10.1)
[2020-03-06 11:31] LABS: BILIRUBIN,TOTAL 2.1 mg/dL (0.2-1)
[2020-03-06 11:33] LABS: CREATININE 2.1 mg/dL (0.55-1.3)
[2020-03-07] MEDS: FUROSEMIDE 40 MG/4 ML INJECTABLE VIAL IVPUSH SCH ×2 (05:15→13:31)
[2020-03-07] MEDS: FERROUS SO4 325 MG TABLET (FP) PO SCH ×3 (08:20→16:30)
[2020-03-07] MEDS: POLYETHYLENE GLYCOL 3350 119 GM BTL PO SCH (09:14)
[2020-03-07] MEDS: CARVEDILOL 3.125 MG TABLET (FP) PO SCH (09:15)
[2020-03-07] MEDS: PANTOPRAZOLE 40 MG TABLET PO SCH (09:15)
[2020-03-07] MEDS: CALCITRIOL 0.25 MCG CAPSULE (FP) PO SCH (09:16)
[2020-03-07 10:23] LABS: POTASSIUM 3.9 mmol/L (3.5-5.1)
[2020-03-07 10:32] LABS: CALCIUM 9.4 mg/dL (8.5-10.1)
[2020-03-07 10:33] LABS: ALBUMIN 2.9 g/dl (3.4-5.0); BLOOD UREA NITROGEN 37.3 mg/dL (7-18)
[2020-03-07 10:36] LABS: BILIRUBIN,TOTAL 1.7 mg/dL (0.2-1); CREATININE 1.9 mg/dL (0.55-1.3)
[2020-03-07 10:38] LABS: TOT PROT 6.2 g/dl (6.4-8.2)
[2020-03-07] MEDS ORDERED: FUROSEMIDE 40 MG/4 ML INJECTABLE VIAL IVPUSH ONE (11:55)
[2020-03-07] MEDS ORDERED: APIXABAN 2.5 MG TABLET PO SCH (12:00)
[2020-03-07 14:34] VITALS: TEMP 98.9
[2020-03-07 16:01] VITALS: BP 98/58; PULSE 121
[2020-03-09 15:08] LABS: BODY FLUID ALBUMIN 1.8 g/dL (Not Estab.)
== END 2020-03-07 16:30 | disposition home or self-care (01) | DRG 291 ==
LOC: JER 14:13 → JERBED 18:26 → J5WEST-2 03-04 03:38
PROVIDERS: ADMIT Internal Medicine; ATTEND Internal Medicine
PROC: 0W9G3ZX Drainage of Peritoneal Cavity, Percutaneous Approach, Diagnostic (ICD-10-PCS; principal; 2020-03-05)
DX: I13.0 Hypertensive heart and chronic kidney disease with heart failure and stage 1 through stage 4 chronic kidney disease, or unspecified chronic kidney disease (principal); I50.23 Acute on chronic systolic (congestive) heart failure; R18.8 Other ascites; N17.9 Acute kidney failure, unspecified; I48.19 Other persistent atrial fibrillation; I50.22 Chronic systolic (congestive) heart failure; Z79.01 Long term (current) use of anticoagulants; D63.8 Anemia in other chronic diseases classified elsewhere; N18.30 Chronic kidney disease, stage 3 unspecified; I45.10 Unspecified right bundle-branch block; E88.09 Other disorders of plasma-protein metabolism, not elsewhere classified; Z95.810 Presence of automatic (implantable) cardiac defibrillator; Z88.0 Allergy status to penicillin; Z95.2 Presence of prosthetic heart valve; I25.10 Atherosclerotic heart disease of native coronary artery without angina pectoris
CPT/HCPCS: 36415; 71045-TC-FY; 76700-TC; 76942-TC; 80048; 80053; 80162; 81003; 82042; 82150; 82465; 82945; 83605; 83615; 83690; 83880; 83986; 84157; 84478; 85025; 85027; 85610; 85730; 87070; 87075; 87086; 87102; 87116; 87205; 87206; 87210; 88108; 88305-TC; 93005; 93010; 93306-TC; 99285-25; C9803; U0003

== ENCOUNTER 2020-03-12 06:22 | Day surgery (SDC) | payer OTHER ==
[2020-03-12 09:41] LABS: BASO % 1.1 % (0-2.0); EOS % 2.1 % (0-4.5); HEMATOCRIT 31.8 % (35.4-49); LYMPH % 23.2 % (8-40); MCH 30.3 pg (25.7-33.7); MCHC 31.4 g/dl (32.0-35.9); MEAN CELL VOLUME 96.5 fl (80-96); MONO % 18.5 % (3.8-10.2); NEUT % 55.1 % (42.8-82.8); PLATELET COUNT 130 K/MM3 (134-434); RDW 23.3 % (11.9-15.9)
[2020-03-12 09:57] LABS: POTASSIUM 3.9 mmol/L (3.5-5.1)
[2020-03-12 09:59] LABS: ALBUMIN 3.3 g/dl (3.4-5.0); CALCIUM 10.2 mg/dL (8.5-10.1)
[2020-03-12 10:00] LABS: BLOOD UREA NITROGEN 44.1 mg/dL (7-18)
[2020-03-12] MEDS ORDERED: EPOETIN ALFA-EPBX 10,000 UNIT/ML VIAL SQ ONE (10:00)
[2020-03-12 10:03] LABS: CREATININE 2.1 mg/dL (0.55-1.3)
[2020-03-12 10:04] LABS: BILIRUBIN,TOTAL 2.5 mg/dL (0.2-1); TOT PROT 7.3 g/dl (6.4-8.2)
[2020-03-12 12:24] LABS: ANISOCYTOSIS 1+; MACROCYTOSIS 1+; PLATELET ESTIMATE DECREASED; TARGET CELLS 1+; TEAR DROP CELLS 1+
[2020-03-12 14:43] VITALS: BP 96/60; PULSE 65; TEMP 97.8
== END 2020-03-12 11:00 | disposition home or self-care (01) ==
LOC: JONCCHEMO 06:22
PROVIDERS: ATTEND Internal Medicine Hematology & Oncology
PROC: 3E013GC Introduction of Other Therapeutic Substance into Subcutaneous Tissue, Percutaneous Approach (ICD-10-PCS; principal; 2020-03-12)
DX: I13.0 Hypertensive heart and chronic kidney disease with heart failure and stage 1 through stage 4 chronic kidney disease, or unspecified chronic kidney disease (principal); D63.1 Anemia in chronic kidney disease; N18.9 Chronic kidney disease, unspecified
CPT/HCPCS: 36415; 80053; 85025; 96372; Q5106

== ENCOUNTER 2020-03-19 15:32 | Day surgery (SDC) | payer OTHER ==
[2020-03-19 09:22] LABS: BASO % 1.6 % (0-2.0); HEMATOCRIT 31.6 % (35.4-49); HEMOGLOBIN 9.9 GM/dL (11.7-16.9); LYMPH % 26.6 % (8-40); MCH 30.7 pg (25.7-33.7); MCHC 31.4 g/dl (32.0-35.9); MEAN CELL VOLUME 97.7 fl (80-96); MEAN PLT VOLUME 8.9 fl (7.5-11.1); MONO % 14.6 % (3.8-10.2); NEUT % 55.2 % (42.8-82.8); PLATELET COUNT 173 K/MM3 (134-434); RBC 3.24 M/mm3 (4.00-5.60); RDW 23.9 % (11.9-15.9); WHITE BLOOD COUNT 4.8 K/mm3 (4.0-10.0)
[2020-03-19 09:46] LABS: POTASSIUM 4.1 mmol/L (3.5-5.1)
[2020-03-19 09:48] LABS: ALBUMIN 3.5 g/dl (3.4-5.0); BLOOD UREA NITROGEN 47.6 mg/dL (7-18); CALCIUM 9.5 mg/dL (8.5-10.1)
[2020-03-19 09:52] LABS: CREATININE 2.4 mg/dL (0.55-1.3)
[2020-03-19 09:53] LABS: TOT PROT 7.6 g/dl (6.4-8.2)
[2020-03-19 09:54] LABS: BILIRUBIN,TOTAL 2.7 mg/dL (0.2-1)
[2020-03-19 15:29] VITALS: BP 108/64; PULSE 58; TEMP 98.4
[~2020-03-19 15:32] MED LIST changes: -EPOETIN ALFA 20,000 UNIT/1 ML VIAL SQ ONE; +EPOETIN ALFA-EPBX 10,000 UNIT/ML VIAL SQ ONE
== END 2020-03-19 17:04 | disposition home or self-care (01) ==
LOC: JONCCHEMO 15:32
PROVIDERS: ATTEND Internal Medicine Hematology & Oncology
PROC: 3E013GC Introduction of Other Therapeutic Substance into Subcutaneous Tissue, Percutaneous Approach (ICD-10-PCS; principal; 2020-03-19)
DX: I13.0 Hypertensive heart and chronic kidney disease with heart failure and stage 1 through stage 4 chronic kidney disease, or unspecified chronic kidney disease (principal); N18.9 Chronic kidney disease, unspecified; D63.1 Anemia in chronic kidney disease
CPT/HCPCS: 36415; 80053; 85025; 96372; Q5106

== ENCOUNTER 2020-03-26 06:57 | Day surgery (SDC) | payer OTHER ==
[2020-03-26] MEDS ORDERED: EPOETIN ALFA-EPBX 10,000 UNIT/ML VIAL SQ ONE (09:00)
[2020-03-26 09:21] LABS: BASO % 1.2 % (0-2.0); HEMATOCRIT 32.3 % (35.4-49); LYMPH % 26.8 % (8-40); MCH 30.4 pg (25.7-33.7); MCHC 30.9 g/dl (32.0-35.9); MEAN CELL VOLUME 98.5 fl (80-96); MEAN PLT VOLUME 8.7 fl (7.5-11.1); MONO % 15.3 % (3.8-10.2); NEUT % 54.7 % (42.8-82.8); PLATELET COUNT 159 K/MM3 (134-434); RBC 3.28 M/mm3 (4.00-5.60); RDW 23.8 % (11.9-15.9); WHITE BLOOD COUNT 4.4 K/mm3 (4.0-10.0)
[2020-03-26 09:37] LABS: POTASSIUM 4.2 mmol/L (3.5-5.1)
[2020-03-26 09:40] LABS: ALBUMIN 3.4 g/dl (3.4-5.0); BLOOD UREA NITROGEN 40.4 mg/dL (7-18); CALCIUM 9.7 mg/dL (8.5-10.1)
[2020-03-26 09:43] LABS: CREATININE 2.1 mg/dL (0.55-1.3)
[2020-03-26 09:44] LABS: BILIRUBIN,TOTAL 1.7 mg/dL (0.2-1); TOT PROT 7.4 g/dl (6.4-8.2)
[2020-03-26 11:03] LABS: ANISOCYTOSIS 2+; MACROCYTOSIS 1+; OVALOCYTE 1+; PLATELET ESTIMATE DECREASED; TARGET CELLS 1+
[2020-03-26 12:37] VITALS: BP 120/66; PULSE 61; TEMP 98.3
== END 2020-03-26 10:15 | disposition home or self-care (01) ==
LOC: JONCCHEMO 06:57
PROVIDERS: ATTEND Internal Medicine Hematology & Oncology
PROC: 3E013GC Introduction of Other Therapeutic Substance into Subcutaneous Tissue, Percutaneous Approach (ICD-10-PCS; principal; 2020-03-26)
DX: I13.0 Hypertensive heart and chronic kidney disease with heart failure and stage 1 through stage 4 chronic kidney disease, or unspecified chronic kidney disease (principal); N18.9 Chronic kidney disease, unspecified; D63.1 Anemia in chronic kidney disease
CPT/HCPCS: 36415; 80053; 85025; 96372; Q5106

== ENCOUNTER 2020-04-02 06:25 | Day surgery (SDC) | payer OTHER ==
[2020-04-02 09:38] LABS: BASO % 0.8 % (0-2.0); HEMATOCRIT 32.5 % (35.4-49); MCH 30.7 pg (25.7-33.7); MCHC 30.9 g/dl (32.0-35.9); MEAN PLT VOLUME 9.4 fl (7.5-11.1); NEUT % 49.2 % (42.8-82.8); PLATELET COUNT 133 K/MM3 (134-434); RBC 3.28 M/mm3 (4.00-5.60); RDW 24.1 % (11.9-15.9); WHITE BLOOD COUNT 4.9 K/mm3 (4.0-10.0)
[2020-04-02 09:59] LABS: POTASSIUM 4.4 mmol/L (3.5-5.1)
[2020-04-02] MEDS ORDERED: EPOETIN ALFA-EPBX 10,000 UNIT/ML VIAL SQ ONE (10:00)
[2020-04-02 10:01] LABS: ALBUMIN 3.4 g/dl (3.4-5.0); CALCIUM 10.2 mg/dL (8.5-10.1)
[2020-04-02 10:04] LABS: CREATININE 1.8 mg/dL (0.55-1.3)
[2020-04-02 10:06] LABS: BILIRUBIN,TOTAL 2.3 mg/dL (0.2-1); TOT PROT 7.6 g/dl (6.4-8.2)
[2020-04-02 11:52] LABS: ANISOCYTOSIS 1+; MACROCYTOSIS 2+; OVALOCYTE 1+; PLATELET ESTIMATE DECREASED
[2020-04-02 14:51] VITALS: BP 121/87; PULSE 78; TEMP 97.6
== END 2020-04-02 10:15 | disposition home or self-care (01) ==
LOC: JONCCHEMO 06:25
PROVIDERS: ATTEND Internal Medicine Hematology & Oncology
PROC: 3E013GC Introduction of Other Therapeutic Substance into Subcutaneous Tissue, Percutaneous Approach (ICD-10-PCS; principal; 2020-04-02)
DX: D63.1 Anemia in chronic kidney disease (principal); I13.0 Hypertensive heart and chronic kidney disease with heart failure and stage 1 through stage 4 chronic kidney disease, or unspecified chronic kidney disease; N18.9 Chronic kidney disease, unspecified
CPT/HCPCS: 36415; 80053; 82607; 82728; 83540; 83550; 85025; 96372; Q5106

== ENCOUNTER 2020-04-16 08:12 | Day surgery (SDC) | payer OTHER ==
[2020-04-16 09:28] LABS: BASO % 1.2 % (0-2.0); EOS % 1.2 % (0-4.5); HEMATOCRIT 31.1 % (35.4-49); HEMOGLOBIN 9.8 GM/dL (11.7-16.9); LYMPH % 23.8 % (8-40); MCH 30.9 pg (25.7-33.7); MCHC 31.5 g/dl (32.0-35.9); MEAN CELL VOLUME 98.2 fl (80-96); MEAN PLT VOLUME 9.1 fl (7.5-11.1); MONO % 15.6 % (3.8-10.2); NEUT % 58.2 % (42.8-82.8); PLATELET COUNT 151 K/MM3 (134-434); RBC 3.17 M/mm3 (4.00-5.60); RDW 23.1 % (11.9-15.9); WHITE BLOOD COUNT 4.5 K/mm3 (4.0-10.0)
[2020-04-16 09:38] LABS: POTASSIUM 4.2 mmol/L (3.5-5.1)
[2020-04-16 09:41] LABS: ALBUMIN 3.3 g/dl (3.4-5.0); CALCIUM 10.1 mg/dL (8.5-10.1)
[2020-04-16 09:42] LABS: BLOOD UREA NITROGEN 40.4 mg/dL (7-18)
[2020-04-16 09:46] LABS: TOT PROT 7.5 g/dl (6.4-8.2)
[2020-04-16] MEDS ORDERED: EPOETIN ALFA-EPBX 10,000 UNIT/ML VIAL SQ ONE (10:00)
[2020-04-16 12:40] LABS: ANISOCYTOSIS 1+; MACROCYTOSIS 1+; OVALOCYTE 1+; PLATELET ESTIMATE NORMAL
[2020-04-16 14:14] VITALS: BP 124/76; PULSE 84; TEMP 98.2
== END 2020-04-16 10:40 | disposition home or self-care (01) ==
LOC: JONCCHEMO 08:12
PROVIDERS: ATTEND Internal Medicine Hematology & Oncology
PROC: 3E013GC Introduction of Other Therapeutic Substance into Subcutaneous Tissue, Percutaneous Approach (ICD-10-PCS; principal; 2020-04-16)
DX: D63.1 Anemia in chronic kidney disease (principal); I13.0 Hypertensive heart and chronic kidney disease with heart failure and stage 1 through stage 4 chronic kidney disease, or unspecified chronic kidney disease; N18.9 Chronic kidney disease, unspecified
CPT/HCPCS: 36415; 80053; 85025; 96372; Q5106

== ENCOUNTER 2020-04-21 11:45 | Inpatient (IN) | payer OTHER ==
[2020-04-21 13:09] LABS: VENOUS BASE EXCESS 0.2 mmol/L (-2-2); VENOUS O2 SATURATION 35.3 % (70-80); VENOUS PH 7.278 (7.310-7.410)
[2020-04-21 13:10] LABS: INR 1.47 (0.83-1.09); PROTHROMBIN TIME (PATIENT) 17.6 SEC (9.7-13.0)
[2020-04-21 13:13] LABS: ACTIVATED PTT 36.5 SECONDS (25.2-36.5)
[2020-04-21 13:15] LABS: BASO % 0.6 % (0-2.0); EOS % 0.8 % (0-4.5); HEMATOCRIT 31.5 % (35.4-49); HEMOGLOBIN 9.7 GM/dL (11.7-16.9); LYMPH % 19.3 % (8-40); MCH 30.4 pg (25.7-33.7); MCHC 30.7 g/dl (32.0-35.9); MEAN CELL VOLUME 98.9 fl (80-96); MEAN PLT VOLUME 8.8 fl (7.5-11.1); MONO % 12.9 % (3.8-10.2); NEUT % 66.4 % (42.8-82.8); PLATELET COUNT 159 K/MM3 (134-434); RBC 3.19 M/mm3 (4.00-5.60); WHITE BLOOD COUNT 5.1 K/mm3 (4.0-10.0)
[2020-04-21 13:29] LABS: BLOOD UREA NITROGEN 31.2 mg/dL (7-18)
[2020-04-21 13:30] LABS: ALBUMIN 3.3 g/dl (3.4-5.0); MAGNESIUM 2.3 mg/dL (1.8-2.4)
[2020-04-21 13:33] LABS: CREATININE 1.8 mg/dL (0.55-1.3)
[2020-04-21 13:34] LABS: BILIRUBIN,TOTAL 1.6 mg/dL (0.2-1); TOT PROT 7.5 g/dl (6.4-8.2)
[2020-04-21 13:38] LABS: N-TERMINAL BNP 3191.7 pg/ml (5-450)
[2020-04-21] MEDS ORDERED: FUROSEMIDE 40 MG/4 ML INJECTABLE VIAL IVPUSH ONE (14:07)
[2020-04-21] MEDS ORDERED: ASPIRIN 81 MG CHEWABLE TABLETS PO ONE (14:07)
[2020-04-21] MEDS ORDERED: ASPIRIN 81 MG CHEWABLE TABLETS ONE (14:41)
[2020-04-21] MEDS ORDERED: FUROSEMIDE 40 MG/4 ML INJECTABLE VIAL ONE (14:41)
[2020-04-21 14:50] LABS: ANISOCYTOSIS 2+; MACROCYTOSIS 1+; PLATELET ESTIMATE DECREASED; TARGET CELLS 1+
[2020-04-21] MEDS: APIXABAN 2.5 MG TABLET PO SCH (21:49)
[2020-04-21] MEDS: CARVEDILOL 3.125 MG TABLET (FP) PO SCH (21:49)
[2020-04-22] MEDS: FUROSEMIDE 40 MG/4 ML INJECTABLE VIAL IVPUSH SCH ×2 (06:25→13:37)
[2020-04-22 08:50] LABS: POTASSIUM 3.9 mmol/L (3.5-5.1)
[2020-04-22 08:51] LABS: HEMATOCRIT 29.1 % (35.4-49); HEMOGLOBIN 9.2 GM/dL (11.7-16.9); MCH 30.7 pg (25.7-33.7); MCHC 31.7 g/dl (32.0-35.9); MEAN CELL VOLUME 96.6 fl (80-96); MEAN PLT VOLUME 9.2 fl (7.5-11.1); PLATELET COUNT 147 K/MM3 (134-434); RBC 3.01 M/mm3 (4.00-5.60); RDW 23.3 % (11.9-15.9); WHITE BLOOD COUNT 4.7 K/mm3 (4.0-10.0)
[2020-04-22 08:53] LABS: ALBUMIN 3.1 g/dl (3.4-5.0); BLOOD UREA NITROGEN 33.4 mg/dL (7-18); CALCIUM 9.6 mg/dL (8.5-10.1); MAGNESIUM 2.2 mg/dL (1.8-2.4)
[2020-04-22 08:56] LABS: CREATININE 1.8 mg/dL (0.55-1.3)
[2020-04-22 08:58] LABS: BILIRUBIN,TOTAL 1.8 mg/dL (0.2-1); TOT PROT 6.7 g/dl (6.4-8.2)
[2020-04-22] MEDS: CARVEDILOL 3.125 MG TABLET (FP) PO SCH ×2 (09:56→21:23)
[2020-04-22] MEDS: PANTOPRAZOLE 40 MG TABLET PO SCH (09:56)
[2020-04-22] MEDS: APIXABAN 2.5 MG TABLET PO SCH ×2 (09:56→21:23)
[2020-04-22] MEDS: POLYETHYLENE GLYCOL 3350 119 GM BTL PO SCH (09:56)
[2020-04-22] MEDS: CALCITRIOL 0.25 MCG CAPSULE (FP) PO SCH (09:56)
[2020-04-23] MEDS: FUROSEMIDE 40 MG/4 ML INJECTABLE VIAL IVPUSH SCH ×2 (06:15→14:04)
[2020-04-23 08:54] LABS: CALCIUM 9.6 mg/dL (8.5-10.1)
[2020-04-23 08:55] LABS: BLOOD UREA NITROGEN 35.4 mg/dL (7-18)
[2020-04-23] MEDS: CARVEDILOL 3.125 MG TABLET (FP) PO SCH ×2 (09:18→22:17)
[2020-04-23] MEDS: PANTOPRAZOLE 40 MG TABLET PO SCH (09:19)
[2020-04-23] MEDS: CALCITRIOL 0.25 MCG CAPSULE (FP) PO SCH (09:19)
[2020-04-23] MEDS: APIXABAN 2.5 MG TABLET PO SCH (09:19)
[2020-04-23] MEDS: DIGOXIN 0.125 MG TABLET (FP) PO SCH (09:19)
[2020-04-23] MEDS: POLYETHYLENE GLYCOL 3350 119 GM BTL PO SCH (09:20)
[2020-04-23] MEDS ORDERED: EPOETIN ALFA-EPBX 10,000 UNIT/ML VIAL SQ ONE (17:00)
[2020-04-23] MEDS ORDERED: PT OWN MED DRAWER 7, Y5N ONE (17:36)
[2020-04-23] MEDS: SPIRONOLACTONE 25 MG TABLET PO SCH (22:18)
[2020-04-24] MEDS: FUROSEMIDE 40 MG/4 ML INJECTABLE VIAL IVPUSH SCH ×2 (05:56→15:17)
[2020-04-24 07:32] LABS: BASO % 0.7 % (0-2.0); EOS % 1.6 % (0-4.5); HEMATOCRIT 29.8 % (35.4-49); HEMOGLOBIN 9.4 GM/dL (11.7-16.9); LYMPH % 26.2 % (8-40); MCH 30.7 pg (25.7-33.7); MCHC 31.7 g/dl (32.0-35.9); MEAN CELL VOLUME 96.8 fl (80-96); MONO % 16.8 % (3.8-10.2); NEUT % 54.7 % (42.8-82.8); PLATELET COUNT 131 K/MM3 (134-434); RBC 3.08 M/mm3 (4.00-5.60); RDW 22.9 % (11.9-15.9); WHITE BLOOD COUNT 4.7 K/mm3 (4.0-10.0)
[2020-04-24 07:45] LABS: POTASSIUM 4.2 mmol/L (3.5-5.1)
[2020-04-24 07:49] LABS: ALBUMIN 3.2 g/dl (3.4-5.0); BLOOD UREA NITROGEN 38.9 mg/dL (7-18)
[2020-04-24 07:52] LABS: CREATININE 2.1 mg/dL (0.55-1.3)
[2020-04-24 07:54] LABS: BILIRUBIN,TOTAL 1.9 mg/dL (0.2-1)
[2020-04-24] MEDS: SPIRONOLACTONE 25 MG TABLET PO SCH ×2 (09:31→21:52)
[2020-04-24] MEDS: CALCITRIOL 0.25 MCG CAPSULE (FP) PO SCH (09:31)
[2020-04-24] MEDS: CARVEDILOL 3.125 MG TABLET (FP) PO SCH ×2 (09:31→21:52)
[2020-04-24] MEDS: PANTOPRAZOLE 40 MG TABLET PO SCH (09:31)
[2020-04-24] MEDS: POLYETHYLENE GLYCOL 3350 119 GM BTL PO SCH (09:32)
[2020-04-24 10:09] LABS: ANISOCYTOSIS 3+; MACROCYTOSIS 2+; PLATELET ESTIMATE DECREASED; TARGET CELLS 1+
[2020-04-24 22:40] VITALS: BMI 25.3
[2020-04-25] MEDS: FUROSEMIDE 40 MG/4 ML INJECTABLE VIAL IVPUSH SCH ×2 (06:03→13:57)
[2020-04-25 08:09] LABS: CALCIUM 9.7 mg/dL (8.5-10.1)
[2020-04-25 08:10] LABS: BLOOD UREA NITROGEN 37.6 mg/dL (7-18)
[2020-04-25] MEDS: CARVEDILOL 3.125 MG TABLET (FP) PO SCH ×2 (09:12→21:05)
[2020-04-25] MEDS: PANTOPRAZOLE 40 MG TABLET PO SCH (09:12)
[2020-04-25] MEDS: SPIRONOLACTONE 25 MG TABLET PO SCH ×2 (09:12→21:05)
[2020-04-25] MEDS: CALCITRIOL 0.25 MCG CAPSULE (FP) PO SCH (09:12)
[2020-04-25] MEDS: POLYETHYLENE GLYCOL 3350 119 GM BTL PO SCH (09:13)
[2020-04-25] MEDS: APIXABAN 2.5 MG TABLET PO SCH (21:05)
[2020-04-26] MEDS: FUROSEMIDE 40 MG/4 ML INJECTABLE VIAL IVPUSH SCH ×2 (05:24→14:34)
[2020-04-26 08:16] LABS: POTASSIUM 4.2 mmol/L (3.5-5.1)
[2020-04-26 08:30] LABS: CALCIUM 9.6 mg/dL (8.5-10.1)
[2020-04-26 08:31] LABS: ALBUMIN 3.1 g/dl (3.4-5.0); BLOOD UREA NITROGEN 43.3 mg/dL (7-18)
[2020-04-26 08:34] LABS: CREATININE 2.3 mg/dL (0.55-1.3); URIC ACID 11.7 mg/dL (2.6-7.2)
[2020-04-26 08:35] LABS: BILIRUBIN,TOTAL 1.6 mg/dL (0.2-1); TOT PROT 6.9 g/dl (6.4-8.2)
[2020-04-26] MEDS: DIGOXIN 0.125 MG TABLET (FP) PO SCH (09:35)
[2020-04-26] MEDS: PANTOPRAZOLE 40 MG TABLET PO SCH (09:35)
[2020-04-26] MEDS: SPIRONOLACTONE 25 MG TABLET PO SCH ×2 (09:35→21:25)
[2020-04-26] MEDS: APIXABAN 2.5 MG TABLET PO SCH ×2 (09:35→21:25)
[2020-04-26] MEDS: CARVEDILOL 3.125 MG TABLET (FP) PO SCH ×2 (09:35→21:25)
[2020-04-26] MEDS: POLYETHYLENE GLYCOL 3350 119 GM BTL PO SCH (09:36)
[2020-04-26] MEDS: CALCITRIOL 0.25 MCG CAPSULE (FP) PO SCH (09:37)
[2020-04-27] MEDS: FUROSEMIDE 40 MG/4 ML INJECTABLE VIAL IVPUSH SCH ×2 (05:59→14:13)
[2020-04-27 07:39] LABS: POTASSIUM 4.3 mmol/L (3.5-5.1)
[2020-04-27 07:40] LABS: CALCIUM 9.9 mg/dL (8.5-10.1)
[2020-04-27 07:41] LABS: BLOOD UREA NITROGEN 46.8 mg/dL (7-18); MAGNESIUM 2.2 mg/dL (1.8-2.4)
[2020-04-27 07:44] LABS: CREATININE 2.3 mg/dL (0.55-1.3); PHOSPHOROUS 3.9 mg/dL (2.5-4.9)
[2020-04-27] MEDS: SPIRONOLACTONE 25 MG TABLET PO SCH ×2 (09:11→21:16)
[2020-04-27] MEDS: CARVEDILOL 3.125 MG TABLET (FP) PO SCH ×2 (09:11→21:16)
[2020-04-27] MEDS: PANTOPRAZOLE 40 MG TABLET PO SCH (09:11)
[2020-04-27] MEDS: APIXABAN 2.5 MG TABLET PO SCH ×2 (09:11→21:16)
[2020-04-27] MEDS: CALCITRIOL 0.25 MCG CAPSULE (FP) PO SCH (09:11)
[2020-04-27] MEDS: POLYETHYLENE GLYCOL 3350 119 GM BTL PO SCH (09:50)
[2020-04-28] MEDS: FUROSEMIDE 40 MG/4 ML INJECTABLE VIAL IVPUSH SCH ×3 (06:09→15:12)
[2020-04-28 07:10] LABS: HEMATOCRIT 27.8 % (35.4-49); HEMOGLOBIN 9.2 GM/dL (11.7-16.9); MCH 31.5 pg (25.7-33.7); MEAN CELL VOLUME 95.4 fl (80-96); MEAN PLT VOLUME 9.4 fl (7.5-11.1); PLATELET COUNT 131 K/MM3 (134-434); RBC 2.91 M/mm3 (4.00-5.60); RDW 22.4 % (11.9-15.9); WHITE BLOOD COUNT 5.2 K/mm3 (4.0-10.0)
[2020-04-28 07:35] LABS: POTASSIUM 4.2 mmol/L (3.5-5.1)
[2020-04-28 07:43] LABS: BLOOD UREA NITROGEN 52.6 mg/dL (7-18); CALCIUM 9.7 mg/dL (8.5-10.1); CREATININE 2.5 mg/dL (0.55-1.3)
[2020-04-28 07:45] LABS: BILIRUBIN,TOTAL 1.6 mg/dL (0.2-1); TOT PROT 6.8 g/dl (6.4-8.2)
[2020-04-28] MEDS: SPIRONOLACTONE 25 MG TABLET PO SCH ×2 (11:30→21:21)
[2020-04-28] MEDS: APIXABAN 2.5 MG TABLET PO SCH ×2 (11:31→21:21)
[2020-04-28] MEDS: POLYETHYLENE GLYCOL 3350 119 GM BTL PO SCH (11:31)
[2020-04-28] MEDS: CARVEDILOL 3.125 MG TABLET (FP) PO SCH ×2 (11:31→21:21)
[2020-04-28] MEDS: PANTOPRAZOLE 40 MG TABLET PO SCH (11:31)
[2020-04-28] MEDS: CALCITRIOL 0.25 MCG CAPSULE (FP) PO SCH (11:31)
[2020-04-28] MEDS ORDERED: PT OWN MED DRAWER 7, Y5N ONE (15:14)
[2020-04-28] MEDS ORDERED: ACETAMINOPHEN 325 MG TABLET (FP) ONE (16:12)
[2020-04-29 07:30] LABS: POTASSIUM 4.2 mmol/L (3.5-5.1)
[2020-04-29 07:38] LABS: MAGNESIUM 2.3 mg/dL (1.8-2.4)
[2020-04-29 07:41] LABS: CREATININE 2.3 mg/dL (0.55-1.3)
[2020-04-29] MEDS ORDERED: PT OWN MED DRAWER 7, Y5N ONE (09:20)
[2020-04-29] MEDS: CALCITRIOL 0.25 MCG CAPSULE (FP) PO SCH (09:33)
[2020-04-29] MEDS: SPIRONOLACTONE 25 MG TABLET PO SCH (09:33)
[2020-04-29] MEDS: DIGOXIN 0.125 MG TABLET (FP) PO SCH (09:33)
[2020-04-29] MEDS: CARVEDILOL 3.125 MG TABLET (FP) PO SCH (09:33)
[2020-04-29] MEDS: PANTOPRAZOLE 40 MG TABLET PO SCH (09:33)
[2020-04-29] MEDS: APIXABAN 2.5 MG TABLET PO SCH (09:34)
[2020-04-29] MEDS: POLYETHYLENE GLYCOL 3350 119 GM BTL PO SCH (09:34)
[2020-04-29] MEDS ORDERED: FUROSEMIDE 40 MG/4 ML INJECTABLE VIAL IVPUSH SCH (10:00)
[2020-04-29 15:25] VITALS: BP 124/67; PULSE 83; TEMP 97.3
== END 2020-04-29 15:00 | disposition home or self-care (01) | DRG 291 ==
LOC: JER 11:45 → JERBED 14:09 → J4W 18:03
PROVIDERS: ADMIT Internal Medicine; ATTEND Internal Medicine
DX: I13.0 Hypertensive heart and chronic kidney disease with heart failure and stage 1 through stage 4 chronic kidney disease, or unspecified chronic kidney disease (principal); I50.23 Acute on chronic systolic (congestive) heart failure; N17.9 Acute kidney failure, unspecified; R18.8 Other ascites; D63.1 Anemia in chronic kidney disease; Z95.810 Presence of automatic (implantable) cardiac defibrillator; K75.81 Nonalcoholic steatohepatitis (NASH); E87.70 Fluid overload, unspecified; N18.30 Chronic kidney disease, stage 3 unspecified; I48.91 Unspecified atrial fibrillation; N40.0 Benign prostatic hyperplasia without lower urinary tract symptoms
CPT/HCPCS: 36415; 71045-TC-FY; 76700-TC; 80048; 80053; 80162; 82105; 82140; 82550; 82728; 82803; 83735; 83880; 84100; 84439; 84443; 84484; 84550; 85025; 85027; 85610; 85730; 86140; 87804; 93005; 93010; 99285-25; C9803; Q5106; U0003

== ENCOUNTER 2020-04-30 06:57 | Day surgery (SDC) | payer OTHER ==
[2020-04-30 08:56] LABS: BASO % 1.4 % (0-2.0); EOS % 1.5 % (0-4.5); HEMATOCRIT 33.3 % (35.4-49); HEMOGLOBIN 10.5 GM/dL (11.7-16.9); LYMPH % 23.3 % (8-40); MCHC 31.7 g/dl (32.0-35.9); MEAN CELL VOLUME 97.8 fl (80-96); MONO % 17.9 % (3.8-10.2); NEUT % 55.9 % (42.8-82.8); PLATELET COUNT 159 K/MM3 (134-434); RBC 3.41 M/mm3 (4.00-5.60); RDW 23.2 % (11.9-15.9); WHITE BLOOD COUNT 4.8 K/mm3 (4.0-10.0)
[2020-04-30 09:20] LABS: ALBUMIN 3.5 g/dl (3.4-5.0); BLOOD UREA NITROGEN 50.7 mg/dL (7-18); CALCIUM 10.3 mg/dL (8.5-10.1)
[2020-04-30 09:23] LABS: CREATININE 2.6 mg/dL (0.55-1.3)
[2020-04-30 09:25] LABS: BILIRUBIN,TOTAL 2.3 mg/dL (0.2-1); TOT PROT 7.9 g/dl (6.4-8.2)
[2020-04-30] MEDS ORDERED: EPOETIN ALFA-EPBX 10,000 UNIT/ML VIAL SQ ONE (10:00)
[2020-04-30 10:06] VITALS: BP 109/65; PULSE 89; TEMP 98.2
[2020-04-30 11:04] LABS: ANISOCYTOSIS 1+; MACROCYTOSIS 1+; PLATELET ESTIMATE DECREASED; TARGET CELLS 1+; TEAR DROP CELLS 1+
== END 2020-04-30 09:30 | disposition home or self-care (01) ==
LOC: JONCCHEMO 06:57
PROVIDERS: ATTEND Internal Medicine Hematology & Oncology
PROC: 3E013GC Introduction of Other Therapeutic Substance into Subcutaneous Tissue, Percutaneous Approach (ICD-10-PCS; principal; 2020-04-30)
DX: D63.1 Anemia in chronic kidney disease (principal); I13.0 Hypertensive heart and chronic kidney disease with heart failure and stage 1 through stage 4 chronic kidney disease, or unspecified chronic kidney disease; N18.9 Chronic kidney disease, unspecified
CPT/HCPCS: 36415; 80053; 85025; 96372; Q5106

== ENCOUNTER 2020-05-07 07:13 | Day surgery (SDC) | payer OTHER ==
[2020-05-07] MEDS ORDERED: EPOETIN ALFA-EPBX 10,000 UNIT/ML VIAL SQ ONE (08:30)
[2020-05-07 08:59] LABS: BASO % 0.9 % (0-2.0); EOS % 1.4 % (0-4.5); HEMATOCRIT 31.2 % (35.4-49); HEMOGLOBIN 9.9 GM/dL (11.7-16.9); LYMPH % 22.3 % (8-40); MCHC 31.7 g/dl (32.0-35.9); MEAN CELL VOLUME 97.8 fl (80-96); MEAN PLT VOLUME 8.7 fl (7.5-11.1); MONO % 14.8 % (3.8-10.2); NEUT % 60.6 % (42.8-82.8); PLATELET COUNT 161 K/MM3 (134-434); RBC 3.19 M/mm3 (4.00-5.60); RDW 23.6 % (11.9-15.9); WHITE BLOOD COUNT 5.6 K/mm3 (4.0-10.0)
[2020-05-07 09:30] LABS: ALBUMIN 3.7 g/dl (3.4-5.0); BLOOD UREA NITROGEN 51.9 mg/dL (7-18); CALCIUM 10.4 mg/dL (8.5-10.1)
[2020-05-07 09:33] LABS: CREATININE 2.1 mg/dL (0.55-1.3)
[2020-05-07 09:35] LABS: BILIRUBIN,TOTAL 1.8 mg/dL (0.2-1); TOT PROT 8.1 g/dl (6.4-8.2)
[2020-05-07 10:06] LABS: ANISOCYTOSIS 1+; MACROCYTOSIS 1+; PLATELET ESTIMATE DECREASED
[2020-05-07 14:53] VITALS: BP 112/67; PULSE 75; TEMP 98.2
== END 2020-05-07 09:45 | disposition home or self-care (01) ==
LOC: JONCCHEMO 07:13
PROVIDERS: ATTEND Internal Medicine Hematology & Oncology
PROC: 3E013GC Introduction of Other Therapeutic Substance into Subcutaneous Tissue, Percutaneous Approach (ICD-10-PCS; principal; 2020-05-07)
DX: D63.1 Anemia in chronic kidney disease (principal); I13.0 Hypertensive heart and chronic kidney disease with heart failure and stage 1 through stage 4 chronic kidney disease, or unspecified chronic kidney disease; N18.9 Chronic kidney disease, unspecified
CPT/HCPCS: 36415; 80053; 85025; 96372; Q5106

== ENCOUNTER 2020-05-14 06:38 | Day surgery (SDC) | payer OTHER ==
[2020-05-14 09:04] LABS: BASO % 0.8 % (0-2.0); EOS % 1.1 % (0-4.5); HEMATOCRIT 30.9 % (35.4-49); HEMOGLOBIN 9.7 GM/dL (11.7-16.9); LYMPH % 19.5 % (8-40); MCH 30.9 pg (25.7-33.7); MCHC 31.4 g/dl (32.0-35.9); MEAN CELL VOLUME 98.6 fl (80-96); MEAN PLT VOLUME 8.4 fl (7.5-11.1); MONO % 16.2 % (3.8-10.2); NEUT % 62.4 % (42.8-82.8); PLATELET COUNT 149 K/MM3 (134-434); RBC 3.14 M/mm3 (4.00-5.60); WHITE BLOOD COUNT 5.8 K/mm3 (4.0-10.0)
[2020-05-14 09:19] LABS: POTASSIUM 4.1 mmol/L (3.5-5.1)
[2020-05-14 09:20] LABS: ALBUMIN 3.5 g/dl (3.4-5.0); BLOOD UREA NITROGEN 49.6 mg/dL (7-18)
[2020-05-14 09:21] LABS: CALCIUM 10.2 mg/dL (8.5-10.1)
[2020-05-14 09:25] LABS: CREATININE 2.1 mg/dL (0.55-1.3)
[2020-05-14 09:26] LABS: BILIRUBIN,TOTAL 1.9 mg/dL (0.2-1); TOT PROT 7.6 g/dl (6.4-8.2)
[2020-05-14] MEDS ORDERED: EPOETIN ALFA-EPBX 10,000 UNIT/ML VIAL SQ ONE (10:00)
[2020-05-14 11:01] VITALS: BP 127/73; PULSE 60; TEMP 97.9
[2020-05-14 11:52] LABS: ANISOCYTOSIS 1+; MACROCYTOSIS 1+; OVALOCYTE 1+; PLATELET ESTIMATE DECREASED; TARGET CELLS 1+; TEAR DROP CELLS 1+
== END 2020-05-14 10:45 | disposition home or self-care (01) ==
LOC: JONCCHEMO 06:38
PROVIDERS: ATTEND Internal Medicine Hematology & Oncology
PROC: 3E013GC Introduction of Other Therapeutic Substance into Subcutaneous Tissue, Percutaneous Approach (ICD-10-PCS; principal; 2020-05-14)
DX: D63.1 Anemia in chronic kidney disease (principal); I13.0 Hypertensive heart and chronic kidney disease with heart failure and stage 1 through stage 4 chronic kidney disease, or unspecified chronic kidney disease; N18.9 Chronic kidney disease, unspecified
CPT/HCPCS: 36415; 80053; 85025; 96372; Q5106

== ENCOUNTER 2020-05-21 07:33 | Day surgery (SDC) | payer OTHER ==
[2020-05-21 08:49] LABS: ALBUMIN 3.4 g/dl (3.4-5.0); CALCIUM 10.6 mg/dL (8.5-10.1); POTASSIUM 4.1 mmol/L (3.5-5.1)
[2020-05-21 08:50] LABS: BLOOD UREA NITROGEN 50.4 mg/dL (7-18)
[2020-05-21 08:54] LABS: TOT PROT 7.6 g/dl (6.4-8.2)
[2020-05-21] MEDS ORDERED: EPOETIN ALFA-EPBX 10,000 UNIT/ML VIAL SQ ONE (09:00)
[2020-05-21 09:20] LABS: BASO % 0.9 % (0-2.0); EOS % 1.3 % (0-4.5); HEMATOCRIT 31.7 % (35.4-49); LYMPH % 23.8 % (8-40); MCH 31.1 pg (25.7-33.7); MCHC 31.5 g/dl (32.0-35.9); MEAN CELL VOLUME 98.8 fl (80-96); MEAN PLT VOLUME 9.1 fl (7.5-11.1); MONO % 17.3 % (3.8-10.2); NEUT % 56.7 % (42.8-82.8); PLATELET COUNT 133 K/MM3 (134-434); RBC 3.21 M/mm3 (4.00-5.60); RDW 23.3 % (11.9-15.9)
[2020-05-21 10:56] LABS: ANISOCYTOSIS 1+; MACROCYTOSIS 1+; PLATELET ESTIMATE DECREASED; TARGET CELLS 1+
[2020-05-21 13:47] VITALS: BP 126/79; PULSE 76; TEMP 97.5
== END 2020-05-21 09:40 | disposition home or self-care (01) ==
LOC: JONCCHEMO 07:33
PROVIDERS: ATTEND Internal Medicine Hematology & Oncology
PROC: 3E013GC Introduction of Other Therapeutic Substance into Subcutaneous Tissue, Percutaneous Approach (ICD-10-PCS; principal; 2020-05-21)
DX: D63.1 Anemia in chronic kidney disease (principal); I13.0 Hypertensive heart and chronic kidney disease with heart failure and stage 1 through stage 4 chronic kidney disease, or unspecified chronic kidney disease; N18.9 Chronic kidney disease, unspecified
CPT/HCPCS: 36415; 80053; 85025; 96372; Q5106

== ENCOUNTER 2020-05-28 07:15 | Day surgery (SDC) | payer OTHER ==
[2020-05-28 08:40] LABS: BASO % 1.2 % (0-2.0); EOS % 1.3 % (0-4.5); HEMATOCRIT 30.9 % (35.4-49); HEMOGLOBIN 9.7 GM/dL (11.7-16.9); LYMPH % 23.9 % (8-40); MCHC 31.5 g/dl (32.0-35.9); MEAN CELL VOLUME 98.5 fl (80-96); MEAN PLT VOLUME 8.9 fl (7.5-11.1); MONO % 16.7 % (3.8-10.2); NEUT % 56.9 % (42.8-82.8); PLATELET COUNT 141 K/MM3 (134-434); RBC 3.13 M/mm3 (4.00-5.60); RDW 23.9 % (11.9-15.9); WHITE BLOOD COUNT 5.5 K/mm3 (4.0-10.0)
[2020-05-28 09:00] LABS: ALBUMIN 3.3 g/dl (3.4-5.0); CALCIUM 10.2 mg/dL (8.5-10.1)
[2020-05-28 09:01] LABS: BLOOD UREA NITROGEN 45.6 mg/dL (7-18)
[2020-05-28 09:04] LABS: CREATININE 1.9 mg/dL (0.55-1.3)
[2020-05-28 09:05] LABS: BILIRUBIN,TOTAL 1.5 mg/dL (0.2-1); TOT PROT 7.2 g/dl (6.4-8.2)
[2020-05-28 09:55] LABS: ANISOCYTOSIS 2+; MACROCYTOSIS 2+; PLATELET ESTIMATE DECREASED; TARGET CELLS 1+
[2020-05-28] MEDS ORDERED: EPOETIN ALFA-EPBX 10,000 UNIT/ML VIAL SQ ONE (10:00)
[2020-05-28 12:01] VITALS: BP 120/75; PULSE 75; TEMP 98.2
== END 2020-05-28 09:20 | disposition home or self-care (01) ==
LOC: JONCCHEMO 07:15
PROVIDERS: ATTEND Internal Medicine Hematology & Oncology
PROC: 3E013GC Introduction of Other Therapeutic Substance into Subcutaneous Tissue, Percutaneous Approach (ICD-10-PCS; principal; 2020-05-28)
DX: D63.1 Anemia in chronic kidney disease (principal); I13.0 Hypertensive heart and chronic kidney disease with heart failure and stage 1 through stage 4 chronic kidney disease, or unspecified chronic kidney disease; N18.9 Chronic kidney disease, unspecified
CPT/HCPCS: 36415; 80053; 82728; 83540; 83550; 85025; 96372; Q5106

== ENCOUNTER 2020-06-04 06:24 | Day surgery (SDC) | payer OTHER ==
[2020-06-04 08:29] LABS: BASO % 0.9 % (0-2.0); EOS % 1.5 % (0-4.5); HEMATOCRIT 31.1 % (35.4-49); HEMOGLOBIN 10.1 GM/dL (11.7-16.9); LYMPH % 28.5 % (8-40); MCH 31.5 pg (25.7-33.7); MCHC 32.4 g/dl (32.0-35.9); MEAN CELL VOLUME 97.3 fl (80-96); MEAN PLT VOLUME 8.4 fl (7.5-11.1); MONO % 19.9 % (3.8-10.2); NEUT % 49.2 % (42.8-82.8); PLATELET COUNT 131 K/MM3 (134-434); RDW 23.8 % (11.9-15.9); WHITE BLOOD COUNT 4.8 K/mm3 (4.0-10.0)
[2020-06-04 08:45] LABS: CALCIUM 9.9 mg/dL (8.5-10.1)
[2020-06-04 08:46] LABS: ALBUMIN 3.3 g/dl (3.4-5.0)
[2020-06-04 08:49] LABS: CREATININE 1.8 mg/dL (0.55-1.3)
[2020-06-04 08:50] LABS: BILIRUBIN,TOTAL 1.4 mg/dL (0.2-1); TOT PROT 7.4 g/dl (6.4-8.2)
[2020-06-04] MEDS ORDERED: EPOETIN ALFA-EPBX 10,000 UNIT/ML VIAL SQ ONE (09:00)
[2020-06-04 10:46] LABS: ANISOCYTOSIS 2+; MACROCYTOSIS 2+; PLATELET ESTIMATE DECREASED
[2020-06-04 17:17] VITALS: BP 117/76; PULSE 76; TEMP 97.7
== END 2020-06-04 08:55 | disposition home or self-care (01) ==
LOC: JONCCHEMO 06:24
PROVIDERS: ATTEND Internal Medicine Hematology & Oncology
PROC: 3E013GC Introduction of Other Therapeutic Substance into Subcutaneous Tissue, Percutaneous Approach (ICD-10-PCS; principal; 2020-06-04)
DX: D63.1 Anemia in chronic kidney disease (principal); I13.0 Hypertensive heart and chronic kidney disease with heart failure and stage 1 through stage 4 chronic kidney disease, or unspecified chronic kidney disease; N18.9 Chronic kidney disease, unspecified
CPT/HCPCS: 36415; 80053; 85025; 96372; Q5106

== ENCOUNTER 2020-06-11 07:22 | Day surgery (SDC) | payer OTHER ==
[2020-06-11 09:00] LABS: BASO % 0.8 % (0-2.0); EOS % 1.9 % (0-4.5); HEMATOCRIT 31.8 % (35.4-49); HEMOGLOBIN 10.1 GM/dL (11.7-16.9); LYMPH % 23.1 % (8-40); MCH 31.1 pg (25.7-33.7); MCHC 31.8 g/dl (32.0-35.9); MEAN PLT VOLUME 9.3 fl (7.5-11.1); NEUT % 59.2 % (42.8-82.8); PLATELET COUNT 145 K/MM3 (134-434); RBC 3.25 M/mm3 (4.00-5.60); WHITE BLOOD COUNT 5.4 K/mm3 (4.0-10.0)
[2020-06-11 09:20] LABS: CALCIUM 10.2 mg/dL (8.5-10.1)
[2020-06-11 09:21] LABS: ALBUMIN 3.3 g/dl (3.4-5.0); BLOOD UREA NITROGEN 63.8 mg/dL (7-18)
[2020-06-11 09:24] LABS: CREATININE 2.3 mg/dL (0.55-1.3)
[2020-06-11 09:26] LABS: BILIRUBIN,TOTAL 1.5 mg/dL (0.2-1); TOT PROT 7.7 g/dl (6.4-8.2)
[2020-06-11] MEDS ORDERED: EPOETIN ALFA-EPBX 10,000 UNIT/ML VIAL SQ ONE (10:00)
[2020-06-11 10:04] VITALS: BP 116/68; PULSE 73; TEMP 97.5
[2020-06-11 10:55] LABS: ANISOCYTOSIS 1+; MACROCYTOSIS 1+; PLATELET ESTIMATE DECREASED
== END 2020-06-11 09:45 | disposition home or self-care (01) ==
LOC: JONCCHEMO 07:22
PROVIDERS: ATTEND Internal Medicine Hematology & Oncology
PROC: 3E013GC Introduction of Other Therapeutic Substance into Subcutaneous Tissue, Percutaneous Approach (ICD-10-PCS; principal; 2020-06-11)
DX: D63.1 Anemia in chronic kidney disease (principal); I13.0 Hypertensive heart and chronic kidney disease with heart failure and stage 1 through stage 4 chronic kidney disease, or unspecified chronic kidney disease; N18.9 Chronic kidney disease, unspecified
CPT/HCPCS: 36415; 80053; 85025; 96372; Q5106

== ENCOUNTER 2020-06-18 16:23 | Day surgery (SDC) | payer OTHER ==
[2020-06-18 09:17] LABS: BASO % 0.8 % (0-2.0); EOS % 1.1 % (0-4.5); HEMATOCRIT 29.3 % (35.4-49); HEMOGLOBIN 9.3 GM/dL (11.7-16.9); LYMPH % 21.2 % (8-40); MCH 30.7 pg (25.7-33.7); MCHC 31.7 g/dl (32.0-35.9); MEAN PLT VOLUME 8.8 fl (7.5-11.1); MONO % 17.6 % (3.8-10.2); NEUT % 59.3 % (42.8-82.8); PLATELET COUNT 147 K/MM3 (134-434); RBC 3.02 M/mm3 (4.00-5.60); RDW 23.2 % (11.9-15.9); WHITE BLOOD COUNT 4.8 K/mm3 (4.0-10.0)
[2020-06-18 09:38] LABS: ALBUMIN 3.2 g/dl (3.4-5.0); BLOOD UREA NITROGEN 70.1 mg/dL (7-18); CALCIUM 8.9 mg/dL (8.5-10.1)
[2020-06-18 09:40] LABS: CREATININE 2.6 mg/dL (0.55-1.3)
[2020-06-18 09:43] LABS: BILIRUBIN,TOTAL 1.6 mg/dL (0.2-1); TOT PROT 7.1 g/dl (6.4-8.2)
[2020-06-18 09:46] LABS: ANISOCYTOSIS 1+; MACROCYTOSIS 0; OVALOCYTE 1+; PLATELET ESTIMATE DECREASED
[2020-06-18 17:09] VITALS: BP 97/57; PULSE 73; TEMP 98.1
== END 2020-06-18 17:11 | disposition home or self-care (01) ==
LOC: JONCCHEMO 16:23
PROVIDERS: ATTEND Internal Medicine Hematology & Oncology
PROC: 3E013GC Introduction of Other Therapeutic Substance into Subcutaneous Tissue, Percutaneous Approach (ICD-10-PCS; principal; 2020-06-18)
DX: D63.1 Anemia in chronic kidney disease (principal); I13.0 Hypertensive heart and chronic kidney disease with heart failure and stage 1 through stage 4 chronic kidney disease, or unspecified chronic kidney disease; N18.9 Chronic kidney disease, unspecified
CPT/HCPCS: 36415; 80053; 82728; 83540; 83550; 85025; 96372; Q5106

== ENCOUNTER 2020-06-25 07:10 | Day surgery (SDC) | payer OTHER ==
[2020-06-25 08:49] LABS: EOS % 1.2 % (0-4.5); HEMOGLOBIN 9.6 GM/dL (11.7-16.9); LYMPH % 17.1 % (8-40); MCH 31.2 pg (25.7-33.7); MEAN CELL VOLUME 97.5 fl (80-96); NEUT % 65.7 % (42.8-82.8); PLATELET COUNT 142 K/MM3 (134-434); RBC 3.07 M/mm3 (4.00-5.60); RDW 22.8 % (11.9-15.9); WHITE BLOOD COUNT 6.5 K/mm3 (4.0-10.0)
[2020-06-25] MEDS ORDERED: IRON SUCROSE INJECTION 200 MG in SODIUM CHLORIDE 100 ML IVPB ONE (09:00)
[2020-06-25] MEDS ORDERED: EPOETIN ALFA-EPBX 10,000 UNIT/ML VIAL SQ ONE (10:00)
[2020-06-25 12:20] LABS: ANISOCYTOSIS 1+; MACROCYTOSIS 1+; PLATELET ESTIMATE NORMAL
[2020-06-25 14:47] VITALS: TEMP 97.9
[2020-06-25 14:52] VITALS: BP 108/51; PULSE 77
== END 2020-06-25 09:35 | disposition home or self-care (01) ==
LOC: JONCCHEMO 07:10
PROVIDERS: ATTEND Internal Medicine Hematology & Oncology
PROC: 3E033GC Introduction of Other Therapeutic Substance into Peripheral Vein, Percutaneous Approach (ICD-10-PCS; principal; 2020-06-25)
PROC: 3E013GC Introduction of Other Therapeutic Substance into Subcutaneous Tissue, Percutaneous Approach (ICD-10-PCS; 2020-06-25)
DX: D63.1 Anemia in chronic kidney disease (principal); I13.0 Hypertensive heart and chronic kidney disease with heart failure and stage 1 through stage 4 chronic kidney disease, or unspecified chronic kidney disease; N18.9 Chronic kidney disease, unspecified
CPT/HCPCS: 36415; 85025; 96365; 96372; J1756; Q5106

== ENCOUNTER 2020-07-02 07:27 | Day surgery (SDC) | payer OTHER ==
[2020-07-02 08:55] LABS: HEMATOCRIT 29.9 % (35.4-49); HEMOGLOBIN 9.6 GM/dL (11.7-16.9); LYMPH % 20.3 % (8-40); MCHC 31.9 g/dl (32.0-35.9); MEAN PLT VOLUME 8.5 fl (7.5-11.1); MONO % 16.6 % (3.8-10.2); NEUT % 60.1 % (42.8-82.8); PLATELET COUNT 162 K/MM3 (134-434); RBC 3.08 M/mm3 (4.00-5.60); RDW 23.6 % (11.9-15.9); WHITE BLOOD COUNT 5.8 K/mm3 (4.0-10.0)
[2020-07-02 09:19] LABS: CALCIUM 9.2 mg/dL (8.5-10.1)
[2020-07-02 09:20] LABS: ALBUMIN 3.3 g/dl (3.4-5.0); BLOOD UREA NITROGEN 47.7 mg/dL (7-18)
[2020-07-02 09:23] LABS: CREATININE 1.8 mg/dL (0.55-1.3)
[2020-07-02 09:24] LABS: BILIRUBIN,TOTAL 1.3 mg/dL (0.2-1); TOT PROT 7.3 g/dl (6.4-8.2)
[2020-07-02 09:27] LABS: ANISOCYTOSIS 1+; MACROCYTOSIS 1+; PLATELET ESTIMATE NORMAL
[2020-07-02] MEDS ORDERED: EPOETIN ALFA-EPBX 10,000 UNIT/ML VIAL SQ ONE (10:00)
[2020-07-02] MEDS ORDERED: IRON SUCROSE INJECTION 200 MG in SODIUM CHLORIDE 100 ML IVPB ONE (10:00)
[2020-07-02 16:39] VITALS: TEMP 98.5
[2020-07-02 16:40] VITALS: BP 96/63; PULSE 78
== END 2020-07-02 10:51 | disposition home or self-care (01) ==
LOC: JONCCHEMO 07:27
PROVIDERS: ATTEND Internal Medicine Hematology & Oncology
PROC: 3E033GC Introduction of Other Therapeutic Substance into Peripheral Vein, Percutaneous Approach (ICD-10-PCS; principal; 2020-07-02)
DX: I13.0 Hypertensive heart and chronic kidney disease with heart failure and stage 1 through stage 4 chronic kidney disease, or unspecified chronic kidney disease (principal); N18.9 Chronic kidney disease, unspecified; D63.1 Anemia in chronic kidney disease
CPT/HCPCS: 36415; 80053; 85025; 96365; 96372; J1756; Q5106

== ENCOUNTER 2020-07-09 07:50 | Day surgery (SDC) | payer OTHER ==
[2020-07-09 09:08] LABS: BASO % 0.9 % (0-2.0); EOS % 1.2 % (0-4.5); HEMATOCRIT 29.7 % (35.4-49); HEMOGLOBIN 9.6 GM/dL (11.7-16.9); LYMPH % 16.8 % (8-40); MCH 30.9 pg (25.7-33.7); MCHC 32.5 g/dl (32.0-35.9); MEAN CELL VOLUME 95.1 fl (80-96); MEAN PLT VOLUME 8.5 fl (7.5-11.1); MONO % 11.3 % (3.8-10.2); NEUT % 69.8 % (42.8-82.8); PLATELET COUNT 176 K/MM3 (134-434); RBC 3.12 M/mm3 (4.00-5.60); RDW 23.1 % (11.9-15.9); WHITE BLOOD COUNT 9.1 K/mm3 (4.0-10.0)
[2020-07-09 09:16] LABS: ALBUMIN 3.1 g/dl (3.4-5.0); BLOOD UREA NITROGEN 55.9 mg/dL (7-18); CALCIUM 9.6 mg/dL (8.5-10.1)
[2020-07-09 09:19] LABS: CREATININE 2.2 mg/dL (0.55-1.3)
[2020-07-09 09:21] LABS: BILIRUBIN,TOTAL 1.2 mg/dL (0.2-1)
[2020-07-09] MEDS ORDERED: IRON SUCROSE INJECTION 200 MG in SODIUM CHLORIDE 100 ML IVPB ONE (09:30)
[2020-07-09] MEDS ORDERED: EPOETIN ALFA-EPBX 10,000 UNIT/ML VIAL SQ ONE (09:30)
[2020-07-09 11:04] LABS: ANISOCYTOSIS 1+; MACROCYTOSIS 1+; PLATELET ESTIMATE NORMAL; TARGET CELLS 1+; TEAR DROP CELLS 1+
[2020-07-09 14:29] VITALS: TEMP 98.4
[2020-07-09 14:31] VITALS: BP 99/67; PULSE 84
== END 2020-07-09 10:10 | disposition home or self-care (01) ==
LOC: JONCCHEMO 07:50
PROVIDERS: ATTEND Internal Medicine Hematology & Oncology
PROC: 3E033GC Introduction of Other Therapeutic Substance into Peripheral Vein, Percutaneous Approach (ICD-10-PCS; principal; 2020-07-09)
PROC: 3E013GC Introduction of Other Therapeutic Substance into Subcutaneous Tissue, Percutaneous Approach (ICD-10-PCS; 2020-07-09)
DX: I13.0 Hypertensive heart and chronic kidney disease with heart failure and stage 1 through stage 4 chronic kidney disease, or unspecified chronic kidney disease (principal); D63.1 Anemia in chronic kidney disease; N18.9 Chronic kidney disease, unspecified; D50.9 Iron deficiency anemia, unspecified
CPT/HCPCS: 36415; 80053; 85025; 96365; 96372; J1756; Q5106

== ENCOUNTER 2020-07-16 07:01 | Day surgery (SDC) | payer OTHER ==
[2020-07-16] MEDS ORDERED: EPOETIN ALFA-EPBX 10,000 UNIT/ML VIAL SQ ONE (08:30)
[2020-07-16 08:58] LABS: ALBUMIN 3.3 g/dl (3.4-5.0); BLOOD UREA NITROGEN 68.9 mg/dL (7-18); CALCIUM 9.5 mg/dL (8.5-10.1)
[2020-07-16 09:01] LABS: CREATININE 3.1 mg/dL (0.55-1.3)
[2020-07-16 09:03] LABS: BILIRUBIN,TOTAL 1.4 mg/dL (0.2-1); TOT PROT 7.4 g/dl (6.4-8.2)
[2020-07-16 09:33] LABS: BASO % 0.5 % (0-2.0); HEMATOCRIT 30.5 % (35.4-49); HEMOGLOBIN 9.6 GM/dL (11.7-16.9); LYMPH % 16.7 % (8-40); MCH 30.7 pg (25.7-33.7); MCHC 31.6 g/dl (32.0-35.9); MEAN CELL VOLUME 97.1 fl (80-96); MEAN PLT VOLUME 9.3 fl (7.5-11.1); MONO % 13.5 % (3.8-10.2); NEUT % 68.3 % (42.8-82.8); PLATELET COUNT 147 K/MM3 (134-434); RBC 3.14 M/mm3 (4.00-5.60); RDW 22.7 % (11.9-15.9); WHITE BLOOD COUNT 8.1 K/mm3 (4.0-10.0)
[2020-07-16] MEDS ORDERED: IRON SUCROSE INJECTION 200 MG in SODIUM CHLORIDE 90 ML IVPB ONE (10:00)
[2020-07-16 13:33] LABS: ANISOCYTOSIS 1+; MACROCYTOSIS 1+; PLATELET ESTIMATE NORMAL
[2020-07-16 15:51] VITALS: TEMP 97.8
[2020-07-16 16:52] VITALS: BP 100/52; PULSE 60
== END 2020-07-16 11:00 | disposition home or self-care (01) ==
LOC: JONCCHEMO 07:01
PROVIDERS: ATTEND Internal Medicine Hematology & Oncology
PROC: 3E033GC Introduction of Other Therapeutic Substance into Peripheral Vein, Percutaneous Approach (ICD-10-PCS; principal; 2020-07-16)
PROC: 3E013GC Introduction of Other Therapeutic Substance into Subcutaneous Tissue, Percutaneous Approach (ICD-10-PCS; 2020-07-16)
DX: D63.1 Anemia in chronic kidney disease (principal); I48.92 Unspecified atrial flutter; N40.0 Benign prostatic hyperplasia without lower urinary tract symptoms; I42.9 Cardiomyopathy, unspecified; I25.10 Atherosclerotic heart disease of native coronary artery without angina pectoris; Z88.0 Allergy status to penicillin; Z95.810 Presence of automatic (implantable) cardiac defibrillator
CPT/HCPCS: 36415; 80053; 85025; 96365; 96372; J1756; Q5106

== ENCOUNTER 2020-07-23 09:50 | Day surgery (SDC) | payer OTHER ==
[2020-07-23 09:38] LABS: BASO % 0.4 % (0-2.0); EOS % 0.8 % (0-4.5); HEMATOCRIT 31.4 % (35.4-49); HEMOGLOBIN 9.8 GM/dL (11.7-16.9); MCH 30.4 pg (25.7-33.7); MCHC 31.3 g/dl (32.0-35.9); MEAN CELL VOLUME 97.4 fl (80-96); MONO % 12.9 % (3.8-10.2); NEUT % 65.9 % (42.8-82.8); PLATELET COUNT 140 K/MM3 (134-434); RBC 3.23 M/mm3 (4.00-5.60); RDW 23.9 % (11.9-15.9); WHITE BLOOD COUNT 8.3 K/mm3 (4.0-10.0)
[2020-07-23] MEDS ORDERED: IRON SUCROSE INJECTION 200 MG in SODIUM CHLORIDE 100 ML IVPB ONE (10:00)
[2020-07-23] MEDS ORDERED: EPOETIN ALFA-EPBX 10,000 UNIT/ML VIAL SQ ONE (10:00)
[2020-07-23 10:05] LABS: BLOOD UREA NITROGEN 57.4 mg/dL (7-18); CALCIUM 9.9 mg/dL (8.5-10.1)
[2020-07-23 10:06] LABS: ALBUMIN 3.4 g/dl (3.4-5.0)
[2020-07-23 10:09] LABS: CREATININE 2.5 mg/dL (0.55-1.3)
[2020-07-23 10:10] LABS: BILIRUBIN,TOTAL 1.3 mg/dL (0.2-1); TOT PROT 7.5 g/dl (6.4-8.2)
[2020-07-23 10:57] LABS: ANISOCYTOSIS 2+; MACROCYTOSIS 1+; OVALOCYTE 2+; PLATELET ESTIMATE DECREASED; TARGET CELLS 2+; TEAR DROP CELLS 2+
[2020-07-23 14:41] VITALS: PULSE 54; TEMP 97.9
[2020-07-23 15:04] VITALS: BP 119/50
== END 2020-07-23 10:00 | disposition home or self-care (01) ==
LOC: JONCCHEMO 09:50
PROVIDERS: ATTEND Internal Medicine Hematology & Oncology
PROC: 3E033GC Introduction of Other Therapeutic Substance into Peripheral Vein, Percutaneous Approach (ICD-10-PCS; principal; 2020-07-23)
PROC: 3E013GC Introduction of Other Therapeutic Substance into Subcutaneous Tissue, Percutaneous Approach (ICD-10-PCS; 2020-07-23)
DX: D63.1 Anemia in chronic kidney disease (principal); I48.92 Unspecified atrial flutter; N40.0 Benign prostatic hyperplasia without lower urinary tract symptoms; I42.9 Cardiomyopathy, unspecified; I25.10 Atherosclerotic heart disease of native coronary artery without angina pectoris; Z88.0 Allergy status to penicillin; Z95.810 Presence of automatic (implantable) cardiac defibrillator
CPT/HCPCS: 36415; 80053; 85025; 96365; 96372; J1756; Q5106

== ENCOUNTER 2020-07-30 07:10 | Day surgery (SDC) | payer OTHER ==
[2020-07-30 08:58] LABS: EOS % 1.1 % (0-4.5); HEMATOCRIT 29.1 % (35.4-49); HEMOGLOBIN 9.4 GM/dL (11.7-16.9); LYMPH % 20.4 % (8-40); MCH 30.8 pg (25.7-33.7); MCHC 32.4 g/dl (32.0-35.9); MEAN CELL VOLUME 95.3 fl (80-96); MONO % 14.5 % (3.8-10.2); PLATELET COUNT 137 K/MM3 (134-434); RBC 3.06 M/mm3 (4.00-5.60); RDW 22.7 % (11.9-15.9)
[2020-07-30 09:23] LABS: CALCIUM 9.8 mg/dL (8.5-10.1)
[2020-07-30 09:24] LABS: ALBUMIN 3.4 g/dl (3.4-5.0); BLOOD UREA NITROGEN 64.7 mg/dL (7-18)
[2020-07-30 09:28] LABS: BILIRUBIN,TOTAL 1.2 mg/dL (0.2-1); TOT PROT 7.2 g/dl (6.4-8.2)
[2020-07-30] MEDS ORDERED: EPOETIN ALFA-EPBX 10,000 UNIT/ML VIAL SQ ONE (10:00)
[2020-07-30 10:43] LABS: ANISOCYTOSIS 2+; MACROCYTOSIS 2+; PLATELET ESTIMATE DECREASED
[2020-07-30 13:26] VITALS: BP 109/75; PULSE 78; TEMP 97.6
== END 2020-07-30 09:25 | disposition home or self-care (01) ==
LOC: JONCCHEMO 07:10
PROVIDERS: ATTEND Internal Medicine Hematology & Oncology
PROC: 3E013GC Introduction of Other Therapeutic Substance into Subcutaneous Tissue, Percutaneous Approach (ICD-10-PCS; principal; 2020-07-30)
DX: I13.0 Hypertensive heart and chronic kidney disease with heart failure and stage 1 through stage 4 chronic kidney disease, or unspecified chronic kidney disease (principal); D63.1 Anemia in chronic kidney disease; N18.9 Chronic kidney disease, unspecified
CPT/HCPCS: 36415; 80053; 85025; 96372; Q5106

== ENCOUNTER 2020-08-06 09:32 | Day surgery (SDC) | payer OTHER ==
[2020-08-06 08:45] LABS: BASO % 0.6 % (0-2.0); EOS % 1.1 % (0-4.5); HEMATOCRIT 31.3 % (35.4-49); HEMOGLOBIN 9.6 GM/dL (11.7-16.9); LYMPH % 17.1 % (8-40); MCH 29.9 pg (25.7-33.7); MCHC 30.6 g/dl (32.0-35.9); MEAN CELL VOLUME 97.7 fl (80-96); MEAN PLT VOLUME 8.6 fl (7.5-11.1); MONO % 12.9 % (3.8-10.2); NEUT % 68.3 % (42.8-82.8); PLATELET COUNT 139 10^3/uL (134-434); RBC 3.21 M/mm3 (4.00-5.60); RDW 23.4 % (11.9-15.9); WHITE BLOOD COUNT 6.9 K/mm3 (4.0-10.0)
[2020-08-06 09:12] LABS: ALBUMIN 3.4 g/dl (3.4-5.0)
[2020-08-06 09:13] LABS: BLOOD UREA NITROGEN 39.1 mg/dL (7-18)
[2020-08-06 09:15] LABS: CREATININE 2.2 mg/dL (0.55-1.3)
[2020-08-06 09:17] LABS: BILIRUBIN,TOTAL 1.4 mg/dL (0.2-1); TOT PROT 7.2 g/dl (6.4-8.2)
[2020-08-06] MEDS ORDERED: EPOETIN ALFA-EPBX 10,000 UNIT/ML VIAL SQ ONE (10:00)
[2020-08-06 11:31] LABS: ANISOCYTOSIS 2+; MACROCYTOSIS 2+; OVALOCYTE 2+; PLATELET ESTIMATE DECREASED; TARGET CELLS 1+
[2020-08-06 11:36] VITALS: BP 112/68; PULSE 80; TEMP 97.7
== END 2020-08-06 09:45 | disposition home or self-care (01) ==
LOC: JONCCHEMO 09:32
PROVIDERS: ATTEND Internal Medicine Hematology & Oncology
PROC: 3E013GC Introduction of Other Therapeutic Substance into Subcutaneous Tissue, Percutaneous Approach (ICD-10-PCS; principal; 2020-08-06)
DX: I13.0 Hypertensive heart and chronic kidney disease with heart failure and stage 1 through stage 4 chronic kidney disease, or unspecified chronic kidney disease (principal); D63.1 Anemia in chronic kidney disease; N18.9 Chronic kidney disease, unspecified
CPT/HCPCS: 36415; 80053; 85025; 96372; Q5106

== ENCOUNTER 2020-08-13 07:17 | Day surgery (SDC) | payer OTHER ==
[2020-08-13 08:49] LABS: BASO % 0.9 % (0-2.0); HEMATOCRIT 31.1 % (35.4-49); HEMOGLOBIN 9.5 GM/dL (11.7-16.9); LYMPH % 22.9 % (8-40); MCH 29.9 pg (25.7-33.7); MCHC 30.5 g/dl (32.0-35.9); MEAN CELL VOLUME 98.2 fl (80-96); MEAN PLT VOLUME 9.5 fl (7.5-11.1); MONO % 15.5 % (3.8-10.2); NEUT % 59.7 % (42.8-82.8); PLATELET COUNT 136 10^3/uL (134-434); RBC 3.16 M/mm3 (4.00-5.60); RDW 23.5 % (11.9-15.9); WHITE BLOOD COUNT 5.1 K/mm3 (4.0-10.0)
[2020-08-13 09:16] LABS: ALBUMIN 3.5 g/dl (3.4-5.0); BLOOD UREA NITROGEN 37.6 mg/dL (7-18); CALCIUM 10.6 mg/dL (8.5-10.1)
[2020-08-13 09:19] LABS: CREATININE 2.2 mg/dL (0.55-1.3)
[2020-08-13 09:22] LABS: BILIRUBIN,TOTAL 1.3 mg/dL (0.2-1); TOT PROT 7.4 g/dl (6.4-8.2)
[2020-08-13] MEDS ORDERED: EPOETIN ALFA-EPBX 10,000 UNIT/ML VIAL SQ ONE (10:00)
[2020-08-13 16:38] VITALS: BP 103/60; PULSE 81; TEMP 98
== END 2020-08-13 09:50 | disposition home or self-care (01) ==
LOC: JONCCHEMO 07:17
PROVIDERS: ATTEND Internal Medicine Hematology & Oncology
PROC: 3E013GC Introduction of Other Therapeutic Substance into Subcutaneous Tissue, Percutaneous Approach (ICD-10-PCS; principal; 2020-08-13)
DX: I13.0 Hypertensive heart and chronic kidney disease with heart failure and stage 1 through stage 4 chronic kidney disease, or unspecified chronic kidney disease (principal); D63.1 Anemia in chronic kidney disease; N18.9 Chronic kidney disease, unspecified
CPT/HCPCS: 36415; 80053; 82728; 83540; 83550; 85025; 96372; Q5106

== ENCOUNTER 2020-08-20 07:33 | Day surgery (SDC) | payer OTHER ==
[2020-08-20] MEDS ORDERED: EPOETIN ALFA-EPBX 10,000 UNIT/ML VIAL SQ ONE (09:00)
[2020-08-20 09:13] LABS: BASO % 0.6 % (0-2.0); EOS % 1.6 % (0-4.5); HEMATOCRIT 28.1 % (35.4-49); HEMOGLOBIN 8.7 GM/dL (11.7-16.9); LYMPH % 20.9 % (8-40); MCHC 30.8 g/dl (32.0-35.9); MEAN CELL VOLUME 97.4 fl (80-96); MEAN PLT VOLUME 8.4 fl (7.5-11.1); MONO % 14.8 % (3.8-10.2); NEUT % 62.1 % (42.8-82.8); PLATELET COUNT 132 10^3/uL (134-434); RBC 2.88 M/mm3 (4.00-5.60); RDW 23.7 % (11.9-15.9); WHITE BLOOD COUNT 4.3 K/mm3 (4.0-10.0)
[2020-08-20 09:31] LABS: BLOOD UREA NITROGEN 48.7 mg/dL (7-18); CALCIUM 9.5 mg/dL (8.5-10.1)
[2020-08-20 09:32] LABS: ALBUMIN 3.3 g/dl (3.4-5.0)
[2020-08-20 09:35] LABS: CREATININE 2.5 mg/dL (0.55-1.3)
[2020-08-20 09:36] LABS: BILIRUBIN,TOTAL 1.4 mg/dL (0.2-1); TOT PROT 7.1 g/dl (6.4-8.2)
[2020-08-20 10:42] LABS: ANISOCYTOSIS 2+; MACROCYTOSIS 1+; OVALOCYTE 1+; PLATELET ESTIMATE DECREASED
[2020-08-20 16:40] VITALS: BP 100/59; PULSE 73; TEMP 98.2
== END 2020-08-20 10:00 | disposition home or self-care (01) ==
LOC: JONCCHEMO 07:33 → EDSTATUS 07:33 → JONCCHEMO 10:00
PROVIDERS: ATTEND Internal Medicine Hematology & Oncology
PROC: 3E013GC Introduction of Other Therapeutic Substance into Subcutaneous Tissue, Percutaneous Approach (ICD-10-PCS; principal; 2020-08-20)
DX: I13.0 Hypertensive heart and chronic kidney disease with heart failure and stage 1 through stage 4 chronic kidney disease, or unspecified chronic kidney disease (principal); D63.1 Anemia in chronic kidney disease; N18.9 Chronic kidney disease, unspecified
CPT/HCPCS: 36415; 80053; 85025; 96372; Q5106

== ENCOUNTER 2020-08-27 07:19 | Day surgery (SDC) | payer OTHER ==
[2020-08-27 08:40] LABS: EOS % 1.4 % (0-4.5); HEMATOCRIT 28.2 % (35.4-49); HEMOGLOBIN 8.9 GM/dL (11.7-16.9); LYMPH % 27.2 % (8-40); MCH 30.3 pg (25.7-33.7); MCHC 31.4 g/dl (32.0-35.9); MEAN CELL VOLUME 96.5 fl (80-96); MEAN PLT VOLUME 8.2 fl (7.5-11.1); MONO % 12.8 % (3.8-10.2); NEUT % 57.6 % (42.8-82.8); PLATELET COUNT 135 10^3/uL (134-434); RBC 2.93 M/mm3 (4.00-5.60); RDW 24.2 % (11.9-15.9); WHITE BLOOD COUNT 4.8 K/mm3 (4.0-10.0)
[2020-08-27 09:07] LABS: ALBUMIN 3.3 g/dl (3.4-5.0); BLOOD UREA NITROGEN 49.2 mg/dL (7-18); CALCIUM 9.9 mg/dL (8.5-10.1)
[2020-08-27 09:12] LABS: CREATININE 3.1 mg/dL (0.55-1.3)
[2020-08-27 09:13] LABS: BILIRUBIN,TOTAL 1.4 mg/dL (0.2-1); TOT PROT 6.9 g/dl (6.4-8.2)
[2020-08-27] MEDS ORDERED: EPOETIN ALFA-EPBX 10,000 UNIT/ML VIAL SQ ONE (10:00)
[2020-08-27] MEDS ORDERED: IRON SUCROSE INJECTION 200 MG in SODIUM CHLORIDE 100 ML IVPB ONE (10:00)
[2020-08-27 12:16] LABS: ANISOCYTOSIS 1+; MACROCYTOSIS 1+; PLATELET ESTIMATE DECREASED; TARGET CELLS 1+
[2020-08-27 15:37] VITALS: TEMP 98.1
[2020-08-27 15:39] VITALS: BP 101/61; PULSE 76
== END 2020-08-27 09:30 | disposition home or self-care (01) ==
LOC: JONCCHEMO 07:19
PROVIDERS: ATTEND Internal Medicine Hematology & Oncology
PROC: 3E033GC Introduction of Other Therapeutic Substance into Peripheral Vein, Percutaneous Approach (ICD-10-PCS; principal; 2020-08-27)
DX: D50.9 Iron deficiency anemia, unspecified (principal)
CPT/HCPCS: 36415; 80053; 85025; 96365; J1756; Q5106

== ENCOUNTER 2020-09-03 07:43 | Day surgery (SDC) | payer OTHER ==
[2020-09-03 08:37] LABS: BASO % 0.9 % (0-2.0); EOS % 0.6 % (0-4.5); HEMATOCRIT 28.4 % (35.4-49); HEMOGLOBIN 8.9 GM/dL (11.7-16.9); LYMPH % 21.7 % (8-40); MCH 30.4 pg (25.7-33.7); MCHC 31.4 g/dl (32.0-35.9); MEAN CELL VOLUME 96.8 fl (80-96); MEAN PLT VOLUME 8.1 fl (7.5-11.1); MONO % 15.4 % (3.8-10.2); NEUT % 61.4 % (42.8-82.8); PLATELET COUNT 125 10^3/uL (134-434); RBC 2.94 M/mm3 (4.00-5.60); RDW 24.6 % (11.9-15.9); WHITE BLOOD COUNT 5.8 K/mm3 (4.0-10.0)
[2020-09-03 08:57] LABS: CALCIUM 9.6 mg/dL (8.5-10.1)
[2020-09-03 08:58] LABS: ALBUMIN 3.3 g/dl (3.4-5.0); BLOOD UREA NITROGEN 50.6 mg/dL (7-18)
[2020-09-03] MEDS ORDERED: EPOETIN ALFA-EPBX 10,000 UNIT/ML VIAL SQ ONE (09:00)
[2020-09-03 09:01] LABS: CREATININE 2.9 mg/dL (0.55-1.3)
[2020-09-03 09:02] LABS: BILIRUBIN,TOTAL 1.3 mg/dL (0.2-1)
[2020-09-03] MEDS ORDERED: IRON SUCROSE INJECTION 200 MG in SODIUM CHLORIDE 90 ML IVPB ONE (10:00)
[2020-09-03 10:30] VITALS: BP 117/72; PULSE 55; TEMP 97.8
[2020-09-03 10:41] LABS: ANISOCYTOSIS 0; MACROCYTOSIS 0; OVALOCYTE 1+; PLATELET ESTIMATE DECREASED
== END 2020-09-03 10:34 | disposition home or self-care (01) ==
LOC: JONCCHEMO 07:43
PROVIDERS: ATTEND Internal Medicine Hematology & Oncology
PROC: 3E033GC Introduction of Other Therapeutic Substance into Peripheral Vein, Percutaneous Approach (ICD-10-PCS; principal; 2020-09-03)
PROC: 3E013GC Introduction of Other Therapeutic Substance into Subcutaneous Tissue, Percutaneous Approach (ICD-10-PCS; 2020-09-03)
DX: D50.9 Iron deficiency anemia, unspecified (principal)
CPT/HCPCS: 36415; 80053; 85025; 96365; 96372; J1756; Q5106

== ENCOUNTER 2020-09-10 07:29 | Day surgery (SDC) | payer OTHER ==
[2020-09-10 09:21] LABS: BASO % 0.5 % (0-2.0); HEMATOCRIT 27.7 % (35.4-49); HEMOGLOBIN 8.7 GM/dL (11.7-16.9); LYMPH % 21.7 % (8-40); MCH 30.7 pg (25.7-33.7); MCHC 31.4 g/dl (32.0-35.9); MEAN CELL VOLUME 97.5 fl (80-96); MEAN PLT VOLUME 9.2 fl (7.5-11.1); MONO % 15.2 % (3.8-10.2); NEUT % 61.6 % (42.8-82.8); PLATELET COUNT 124 10^3/uL (134-434); RBC 2.84 M/mm3 (4.00-5.60); RDW 24.2 % (11.9-15.9); WHITE BLOOD COUNT 5.1 K/mm3 (4.0-10.0)
[2020-09-10 09:41] LABS: ALBUMIN 3.5 g/dl (3.4-5.0); CALCIUM 9.5 mg/dL (8.5-10.1)
[2020-09-10 09:43] LABS: BLOOD UREA NITROGEN 49.6 mg/dL (7-18)
[2020-09-10 09:45] LABS: CREATININE 2.7 mg/dL (0.55-1.3)
[2020-09-10 09:47] LABS: BILIRUBIN,TOTAL 1.2 mg/dL (0.2-1); TOT PROT 7.5 g/dl (6.4-8.2)
[2020-09-10] MEDS ORDERED: IRON SUCROSE INJECTION 200 MG in SODIUM CHLORIDE 100 ML IVPB ONE (10:00)
[2020-09-10] MEDS ORDERED: EPOETIN ALFA-EPBX 10,000 UNIT/ML VIAL SQ ONE (10:00)
[2020-09-10 10:31] LABS: ANISOCYTOSIS 1+; MACROCYTOSIS 1+; PLATELET ESTIMATE DECREASED; TEAR DROP CELLS 1+
[2020-09-10 15:11] VITALS: BP 110/60; PULSE 70; TEMP 98.4
== END 2020-09-10 10:55 | disposition home or self-care (01) ==
LOC: JONCCHEMO 07:29
PROVIDERS: ATTEND Internal Medicine Hematology & Oncology
PROC: 3E033GC Introduction of Other Therapeutic Substance into Peripheral Vein, Percutaneous Approach (ICD-10-PCS; principal; 2020-09-10)
DX: D50.9 Iron deficiency anemia, unspecified (principal)
CPT/HCPCS: 36415; 80053; 85025; 96365; J1756; Q5106

== ENCOUNTER 2020-09-17 07:28 | Day surgery (SDC) | payer OTHER ==
[2020-09-17 09:18] LABS: BASO % 0.5 % (0-2.0); HEMATOCRIT 28.7 % (35.4-49); HEMOGLOBIN 9.1 GM/dL (11.7-16.9); LYMPH % 23.3 % (8-40); MCH 31.3 pg (25.7-33.7); MCHC 31.8 g/dl (32.0-35.9); MEAN CELL VOLUME 98.3 fl (80-96); MEAN PLT VOLUME 9.2 fl (7.5-11.1); MONO % 14.8 % (3.8-10.2); NEUT % 60.4 % (42.8-82.8); PLATELET COUNT 148 10^3/uL (134-434); RBC 2.92 M/mm3 (4.00-5.60); RDW 24.4 % (11.9-15.9); WHITE BLOOD COUNT 6.5 K/mm3 (4.0-10.0)
[2020-09-17 09:27] LABS: ALBUMIN 3.5 g/dl (3.4-5.0)
[2020-09-17 09:28] LABS: BLOOD UREA NITROGEN 45.9 mg/dL (7-18)
[2020-09-17 09:31] LABS: CREATININE 2.7 mg/dL (0.55-1.3)
[2020-09-17 09:32] LABS: BILIRUBIN,TOTAL 1.3 mg/dL (0.2-1); TOT PROT 7.5 g/dl (6.4-8.2)
[2020-09-17] MEDS ORDERED: EPOETIN ALFA-EPBX 10,000 UNIT/ML VIAL SQ ONE (10:00)
[2020-09-17] MEDS ORDERED: IRON SUCROSE INJECTION 200 MG in SODIUM CHLORIDE 100 ML IVPB ONE (10:00)
[2020-09-17 10:51] LABS: ANISOCYTOSIS 1+; MACROCYTOSIS 1+; OVALOCYTE 1+; PLATELET ESTIMATE DECREASED; TARGET CELLS 1+
[2020-09-17 14:27] VITALS: BP 109/57; PULSE 60; TEMP 97.8
== END 2020-09-17 09:45 | disposition home or self-care (01) ==
LOC: JONCCHEMO 07:28
PROVIDERS: ATTEND Internal Medicine Hematology & Oncology
PROC: 3E013GC Introduction of Other Therapeutic Substance into Subcutaneous Tissue, Percutaneous Approach (ICD-10-PCS; principal; 2020-09-17)
DX: D50.9 Iron deficiency anemia, unspecified (principal)
CPT/HCPCS: 36415; 80053; 85025; 96372; Q5106

== ENCOUNTER 2020-09-24 07:23 | Day surgery (SDC) | payer OTHER ==
[2020-09-24 08:56] LABS: BASO % 0.4 % (0-2.0); EOS % 0.9 % (0-4.5); HEMATOCRIT 27.3 % (35.4-49); HEMOGLOBIN 8.8 GM/dL (11.7-16.9); LYMPH % 17.6 % (8-40); MCH 31.2 pg (25.7-33.7); MCHC 32.2 g/dl (32.0-35.9); MEAN CELL VOLUME 96.9 fl (80-96); MEAN PLT VOLUME 8.5 fl (7.5-11.1); MONO % 13.4 % (3.8-10.2); NEUT % 67.7 % (42.8-82.8); PLATELET COUNT 137 10^3/uL (134-434); RBC 2.82 M/mm3 (4.00-5.60); RDW 24.5 % (11.9-15.9); WHITE BLOOD COUNT 6.4 K/mm3 (4.0-10.0)
[2020-09-24 09:17] LABS: CALCIUM 9.6 mg/dL (8.5-10.1)
[2020-09-24 09:18] LABS: ALBUMIN 3.3 g/dl (3.4-5.0); BLOOD UREA NITROGEN 51.1 mg/dL (7-18)
[2020-09-24 09:21] LABS: CREATININE 2.8 mg/dL (0.55-1.3)
[2020-09-24 09:22] LABS: BILIRUBIN,TOTAL 1.1 mg/dL (0.2-1)
[2020-09-24 09:23] LABS: TOT PROT 7.2 g/dl (6.4-8.2)
[2020-09-24] MEDS ORDERED: EPOETIN ALFA-EPBX 10,000 UNIT/ML VIAL SQ ONE (10:00)
[2020-09-24 13:54] LABS: ANISOCYTOSIS 1+; MACROCYTOSIS 1+; OVALOCYTE 1+; PLATELET ESTIMATE DECREASED; TARGET CELLS 1+; TEAR DROP CELLS 1+; TOXIC GRANULATION 1+
[2020-09-24 17:11] VITALS: BP 95/53; PULSE 54; TEMP 98.2
== END 2020-09-24 09:40 | disposition home or self-care (01) ==
LOC: JONCCHEMO 07:23
PROVIDERS: ATTEND Internal Medicine Hematology & Oncology
PROC: 3E013GC Introduction of Other Therapeutic Substance into Subcutaneous Tissue, Percutaneous Approach (ICD-10-PCS; principal; 2020-09-24)
DX: D50.9 Iron deficiency anemia, unspecified (principal)
CPT/HCPCS: 36415; 80053; 85025; 96372; Q5106

== ENCOUNTER 2020-10-01 07:02 | Day surgery (SDC) | payer OTHER ==
[2020-10-01 09:31] LABS: BASO % 1.1 % (0-2.0); HEMATOCRIT 26.7 % (35.4-49); HEMOGLOBIN 8.6 GM/dL (11.7-16.9); LYMPH % 22.1 % (8-40); MCH 31.1 pg (25.7-33.7); MCHC 32.3 g/dl (32.0-35.9); MEAN CELL VOLUME 96.2 fl (80-96); MEAN PLT VOLUME 9.9 fl (7.5-11.1); MONO % 14.5 % (3.8-10.2); NEUT % 61.3 % (42.8-82.8); PLATELET COUNT 114 10^3/uL (134-434); RBC 2.77 M/mm3 (4.00-5.60); WHITE BLOOD COUNT 5.3 K/mm3 (4.0-10.0)
[2020-10-01 09:49] LABS: ALBUMIN 3.2 g/dl (3.4-5.0); BLOOD UREA NITROGEN 56.1 mg/dL (7-18); CALCIUM 9.6 mg/dL (8.5-10.1)
[2020-10-01 09:53] LABS: BILIRUBIN,TOTAL 1.4 mg/dL (0.2-1); CREATININE 3.3 mg/dL (0.55-1.3)
[2020-10-01] MEDS ORDERED: EPOETIN ALFA-EPBX 10,000 UNIT/ML VIAL SQ ONE (10:00)
[2020-10-01 14:00] LABS: ANISOCYTOSIS 1+; MACROCYTOSIS 1+; OVALOCYTE 1+; PLATELET ESTIMATE DECREASED; TARGET CELLS 1+
[2020-10-01 15:19] VITALS: BP 99/50; PULSE 55; TEMP 98.2
== END 2020-10-01 10:15 | disposition home or self-care (01) ==
LOC: JONCCHEMO 07:02
PROVIDERS: ATTEND Internal Medicine Hematology & Oncology
PROC: 3E013GC Introduction of Other Therapeutic Substance into Subcutaneous Tissue, Percutaneous Approach (ICD-10-PCS; principal; 2020-10-01)
DX: D50.9 Iron deficiency anemia, unspecified (principal)
CPT/HCPCS: 36415; 80053; 85025; 96372; Q5106

== ENCOUNTER 2020-10-08 06:40 | Day surgery (SDC) | payer OTHER ==
[2020-10-08 08:41] LABS: BASO % 0.8 % (0-2.0); EOS % 1.1 % (0-4.5); HEMATOCRIT 28.8 % (35.4-49); HEMOGLOBIN 9.1 GM/dL (11.7-16.9); LYMPH % 23.9 % (8-40); MCH 30.6 pg (25.7-33.7); MCHC 31.8 g/dl (32.0-35.9); MEAN CELL VOLUME 96.4 fl (80-96); MEAN PLT VOLUME 8.7 fl (7.5-11.1); MONO % 14.4 % (3.8-10.2); NEUT % 59.8 % (42.8-82.8); PLATELET COUNT 139 10^3/uL (134-434); RBC 2.99 M/mm3 (4.00-5.60); RDW 23.7 % (11.9-15.9); WHITE BLOOD COUNT 5.7 K/mm3 (4.0-10.0)
[2020-10-08 09:01] LABS: CALCIUM 9.7 mg/dL (8.5-10.1)
[2020-10-08 09:02] LABS: ALBUMIN 3.4 g/dl (3.4-5.0)
[2020-10-08 09:05] LABS: CREATININE 3.4 mg/dL (0.55-1.3)
[2020-10-08 09:06] LABS: BILIRUBIN,TOTAL 1.3 mg/dL (0.2-1)
[2020-10-08 09:07] LABS: TOT PROT 7.3 g/dl (6.4-8.2)
[2020-10-08 09:53] LABS: ANISOCYTOSIS 2+; MACROCYTOSIS 2+; OVALOCYTE 1+; PLATELET ESTIMATE DECREASED
[2020-10-08] MEDS ORDERED: EPOETIN ALFA-EPBX 10,000 UNIT/ML VIAL SQ ONE (10:00)
[2020-10-08 14:00] VITALS: BP 92/62; PULSE 55; TEMP 98.8
== END 2020-10-08 10:15 | disposition home or self-care (01) ==
LOC: JONCCHEMO 06:40
PROVIDERS: ATTEND Internal Medicine Hematology & Oncology
PROC: 3E013GC Introduction of Other Therapeutic Substance into Subcutaneous Tissue, Percutaneous Approach (ICD-10-PCS; principal; 2020-10-08)
DX: D63.1 Anemia in chronic kidney disease (principal); D50.9 Iron deficiency anemia, unspecified; I50.9 Heart failure, unspecified
CPT/HCPCS: 36415; 80053; 81003; 82043; 82570; 84100; 84156; 84550; 85025; 96372; Q5106

== ENCOUNTER 2020-10-15 07:31 | Day surgery (SDC) | payer OTHER ==
[2020-10-15 09:25] LABS: HEMATOCRIT 26.9 % (35.4-49); HEMOGLOBIN 8.7 GM/dL (11.7-16.9); MCH 30.4 pg (25.7-33.7); MCHC 32.2 g/dl (32.0-35.9); MEAN CELL VOLUME 94.5 fl (80-96); MEAN PLT VOLUME 9.1 fl (7.5-11.1); PLATELET COUNT 125 10^3/uL (134-434); RBC 2.85 M/mm3 (4.00-5.60); RDW 24.3 % (11.9-15.9); WHITE BLOOD COUNT 4.8 K/mm3 (4.0-10.0)
[2020-10-15 09:48] LABS: ALBUMIN 3.2 g/dl (3.4-5.0); BLOOD UREA NITROGEN 70.6 mg/dL (7-18); CALCIUM 9.2 mg/dL (8.5-10.1)
[2020-10-15 09:51] LABS: CREATININE 4.1 mg/dL (0.55-1.3)
[2020-10-15 09:57] LABS: BILIRUBIN,TOTAL 1.4 mg/dL (0.2-1); TOT PROT 6.6 g/dl (6.4-8.2)
[2020-10-15] MEDS ORDERED: EPOETIN ALFA-EPBX 10,000 UNIT/ML VIAL SQ ONE (10:00)
[2020-10-15 10:32] VITALS: BP 97/54; PULSE 54; TEMP 97.5
[2020-10-15 10:36] LABS: ANISOCYTOSIS 2+; MACROCYTOSIS 2+; OVALOCYTE 1+; PLATELET ESTIMATE DECREASED; TARGET CELLS 1+
== END 2020-10-15 10:05 | disposition home or self-care (01) ==
LOC: JONCCHEMO 07:31
PROVIDERS: ATTEND Internal Medicine Hematology & Oncology
PROC: 3E033GC Introduction of Other Therapeutic Substance into Peripheral Vein, Percutaneous Approach (ICD-10-PCS; principal; 2020-10-15)
DX: D63.1 Anemia in chronic kidney disease (principal); I48.92 Unspecified atrial flutter; N40.0 Benign prostatic hyperplasia without lower urinary tract symptoms; Z95.810 Presence of automatic (implantable) cardiac defibrillator; I42.9 Cardiomyopathy, unspecified; I25.10 Atherosclerotic heart disease of native coronary artery without angina pectoris; Z98.890 Other specified postprocedural states; Z88.0 Allergy status to penicillin; Z87.891 Personal history of nicotine dependence
CPT/HCPCS: 36415; 80053; 82728; 83540; 83550; 85025; 96372; Q5106

== ENCOUNTER 2020-10-22 07:15 | Day surgery (SDC) | payer OTHER ==
[2020-10-22] MEDS ORDERED: EPOETIN ALFA-EPBX 10,000 UNIT/ML VIAL SQ ONE (09:30)
[2020-10-22 09:37] LABS: BASO % 1.2 % (0-2.0); EOS % 0.9 % (0-4.5); HEMATOCRIT 27.9 % (35.4-49); LYMPH % 21.7 % (8-40); MCH 30.9 pg (25.7-33.7); MCHC 32.4 g/dl (32.0-35.9); MEAN CELL VOLUME 95.4 fl (80-96); MEAN PLT VOLUME 9.2 fl (7.5-11.1); MONO % 17.3 % (3.8-10.2); NEUT % 58.9 % (42.8-82.8); PLATELET COUNT 135 10^3/uL (134-434); RBC 2.93 M/mm3 (4.00-5.60); RDW 23.3 % (11.9-15.9); WHITE BLOOD COUNT 4.1 K/mm3 (4.0-10.0)
[2020-10-22 09:53] LABS: ALBUMIN 3.4 g/dl (3.4-5.0); CALCIUM 8.8 mg/dL (8.5-10.1)
[2020-10-22 09:57] LABS: CREATININE 7.2 mg/dL (0.55-1.3)
[2020-10-22 09:58] LABS: BILIRUBIN,TOTAL 1.3 mg/dL (0.2-1); TOT PROT 7.3 g/dl (6.4-8.2)
[2020-10-22 10:00] LABS: BLOOD UREA NITROGEN 96.3 mg/dL (7-18)
[2020-10-22 12:24] LABS: ANISOCYTOSIS 1+; MACROCYTOSIS 0; OVALOCYTE 1+; PLATELET ESTIMATE DECREASED; TARGET CELLS 1+; TEAR DROP CELLS 1+
[2020-10-22 16:25] VITALS: BP 97/58; PULSE 55; TEMP 99
== END 2020-10-22 16:28 | disposition home or self-care (01) ==
LOC: JONCCHEMO 07:15
PROVIDERS: ATTEND Internal Medicine Hematology & Oncology
PROC: 3E013GC Introduction of Other Therapeutic Substance into Subcutaneous Tissue, Percutaneous Approach (ICD-10-PCS; principal; 2020-10-22)
DX: Z76.89 Persons encountering health services in other specified circumstances (principal); D63.1 Anemia in chronic kidney disease
CPT/HCPCS: 36415; 80053; 81003; 83540; 83550; 84100; 84550; 85025; 85027; 93970-TC; 96372; Q5106

== ENCOUNTER 2020-10-29 08:42 | Inpatient (IN) | payer OTHER ==
[2020-10-29 10:51] LABS: HEMATOCRIT 25.6 % (35.4-49); HEMOGLOBIN 8.3 GM/dL (11.7-16.9); MCH 30.8 pg (25.7-33.7); MCHC 32.4 g/dl (32.0-35.9); MEAN PLT VOLUME 8.2 fl (7.5-11.1); PLATELET COUNT 126 10^3/uL (134-434); RDW 23.5 % (11.9-15.9); WHITE BLOOD COUNT 4.4 K/mm3 (4.0-10.0)
[2020-10-29 10:58] LABS: INR 2.04 (0.83-1.09); PROTHROMBIN TIME (PATIENT) 24.6 SEC (9.7-13.0)
[2020-10-29 11:01] LABS: ACTIVATED PTT 41.2 SECONDS (25.2-36.5)
[2020-10-29 11:40] LABS: ALBUMIN 3.3 g/dl (3.4-5.0); ALK PHOS 76 U/L (45-117); ANION GAP 13 MMOL/L (8-16); BILIRUBIN,TOTAL 1.4 mg/dL (0.2-1); BLOOD UREA NITROGEN 125.4 mg/dL (7-18); CALCIUM 8.9 mg/dL (8.5-10.1); CHLORIDE 103 mmol/L (98-107); CO2 21 mmol/L (21-32); CREATININE 9.6 mg/dL (0.55-1.3); GLUCOSE,RANDOM 83 mg/dL (74-106); MAGNESIUM 2.6 mg/dL (1.8-2.4); N-TERMINAL BNP 13299.1 pg/ml (5-450); SGOT/AST 11 U/L (15-37); SGPT/ALT 16 U/L (13-61); SODIUM 137 mmol/L (136-145); TOT PROT 7.2 g/dl (6.4-8.2)
[2020-10-29 11:44] LABS: PHOSPHOROUS 8.5 mg/dL (2.5-4.9)
[2020-10-29 12:32] LABS: ANISOCYTOSIS 1+; MACROCYTOSIS 1+; OVALOCYTE 1+; PLATELET ESTIMATE DECREASED; TARGET CELLS 1+; TEAR DROP CELLS 1+
[2020-10-29] MEDS ORDERED: ALBUMIN HUMAN 25% 12.5 GM/50 ML VIAL IVPB SCH (13:00)
[2020-10-29 14:23] LABS: URINE UREA NITROGEN 311 mg/dL (350-1000)
[2020-10-29 14:40] LABS: URINE COLOR RED
[2020-10-29 14:41] LABS: URINE APPEARANCE TURBID; URINE BILIRUBIN MODERATE (NEGATIVE); URINE GLUCOSE (UA) NEGATIVE (NEGATIVE)
[2020-10-29 14:42] LABS: URINE PROTEIN 3+ (NEGATIVE); URINE UROBILINOGEN 0.2 mg/dL (0.2-1.0)
[2020-10-29] MEDS ORDERED: DIGOXIN 0.125 MG TABLET ONE (14:51)
[2020-10-29] MEDS ORDERED: PT OWN MED DRAWER 7, Y5N ONE (14:52)
[2020-10-29] MEDS: DIGOXIN 0.125 MG TABLET PO SCH (15:07)
[2020-10-29] MEDS: MIDODRINE HCL 2.5 MG TABLET PO SCH ×2 (15:07→21:13)
[2020-10-29] MEDS: ASPIRIN COATED 81 MG TABLET.EC PO SCH (18:16)
[2020-10-29 19:20] LABS: URIC ACID 13.5 mg/dL (2.6-7.2)
[2020-10-29] MEDS: CARVEDILOL 3.125 MG TABLET (FP) PO SCH (21:14)
[2020-10-29] MEDS: ALBUMIN HUMAN 25% 12.5 GM/50 ML VIAL IVPB SCH (21:16)
[2020-10-30] MEDS: ALBUMIN HUMAN 25% 12.5 GM/50 ML VIAL IVPB SCH ×4 (03:14→21:06)
[2020-10-30 09:06] LABS: HEMOGLOBIN 7.9 GM/dL (11.7-16.9); MCH 30.7 pg (25.7-33.7); MCHC 32.8 g/dl (32.0-35.9); MEAN CELL VOLUME 93.6 fl (80-96); MEAN PLT VOLUME 8.8 fl (7.5-11.1); PLATELET COUNT 106 10^3/uL (134-434); RBC 2.57 M/mm3 (4.00-5.60); RDW 23.5 % (11.9-15.9); WHITE BLOOD COUNT 4.2 K/mm3 (4.0-10.0)
[2020-10-30 09:25] LABS: CHLORIDE 103 mmol/L (98-107); SODIUM 137 mmol/L (136-145)
[2020-10-30 09:27] LABS: ALBUMIN 3.2 g/dl (3.4-5.0)
[2020-10-30 09:29] LABS: BILIRUBIN,DIRECT 0.8 mg/dL (0.0-0.2)
[2020-10-30] MEDS: CALCITRIOL 0.25 MCG CAPSULE (FP) PO SCH (09:30)
[2020-10-30] MEDS: CARVEDILOL 3.125 MG TABLET (FP) PO SCH ×2 (09:30→21:05)
[2020-10-30 09:31] LABS: BILIRUBIN,TOTAL 1.3 mg/dL (0.2-1)
[2020-10-30] MEDS: ASPIRIN COATED 81 MG TABLET.EC PO SCH (09:31)
[2020-10-30] MEDS: PANTOPRAZOLE 40 MG TABLET PO SCH (09:31)
[2020-10-30 09:32] LABS: TOT PROT 6.8 g/dl (6.4-8.2)
[2020-10-30] MEDS: POLYETHYLENE GLYCOL (HEALTHYLAX) 3350 17 GM PACKET PO SCH (09:33)
[2020-10-30 09:37] LABS: ALBUMIN 3.2 g/dl (3.4-5.0); CALCIUM 9.1 mg/dL (8.5-10.1)
[2020-10-30 09:38] LABS: ANION GAP 13 MMOL/L (8-16); CO2 21 mmol/L (21-32); GLUCOSE,RANDOM 82 mg/dL (74-106)
[2020-10-30 09:39] LABS: MAGNESIUM 2.6 mg/dL (1.8-2.4); SGPT/ALT 15 U/L (13-61)
[2020-10-30 09:40] LABS: SGOT/AST 9 U/L (15-37)
[2020-10-30 09:41] LABS: BILIRUBIN,TOTAL 1.4 mg/dL (0.2-1)
[2020-10-30 09:42] LABS: ALK PHOS 72 U/L (45-117); TOT PROT 6.8 g/dl (6.4-8.2)
[2020-10-30 10:04] LABS: BLOOD UREA NITROGEN 133.6 mg/dL (7-18); CREATININE 9.8 mg/dL (0.55-1.3)
[2020-10-30] MEDS: MIDODRINE HCL 2.5 MG TABLET PO SCH ×3 (10:44→17:40)
[2020-10-30] MEDS: SODIUM ZIRCONIUM CYCLOSILICATE (LOKELMA) 5 GM PACKET PO SCH (12:32)
[2020-10-30] MEDS ORDERED: RASBURICASE 7.5 MG in SODIUM CHLORIDE 50 ML IVPB ONE (13:54)
[2020-10-30] MEDS ORDERED: EPOETIN ALFA-EPBX 20,000 UNIT/ML VIAL SQ ONE (14:00)
[2020-10-30] MEDS: OCTREOTIDE ACETATE 100 MCG/1 ML SQ SCH ×2 (14:36→21:05)
[2020-10-30] MEDS ORDERED: SODIUM CHLORIDE IVPB ONE (15:00)
[2020-10-30] MEDS ORDERED: RASBURICASE IVPB ONE (15:00)
[2020-10-31] MEDS: ALBUMIN HUMAN 25% 12.5 GM/50 ML VIAL IVPB SCH ×2 (02:20→10:34)
[2020-10-31] MEDS: OCTREOTIDE ACETATE 100 MCG/1 ML SQ SCH ×3 (06:03→21:43)
[2020-10-31 08:54] LABS: HEMOGLOBIN 8.1 GM/dL (11.7-16.9); MCH 31.1 pg (25.7-33.7); MCHC 32.5 g/dl (32.0-35.9); MEAN CELL VOLUME 95.8 fl (80-96); MEAN PLT VOLUME 8.8 fl (7.5-11.1); PLATELET COUNT 115 10^3/uL (134-434); WHITE BLOOD COUNT 4.4 K/mm3 (4.0-10.0)
[2020-10-31 09:33] LABS: CHLORIDE 103 mmol/L (98-107); SODIUM 137 mmol/L (136-145)
[2020-10-31] MEDS: CARVEDILOL 3.125 MG TABLET (FP) PO SCH ×3 (09:34→21:43)
[2020-10-31] MEDS: CALCITRIOL 0.25 MCG CAPSULE (FP) PO SCH (09:35)
[2020-10-31] MEDS: PANTOPRAZOLE 40 MG TABLET PO SCH (09:35)
[2020-10-31] MEDS: POLYETHYLENE GLYCOL (HEALTHYLAX) 3350 17 GM PACKET PO SCH (09:35)
[2020-10-31] MEDS: MIDODRINE HCL 2.5 MG TABLET PO SCH ×3 (09:35→17:12)
[2020-10-31] MEDS: SODIUM ZIRCONIUM CYCLOSILICATE (LOKELMA) 5 GM PACKET PO SCH (09:35)
[2020-10-31 09:36] LABS: ANION GAP 13 MMOL/L (8-16); CO2 22 mmol/L (21-32); MAGNESIUM 2.6 mg/dL (1.8-2.4)
[2020-10-31] MEDS: ALLOPURINOL 100 MG TABLET (FP) PO SCH (09:36)
[2020-10-31 09:39] LABS: GLUCOSE,RANDOM 121 mg/dL (74-106); SGOT/AST 10 U/L (15-37); SGPT/ALT 17 U/L (13-61)
[2020-10-31 09:41] LABS: TOT PROT 7.7 g/dl (6.4-8.2)
[2020-10-31 09:42] LABS: BILIRUBIN,DIRECT 0.9 mg/dL (0.0-0.2)
[2020-10-31 09:44] LABS: BILIRUBIN,TOTAL 1.5 mg/dL (0.2-1)
[2020-10-31 09:45] LABS: ALK PHOS 70 U/L (45-117)
[2020-10-31 09:48] LABS: BLOOD UREA NITROGEN 123.1 mg/dL (7-18); CREATININE 10.2 mg/dL (0.55-1.3); URIC ACID < 0.2 mg/dL (2.6-7.2)
[2020-10-31 11:46] LABS: PHOSPHOROUS 9.3 mg/dL (2.5-4.9)
[2020-10-31] MEDS: SEVELAMER CARBONATE 800 MG TAB (FP) PO SCH ×2 (12:30→17:12)
[2020-10-31] MEDS ORDERED: PT OWN MED DRAWER 7, Y5N ONE (21:04)
[2020-11-01] MEDS: OCTREOTIDE ACETATE 100 MCG/1 ML SQ SCH ×3 (06:21→23:02)
[2020-11-01 07:36] LABS: HEMATOCRIT 23.1 % (35.4-49); HEMOGLOBIN 7.5 GM/dL (11.7-16.9); MCH 30.5 pg (25.7-33.7); MCHC 32.3 g/dl (32.0-35.9); MEAN CELL VOLUME 94.4 fl (80-96); MEAN PLT VOLUME 9.4 fl (7.5-11.1); PLATELET COUNT 105 10^3/uL (134-434); RBC 2.45 M/mm3 (4.00-5.60); RDW 23.7 % (11.9-15.9); WHITE BLOOD COUNT 4.7 K/mm3 (4.0-10.0)
[2020-11-01 07:41] LABS: INR 1.32 (0.83-1.09); PROTHROMBIN TIME (PATIENT) 16.1 SEC (9.7-13.0)
[2020-11-01 07:56] LABS: CHLORIDE 103 mmol/L (98-107); SODIUM 137 mmol/L (136-145)
[2020-11-01 08:01] LABS: ALBUMIN 3.6 g/dl (3.4-5.0); ANION GAP 12 MMOL/L (8-16); CO2 22 mmol/L (21-32); GLUCOSE,RANDOM 98 mg/dL (74-106)
[2020-11-01 08:03] LABS: SGPT/ALT 15 U/L (13-61)
[2020-11-01 08:04] LABS: BILIRUBIN,DIRECT 0.7 mg/dL (0.0-0.2); SGOT/AST 9 U/L (15-37)
[2020-11-01 08:05] LABS: BILIRUBIN,TOTAL 1.2 mg/dL (0.2-1); TOT PROT 7.1 g/dl (6.4-8.2)
[2020-11-01 08:06] LABS: ALK PHOS 57 U/L (45-117)
[2020-11-01] MEDS: SEVELAMER CARBONATE 800 MG TAB (FP) PO SCH ×3 (08:12→18:15)
[2020-11-01 08:13] LABS: BLOOD UREA NITROGEN 128.2 mg/dL (7-18); CREATININE 10.5 mg/dL (0.55-1.3)
[2020-11-01] MEDS: MIDODRINE HCL 2.5 MG TABLET PO SCH ×3 (10:20→18:15)
[2020-11-01] MEDS: CALCITRIOL 0.25 MCG CAPSULE (FP) PO SCH (10:20)
[2020-11-01] MEDS: POLYETHYLENE GLYCOL (HEALTHYLAX) 3350 17 GM PACKET PO SCH (10:21)
[2020-11-01] MEDS: CARVEDILOL 3.125 MG TABLET (FP) PO SCH ×2 (10:21→23:02)
[2020-11-01] MEDS: SODIUM ZIRCONIUM CYCLOSILICATE (LOKELMA) 5 GM PACKET PO SCH (10:21)
[2020-11-01] MEDS: ALLOPURINOL 100 MG TABLET (FP) PO SCH (10:21)
[2020-11-01] MEDS: PANTOPRAZOLE 40 MG TABLET PO SCH (10:21)
[2020-11-01 10:32] LABS: ANISOCYTOSIS 2+; MACROCYTOSIS 1+; OVALOCYTE 1+; PLATELET ESTIMATE DECREASED; TEAR DROP CELLS 1+
[2020-11-01] MEDS: DIGOXIN 0.125 MG TABLET PO SCH (14:50)
[2020-11-01 14:59] LABS: URIC ACID < 0.2 mg/dL (2.6-7.2)
[2020-11-01] MEDS ORDERED: PT OWN MED DRAWER 7, Y5N ONE (22:40)
[2020-11-02] MEDS: OCTREOTIDE ACETATE 100 MCG/1 ML SQ SCH ×2 (07:13→16:56)
[2020-11-02 08:03] LABS: CHLORIDE 104 mmol/L (98-107); SODIUM 137 mmol/L (136-145)
[2020-11-02 08:06] LABS: GLUCOSE,RANDOM 92 mg/dL (74-106)
[2020-11-02 08:07] LABS: HEMATOCRIT 22.4 % (35.4-49); HEMOGLOBIN 7.4 GM/dL (11.7-16.9); MCH 31.1 pg (25.7-33.7); MCHC 32.9 g/dl (32.0-35.9); MEAN CELL VOLUME 94.8 fl (80-96); MEAN PLT VOLUME 9.5 fl (7.5-11.1); PLATELET COUNT 105 10^3/uL (134-434); RBC 2.36 M/mm3 (4.00-5.60); RDW 24.2 % (11.9-15.9); WHITE BLOOD COUNT 5.9 K/mm3 (4.0-10.0)
[2020-11-02 08:09] LABS: ANION GAP 13 MMOL/L (8-16); CALCIUM 9.3 mg/dL (8.5-10.1); CO2 21 mmol/L (21-32); MAGNESIUM 2.5 mg/dL (1.8-2.4)
[2020-11-02 08:23] LABS: BLOOD UREA NITROGEN 136.7 mg/dL (7-18); CREATININE 11.3 mg/dL (0.55-1.3); URIC ACID < 0.2 mg/dL (2.6-7.2)
[2020-11-02 09:53] LABS: PHOSPHOROUS 9.3 mg/dL (2.5-4.9)
[2020-11-02] MEDS: SEVELAMER CARBONATE 800 MG TAB (FP) PO SCH ×2 (10:11→16:56)
[2020-11-02] MEDS: POLYETHYLENE GLYCOL (HEALTHYLAX) 3350 17 GM PACKET PO SCH (10:11)
[2020-11-02] MEDS: CALCITRIOL 0.25 MCG CAPSULE (FP) PO SCH (10:11)
[2020-11-02] MEDS: PANTOPRAZOLE 40 MG TABLET PO SCH (10:11)
[2020-11-02] MEDS: MIDODRINE HCL 2.5 MG TABLET PO SCH ×2 (10:11→16:56)
[2020-11-02] MEDS: CARVEDILOL 3.125 MG TABLET (FP) PO SCH (10:11)
[2020-11-02] MEDS: ALLOPURINOL 100 MG TABLET (FP) PO SCH (10:11)
[2020-11-02] MEDS: SODIUM ZIRCONIUM CYCLOSILICATE (LOKELMA) 5 GM PACKET PO SCH (10:11)
[2020-11-02] MEDS ORDERED: MIDAZOLAM HCL 2 MG/2 ML SINGLE DOSE VIAL ONE (15:12)
[2020-11-02] MEDS ORDERED: ceFAZolin SODIUM 1 GM VIAL IVPB ONE (15:15)
[2020-11-02] MEDS ORDERED: LIDOCAINE HCL 2% JELLY 10 ML CARTRIDGE ONE (15:20)
[2020-11-02] MEDS ORDERED: ONDANSETRON 4 MG/2 ML VIAL IVPUSH PRN (15:23)
[2020-11-02] MEDS ORDERED: LACTATED RINGERS SOLUTION 1,000 ML IV SCH (15:30)
[2020-11-02 17:33] LABS: BF WBC & OTHER NUCLEATED CELLS 233 /mm3
[2020-11-02 20:06] LABS: BODY FLUID MACROPHAGES 56 %; BODY FLUID MONOCYTE 3 %; BODYL FLD EOSINOPHIL 1 %
[2020-11-02 23:48] LABS: HEMATOCRIT 22.9 % (35.4-49); HEMOGLOBIN 7.5 GM/dL (11.7-16.9); MCH 30.9 pg (25.7-33.7); MCHC 32.6 g/dl (32.0-35.9); MEAN CELL VOLUME 94.8 fl (80-96); MEAN PLT VOLUME 9.4 fl (7.5-11.1); PLATELET COUNT 108 10^3/uL (134-434); RBC 2.42 M/mm3 (4.00-5.60); RDW 23.9 % (11.9-15.9); WHITE BLOOD COUNT 9.7 K/mm3 (4.0-10.0)
[2020-11-02 23:57] LABS: ADD RBC MORPHOLOGY YES
[2020-11-03 00:45] LABS: ANISOCYTOSIS 2+; MACROCYTOSIS 2+; PLATELET ESTIMATE DECREASED; TARGET CELLS 1+
[2020-11-03] MEDS ORDERED: DIGOXIN 0.125 MG TABLET PO SCH (09:45)
[2020-11-03 10:33] LABS: HEMATOCRIT 19.1 % (35.4-49); MCHC 31.8 g/dl (32.0-35.9); MEAN CELL VOLUME 94.3 fl (80-96); PLATELET COUNT 105 10^3/uL (134-434); RBC 2.03 M/mm3 (4.00-5.60); RDW 24.1 % (11.9-15.9); WHITE BLOOD COUNT 12.6 K/mm3 (4.0-10.0)
[2020-11-03 10:44] LABS: CHLORIDE 105 mmol/L (98-107); SODIUM 138 mmol/L (136-145)
[2020-11-03 10:46] LABS: CALCIUM 8.7 mg/dL (8.5-10.1)
[2020-11-03 10:48] LABS: ANION GAP 14 MMOL/L (8-16); CO2 19 mmol/L (21-32); GLUCOSE,RANDOM 154 mg/dL (74-106)
[2020-11-03 10:51] LABS: PHOSPHOROUS 8.7 mg/dL (2.5-4.9); SGOT/AST < 3 U/L (15-37); SGPT/ALT 7 U/L (13-61)
[2020-11-03 10:52] LABS: TOT PROT 5.8 g/dl (6.4-8.2)
[2020-11-03 10:53] LABS: ALK PHOS 45 U/L (45-117)
[2020-11-03 10:56] LABS: HEMOGLOBIN 6.1 GM/dL (11.7-16.9)
[2020-11-03] MEDS: CARVEDILOL 3.125 MG TABLET (FP) PO SCH ×2 (11:03→23:12)
[2020-11-03] MEDS ORDERED: FUROSEMIDE 100 MG/10 ML INJECTABLE VIAL IVPB ONE (11:31)
[2020-11-03 11:47] LABS: ALBUMIN 2.6 g/dl (3.4-5.0); BLOOD UREA NITROGEN 137.5 mg/dL (7-18); CREATININE 11.8 mg/dL (0.55-1.3)
[2020-11-03 12:21] LABS: ANISOCYTOSIS 1+; MACROCYTOSIS 1+; PLATELET ESTIMATE DECREASED
[2020-11-03] MEDS ORDERED: CEFTRIAXONE 1,000 MG in DEXTROSE 5%-WATER - 50 ML IVPB SCH (13:30)
[2020-11-03] MEDS ORDERED: DESMOPRESSIN ACETATE 4 MCG/ML AMP IVPB ONE ×2 (14:15→15:15)
[2020-11-03] MEDS: CALCITRIOL 0.25 MCG CAPSULE (FP) PO SCH (14:17)
[2020-11-03] MEDS: SODIUM ZIRCONIUM CYCLOSILICATE (LOKELMA) 5 GM PACKET PO SCH (14:17)
[2020-11-03] MEDS: MIDODRINE HCL 2.5 MG TABLET PO SCH ×2 (14:18→18:16)
[2020-11-03] MEDS ORDERED: PT OWN MED DRAWER 7, Y5N ONE (18:56)
[2020-11-04] MEDS ORDERED: ACETAMINOPHEN 325 MG TABLET (FP) PO ONE ×2 (06:36→20:54)
[2020-11-04] MEDS ORDERED: HEPARIN NA (PORCINE) 5,000 UNITS/ML 1ML VIAL ONE (08:42)
[2020-11-04] MEDS ORDERED: MIDAZOLAM HCL 2 MG/2 ML SINGLE DOSE VIAL ONE (08:56)
[2020-11-04] MEDS ORDERED: ceFAZolin SODIUM 1 GM VIAL ONE (08:56)
[2020-11-04] MEDS ORDERED: PROPOFOL 20 ML ONE ×3 (08:56)
[2020-11-04] MEDS ORDERED: LIDOCAINE HCL/PF 2% SDV 5ML VIAL ONE (08:56)
[2020-11-04] MEDS ORDERED: ceFAZolin SODIUM 1 GM VIAL IVPB ONE (09:11)
[2020-11-04] MEDS ORDERED: LIDOCAINE HCL 1%, 10 MG/ML (20ML VIAL) PNB ONE ×2 (09:27)
[2020-11-04] MEDS ORDERED: SODIUM CHLORIDE 250 ML IV PRN (10:21)
[2020-11-04] MEDS ORDERED: ONDANSETRON 4 MG/2 ML VIAL IVPUSH PRN (10:23)
[2020-11-04] MEDS: SODIUM ZIRCONIUM CYCLOSILICATE (LOKELMA) 5 GM PACKET PO SCH (11:21)
[2020-11-04] MEDS: CARVEDILOL 3.125 MG TABLET (FP) PO SCH ×2 (11:21→22:48)
[2020-11-04] MEDS: MIDODRINE HCL 2.5 MG TABLET PO SCH (11:22)
[2020-11-04] MEDS: CALCITRIOL 0.25 MCG CAPSULE (FP) PO SCH (11:22)
[2020-11-04] MEDS: ALBUMIN HUMAN 25% 12.5 GM/50 ML VIAL IVPB SCH ×4 (12:30→14:00)
[2020-11-04] MEDS ORDERED: PT OWN MED DRAWER 7, Y5N ONE (12:49)
[2020-11-04] MEDS ORDERED: EPOETIN ALFA-EPBX 20,000 UNIT/ML VIAL IVPUSH ONE (13:00)
[2020-11-04 13:14] LABS: MCH 31.1 pg (25.7-33.7); MCHC 33.8 g/dl (32.0-35.9); MEAN CELL VOLUME 91.9 fl (80-96); MEAN PLT VOLUME 9.4 fl (7.5-11.1); PLATELET COUNT 107 10^3/uL (134-434); RBC 1.85 M/mm3 (4.00-5.60); RDW 21.9 % (11.9-15.9); WHITE BLOOD COUNT 10.5 K/mm3 (4.0-10.0)
[2020-11-04 13:18] LABS: HEMOGLOBIN 5.7 GM/dL (11.7-16.9)
[2020-11-04 13:32] LABS: CHLORIDE 106 mmol/L (98-107); SODIUM 138 mmol/L (136-145)
[2020-11-04 13:36] LABS: ALBUMIN 2.4 g/dl (3.4-5.0); ANION GAP 14 MMOL/L (8-16); CALCIUM 8.5 mg/dL (8.5-10.1); CO2 18 mmol/L (21-32); GLUCOSE,RANDOM 125 mg/dL (74-106)
[2020-11-04 13:40] LABS: PHOSPHOROUS 8.8 mg/dL (2.5-4.9); SGOT/AST 5 U/L (15-37); TOT PROT 5.6 g/dl (6.4-8.2)
[2020-11-04 13:42] LABS: ALK PHOS 40 U/L (45-117)
[2020-11-04] MEDS ORDERED: MIDODRINE HCL 2.5 MG TABLET PO SCH (14:00)
[2020-11-04] MEDS: MIDODRINE HCL 5 MG TABLET PO SCH ×3 (14:00→19:01)
[2020-11-04 14:07] LABS: BLOOD UREA NITROGEN 144.6 mg/dL (7-18); CREATININE 12.1 mg/dL (0.55-1.3); SGPT/ALT 13 U/L (13-61)
[2020-11-04 17:06] LABS: BODY FLUID ALBUMIN 2.3 g/dL (Not Estab.)
[2020-11-04] MEDS ORDERED: ACETAMINOPHEN 325 MG TABLET (FP) ONE (20:44)
[2020-11-05] MEDS ORDERED: TORSEMIDE 20 MG TABLET (FP) PO SCH (10:00)
[2020-11-05 10:29] LABS: HEMATOCRIT 21.3 % (35.4-49); HEMOGLOBIN 7.1 GM/dL (11.7-16.9); MCH 30.6 pg (25.7-33.7); MCHC 33.4 g/dl (32.0-35.9); MEAN CELL VOLUME 91.7 fl (80-96); MEAN PLT VOLUME 9.3 fl (7.5-11.1); PLATELET COUNT 127 10^3/uL (134-434); RBC 2.32 M/mm3 (4.00-5.60); RDW 19.2 % (11.9-15.9); WHITE BLOOD COUNT 16.6 K/mm3 (4.0-10.0)
[2020-11-05 10:52] LABS: CHLORIDE 104 mmol/L (98-107); SODIUM 140 mmol/L (136-145)
[2020-11-05 10:54] LABS: ALBUMIN 2.5 g/dl (3.4-5.0); ANION GAP 12 MMOL/L (8-16); CALCIUM 8.1 mg/dL (8.5-10.1); CO2 24 mmol/L (21-32)
[2020-11-05 10:55] LABS: GLUCOSE,RANDOM 140 mg/dL (74-106)
[2020-11-05 10:57] LABS: SGOT/AST 6 U/L (15-37); SGPT/ALT < 6 U/L (13-61)
[2020-11-05 10:59] LABS: BILIRUBIN,TOTAL 1.9 mg/dL (0.2-1); PHOSPHOROUS 6.6 mg/dL (2.5-4.9); TOT PROT 5.5 g/dl (6.4-8.2)
[2020-11-05 11:01] LABS: ALK PHOS 51 U/L (45-117)
[2020-11-05 11:06] LABS: CREATININE 9.8 mg/dL (0.55-1.3)
[2020-11-05] MEDS: CARVEDILOL 3.125 MG TABLET (FP) PO SCH ×2 (11:22→22:03)
[2020-11-05] MEDS: CALCITRIOL 0.25 MCG CAPSULE (FP) PO SCH (11:22)
[2020-11-05] MEDS: MIDODRINE HCL 5 MG TABLET PO SCH ×3 (11:22→17:45)
[2020-11-05] MEDS: SODIUM ZIRCONIUM CYCLOSILICATE (LOKELMA) 5 GM PACKET PO SCH (11:22)
[2020-11-05] MEDS: TORSEMIDE 20 MG TABLET (FP) PO SCH (11:22)
[2020-11-05] MEDS: ALBUMIN HUMAN 25% 12.5 GM/50 ML VIAL IVPB SCH ×4 (13:40→15:00)
[2020-11-05] MEDS ORDERED: SODIUM CHLORIDE 250 ML IV PRN (14:33)
[2020-11-06 03:07] LABS: FIBROSIS SCORE. 0.39 (0.00-0.21); HCV ALPHA 2 MACRO CHART 89 mg/dL (110-276); NECRO.INFLAM ACT.SCORE 0.02 (0.00-0.17); NECROINFLAM. ACTIVITY GRADE A0-No activity (.)
[2020-11-06 07:59] LABS: HEMATOCRIT 22.1 % (35.4-49); HEMOGLOBIN 7.6 GM/dL (11.7-16.9); MCHC 34.5 g/dl (32.0-35.9); MEAN CELL VOLUME 89.8 fl (80-96); PLATELET COUNT 100 10^3/uL (134-434); RBC 2.46 M/mm3 (4.00-5.60); RDW 17.9 % (11.9-15.9); WHITE BLOOD COUNT 14.2 K/mm3 (4.0-10.0)
[2020-11-06 08:13] LABS: CALCIUM 8.3 mg/dL (8.5-10.1)
[2020-11-06 08:16] LABS: URIC ACID 1.4 mg/dL (2.6-7.2)
[2020-11-06 08:17] LABS: CREATININE 7.2 mg/dL (0.55-1.3); PHOSPHOROUS 5.4 mg/dL (2.5-4.9)
[2020-11-06 08:58] LABS: BLOOD UREA NITROGEN 61.3 mg/dL (7-18)
[2020-11-06] MEDS: DIGOXIN 0.125 MG TABLET PO SCH (09:31)
[2020-11-06] MEDS: CARVEDILOL 3.125 MG TABLET (FP) PO SCH ×2 (09:32→21:56)
[2020-11-06] MEDS: CALCITRIOL 0.25 MCG CAPSULE (FP) PO SCH (09:32)
[2020-11-06] MEDS: SODIUM ZIRCONIUM CYCLOSILICATE (LOKELMA) 5 GM PACKET PO SCH (09:33)
[2020-11-06] MEDS: MIDODRINE HCL 5 MG TABLET PO SCH ×3 (09:33→17:31)
[2020-11-06] MEDS: TORSEMIDE 20 MG TABLET (FP) PO SCH (09:33)
[2020-11-06] MEDS: traMADol HCL 50 MG TABLET PO PRN (11:13)
[2020-11-07] MEDS: traMADol HCL 50 MG TABLET PO PRN ×2 (06:23→18:32)
[2020-11-07] MEDS: MIDODRINE HCL 5 MG TABLET PO SCH ×3 (10:13→17:15)
[2020-11-07] MEDS: TORSEMIDE 20 MG TABLET (FP) PO SCH (10:17)
[2020-11-07] MEDS: VITAMIN B COMP W-C 1 EA TABLET (NEPHRO-VITE) PO SCH (11:12)
[2020-11-07] MEDS: CALCITRIOL 0.25 MCG CAPSULE (FP) PO SCH (11:12)
[2020-11-07] MEDS: CARVEDILOL 3.125 MG TABLET (FP) PO SCH ×2 (11:17→21:53)
[2020-11-07] MEDS ORDERED: SODIUM CHLORIDE 250 ML IV PRN (13:31)
[2020-11-07] MEDS ORDERED: SENNOSIDES 8.6MG TABLET (FP) PO PRN (18:53)
[2020-11-07] MEDS: POLYETHYLENE GLYCOL (HEALTHYLAX) 3350 17 GM PACKET PO SCH (21:53)
[2020-11-08] MEDS: MIDODRINE HCL 5 MG TABLET PO SCH ×4 (06:18→18:48)
[2020-11-08 07:47] LABS: CHLORIDE 100 mmol/L (98-107); SODIUM 138 mmol/L (136-145)
[2020-11-08 07:55] LABS: HEMATOCRIT 20.4 % (35.4-49); MCH 31.2 pg (25.7-33.7); MCHC 33.3 g/dl (32.0-35.9); MEAN CELL VOLUME 93.8 fl (80-96); MEAN PLT VOLUME 9.1 fl (7.5-11.1); PLATELET COUNT 109 10^3/uL (134-434); RBC 2.18 M/mm3 (4.00-5.60); RDW 19.6 % (11.9-15.9); WHITE BLOOD COUNT 14.5 K/mm3 (4.0-10.0)
[2020-11-08 07:56] LABS: CALCIUM 8.9 mg/dL (8.5-10.1)
[2020-11-08 07:57] LABS: ALBUMIN 2.6 g/dl (3.4-5.0); ANION GAP 10 MMOL/L (8-16); BLOOD UREA NITROGEN 82.1 mg/dL (7-18); CO2 28 mmol/L (21-32); GLUCOSE,RANDOM 87 mg/dL (74-106)
[2020-11-08 08:00] LABS: SGOT/AST 21 U/L (15-37); SGPT/ALT < 6 U/L (13-61)
[2020-11-08 08:01] LABS: BILIRUBIN,TOTAL 1.6 mg/dL (0.2-1)
[2020-11-08 08:02] LABS: TOT PROT 5.7 g/dl (6.4-8.2)
[2020-11-08 08:24] LABS: ALK PHOS 92 U/L (45-117); CREATININE 9.4 mg/dL (0.55-1.3)
[2020-11-08 09:24] LABS: HEMOGLOBIN 6.8 GM/dL (11.7-16.9)
[2020-11-08 10:21] LABS: ANISOCYTOSIS 1+; MACROCYTOSIS 1+; OVALOCYTE 1+; PLATELET ESTIMATE DECREASED; ROULEAU 1+
[2020-11-08] MEDS ORDERED: EPOETIN ALFA-EPBX 20,000 UNIT/ML VIAL SQ ONE (10:30)
[2020-11-08] MEDS: CARVEDILOL 3.125 MG TABLET (FP) PO SCH ×2 (15:16→21:38)
[2020-11-08] MEDS: TORSEMIDE 20 MG TABLET (FP) PO SCH (15:16)
[2020-11-08] MEDS: POLYETHYLENE GLYCOL (HEALTHYLAX) 3350 17 GM PACKET PO SCH (15:17)
[2020-11-08] MEDS: CALCITRIOL 0.25 MCG CAPSULE (FP) PO SCH (15:21)
[2020-11-08] MEDS: VITAMIN B COMP W-C 1 EA TABLET (NEPHRO-VITE) PO SCH (15:21)
[2020-11-08] MEDS: traMADol HCL 50 MG TABLET PO PRN (17:48)
[2020-11-09] MEDS: traMADol HCL 50 MG TABLET PO PRN ×2 (02:06→22:08)
[2020-11-09 07:53] LABS: HEMATOCRIT 26.2 % (35.4-49); MCH 31.2 pg (25.7-33.7); MCHC 34.3 g/dl (32.0-35.9); MEAN CELL VOLUME 91.1 fl (80-96); MEAN PLT VOLUME 8.6 fl (7.5-11.1); PLATELET COUNT 96 10^3/uL (134-434); RBC 2.87 M/mm3 (4.00-5.60); RDW 17.5 % (11.9-15.9); WHITE BLOOD COUNT 13.8 K/mm3 (4.0-10.0)
[2020-11-09] MEDS: POLYETHYLENE GLYCOL (HEALTHYLAX) 3350 17 GM PACKET PO SCH (09:34)
[2020-11-09] MEDS: TORSEMIDE 20 MG TABLET (FP) PO SCH (09:34)
[2020-11-09] MEDS: CARVEDILOL 3.125 MG TABLET (FP) PO SCH ×2 (09:35→21:04)
[2020-11-09] MEDS: CALCITRIOL 0.25 MCG CAPSULE (FP) PO SCH (09:35)
[2020-11-09] MEDS: VITAMIN B COMP W-C 1 EA TABLET (NEPHRO-VITE) PO SCH (09:35)
[2020-11-09] MEDS: MIDODRINE HCL 5 MG TABLET PO SCH ×3 (09:35→17:16)
[2020-11-09] MEDS: DIGOXIN 0.125 MG TABLET PO SCH (09:47)
[2020-11-09 15:25] VITALS: PULSE 55
[2020-11-10 07:30] LABS: HEMATOCRIT 27.6 % (35.4-49); HEMOGLOBIN 9.2 GM/dL (11.7-16.9); MCHC 33.2 g/dl (32.0-35.9); MEAN CELL VOLUME 93.5 fl (80-96); MEAN PLT VOLUME 9.5 fl (7.5-11.1); PLATELET COUNT 105 10^3/uL (134-434); RBC 2.95 M/mm3 (4.00-5.60); RDW 18.5 % (11.9-15.9); WHITE BLOOD COUNT 13.8 K/mm3 (4.0-10.0)
[2020-11-10 08:10] LABS: CHLORIDE 99 mmol/L (98-107); SODIUM 137 mmol/L (136-145)
[2020-11-10 08:25] LABS: ALBUMIN 2.9 g/dl (3.4-5.0); ANION GAP 10 MMOL/L (8-16); CALCIUM 9.2 mg/dL (8.5-10.1); CO2 28 mmol/L (21-32); GLUCOSE,RANDOM 78 mg/dL (74-106); SGPT/ALT 9 U/L (13-61)
[2020-11-10 08:26] LABS: BLOOD UREA NITROGEN 61.4 mg/dL (7-18)
[2020-11-10 08:27] LABS: BILIRUBIN,TOTAL 2.7 mg/dL (0.2-1); TOT PROT 6.2 g/dl (6.4-8.2)
[2020-11-10 08:28] LABS: ALK PHOS 119 U/L (45-117)
[2020-11-10 08:29] LABS: SGOT/AST 31 U/L (15-37)
[2020-11-10 08:37] LABS: CREATININE 7.5 mg/dL (0.55-1.3)
[2020-11-10 09:22] LABS: ANISOCYTOSIS 0; HELMET CELLS 0; HOWELL-JOLLY BODIES 0; MACROCYTOSIS 0; OVALOCYTE 0; PLATELET ESTIMATE DECREASED; ROULEAU 0; SICKELED CELLS 0; TARGET CELLS 0; TEAR DROP CELLS 0; TOXIC GRANULATION 0
[2020-11-10] MEDS: POLYETHYLENE GLYCOL (HEALTHYLAX) 3350 17 GM PACKET PO SCH (09:23)
[2020-11-10] MEDS: MIDODRINE HCL 5 MG TABLET PO SCH (09:24)
[2020-11-10] MEDS: VITAMIN B COMP W-C 1 EA TABLET (NEPHRO-VITE) PO SCH (09:24)
[2020-11-10] MEDS: CALCITRIOL 0.25 MCG CAPSULE (FP) PO SCH (09:24)
[2020-11-10] MEDS: TORSEMIDE 20 MG TABLET (FP) PO SCH (09:26)
[2020-11-10] MEDS: traMADol HCL 50 MG TABLET PO PRN (09:30)
[2020-11-10] MEDS: CARVEDILOL 3.125 MG TABLET (FP) PO SCH (09:33)
[2020-11-10 11:01] VITALS: BP 92/45; TEMP 98.1
[2020-11-10 13:38] VITALS: BMI 20.3
== END 2020-11-10 13:45 | disposition home or self-care (01) | DRG 981 ==
LOC: JER 08:42 → JERBED 10:42 → J6S 16:56 → J4W 10-30 03:22
PROVIDERS: ADMIT Internal Medicine; ATTEND Internal Medicine
PROC: 0TQD8ZZ Repair Urethra, Via Natural or Artificial Opening Endoscopic (ICD-10-PCS; 2020-11-02)
PROC: 0T7D8ZZ Dilation of Urethra, Via Natural or Artificial Opening Endoscopic (ICD-10-PCS; 2020-11-02)
PROC: 0W9G30Z Drainage of Peritoneal Cavity with Drainage Device, Percutaneous Approach (ICD-10-PCS; 2020-11-02)
PROC: 0TCB8ZZ Extirpation of Matter from Bladder, Via Natural or Artificial Opening Endoscopic (ICD-10-PCS; principal; 2020-11-02 14:00)
PROC: 0JH60XZ Insertion of Tunneled Vascular Access Device into Chest Subcutaneous Tissue and Fascia, Open Approach (ICD-10-PCS; 2020-11-04)
PROC: 05HM33Z Insertion of Infusion Device into Right Internal Jugular Vein, Percutaneous Approach (ICD-10-PCS; 2020-11-04)
PROC: B513ZZA Fluoroscopy of Right Jugular Veins, Guidance (ICD-10-PCS; 2020-11-04)
PROC: 30233N1 Transfusion of Nonautologous Red Blood Cells into Peripheral Vein, Percutaneous Approach (ICD-10-PCS; 2020-11-04)
PROC: 5A1D70Z Performance of Urinary Filtration, Intermittent, Less than 6 Hours Per Day (ICD-10-PCS; 2020-11-04)
DX: I13.0 Hypertensive heart and chronic kidney disease with heart failure and stage 1 through stage 4 chronic kidney disease, or unspecified chronic kidney disease (principal); I50.23 Acute on chronic systolic (congestive) heart failure; N17.9 Acute kidney failure, unspecified; R18.8 Other ascites; E87.2 Acidosis; N39.0 Urinary tract infection, site not specified; N18.4 Chronic kidney disease, stage 4 (severe); I48.19 Other persistent atrial fibrillation; N40.1 Benign prostatic hyperplasia with lower urinary tract symptoms; K75.81 Nonalcoholic steatohepatitis (NASH); D64.9 Anemia, unspecified; I27.81 Cor pulmonale (chronic); N32.9 Bladder disorder, unspecified; K74.60 Unspecified cirrhosis of liver; R31.9 Hematuria, unspecified; D69.6 Thrombocytopenia, unspecified; E87.70 Fluid overload, unspecified
CPT/HCPCS: 36415; 36430; 36511; 71045-TC-FY; 76000-TC-FY; 76700-TC; 76856-TC; 76942-TC; 80048; 80053; 80076; 80162; 81003; 82042; 82105; 82150; 82172; 82465; 82550; 82570; 82945; 82977; 83010; 83615; 83735; 83880; 83883; 83986; 84100; 84156; 84157; 84300; 84443; 84460; 84478; 84484; 84540; 84550; 85025; 85027; 85610; 85730; 86706; 86803; 86850; 86900; 86901; 86922; 87070; 87075; 87086; 87102; 87116; 87186; 87205; 87206; 87210; 87340; 87517; 88108; 88305-TC; 93005; 93010; 93306-TC; 94010; 94760; 99285-25; C9803; J1644; J2597; P9038; P9047; P9058; U0003; U0005

== ENCOUNTER → 2020-11-19 | Day surgery (SDC) | payer OTHER ==
[2020-11-19 09:27] LABS: HEMOGLOBIN 9.9 GM/dL (11.7-16.9); MCH 31.4 pg (25.7-33.7); MEAN CELL VOLUME 98.1 fl (80-96); MEAN PLT VOLUME 8.6 fl (7.5-11.1); PLATELET COUNT 156 10^3/uL (134-434); RBC 3.16 M/mm3 (4.00-5.60); RDW 21.8 % (11.9-15.9); WHITE BLOOD COUNT 9.7 K/mm3 (4.0-10.0)
[2020-11-19 09:55] LABS: CALCIUM 8.9 mg/dL (8.5-10.1)
[2020-11-19 09:56] LABS: ALBUMIN 2.9 g/dl (3.4-5.0)
[2020-11-19 09:59] LABS: CREATININE 4.6 mg/dL (0.55-1.3)
[2020-11-19 10:01] LABS: BILIRUBIN,TOTAL 2.1 mg/dL (0.2-1); TOT PROT 6.8 g/dl (6.4-8.2)
[2020-11-19 10:07] LABS: BLOOD UREA NITROGEN 35.8 mg/dL (7-18)
[2020-11-19 11:06] LABS: ANISOCYTOSIS 1+; MACROCYTOSIS 2+; OVALOCYTE 1+; PLATELET ESTIMATE NORMAL; TARGET CELLS 1+; TEAR DROP CELLS 1+
== END | disposition home or self-care (01) ==
LOC: JONCCHEMO 11-05 06:52
PROVIDERS: ATTEND Internal Medicine Hematology & Oncology
PROC: 3E033GC Introduction of Other Therapeutic Substance into Peripheral Vein, Percutaneous Approach (ICD-10-PCS; principal; 2020-11-19)
DX: Z53.8 Procedure and treatment not carried out for other reasons (principal)
CPT/HCPCS: 36415; 80053; 85025

== ENCOUNTER 2020-12-15 12:59 | Inpatient (IN) | payer OTHER ==
[2020-12-15] MEDS ORDERED: LACTULOSE 20 GM/30 ML UDC (FOR ORAL USE ONLY) PO ONE (14:13)
[2020-12-15] MEDS ORDERED: POLYETHYLENE GLYCOL (HEALTHYLAX) 3350 17 GM PACKET PO ONE (14:13)
[2020-12-15] MEDS ORDERED: POLYETHYLENE GLYCOL (HEALTHYLAX) 3350 17 GM PACKET ONE (14:38)
[2020-12-15] MEDS ORDERED: LACTULOSE 20 GM/30 ML UDC (FOR ORAL USE ONLY) ONE (14:38)
[2020-12-15 14:55] LABS: HEMATOCRIT 34.6 % (35.4-49); HEMOGLOBIN 10.8 GM/dL (11.7-16.9); MCH 30.9 pg (25.7-33.7); MCHC 31.2 g/dl (32.0-35.9); MEAN PLT VOLUME 8.7 fl (7.5-11.1); PLATELET COUNT 203 10^3/uL (134-434); RDW 24.1 % (11.9-15.9)
[2020-12-15 15:01] LABS: INR 1.79 (0.83-1.09); PROTHROMBIN TIME (PATIENT) 20.2 SEC (9.7-13.0)
[2020-12-15 15:04] LABS: ACTIVATED PTT 35.7 SECONDS (25.2-36.5)
[2020-12-15 15:17] LABS: ALBUMIN 2.8 g/dl (3.4-5.0); BLOOD UREA NITROGEN 45.3 mg/dL (7-18); CALCIUM 9.2 mg/dL (8.5-10.1); MAGNESIUM 2.3 mg/dL (1.8-2.4)
[2020-12-15] MEDS ORDERED: ACETAMINOPHEN 1000 MG/100 ML VIAL IVPB ONE (15:17)
[2020-12-15] MEDS ORDERED: ACETAMINOPHEN INJECTION 100 ML IVPB ONE (15:19)
[2020-12-15 15:20] LABS: CREATININE 4.3 mg/dL (0.55-1.3)
[2020-12-15 15:22] LABS: BILIRUBIN,TOTAL 1.4 mg/dL (0.2-1); TOT PROT 7.2 g/dl (6.4-8.2)
[2020-12-15 15:31] LABS: ANISOCYTOSIS 2+; MACROCYTOSIS 1+; PLATELET ESTIMATE NORMAL
[2020-12-15 16:17] LABS: EPI CELLS 6 /uL (0-25.1); HYALINE CASTS 0 /uL (0-3.1); URINE APPEARANCE CLEAR; URINE BACTERIA 4 /uL (0-1359); URINE BILIRUBIN NEGATIVE (NEGATIVE); URINE COLOR YELLOW; URINE GLUCOSE (UA) NEGATIVE (NEGATIVE); URINE KETONE NEGATIVE (NEGATIVE); URINE LEUK ESTERASE TRACE (NEGATIVE); URINE NITRITE NEGATIVE (NEGATIVE); URINE PROTEIN 1+ (NEGATIVE); URINE RBC 47 /uL (0-23.9); URINE UROBILINOGEN 0.2 mg/dL (0.2-1.0); URINE WBC 36 /uL (0-25.8)
[2020-12-15 19:05] LABS: BLOOD UREA NITROGEN 47.8 mg/dL (7-18); CALCIUM 9.5 mg/dL (8.5-10.1)
[2020-12-15 19:09] LABS: CREATININE 4.4 mg/dL (0.55-1.3)
[2020-12-15] MEDS ORDERED: DIGOXIN 0.125 MG TABLET ONE (21:24)
[2020-12-15] MEDS ORDERED: CARVEDILOL 3.125 MG TABLET (FP) ONE (21:30)
[2020-12-15] MEDS: DIGOXIN 0.125 MG TABLET PO SCH (21:33)
[2020-12-15] MEDS: CARVEDILOL 3.125 MG TABLET (FP) PO SCH (21:33)
[2020-12-16] MEDS ORDERED: MIDODRINE HCL 5 MG TABLET PO ONE (06:33)
[2020-12-16 09:14] LABS: HEMATOCRIT 33.7 % (35.4-49); HEMOGLOBIN 10.7 GM/dL (11.7-16.9); MCHC 31.7 g/dl (32.0-35.9); MEAN CELL VOLUME 97.7 fl (80-96); MEAN PLT VOLUME 8.7 fl (7.5-11.1); PLATELET COUNT 223 10^3/uL (134-434); RBC 3.45 M/mm3 (4.00-5.60); RDW 23.6 % (11.9-15.9); WHITE BLOOD COUNT 5.5 K/mm3 (4.0-10.0)
[2020-12-16 09:49] LABS: ALBUMIN 2.7 g/dl (3.4-5.0); BLOOD UREA NITROGEN 54.6 mg/dL (7-18); CALCIUM 9.4 mg/dL (8.5-10.1)
[2020-12-16] MEDS: PANTOPRAZOLE 40 MG TABLET PO SCH (09:50)
[2020-12-16] MEDS: MIDODRINE HCL 5 MG TABLET PO SCH ×3 (09:50→17:35)
[2020-12-16 09:52] LABS: CREATININE 4.8 mg/dL (0.55-1.3)
[2020-12-16 09:55] LABS: BILIRUBIN,TOTAL 1.5 mg/dL (0.2-1)
[2020-12-16] MEDS ORDERED: SODIUM CHLORIDE 250 ML IV PRN (10:05)
[2020-12-16] MEDS: ALBUMIN HUMAN 25% 12.5 GM/50 ML VIAL IVPB SCH ×4 (10:30→12:17)
[2020-12-16 10:37] LABS: ANISOCYTOSIS 1+; MACROCYTOSIS 1+; PLATELET ESTIMATE NORMAL
[2020-12-16] MEDS ORDERED: PT OWN MED DRAWER 7, Y5N ONE (13:40)
[2020-12-16] MEDS: TORSEMIDE 20 MG TABLET (FP) PO SCH (14:08)
[2020-12-16] MEDS: CALCITRIOL 0.25 MCG CAPSULE (FP) PO SCH (14:10)
[2020-12-16] MEDS: CARVEDILOL 3.125 MG TABLET (FP) PO SCH ×2 (14:11→22:09)
[2020-12-16] MEDS ORDERED: POLYETHYLENE GLYCOL (HEALTHYLAX) 3350 17 GM PACKET PO ONE (14:13)
[2020-12-16] MEDS ORDERED: ACETAMINOPHEN 325 MG TABLET (FP) PO ONE (19:48)
[2020-12-17] MEDS: PANTOPRAZOLE 40 MG TABLET PO SCH (10:26)
[2020-12-17] MEDS: CALCITRIOL 0.25 MCG CAPSULE (FP) PO SCH (10:26)
[2020-12-17] MEDS: MIDODRINE HCL 5 MG TABLET PO SCH ×3 (10:26→17:50)
[2020-12-17] MEDS ORDERED: SODIUM CHLORIDE 250 ML IV PRN (13:32)
[2020-12-17 14:47] VITALS: BMI 20.9
[2020-12-17] MEDS: CARVEDILOL 3.125 MG TABLET (FP) PO SCH ×2 (14:57→23:55)
[2020-12-17] MEDS: TORSEMIDE 20 MG TABLET (FP) PO SCH (14:57)
[2020-12-18] MEDS: MIDODRINE HCL 5 MG TABLET PO SCH ×3 (10:27→18:29)
[2020-12-18] MEDS: PANTOPRAZOLE 40 MG TABLET PO SCH (10:27)
[2020-12-18] MEDS: TORSEMIDE 20 MG TABLET (FP) PO SCH (10:29)
[2020-12-18] MEDS: CARVEDILOL 3.125 MG TABLET (FP) PO SCH (10:29)
[2020-12-18] MEDS: CALCITRIOL 0.25 MCG CAPSULE (FP) PO SCH (10:30)
[2020-12-18] MEDS ORDERED: EPOETIN ALFA-EPBX 4,000 UNIT/ML VIAL IVPUSH ONE (11:30)
[2020-12-18 13:21] LABS: MCH 30.8 pg (25.7-33.7); MCHC 31.4 g/dl (32.0-35.9); MEAN CELL VOLUME 97.9 fl (80-96); MEAN PLT VOLUME 8.3 fl (7.5-11.1); PLATELET COUNT 190 10^3/uL (134-434); RBC 3.26 M/mm3 (4.00-5.60); RDW 24.7 % (11.9-15.9); WHITE BLOOD COUNT 5.4 K/mm3 (4.0-10.0)
[2020-12-18 13:42] LABS: BLOOD UREA NITROGEN 47.1 mg/dL (7-18); CALCIUM 9.1 mg/dL (8.5-10.1)
[2020-12-18] MEDS: ALBUMIN HUMAN 25% 12.5 GM/50 ML VIAL IVPB SCH (13:42)
[2020-12-18 13:45] LABS: CREATININE 4.6 mg/dL (0.55-1.3)
[2020-12-18] MEDS ORDERED: PT OWN MED DRAWER 7, Y5N ONE (15:12)
[2020-12-18] MEDS: LIDOCAINE 5% TOPICAL PATCH TP SCH (15:14)
[2020-12-18] MEDS: DIGOXIN 0.125 MG TABLET PO SCH (20:21)
[2020-12-18] MEDS: LIDOCAINE PATCH REMOVAL MC SCH (23:42)
[2020-12-19] MEDS: CARVEDILOL 3.125 MG TABLET (FP) PO SCH ×3 (01:46→22:29)
[2020-12-19] MEDS ORDERED: ACETAMINOPHEN 325 MG TABLET (FP) PO ONE (05:02)
[2020-12-19] MEDS: TORSEMIDE 20 MG TABLET (FP) PO SCH (10:25)
[2020-12-19] MEDS: MIDODRINE HCL 5 MG TABLET PO SCH ×3 (10:26→18:23)
[2020-12-19] MEDS: PANTOPRAZOLE 40 MG TABLET PO SCH (10:26)
[2020-12-19] MEDS: LIDOCAINE 5% TOPICAL PATCH TP SCH (10:26)
[2020-12-19] MEDS: CALCITRIOL 0.25 MCG CAPSULE (FP) PO SCH (10:28)
[2020-12-19] MEDS ORDERED: PT OWN MED DRAWER 7, Y5N ONE (17:37)
[2020-12-19] MEDS: LIDOCAINE PATCH REMOVAL MC SCH (21:22)
[2020-12-20] MEDS ORDERED: ACETAMINOPHEN 325 MG TABLET (FP) PO ONE (04:56)
[2020-12-20] MEDS ORDERED: PT OWN MED DRAWER 7, Y5N ONE (09:37)
[2020-12-20] MEDS: TORSEMIDE 20 MG TABLET (FP) PO SCH (09:49)
[2020-12-20] MEDS: LIDOCAINE 5% TOPICAL PATCH TP SCH (09:49)
[2020-12-20] MEDS: CARVEDILOL 3.125 MG TABLET (FP) PO SCH ×2 (09:49→21:44)
[2020-12-20] MEDS: PANTOPRAZOLE 40 MG TABLET PO SCH (09:49)
[2020-12-20] MEDS: MIDODRINE HCL 5 MG TABLET PO SCH ×3 (09:49→17:00)
[2020-12-20] MEDS: CALCITRIOL 0.25 MCG CAPSULE (FP) PO SCH (09:50)
[2020-12-20] MEDS ORDERED: SODIUM CHLORIDE 500 ML IV SCH (10:45)
[2020-12-20] MEDS ORDERED: SODIUM CHLORIDE 250 ML IV PRN (11:53)
[2020-12-20] MEDS ORDERED: MAG HYDROX/AL HYDROX/SIMETH 30 ML UNIT-DOSE CUP PO PRN (13:43)
[2020-12-20] MEDS: ACETAMINOPHEN 325 MG TABLET (FP) PO PRN (16:48)
[2020-12-20] MEDS: LIDOCAINE PATCH REMOVAL MC SCH (23:21)
[2020-12-21] MEDS: ACETAMINOPHEN 325 MG TABLET (FP) PO PRN (00:10)
[2020-12-21] MEDS: MIDODRINE HCL 5 MG TABLET PO SCH ×2 (10:00→13:33)
[2020-12-21] MEDS: CARVEDILOL 3.125 MG TABLET (FP) PO SCH (10:00)
[2020-12-21 10:02] LABS: HEMATOCRIT 34.2 % (35.4-49); HEMOGLOBIN 10.7 GM/dL (11.7-16.9); MCH 30.6 pg (25.7-33.7); MCHC 31.4 g/dl (32.0-35.9); MEAN CELL VOLUME 97.5 fl (80-96); MEAN PLT VOLUME 8.2 fl (7.5-11.1); PLATELET COUNT 185 10^3/uL (134-434); RDW 24.6 % (11.9-15.9); WHITE BLOOD COUNT 6.4 K/mm3 (4.0-10.0)
[2020-12-21 10:25] LABS: BLOOD UREA NITROGEN 56.7 mg/dL (7-18); CALCIUM 9.2 mg/dL (8.5-10.1)
[2020-12-21 10:28] LABS: CREATININE 5.5 mg/dL (0.55-1.3); PHOSPHOROUS 4.6 mg/dL (2.5-4.9)
[2020-12-21] MEDS ORDERED: PT OWN MED DRAWER 7, Y5N ONE (13:30)
[2020-12-21] MEDS: CALCITRIOL 0.25 MCG CAPSULE (FP) PO SCH (13:34)
[2020-12-21] MEDS: PANTOPRAZOLE 40 MG TABLET PO SCH (13:34)
[2020-12-21] MEDS: TORSEMIDE 20 MG TABLET (FP) PO SCH (13:35)
[2020-12-21] MEDS: LIDOCAINE 5% TOPICAL PATCH TP SCH (13:35)
[2020-12-21 15:02] VITALS: BP 111/57; PULSE 85; TEMP 97.9
[2020-12-21] MEDS ORDERED: APIXABAN 5 MG TABLET PO SCH (22:00)
== END 2020-12-21 17:43 | disposition home or self-care (01) | DRG 442 ==
LOC: JER 12:59 → JERBED 16:00 → J5S 22:48
PROVIDERS: ADMIT Internal Medicine; ATTEND Internal Medicine
PROC: 5A1D70Z Performance of Urinary Filtration, Intermittent, Less than 6 Hours Per Day (ICD-10-PCS; principal; 2020-12-16)
PROC: 5A1D70Z Performance of Urinary Filtration, Intermittent, Less than 6 Hours Per Day (ICD-10-PCS; 2020-12-18)
PROC: 0WHG33Z Insertion of Infusion Device into Peritoneal Cavity, Percutaneous Approach (ICD-10-PCS; 2020-12-20)
PROC: 5A1D70Z Performance of Urinary Filtration, Intermittent, Less than 6 Hours Per Day (ICD-10-PCS; 2020-12-21)
DX: K76.1 Chronic passive congestion of liver (principal); R18.8 Other ascites; I13.2 Hypertensive heart and chronic kidney disease with heart failure and with stage 5 chronic kidney disease, or end stage renal disease; N18.5 Chronic kidney disease, stage 5; I50.42 Chronic combined systolic (congestive) and diastolic (congestive) heart failure; N40.0 Benign prostatic hyperplasia without lower urinary tract symptoms; I48.91 Unspecified atrial fibrillation; M10.9 Gout, unspecified; M54.50 Low back pain, unspecified; I27.20 Pulmonary hypertension, unspecified; I34.0 Nonrheumatic mitral (valve) insufficiency; K57.90 Diverticulosis of intestine, part unspecified, without perforation or abscess without bleeding; K44.9 Diaphragmatic hernia without obstruction or gangrene; D63.8 Anemia in other chronic diseases classified elsewhere; Z95.810 Presence of automatic (implantable) cardiac defibrillator; Z87.11 Personal history of peptic ulcer disease; Z99.2 Dependence on renal dialysis
CPT/HCPCS: 36415; 49418; 71046-TC-FY; 76604; 76700-TC; 76705-TC; 80048; 80053; 80162; 81003; 83735; 84100; 84484; 85025; 85027; 85610; 85730; 86803; 87070; 87075; 87086; 87102; 87116; 87186; 87205; 87206; 87210; 87340; 88108; 88305-TC; 93005; 93010; 93308; 99285-25; C9803; J0131; P9047; Q5106; U0003; U0005

== ENCOUNTER 2021-03-16 00:37 | Observation (INO) | payer OTHER ==
[2021-03-16] MEDS ORDERED: ONDANSETRON 4 MG/2 ML VIAL IVPUSH ONE (01:38)
[2021-03-16] MEDS ORDERED: ONDANSETRON 4 MG/2 ML VIAL ONE (01:49)
[2021-03-16 02:29] LABS: INR 1.28 (0.83-1.09); PROTHROMBIN TIME (PATIENT) 14.7 SEC (9.7-13.0)
[2021-03-16 02:37] LABS: CHLORIDE 103 mmol/L (98-107); SODIUM 137 mmol/L (136-145)
[2021-03-16 02:39] LABS: ANION GAP 8 MMOL/L (8-16); CALCIUM 8.4 mg/dL (8.5-10.1); CO2 25 mmol/L (21-32)
[2021-03-16 02:40] LABS: ALBUMIN 3.3 g/dl (3.4-5.0); BLOOD UREA NITROGEN 44.7 mg/dL (7-18); GLUCOSE,RANDOM 134 mg/dL (74-106); LIPASE 482 U/L (73-393)
[2021-03-16 02:42] LABS: CREATININE 4.8 mg/dL (0.55-1.3)
[2021-03-16 02:43] LABS: SGOT/AST 24 U/L (15-37); SGPT/ALT 32 U/L (13-61)
[2021-03-16 02:44] LABS: BILIRUBIN,TOTAL 0.7 mg/dL (0.2-1); TOT PROT 7.5 g/dl (6.4-8.2)
[2021-03-16 02:45] LABS: ALK PHOS 227 U/L (45-117)
[2021-03-16 03:00] LABS: HEMATOCRIT 35.5 % (35.4-49); HEMOGLOBIN 10.8 GM/dL (11.7-16.9); MCH 30.6 pg (25.7-33.7); MCHC 30.4 g/dl (32.0-35.9); MEAN PLT VOLUME 7.5 fl (7.5-11.1); PLATELET COUNT 179 10^3/uL (134-434); RBC 3.51 M/mm3 (4.00-5.60); WHITE BLOOD COUNT 5.9 K/mm3 (4.0-10.0)
[2021-03-16 04:33] LABS: ANISOCYTOSIS 1+; MACROCYTOSIS 0; OVALOCYTE 1+; PLATELET ESTIMATE NORMAL; TARGET CELLS 1+; TEAR DROP CELLS 2+
[2021-03-16] MEDS ORDERED: ASPIRIN 81 MG CHEWABLE TABLETS PO ONE (05:49)
[2021-03-16] MEDS ORDERED: ONDANSETRON 4 MG/2 ML VIAL IVPUSH PRN (08:00)
[2021-03-16] MEDS ORDERED: POLYETHYLENE GLYCOL (HEALTHYLAX) 3350 17 GM PACKET PO PRN (13:44)
[2021-03-16] MEDS ORDERED: DIGOXIN 0.125 MG TABLET PO SCH (13:45)
[2021-03-16] MEDS ORDERED: DIGOXIN 0.125 MG TABLET ONE (14:48)
[2021-03-16] MEDS: MIDODRINE HCL 5 MG TABLET PO SCH ×2 (17:21)
[2021-03-16] MEDS ORDERED: SODIUM CHLORIDE 250 ML IV PRN (20:03)
[2021-03-16] MEDS: APIXABAN 2.5 MG TABLET PO SCH (21:57)
[2021-03-16] MEDS: CARVEDILOL 3.125 MG TABLET (FP) PO SCH (21:59)
[2021-03-17 07:39] LABS: HEMATOCRIT 32.1 % (35.4-49); HEMOGLOBIN 9.9 GM/dL (11.7-16.9); MCH 30.9 pg (25.7-33.7); MCHC 30.9 g/dl (32.0-35.9); MEAN CELL VOLUME 100.2 fl (80-96); MEAN PLT VOLUME 8.1 fl (7.5-11.1); PLATELET COUNT 168 10^3/uL (134-434); RBC 3.21 M/mm3 (4.00-5.60); RDW 24.1 % (11.9-15.9); WHITE BLOOD COUNT 5.6 K/mm3 (4.0-10.0)
[2021-03-17 08:00] LABS: CHLORIDE 103 mmol/L (98-107)
[2021-03-17 08:09] LABS: LIPASE 328 U/L (73-393)
[2021-03-17 08:11] LABS: ANION GAP 9 MMOL/L (8-16)
[2021-03-17] MEDS: MIDODRINE HCL 5 MG TABLET PO SCH ×3 (09:06→17:57)
[2021-03-17 09:29] LABS: ANISOCYTOSIS 1+; MACROCYTOSIS 1+; OVALOCYTE 1+; PLATELET ESTIMATE NORMAL
[2021-03-17] MEDS: CALCITRIOL 0.25 MCG CAPSULE (FP) PO SCH (11:03)
[2021-03-17] MEDS: CARVEDILOL 3.125 MG TABLET (FP) PO SCH ×2 (11:03→21:45)
[2021-03-17] MEDS: APIXABAN 2.5 MG TABLET PO SCH ×2 (11:03→21:48)
[2021-03-17] MEDS: PANTOPRAZOLE 40 MG TABLET PO SCH (11:03)
[2021-03-17] MEDS: predniSONE 20 MG TABLET (UD) PO SCH (21:44)
[2021-03-18] MEDS: PANTOPRAZOLE 40 MG TABLET PO SCH (09:40)
[2021-03-18] MEDS: MIDODRINE HCL 5 MG TABLET PO SCH ×2 (09:40→14:50)
[2021-03-18] MEDS: CARVEDILOL 3.125 MG TABLET (FP) PO SCH (09:40)
[2021-03-18] MEDS: CALCITRIOL 0.25 MCG CAPSULE (FP) PO SCH (09:40)
[2021-03-18] MEDS: APIXABAN 2.5 MG TABLET PO SCH (09:41)
[2021-03-18] MEDS: predniSONE 20 MG TABLET (UD) PO SCH (09:41)
[2021-03-18 11:20] LABS: CALCIUM 9.4 mg/dL (8.5-10.1)
[2021-03-18 11:21] LABS: ALBUMIN 2.9 g/dl (3.4-5.0); BLOOD UREA NITROGEN 34.1 mg/dL (7-18)
[2021-03-18 11:24] LABS: CREATININE 5.1 mg/dL (0.55-1.3)
[2021-03-18 11:26] LABS: TOT PROT 6.6 g/dl (6.4-8.2)
[2021-03-18 12:20] LABS: URIC ACID 4.6 mg/dL (2.6-7.2)
[2021-03-18 15:40] VITALS: BP 99/55; PULSE 73; TEMP 98.2
[2021-03-18 19:16] LABS: ALBUMIN 2.8 g/dl (3.4-5.0); ALK PHOS 182 U/L (45-117); BILIRUBIN,TOTAL 0.9 mg/dL (0.2-1); BLOOD UREA NITROGEN 53.5 mg/dL (7-18); CALCIUM 9.2 mg/dL (8.5-10.1); CO2 25 mmol/L (21-32); CREATININE 6.4 mg/dL (0.55-1.3); GLUCOSE,RANDOM 73 mg/dL (74-106); MAGNESIUM 2.4 mg/dL (1.8-2.4); SGOT/AST 24 U/L (15-37); SGPT/ALT 28 U/L (13-61); SODIUM 137 mmol/L (136-145); TOT PROT 6.3 g/dl (6.4-8.2)
[2021-03-19 09:45] VITALS: BMI 16.7
== END 2021-03-18 16:26 | disposition home or self-care (01) ==
LOC: JER 00:37 → JERBED 03:03 → J4W 21:16
PROVIDERS: ADMIT Internal Medicine; ATTEND Internal Medicine
PROC: 3E033NZ Introduction of Analgesics, Hypnotics, Sedatives into Peripheral Vein, Percutaneous Approach (ICD-10-PCS; principal; 2021-03-16)
PROC: 3E0337Z Introduction of Electrolytic and Water Balance Substance into Peripheral Vein, Percutaneous Approach (ICD-10-PCS; 2021-03-16)
PROC: 3E033GC Introduction of Other Therapeutic Substance into Peripheral Vein, Percutaneous Approach (ICD-10-PCS; 2021-03-16)
DX: K40.20 Bilateral inguinal hernia, without obstruction or gangrene, not specified as recurrent (principal); N18.6 End stage renal disease; R10.84 Generalized abdominal pain; R79.89 Other specified abnormal findings of blood chemistry; Z99.2 Dependence on renal dialysis; N40.0 Benign prostatic hyperplasia without lower urinary tract symptoms; D64.9 Anemia, unspecified; I48.91 Unspecified atrial fibrillation; Z98.890 Other specified postprocedural states; Z87.891 Personal history of nicotine dependence; Z88.0 Allergy status to penicillin; Z91.018 Allergy to other foods; M79.674 Pain in right toe(s)
CPT/HCPCS: 36415; 73630-TC-RT-FY; 74177-TC; 80053; 80162; 82550; 83605; 83690; 83735; 83880; 84153; 84484; 84550; 85025; 85610; 86850; 86900; 86901; 87340; 93005; 93010; 96374; 96375; 97116-GP; 97161-GP; 99285-25; C9803; G0378; U0003; U0005

== ENCOUNTER 2021-06-25 11:11 | Emergency (ER) | payer OTHER ==
[2021-06-25 11:28] VITALS: BMI 18.4
[2021-06-25 12:24] LABS: VENOUS O2 SATURATION 41.7 % (70-80); VENOUS PH 7.269 (7.310-7.410)
[2021-06-25 12:37] LABS: BASO % 0.4 % (0-2.0); HEMATOCRIT 24.6 % (35.4-49); HEMOGLOBIN 7.4 GM/dL (11.7-16.9); LYMPH % 11.1 % (8-40); MCHC 30.2 g/dl (32.0-35.9); MEAN CELL VOLUME 102.5 fl (80-96); MEAN PLT VOLUME 8.4 fl (7.5-11.1); MONO % 9.5 % (3.8-10.2); PLATELET COUNT 138 10^3/uL (134-434); WHITE BLOOD COUNT 6.7 K/mm3 (4.0-10.0)
[2021-06-25 12:43] LABS: INR 1.05 (0.83-1.09); PROTHROMBIN TIME (PATIENT) 12.1 SEC (9.7-13.0)
[2021-06-25 12:46] LABS: ACTIVATED PTT 31.3 SECONDS (25.2-36.5)
[2021-06-25 12:47] LABS: CHLORIDE 101 mmol/L (98-107); SODIUM 136 mmol/L (136-145)
[2021-06-25 12:49] LABS: BLOOD UREA NITROGEN 54.8 mg/dL (7-18); CALCIUM 8.5 mg/dL (8.5-10.1); GLUCOSE,RANDOM 104 mg/dL (74-106)
[2021-06-25 12:50] LABS: ANION GAP 8 MMOL/L (8-16); CO2 27 mmol/L (21-32)
[2021-06-25 12:52] LABS: SGPT/ALT 12 U/L (13-61)
[2021-06-25 12:53] LABS: SGOT/AST 25 U/L (15-37)
[2021-06-25 12:54] LABS: BILIRUBIN,TOTAL 1.5 mg/dL (0.2-1); TOT PROT 6.3 g/dl (6.4-8.2)
[2021-06-25 12:55] LABS: ALK PHOS 132 U/L (45-117)
[2021-06-25 13:23] LABS: ANISOCYTOSIS 2+; MACROCYTOSIS 2+
[2021-06-25 17:35] VITALS: BP 96/62; PULSE 81
[2021-06-25 19:20] VITALS: TEMP 98.9
== END 2021-06-25 19:21 ==
LOC: JER 11:11
DX: R07.9 Chest pain, unspecified (principal)
CPT/HCPCS: 36415; 71045-TC-FY; 74177-TC; 80053; 82553; 82803; 83605; 84484; 85025; 85610; 85730; 86850; 86900; 86901; 87040; 93005; 93010; 99285-25; C9803-CS; U0003; U0005

== ENCOUNTER 2021-09-16 04:21 | Day surgery (SDC) | payer OTHER ==
[2021-09-14 12:10] VITALS: BMI 18.3
[2021-09-16] MEDS ORDERED: BUPIVACAINE HCL/PF 0.5% (5MG/ML) 10 ML VIAL ONE (13:31)
[2021-09-16] MEDS ORDERED: LIDOCAINE HCL 2% 100 MG/5 ML DISP.SYRIN ONE (14:48)
[2021-09-16] MEDS ORDERED: SUCCINYLCHOLINE CHLORIDE 200 MG/10 ML SYRINGE ONE (14:48)
[2021-09-16] MEDS ORDERED: PROPOFOL 20 ML ONE (14:48)
[2021-09-16] MEDS ORDERED: ROCURONIUM BROMIDE 50 MG/5 ML SYRINGE ONE (15:02)
[2021-09-16] MEDS ORDERED: ETOMIDATE 20 MG/10 ML AMPUL IVPUSH ONE ×2 (15:47→15:49)
[2021-09-16] MEDS ORDERED: ceFAZolin SODIUM 1 GM VIAL IVPB ONE (16:00)
[2021-09-16] MEDS ORDERED: ceFAZolin SODIUM 1 GM VIAL ONE (16:05)
[2021-09-16] MEDS ORDERED: DEXAMETHASONE SOD PHOSPHATE 4 MG/1 ML VIAL ONE (16:07)
[2021-09-16] MEDS ORDERED: NEOSTIGMINE METHYLSULFATE 0.5 MG/ML - 10 ML MDV ONE (16:18)
[2021-09-16] MEDS ORDERED: GLYCOPYRROLATE 0.2 MG/1 ML VIAL ONE (16:18)
[2021-09-16] MEDS ORDERED: BUPIVACAINE HCL/PF 0.5% (5MG/ML) 10 ML VIAL NR ONE (16:45)
[2021-09-16] MEDS ORDERED: ONDANSETRON 4 MG/2 ML VIAL IVPUSH PRN (17:12)
[2021-09-16] MEDS ORDERED: ACETAMINOPHEN 500 MG TABLET (FP) PO PRN (17:12)
[2021-09-16] MEDS ORDERED: SODIUM CHLORIDE 1,000 ML IV SCH (17:15)
[2021-09-16 19:04] VITALS: BP 108/60; PULSE 58; RESP 16; TEMP 98
== END 2021-09-16 19:00 | disposition home or self-care (01) ==
LOC: JASU-SURG 04:21
PROVIDERS: ATTEND Surgery
PROC: 0WHG43Z Insertion of Infusion Device into Peritoneal Cavity, Percutaneous Endoscopic Approach (ICD-10-PCS; principal; 2021-09-16 15:30)
DX: I12.0 Hypertensive chronic kidney disease with stage 5 chronic kidney disease or end stage renal disease (principal); N18.6 End stage renal disease; Z99.2 Dependence on renal dialysis
CPT/HCPCS: 36415; 84132; 94760; J1644

== ENCOUNTER 2021-09-22 15:33 | Emergency (ER) | payer OTHER ==
[2021-09-22 15:49] VITALS: BP 104/68; PULSE 56; RESP 18; TEMP 97.8; BMI 18.7
[2021-09-22 18:08] LABS: BASO % 1.1 % (0-2.0); EOS % 1.3 % (0-4.5); HEMATOCRIT 36.7 % (35.4-49); HEMOGLOBIN 11.4 GM/dL (11.7-16.9); LYMPH % 14.3 % (8-40); MCH 31.5 pg (25.7-33.7); MCHC 31.2 g/dl (32.0-35.9); MEAN CELL VOLUME 101.1 fl (80-96); MEAN PLT VOLUME 8.2 fl (7.5-11.1); MONO % 13.7 % (3.8-10.2); NEUT % 69.6 % (42.8-82.8); PLATELET COUNT 114 10^3/uL (134-434); RBC 3.63 M/mm3 (4.00-5.60); RDW 22.8 % (11.9-15.9); WHITE BLOOD COUNT 6.2 K/mm3 (4.0-10.0)
[2021-09-22 18:36] LABS: ALBUMIN 3.2 g/dl (3.4-5.0); CALCIUM 8.7 mg/dL (8.5-10.1)
[2021-09-22 18:37] LABS: BLOOD UREA NITROGEN 17.8 mg/dL (7-18)
[2021-09-22 18:39] LABS: CREATININE 4.1 mg/dL (0.55-1.3)
[2021-09-22 18:41] LABS: BILIRUBIN,TOTAL 1.1 mg/dL (0.2-1)
[2021-09-22 18:56] LABS: ANISOCYTOSIS 2+; MACROCYTOSIS 2+; OVALOCYTE 1+; TARGET CELLS 1+; TEAR DROP CELLS 2+
== END 2021-09-22 19:56 | disposition home or self-care (01) ==
LOC: JER 15:33
DX: Z48.00 Encounter for change or removal of nonsurgical wound dressing (principal)
CPT/HCPCS: 36415; 80053; 85025; 99283-25

== ENCOUNTER → 2022-01-27 | Day surgery (SDC) | payer OTHER ==
[2022-01-11 17:06] VITALS: BMI 19.0
[~2022-01-27] MED LIST changes: -EPOETIN ALFA-EPBX 10,000 UNIT/ML VIAL SQ ONE; +FENTANYL CITRATE/PF 50 MCG/ML VIAL ONE; +HEPARIN NA (PORCINE) 5,000 UNITS/ML 1ML VIAL ONE; +HEPARIN NA (PORCINE) 5,000 UNITS/ML 1ML VIAL SQ ONE; +KETAMINE HCL 500 MG/10 ML VIAL ONE; +LIDOCAINE HCL 1%, 10 MG/ML (20ML VIAL) NR ONE; +LIDOCAINE HCL 1%, 10 MG/ML (20ML VIAL) ONE; +LIDOCAINE HCL/PF 2% SDV 5ML VIAL ONE; +MIDAZOLAM HCL 2 MG/2 ML SINGLE DOSE VIAL ONE; +ONDANSETRON 4 MG/2 ML VIAL IVPUSH PRN; +PAPAVERINE HCL 30 MG/1 ML 10 ML VIAL NR ONE; +POVIDONE-IODINE 10% SOLN 118 ML BOTTLE TP ONE; +POVIDONE-IODINE OINTMENT 10% - 28.4 GM TUBE ONE; +PROPOFOL 20 ML ONE; +ROCURONIUM BROMIDE 50 MG/5 ML SYRINGE ONE; +SODIUM CHLORIDE 1,000 ML IV SCH; +THROMBIN (BOVINE) 5,000 UNIT VIAL TP ONE; +ceFAZolin SODIUM 1 GM VIAL IVPB ONE; +ceFAZolin SODIUM 1 GM VIAL ONE; +oxyCODONE HCL 5 MG TABLET ONE; +oxyCODONE HCL 5 MG TABLET PO PRN
[2022-01-27 18:45] VITALS: RESP 20; TEMP 96.8
[2022-01-27 19:37] VITALS: BP 127/68; PULSE 78
== END | disposition home or self-care (01) ==
LOC: JASU-SURG 04:31
PROVIDERS: ATTEND Surgery
PROC: 031 Upper Arteries, Bypass (ICD-10-PCS; principal; 2022-01-27 15:00)
PROC: 0WPG03Z Removal of Infusion Device from Peritoneal Cavity, Open Approach (ICD-10-PCS; 2022-01-27 15:00)
DX: I12.0 Hypertensive chronic kidney disease with stage 5 chronic kidney disease or end stage renal disease (principal); N18.6 End stage renal disease; Z99.2 Dependence on renal dialysis
CPT/HCPCS: 36415; 84132; 94760; J1644

== ENCOUNTER 2022-05-26 20:38 | Observation (INO) | payer OTHER ==
[2022-05-26] MEDS ORDERED: TRANEXAMIC ACID 1000 MG/10 ML VIAL ONE (23:14)
[2022-05-26] MEDS ORDERED: SODIUM CHLORIDE 0.9% 500 ML INFUS.BAG IV ONE (23:23)
[2022-05-27] MEDS ORDERED: TRANEXAMIC ACID 1000 MG/10 ML VIAL ONE (00:16)
[2022-05-27 00:19] LABS: BASO % 0.7 % (0-2.0); EOS % 0.7 % (0-4.5); HEMATOCRIT 34.5 % (35.4-49); HEMOGLOBIN 10.5 GM/dL (11.7-16.9); LYMPH % 17.8 % (8-40); MCH 31.4 pg (25.7-33.7); MCHC 30.4 g/dl (32.0-35.9); MEAN CELL VOLUME 103.3 fl (80-96); MONO % 14.1 % (3.8-10.2); NEUT % 66.7 % (42.8-82.8); PLATELET COUNT 121 10^3/uL (134-434); RBC 3.34 M/mm3 (4.00-5.60); RDW 23.7 % (11.9-15.9); WHITE BLOOD COUNT 7.6 K/mm3 (4.0-10.0)
[2022-05-27 00:26] LABS: INR 1.45 (0.83-1.09); PROTHROMBIN TIME (PATIENT) 16.8 SEC (9.7-13.0)
[2022-05-27 00:29] LABS: ACTIVATED PTT 34.6 SECONDS (25.2-36.5)
[2022-05-27 00:41] LABS: CALCIUM 8.6 mg/dL (8.5-10.1)
[2022-05-27 00:42] LABS: ALBUMIN 2.8 g/dl (3.4-5.0); BLOOD UREA NITROGEN 45.4 mg/dL (7-18)
[2022-05-27 00:45] LABS: CREATININE 6.8 mg/dL (0.55-1.3)
[2022-05-27 00:47] LABS: BILIRUBIN,TOTAL 0.9 mg/dL (0.2-1); TOT PROT 6.6 g/dl (6.4-8.2)
[2022-05-27] MEDS ORDERED: ERGOCALCIFEROL (VIT D2) 50,000 UNIT (1.25 MG) CAPSULE PO SCH (04:15)
[2022-05-27 04:45] LABS: ANISOCYTOSIS 1+; MACROCYTOSIS 1+; OVALOCYTE 2+; TARGET CELLS 1+; TEAR DROP CELLS 1+
[2022-05-27 06:52] LABS: HEMATOCRIT 32.2 % (35.4-49); HEMOGLOBIN 9.9 GM/dL (11.7-16.9); MCH 31.5 pg (25.7-33.7); MCHC 30.9 g/dl (32.0-35.9); MEAN CELL VOLUME 102.2 fl (80-96); PLATELET COUNT 116 10^3/uL (134-434); RBC 3.15 M/mm3 (4.00-5.60); RDW 23.7 % (11.9-15.9); WHITE BLOOD COUNT 7.2 K/mm3 (4.0-10.0)
[2022-05-27 07:11] LABS: CALCIUM 8.4 mg/dL (8.5-10.1)
[2022-05-27 07:15] LABS: CREATININE 6.9 mg/dL (0.55-1.3)
[2022-05-27 07:24] LABS: INR 1.42 (0.83-1.09); PROTHROMBIN TIME (PATIENT) 16.4 SEC (9.7-13.0)
[2022-05-27] MEDS: SEVELAMER CARBONATE 800 MG TAB (FP) PO SCH ×2 (08:21→12:10)
[2022-05-27] MEDS ORDERED: FERROUS SO4 325 MG TABLET (FP) PO SCH (10:00)
[2022-05-27 10:19] VITALS: BMI 19.9
[2022-05-27 10:22] VITALS: RESP 18
[2022-05-27] MEDS ORDERED: SODIUM CHLORIDE 250 ML IV PRN (12:07)
[2022-05-27] MEDS ORDERED: EPOETIN ALFA-EPBX 3,000 UNIT/ML VIAL SQ ONE (13:00)
[2022-05-27 15:42] VITALS: BP 97/65; PULSE 91; TEMP 98.1
== END 2022-05-27 16:05 | disposition home or self-care (01) ==
LOC: JER 20:38 → JERBED 05-27 02:33 → J6S 05-27 06:49
PROVIDERS: ADMIT Internal Medicine; ATTEND Internal Medicine
PROC: 3E023GC Introduction of Other Therapeutic Substance into Muscle, Percutaneous Approach (ICD-10-PCS; principal; 2022-05-27)
PROC: 3E0337Z Introduction of Electrolytic and Water Balance Substance into Peripheral Vein, Percutaneous Approach (ICD-10-PCS; 2022-05-27)
DX: T82.9XXA Unspecified complication of cardiac and vascular prosthetic device, implant and graft, initial encounter (principal); N18.6 End stage renal disease; Z99.2 Dependence on renal dialysis; Z88.0 Allergy status to penicillin; Z91.018 Allergy to other foods; N40.0 Benign prostatic hyperplasia without lower urinary tract symptoms; D64.9 Anemia, unspecified; Z87.891 Personal history of nicotine dependence; Y99.8 Other external cause status
CPT/HCPCS: 36415; 71045-TC-FY; 80048; 80053; 85025; 85027; 85610; 85730; 86803; 86850; 86900; 86901; 87340; 93005; 93010; 96372; 99285-25; C9803-CS; G0378; Q5106; U0003; U0005